=== PATIENT | female | born 1950 | race Caucasian/White ===

== ENCOUNTER → 2018-11-19 | Outpatient (CLI) | payer MEDICARE, OTHER, SELFPAY ==
--- NOTE | 2018-11-19 08:53 | AAVD_ITS ---
Reason For Study: HTN Aorta Measurements Aorta Doppler Measurements Proximal aorta measures1.65 x 1.75cm. in cross- Peak systolic flow velocities within the proximal sectional axis. aorta measure 54.5 cm/sec. Proximal aorta measures1.86cm. in longitudinal Peak systolic flow velocities within the mid aorta axis. measure 55.9 cm/sec. Mid aorta measures1.24 x 1.35cm. in cross- Peak systolic flow velocities within the distal sectional axis. aorta measure 68.6 cm/sec. Mid aorta measures1.32cm. in longitudinal axis. Distal aorta measures1.35 x 1.33cm. in cross- sectional axis. Distal aorta measures1.35cm. in longitudinal axis. Left Iliac Artery Left iliac artery measures 0.76 x 0.76 cm. in the cross-sectional axis. Peak systolic velocity in the left iliac artery measures 69.4 cm/sec. Left iliac artery measures 0.69 cm. in the longitudinal axis. Right Iliac Artery Right iliac artery measures 0.74 x 0.97 cm. in the cross-sectional axis. Right iliac artery measures 0.61 cm. in the longitudinal axis. Peak systolic velocity in the right iliac artery measures 48.5 cm/sec. Procedure Aorta IVC Iliac vasculature or bypass grafts [id number]. Technically difficult due to gas. Exam performed in department. Interpretation Summary 1. no aortoiliac aneurysm or stenosis seen. Ordering Physician: Elia White Referring Physician: Jj Campbell Performed By: Kassie Kumar, DENNIS, RVT
== END | disposition home or self-care (01) ==
LOC: CVS 08:49
PROVIDERS: Family Provider Preventive Medicine Occupational Medicine; PCP Preventive Medicine Occupational Medicine; Referring Provider Surgery Vascular Surgery; Visit Provider Surgery Vascular Surgery
DX: I10 Essential (primary) hypertension (principal); I72.0 Aneurysm of carotid artery; K21.9 Gastro-esophageal reflux disease without esophagitis; M81.0 Age-related osteoporosis without current pathological fracture; M19.90 Unspecified osteoarthritis, unspecified site; Z86.718 Personal history of other venous thrombosis and embolism
CPT/HCPCS: 93978

== ENCOUNTER → 2019-02-11 16:15 | Outpatient (CLI) | payer MEDICARE, OTHER, SELFPAY ==
--- NOTE | 2019-02-11 16:19 | VDLE_ITS ---
Reason For Study: PAIN Procedure LEFT Exam performed in department. GSV is normal. A preliminary report was called and/or CFV is compressible, spontaneous, phasic, faxed to [facility]. competent, and demonstrates normal augmentation. FV is compressible, spontaneous, phasic, competent and demonstrates normal augmentation. PTV is compressible. LT PerV is compressible. Left POPV is PARTIALLY compressible. Left T/P Trunk is DILATED and NONCOMPRESSIBLE . Interpretation Summary Acute deep vein thrombosis is noted in the left popliteal vein. Acute deep vein thrombosis is noted in the left tibio-peroneal trunk. The remainder of the left lower extremity deep venous system is patent and compressible. The left common femoral vein and femoral vein are competent. The left great saphenous vein appears patent and compressible segmentally. Ordering Physician: Marcos Manuel Referring Physician: AMOS LANZA Performed By: Cadence Mckeon RDCS, RVT
== END ==
PROVIDERS: Family Provider Preventive Medicine Occupational Medicine; PCP Preventive Medicine Occupational Medicine; Referring Provider Podiatrist Foot & Ankle Surgery; Visit Provider Podiatrist Foot & Ankle Surgery
DX: M79.662 Pain in left lower leg (principal)
CPT/HCPCS: 93971

== ENCOUNTER → 2019-03-06 12:11 | Outpatient (CLI) | payer MEDICARE, OTHER, SELFPAY ==
[2019-02-25 07:34] VITALS: BMI 27.1
[2019-03-06 12:48] VITALS: PULSE 102; PULSE 105; PULSE 106; PULSE 108; PULSE 109; PULSE 113; PULSE 93; PULSE 95; O2SAT 93; O2SAT 94; O2SAT 95; O2SAT 96; O2SAT 97
--- NOTE | 2019-03-07 10:20 | PCM.PSN.6M ---
PSN 6 Minute Walk Test - 6 Minute Walk Test 6 Minute Walk Test: 6 Minute Walk Test PSN:6-Minute Walk Test Start: 03/06/19 12:48 Freq: Status: Active Protocol: RESP.6MINW Document 03/06/19 12:48 KATHERINE (Rec: 03/06/19 12:50 ARMENON [id number]) 6 Minute Walk Test Date Performed 03/06/19 Time Performed 12:30 Height 5 ft Weight: 130 lb Weight in Pounds 130.[address]: Artis Gonzalez Assistive device used: None Pre-test Oxygen Delivery Method Room Air Pulse Ox (%) 94 Pulse Rate (60-100 beats/min) 95 Dyspnea Faraz Scale (0-10) 0 Exertion Faraz Scale (6-20) 6 1st minute Oxygen Delivery Method Room Air Pulse Ox (%) 95 Pulse Rate (60-100 beats/min) 108 H 2nd minute Oxygen Delivery Method Room Air Pulse Ox (%) 94 Pulse Rate (60-100 beats/min) 102 H 3rd minute Oxygen Delivery Method Room Air Pulse Ox (%) 95 Pulse Rate (60-100 beats/min) 113 H 4th minute Oxygen Delivery Method Room Air Pulse Ox (%) 96 Pulse Rate (60-100 beats/min) 106 H 5th minute Oxygen Delivery Method Room Air Pulse Ox (%) 94 Pulse Rate (60-100 beats/min) 105 H 6th minute Oxygen Delivery Method Room Air Pulse Ox (%) 93 Pulse Rate (60-100 beats/min) 109 H Dyspnea Faraz Scale (0-10) 5 Exertion Faraz Scale (6-20) 14 Post-test Oxygen Delivery Method Room Air Pulse Ox (%) 97 Pulse Rate (60-100 beats/min) 93 Full Laps Walked 12 Partial Lap, Number of Tiles Walked 32 Total Distance Walked (ft) 740 - Interpretation Interpretation: The patient ambulated 740 feet over the course of 6 minutes beginning on room air without assistive devices or breaks. Pretesting oxygen saturation was noted to be 94% on room air. With ambulation, the keyanna oxygen saturation was 93%. Although there was evidence of impaired walk distance, there was no significant exertional oxygen desaturation. - Recommendations Recommendations: There is no indication for the use of supplemental oxygen at this time.
== END ==
PROVIDERS: Family Provider Preventive Medicine Occupational Medicine; PCP Preventive Medicine Occupational Medicine; Referring Provider Internal Medicine Critical Care Medicine; Visit Provider Internal Medicine Critical Care Medicine
DX: R06.09 Other forms of dyspnea (principal)
CPT/HCPCS: 94618

== ENCOUNTER → 2019-03-21 10:41 | Outpatient (CLI) | payer MEDICARE, OTHER, SELFPAY ==
[2019-02-25 07:34] VITALS: BMI 27.1
--- NOTE | 2019-03-22 10:32 | PFT ---
INTRODUCTION: The patient is a 69-year-old female that presents for pulmonary function studies secondary to a diagnosis of dyspnea. Respiratory therapy reports good patient effort. Bronchodilators were used during testing. INTERPRETATION: Forced expiration spirometry demonstrates the presence of a moderately severe large airways obstructive ventilatory defect. There was a significant response to aerosolized bronchodilators, based upon change noted in FVC. Spirograms are of good quality and do not plateau indicating slow emptying of the lungs. Body plethysmography was performed and reveals lung volumes to be within normal limits. Diffusing capacity by single breath CO is reduced at 49% of predicted. IMPRESSION: Partially reversible moderately severe large airways obstructive ventilatory defect with symmetric reduction in diffusing capacity.
== END ==
PROVIDERS: Family Provider Preventive Medicine Occupational Medicine; PCP Preventive Medicine Occupational Medicine; Referring Provider Internal Medicine Critical Care Medicine; Visit Provider Internal Medicine Critical Care Medicine
DX: R06.09 Other forms of dyspnea (principal)
CPT/HCPCS: 94060; 94726; 94729

== ENCOUNTER → 2019-04-08 08:37 | Outpatient (CLI) | payer MEDICARE, OTHER, SELFPAY ==
[2019-02-25 07:34] VITALS: BMI 27.1
--- NOTE | 2019-04-08 08:41 | AAVD_ITS ---
Reason For Study: Hx Blood clots Aorta Measurements Aorta Doppler Measurements Proximal aorta measures1.32 x 1.30cm. in cross- Peak systolic flow velocities within the proximal sectional axis. aorta measure 40.2 cm/sec. Proximal aorta measures1.34cm. in longitudinal Peak systolic flow velocities within the mid aorta axis. measure 45.9 cm/sec. Mid aorta measures1.27 x 1.25cm. in cross- Peak systolic flow velocities within the distal sectional axis. aorta measure 62.9 cm/sec. Mid aorta measures1.27cm. in longitudinal axis. Distal aorta measures1.12 x 1.12cm. in cross- sectional axis. Distal aorta measures1.12cm. in longitudinal axis. IVC prox measures 1.29 x 1.24 cm with normal venous flow. IVC mid measures 0.93 x 1.04 cm with normal venous flow. IVC distal measures 0.84 x 1.11 cm with normal venous flow. Left Iliac Artery Left iliac artery measures 0.68 x 0.66 cm. in the cross-sectional axis. Left iliac artery measures 0.67 cm. in the longitudinal axis. Peak systolic velocity in the left iliac artery measures 0.83 cm/sec. Right Iliac Artery Right iliac artery measures 0.73 x 0.71 cm. in the cross-sectional axis. Right iliac artery measures 0.73 cm. in the longitudinal axis. Peak systolic velocity in the right iliac artery measures 103.9 cm/sec. Procedure Aorta IVC Iliac vasculature or bypass grafts [id number]. Exam performed in department. Interpretation Summary 1. No aortoiliac aneurysm or occlussive disease noted. 2. IVC appears patent with normal flow. Ordering Physician: Elia White Referring Physician: Jj Campbell Performed By: Mandi Reed RVT
== END ==
PROVIDERS: PCP Preventive Medicine Occupational Medicine; Referring Provider Surgery Vascular Surgery; Visit Provider Surgery Vascular Surgery
DX: Z95.828 Presence of other vascular implants and grafts (principal); Z86.718 Personal history of other venous thrombosis and embolism
CPT/HCPCS: 93978

== ENCOUNTER → 2019-12-24 09:54 | Outpatient (CLI) | payer MEDICARE, OTHER, SELFPAY ==
[2019-05-22 10:51] VITALS: BMI 27.1
--- NOTE | 2019-12-25 13:00 | PFT ---
INTRODUCTION: The patient is a 69-year-old female that presents for pulmonary function studies secondary to a diagnosis of COPD. Respiratory therapy reports good patient effort. Bronchodilators were used during testing. INTERPRETATION: Forced expiration spirometry demonstrates the presence of a moderate large airways obstructive ventilatory defect. There was no significant response to aerosolized bronchodilators, based upon strict ATS criteria. Spirograms are of fair quality and do not plateau indicating slow emptying of the lungs. Body plethysmography was performed and revealed an elevated RV to 152% of predicted, indicative of underlying air trapping. Diffusing capacity by single breath CO is severely reduced at 35% of predicted. When compared to previous pulmonary function studies from February 2019 there has been improvement in the patient's FEV 1 by 20% along with a 26% reduction in DLCO. IMPRESSION: Irreversible moderate large airways obstructive ventilatory defect with associated air trapping and disproportionate reduction in diffusing capacity. There have been changes in the patient's pulmonary function studies since February 2019, as noted above.
== END ==
PROVIDERS: PCP Preventive Medicine Occupational Medicine; Referring Provider Nurse Practitioner Acute Care; Visit Provider Nurse Practitioner Acute Care
DX: J44.9 Chronic obstructive pulmonary disease, unspecified (principal)
CPT/HCPCS: 94060; 94726; 94729

== ENCOUNTER → 2019-12-25 09:51 | Outpatient (CLI) | payer MEDICARE, OTHER, SELFPAY ==
[2019-05-22 10:51] VITALS: BMI 27.1
[2019-12-25 10:35] VITALS: PULSE 69; PULSE 73; PULSE 82; PULSE 91; PULSE 92; PULSE 95; PULSE 96; O2SAT 91; O2SAT 93; O2SAT 94; O2SAT 95; O2SAT 96
--- NOTE | 2019-12-27 07:43 | WT_ITS ---
PSN 6 Minute Walk Test - 6 Minute Walk Test 6 Minute Walk Test: 6 Minute Walk Test PSN:6-Minute Walk Test Start: 12/25/19 10:35 Freq: Status: Active Protocol: RESP.6MINW Document 12/25/19 10:35 ARMENROCIO (Rec: 12/25/19 10:37 [email or web address] [id number]) 6 Minute Walk Test Date Performed 12/25/19 Time Performed 10:00 Height 5 ft 0.5 in Weight: 135 lb Weight in Pounds 135.[address]: Roseanne Barrera [employer] Assistive device used: None Pre-test Oxygen Delivery Method Room Air Pulse Ox (%) 95 Pulse Rate (60-100 beats/min) 69 Dyspnea Faraz Scale (0-10) 0 Exertion Faraz Scale (6-20) 6 1st minute Oxygen Delivery Method Room Air Pulse Ox (%) 93 Pulse Rate (60-100 beats/min) 82 2nd minute Oxygen Delivery Method Room Air Pulse Ox (%) 91 Pulse Rate (60-100 beats/min) 91 3rd minute Oxygen Delivery Method Room Air Pulse Ox (%) 93 Pulse Rate (60-100 beats/min) 92 4th minute Oxygen Delivery Method Room Air Pulse Ox (%) 94 Pulse Rate (60-100 beats/min) 92 Number of Rests Taken 1 Reported Symptoms Increased Work of Breathing 5th minute Oxygen Delivery Method Room Air Pulse Ox (%) 93 Pulse Rate (60-100 beats/min) 96 6th minute Oxygen Delivery Method Room Air Pulse Ox (%) 91 Pulse Rate (60-100 beats/min) 95 Dyspnea Faraz Scale (0-10) 4 Exertion Faraz Scale (6-20) 14 Post-test Oxygen Delivery Method Room Air Pulse Ox (%) 96 Pulse Rate (60-100 beats/min) 73 Full Laps Walked 11 Partial Lap, Number of Tiles Walked 48 Total Distance Walked (ft) 697 - Interpretation Interpretation: The patient ambulated 697 feet over the course of 6 minutes beginning on room air without assistive devices. Pretesting oxygen saturation was noted to be 95% on room air. With ambulation, the keyanna oxygen saturation was 91%. Although there was evidence of impaired walk distance, there was no significant exertional oxygen desaturation. - Recommendations Recommendations: There is no indication for the use of supplemental oxygen at this time.
== END ==
PROVIDERS: PCP Preventive Medicine Occupational Medicine; Referring Provider Nurse Practitioner Acute Care; Visit Provider Nurse Practitioner Acute Care
DX: J44.9 Chronic obstructive pulmonary disease, unspecified (principal)
CPT/HCPCS: 94618

== ENCOUNTER → 2020-01-14 12:52 | Outpatient (CLI) | payer MEDICARE, OTHER, SELFPAY ==
[2020-01-03 09:51] VITALS: BMI 28.5
--- NOTE | 2020-01-14 12:53 | ECHOD_ITS ---
Reason For Study: DYSPNEA Procedure This was a 2D Doppler, Color Flow transthoracic echocardiogram. Exam performed in department. Left Ventricle Normal LV size. Left ventricular systolic function is normal. The estimated ejection fraction is 65 %. Stage 2 diastolic dysfunction. No regional wall motion abnormalities noted. Right Ventricle Normal RV size. Normal systolic function. Atria The left atrium is mildly enlarged. Normal right atrium. Mitral Valve Bileaflet diffuse mitral valve thickening. Moderate (2+) eccentric mitral valve insufficiency. Tricuspid Valve Normal tricuspid valve. Mild to moderate (1-2+) tricuspid valve insufficiency. Pulmonary artery systolic pressure is 50 mmHg. Moderate pulmonary hypertension. Aortic Valve Trisinus/trileaflet aortic valve. Mild (1+) aortic valve insufficiency. Pulmonic Valve Normal pulmonic valve. Great Vessels Mild to moderately dilated aortic root. The pulmonary artery is normal size. Normal inferior vena cava. Pericardium/Pleural No pericardial effusion. MMode/2D Measurements & Calculations LVIDd: 4.2 cm IVSd: 1.0 cm Ao root diam: 4.0 cm LVIDs: 2.9 cm LVPWd: 0.97 cm RVDd: 3.2 cm FS: 31.3 % LAV(MOD-bp): 69.6 ml LA A4 area: 23.9 cm2 LA dimension(2D): 3.8 cm LAV(MOD-bp) Indexed: 44.0 ml/m2 LAV(MOD-sp2): 65.2 ml LAV(MOD-sp4): 77.5 ml RA A4 area: 15.8 cm2 Time Measurements MV dec time: 0.17 sec Doppler Measurements & Calculations MV E max hemant: 103.1 cm/sec Lat Peak E' Hemant: 8.5 cm/sec Med Peak E' Hemant: 5.5 cm/sec MV A max hemant: 71.3 cm/sec E/E' lat: 12.1 E/E' med: 18.8 MV E/A: 1.4 MV V2 max: 133.4 cm/sec Ao V2 max: 108.8 cm/sec AI max hemant: 362.4 cm/sec MV max P.1 mmHg Ao max P.7 mmHg AI max P.7 mmHg MV V2 mean: 72.6 cm/sec AI dec slope: 209.2 cm/sec2 MV mean P.4 mmHg AI P1/2t: 507.5 msec MV V2 VTI: 35.0 cm LV V1 max: 95.0 cm/sec PA V2 max: 52.7 cm/sec TR max hemant: 337.7 cm/sec LV V1 max P.6 mmHg TR max P.6 mmHg Interpretation Summary Normal LV size. Left ventricular systolic function is normal. The estimated ejection fraction is 65 %. Pulmonary artery systolic pressure is 50 mmHg. Moderate pulmonary hypertension. Stage 2 diastolic dysfunction. Moderate (2+) eccentric mitral valve insufficiency. Ordering Physician: Artis Gonzalez Referring Physician: AMOS LANZA Performed By: Cadence Mckeon RDCS, RVT
--- NOTE | 2020-01-14 13:44 | CT_ITS ---
HISTORY: LUNG CANCER SCREENING. 1 PPD X 30 YEARS. COPD TECHNIQUE: Helically acquired images of the chest were obtained without IV contrast. Number of images including paperwork: 810. A radiation dose optimization technique was used for this scan. Exam performed with low-dose technique per low-dose CT lung cancer screening protocol. CTDI 2.01 mGy. Total DLP 63.94 mGy*cm. COMPARISON: CTA chest 03/04/2013 FINDINGS: VASCULATURE: Vascular tortuosity. HEART/PERICARDIUM: Normal heart size. Coronary calcification. MEDIASTINUM: Moderate to large hiatal hernia. ADENOPATHY: No pathologic appearing adenopathy. THYROID: Unremarkable visualized portions. LUNG PARENCHYMA: No consolidation or mass. Moderate emphysema. Dependent and linear opacities compatible with subsegmental atelectasis and/or scarring. No suspicious lung nodule detected.. PLEURAL SPACES: Unremarkable. UPPER ABDOMEN: Unremarkable. OSSEOUS AND SOFT TISSUE STRUCTURES: No acute skeletal findings. DEVICES: None. CT/Low Dose CT Lung Screening IMPRESSION: No suspicious lung nodule detected. Lung-RADS 1. Recommend continued annual screening per published guidelines. Individualized dose optimization techniques were used for this CT. at 2352 Reported and signed by: Milagros Menendez MD Electronically Signed: Milagros Menendez MD at 23:51 EST Tel , Service support ,
== END ==
PROVIDERS: PCP Preventive Medicine Occupational Medicine; Referring Provider Internal Medicine Critical Care Medicine; Visit Provider Internal Medicine Critical Care Medicine
DX: R06.02 Shortness of breath (principal); R06.00 Dyspnea, unspecified; F17.211 Nicotine dependence, cigarettes, in remission; R06.09 Other forms of dyspnea
CPT/HCPCS: 93306; G0297

== ENCOUNTER 2020-02-02 18:18 | Inpatient (IN) | payer MEDICARE, OTHER, SELFPAY ==
[2020-01-03 09:51] VITALS: BMI 28.5
[2020-02-02] VITALS (24 sets, daily range): BP systolic 87–113; BP diastolic 13–80; PULSE 72–89; RESP 12–16; TEMP 36.6–36.7; O2SAT 86–100; BMI 27.8
--- NOTE | 2020-02-02 18:15 | RAD_ITS ---
STUDY: X-RAY CHEST REASON FOR EXAM: Female, 69 years old. ETT placement, OG tube placement TECHNIQUE: Single AP portable view of the chest. COMPARISON: 01/25/2013. FINDINGS: Endotracheal tube terminates 4.7 cm above the julia. Nasogastric tube just enters the stomach, with the sidehole at the esophagogastric junction. Consider advancing the tube 10 to 12 cm. Normal lung volumes. Widespread bilateral pulmonary opacities most pronounced throughout the left lung, and in both lung bases, left worse than right. Findings could represent pulmonary edema and/or nonspecific multifocal pneumonia. Possible small left pleural effusion. Mild cardiomegaly. No acute abnormality of the bones or soft tissues. RAD/CXR for Line Placement IMPRESSION: Lines and tubes as described. Consider advancing the nasogastric tube. Bilateral widespread pulmonary opacities most pronounced on the left. Electronically Signed: Jasen Diego MD at 19:14 EST , Service support ,
--- NOTE | 2020-02-02 18:29 | PCM.HP.STD ---
Problem List (1) Respiratory failure Status: Acute Qualifiers: Chronicity: acute Respiratory failure complication: hypoxia and hypercapnia Qualified Code(s): J96.01 - Acute respiratory failure with hypoxia; J96.02 - Acute respiratory failure with hypercapnia (2) Essential hypertension Status: Chronic (3) Pneumonia due to COVID-19 virus Status: Acute (4) COPD (chronic obstructive pulmonary disease) Status: Chronic Qualifiers: COPD type: unspecified COPD Qualified Code(s): J44.9 - Chronic obstructive pulmonary disease, unspecified History of Present Illness Date of Admission: 02/02/20 Chief Complaint: Acute respiratory failure The patient is a 69 year old F with PMHx of COPD, not oxygen, h/o DVT, s/p IVC filter, on coumadin, hypertension who comes in as a transfer from [facility]. She had gone in on 01/30/20 with progressive shortness of breath ongoing for about 2 weeks with fevers and cough. Patient was initially on 1 L of oxygen. The next day, on 01/31/20, she progressed to about 4 L of oxygen. She became progressively short of breath today, was on 5 L of oxygen in the morning and was subsequently intubated around 2pm. Vital signs in [facility] prior to transfer was 84/63, on Levophed 10 mcg, respiratory rate of 14, heart rate 82. Covid-19 test was positive on 01/30/20. Her sodium was 140 on 02/01/20, potassium 5.2, chloride 107, bicarbonate 18, BUN 36, creatinine 1.25 CRP was 6.7; it was more than 12 on admission. EKG showed atrial fibrillation, rate controlled QTC was 380. Chest X-ray showed diffuse bilateral interstitial infiltrates On arrival here in [facility], her admitting systolic blood pressures were less than 90, heart rate was 79. Patient was on Levophed and mechanical ventilator - respiratory rate was 14, PEEP of 5, tidal volume 450, WBC count is 20.1, hemoglobin 10.4, platelet count of 217, sodium is 151, serum was 5.5, chloride 117, bicarbonate 18, BUN 30, creatinine 1.79, lactic acid was 8.0, calcium was 7.7, calcium is 9.46, AST 50149, ALT 463, ALP 88, albumin 1.8. UA showed clear urine, nitrite negative, leukocyte estrase negative. EEG showed pH of 7.19, PO2 of 48, bicarb 16, INR APTT, D-dimer She was unresponsive to calls, not on sedatives. History was obtained from her daughter who works here as a nurse in unit. Past Medical History Past Medical History (Chronic Problems): Chronic Problems (Last Reviewed 01/03/20 @ 09:52 by Mercedes Smart) COPD (chronic obstructive pulmonary disease) (Chronic) Seasonal allergies (Chronic) Asthma-COPD overlap syndrome (Chronic) Essential hypertension (Chronic) COPD without exacerbation (Chronic) COPD with exacerbation (Chronic) Medical History: Medical History (Last Reviewed 01/03/20 @ 09:52 by Mercedes Smart) Pneumonia (Acute) J18.9 Bronchitis (Acute) J40 Tail bone pain (Acute) M53.3 History and physical examination, immigration (Acute) Z02.89 GERD (gastroesophageal reflux disease) (Acute) K21.9 Fatigue (Acute) R53.83 Essential hypertension (Chronic) I10 Dyspnea on minimal exertion (Acute) R06.09 COPD without exacerbation (Chronic) J44.9 COPD with exacerbation (Chronic) J44.1 Ankle fracture, right (Acute) S82.891A Actinic keratitis (Acute) H16.139 Allergies codeine Allergy (Verified 01/03/20 09:51) Unknown Penicillins Allergy (Verified 01/03/20 09:51) Unknown Sulfa (Sulfonamide Antibiotics) Allergy (Verified 01/03/20 09:51) Unknown Home Medications: Ambulatory Orders Medication Instructions Recorded Verapamil [Calan] 240 mg PO DAILY 12/29/12 Aspirin E.C. [Ecotrin] 325 mg PO DAILY 09/30/15 Atenolol [Tenormin] 50 mg PO DAILY 09/30/15 Calcium Carb/Vitamin D [Os-Georgi 1 tab PO DAILY@0800 09/30/15 500MG + D] Dexlansoprazole [Dexilant] 60 mg PO DAILY 09/30/15 Losartan Potassium [Cozaar] 100 mg PO DAILY 09/30/15 azelastine 137 mcg (0.1 %) nasal 2 spray INTRANASAL BID 02/22/19 spray aerosol fluorouracil 5 % topical cream 1 applic TOPICAL BID 02/22/19 cetirizine 10 mg capsule 10 mg PO HS #90 cap 08/15/19 montelukast 10 mg tablet 10 mg PO QPM #30 tab 10/22/19 albuterol sulfate 90 mcg/actuation 2 puff INHALATION Q4H PRN #18 g 01/03/20 aerosol inhaler fluticasone fur. 100 mcg-umeclid 1 inh INHALATION QDAY #3 device 01/03/20 62.5 mcg-vilant 25 mcg inhalat.powder Surgical History: Surgical History (Last Reviewed 01/03/20 @ 09:52 by Mercedes Smart) History of total hip replacement (Resolved) Z96.649 History of total knee replacement (TKR) (Resolved) Z96.659 Hx of bilateral hip replacements (Resolved) Z96.643 Surgical History: total hip arthroplasty, total knee arthroplasty, - - s/p IVC filter, s/p intracranial coiling Psychiatric History: No pertinent psych hx SPEAKER MOUNTER History: No pertinent SPEAKER MOUNTER history Lives: Spouse/ Significant Other Smoking Status: Current every day smoker Tobacco Use: Cigarettes Alcohol: None Drugs: None - *Family History Maternal History Items: Cancer - breast cancer Paternal History Items: Unknown - adopted Review of Systems Unable to obtain accurate/complete ROS d/t: Patient is intubated VTE Information - Inpt Only VTE Present on Admission: No VTE Pharm Prophylaxis ordered?: Yes Patient Problems: Active and Suspected Problems (Last Reviewed 01/03/20 @ 09:52 by Mercedes Smart) Respiratory failure (Acute) Pneumonia due to COVID-19 virus (Acute) - Physical Exam Vitals/I&O's: Body Mass Index (BMI) 28.5 Finger Stick Blood Glucose 88 General: - - Unresponsive, pale, pupils are pinpoint, non-reactive, on mechanical ventilator HEENT: Atraumatic, PERRLA, EOMI, Normocephalic Oral: Dry Mucosa Neck: Supple Lungs: Diminished Cardiovascular: Regular rate, Regular Rhythm, Normal S1, Normal S2, No murmurs Abdomen: Bowel Sounds Present, Soft, Non Tender, Non-Distended, No Hepato-splenomegaly Extremities: No edema Skin: No rashes Musculoskeletal: No Tenderness to Palpation of Joints or Extremities Lymphatic: No Cervical, Supraclavicular, or Inguinal Adenopathy Neurological: Cranial nerves II-XII grossly intact, Neuro grossly intact Psych/Mental Status: Normal Affect, Appropriate Laboratory Results 02/02/20 18:18: WBC Pending, RBC Pending, Hgb Pending, Hct Pending, MCV Pending, MCH Pending, MCHC Pending, RDW Std Deviation Pending, RDW Coeff of Charlie Pending, Plt Count Pending, Neut % (Auto) Pending, Absolute Neuts (auto) Pending 02/02/20 18:18: PT Pending, INR Pending, APTT Pending, D-Dimer Quant (PE/DVT) Pending 02/02/20 18:18: Sodium Pending, Potassium Pending, Chloride Pending, Carbon Dioxide Pending, Anion Gap Pending, BUN Pending, Creatinine Pending, Est GFR (MDRD) Af Amer Pending, Est GFR (MDRD) Non-Af Pending, BUN/Creatinine Ratio Pending, Glucose Pending, Calcium Pending, Total Bilirubin Pending, AST Pending, ALT Pending, Alkaline Phosphatase Pending, Total Protein Pending, Albumin Pending Current Medications Acetaminophen (Acetaminophen 650 Mg Suppository) 650 mg RECTAL Q4H PRN PRN PRN Reason: Pain Score 1-10/Temp > 100.7 F Albuterol Sulfate (Albuterol 2.5 Mg/3 Ml Vial.Neb.) 2.5 mg INHALATION Q2H PRN PRN PRN Reason: SOB/Wheezing Dexamethasone Sodium Phosphate (Dexamethasone 10 Mg/Ml Vial) 6 mg IV DAILY LILA Ondansetron HCl (Ondansetron 4 Mg/2 Ml Vial) 4 mg IV Q8H PRN PRN PRN Reason: NAUSEA/VOMITING Assessment/Plan All Active Problems (Last Reviewed 01/03/20 @ 09:52 by Mercedes Smart) Respiratory failure (Acute) Pneumonia due to COVID-19 virus (Acute) Pneumonia (Acute) Bronchitis (Acute) History of total hip replacement (Resolved) History of total knee replacement (TKR) (Resolved) Tail bone pain (Acute) Hx of bilateral hip replacements (Resolved) History and physical examination, immigration (Acute) GERD (gastroesophageal reflux disease) (Acute) Fatigue (Acute) Dyspnea on minimal exertion (Acute) Ankle fracture, right (Acute) Actinic keratitis (Acute) Weakness (Acute) 1. Acute respiratory failure secondary to COVID-19 pneumonia Patient intubated, on mechanical ventilator ABG showed 7.2, CO2 40.9, PO2 75, bicarb was 16 -were made to patient's PEEP with an increase from 5 to12, FiO2 is 100% Platen Press Feeder consulted 2. Acute encephalopathy, unclear etiology, probably from hypotension and profound hypoxia Patient arrived unresponsive to stimuli, not on sedatives, She had received propofol on intubation in [facility] History of brain bleed with intracranial coiling in [facility] Need to get CT of the brain to rule out intracranial bleed when patient is dynamically stable 3. Hypotension secondary to dehydration, other differentials include septic shock probably from COVID-19 pneumonia Patient was on her blood pressure meds in [facility] -verapamil, atenolol, losartan These medications are on hold Continue on Levophed IV 4. Acute kidney injury, prerenal, from dehydration Creatinine is around 1.1-1.2. Patient's admitting creatinine is 1.75 Continue on IV fluids, repeat blood work in am 5. Possible community-acquired pneumonia/Covid-19 pneumonia Chest X-rays showed bilateral progressive pulmonary opacities, worse on the left Patient was on IV ceftriaxone and is to maintain in [facility] Will start patient on broad spectrum antibiotics?IV vancomycin and Zosyn in light of hypotension Pharmacy to renal dose vancomycin Follow-up on blood cultures 6. Hypernatremia secondary to dehydration, repeat BMP 7. Hyperkalemia continue to #3 and metabolic acidosis Will trend BNP 8. Acute metabolic acidosis secondary to #3 Will start on Bicarbonate drip 9. Elevated lactic acidosis secondary to hypoxia/hypotension 10. Elevated INR, INR 7.7 history of DVT in the left leg, on Coumadin Coumadin on hold, IV vitamin K 5 mg Transfuse FFP 2 units Repeat INR 11. Hematemesis, coffee-ground emesis in OG tube Will continue on IV PPI drip 12. Elevated liver enzymes likely secondary to shock liver AST 1166, ALT is 463 We will trend liver enzymes 13. DVT PPx- on SCDs 14. GI PPx- on PPI drip 15. Code status - Full code I discussed goals of care CODE STATUS with patient's daughter. Daughter wants her mom to be full code. She would switch to DNR if her mom does not get better or she worsens. Time spent discussing CODE STATUS 18 minutes Time spent at the bedside coordinating nursing care, resuscitating, reviewing records from [facility]: 90 mins -[id number]; [id number] Hrs Inpatient E&M: 96071 Init Hosp L3 Procedures: 70279 Critial Care 1st Hr
[2020-02-02 18:30] LABS: Blood Gas Specimen Type VEN; O2 Delivery Device Adult Vent; PEEP 5; SITE L Radial; VBG BASE EXCESS -12 mmol/L (-1.0-3.5); VBG Bicarbonate 16 mmol/L (22-26); VBG PO2 48 mmHg (25-40); VBG SO2 73 % (50-70); VBG TCO2 18 mmol/L (23-33); VBG pCO2 42.6 mmHg (41-51); VBG pH 7.19 (7.32-7.42)
[2020-02-02 18:31] LABS: Hematocrit 35.6 % (37-47); Hemoglobin 10.4 g/dL (12.0-15.0); Mean Corp Hgb Conc 29.2 g/dL (32-36); Mean Corpuscular Hgb 24.5 pg (27.0-32.0); Mean Platelet Vol. 11.9 fl (6.2-12.0); POSITIVE COUNT YES; POSITIVE MORPHOLOGY YES; Platelet Count 217 K/mm3 (150-450); RBC Distribution Width CV 17.8 % (11.6-14.6); RBC Distribution Width SD 54.8 fl (35.1-43.9); Red Blood Count 4.24 M/mm3 (4.2-5.4); White Blood Count 20.1 K/mm3 (4.4-11.0)
[2020-02-02 18:32] LABS: Differential Indicated MANUAL DIFF
--- NOTE | 2020-02-02 18:45 | NURSING ---
Levophed continued from [facility] 10mcg/min.
[2020-02-02 18:55] LABS: Basophil 1 % (0-1); Lymphocyte 6 % (19-41); Monocyte 3 % (0-10); Neutrophil-Band 4 % (0-5); Neutrophil-Segmented 86 % (47-70); Total Cells Counted 100 (MANUAL DIFF)
[2020-02-02 18:56] LABS: ALB/GLOB Ratio 0.5 RATIO (0.9-2.4); AST(SGOT) 1166 U/L (15-37); Alanine Aminotransfer ALT/SGPT 463 U/L (13-56); Albumin, Serum 1.8 g/dL (3.2-5.0); Alkaline Phosphatase 88 U/L (45-117); Anion Gap 16 (5-15); BUN 30 mg/dL (7-18); BUN/Creat Ratio 16.8 RATIO (10-20); Calcium,Total 7.7 mg/dL (8.5-10.1); Chloride 117 mmol/L (98-107); Creatinine, Serum 1.79 mg/dL (0.55-1.02); EST Glomerular Filtration Rate 30 mL/min (>60); Est Glom Filt Rate - Afr Amer 36 mL/min (>60); Globulin 3.6 g/dL (2.2-4.2); Glucose 117 mg/dL (74-106); Potassium 5.5 mmol/L (3.5-5.1); Protein, Total 5.4 g/dL (6.4-8.2); Red Cell Morphology NORM C+C NORMAL (NORM C&C); Sodium Level 151 mmol/L (136-145)
--- NOTE | 2020-02-02 18:56 | CPS ---
CRITICAL ABG VALUES, DR CH AWARE.
[2020-02-02 18:57] LABS: Platelet Estimate ADEQUATE (ADEQ)
[2020-02-02 18:58] LABS: Absolute Lymphocyte Count 1.21 X10^3/uL (0.83-4.51); Absolute Neutrophil Count 18.1 X10^3/uL (2.0-7.7)
[2020-02-02 19:04] LABS: Color, Urine Yellow (Yellow); Glucose, Dipstick Normal (Normal); Ketone-Dipstick 5 mg/dl (Negative); Leukocyte Esterase-Dipstick Negative /ul (Negative); Nitrite-Dipstick Negative (Negative); Occult Blood-Urine Negative /ul (Negative); Protein-Dipstick 30 mg/dl (Negative); Urine Bilirubin Dipstick Negative (Negative); Urine Clarity Clear (Clear); Urine Urobilinogen Normal (Normal)
[2020-02-02 19:07] LABS: Lactic Acid 8.6 mmol/L (0.4-1.9)
[2020-02-02 19:43] LABS: BNP,B-Type NATRIURETIC PEPTIDE 378.5 pg/mL (0-100)
[2020-02-02 19:53] LABS: Prothrombin Time (Protime)PT. 66.1 SECONDS (11.7-14.9)
[2020-02-02 19:54] LABS: Partial Thromboplast Time 40.3 Seconds (24.1-36.2)
[2020-02-02] MEDS: dexAMETHasone 10 MG/ML Vial 6 MG IV (20:05)
[2020-02-02 20:11] LABS: Allen Test Positive; Base Excess -12 mmol/L (-2 to +2); Blood Gas Specimen Type ART; FI02 100; Mode AC; O2 Delivery Device Adult Vent; PEEP 5; PO2 75 mmHG (75-100); RR 14; SITE L Radial; SO2 91 % (95-99); Total Carbon Dioxide 17 mmol/L; Vt 450; pCO2 40.9 mmHg (35-45)
--- NOTE | 2020-02-02 20:15 | RAD_ITS ---
STUDY: X-RAY - ABDOMEN/PELVIS REASON FOR EXAM: Female, 69 years old. OG tube adjustment TECHNIQUE: Single AP view of the abdomen / pelvis. COMPARISON: Same day, 6:06 PM. FINDINGS: Nasogastric tube terminates in the upper stomach, minimally advanced relative to the prior study. The sidehole is just beyond the esophagogastric junction. No other significant changes since 2 hours earlier. Electronically Signed: Jasen Diego MD at 21:19 EST , Service support , RAD/Abdomen Single View (Portable)
[2020-02-02 20:26] LABS: D-Dimer Quantitative (DVT/PE) 5.66 FEU/ug/m (0.27-0.49); International Normalized Ratio 7.7
[2020-02-02] MEDS: Vancomycin IV 1,000 MG/200 ML BAG 200 MG IV (21:19)
--- NOTE | 2020-02-02 21:45 | PCM.RX.CS ---
Consult Pharmacy has been consulted to manage selected antiobiotic: Vancomycin Type of Consult: New start Suspected Infection: Pneumonia Prior Doses of Antibiotics Received/Current Regimen: Medications Vancomycin HCl (Vancomycin) 1,000 mg in 200 mls @ 200 mls/hr IV X1 ONE Stop: 02/02/20 21:59 Last Admin: 02/02/20 21:19 Dose: 200 mls/hr Documented by: Vancomycin HCl (Vancomycin) 1,000 mg in 200 mls @ 200 mls/hr IV Q24H LILA to continue starting 02/03/20 2100 Labs: Sodium 151 mmol/L (136-145) H 02/02/20 18:18 Potassium 5.5 mmol/L (3.5-5.1) H 02/02/20 18:18 Chloride 117 mmol/L (98-107) H 02/02/20 18:18 Carbon Dioxide 18.0 mmol/L (21.0-32.0) L 02/02/20 18:18 Anion Gap 16 (5-15) H 02/02/20 18:18 BUN 30 mg/dL (7-18) H 02/02/20 18:18 Creatinine 1.79 mg/dL (0.55-1.02) H 02/02/20 18:18 Est GFR (MDRD) Af Amer 36 mL/min (>60) L 02/02/20 18:18 Est GFR (MDRD) Non-Af 30 mL/min (>60) L 02/02/20 18:18 BUN/Creatinine Ratio 16.8 RATIO (10-20) 02/02/20 18:18 Glucose 117 mg/dL (74-106) H 02/02/20 18:18 Microbiology: Microbiology 02/02/20 18:45 Urine Catheter - Miles Legionella Antigen - Final 02/02/20 18:45 Urine Catheter - Miles Streptococcus pneumoniae Antigen (M - Final Weight used for dosin.4 kg Estimated Creatinine Clearance: 33.4 Goal Trough: 15-20 mcg/mL Pharmacy Plan for Drug Dosing: Pharmacy Service will continue to monitor and adjust dosing as required. Follow-Up Labs: Trough Vancomycin - draw 30 minutes before 3rd dose due Labs to be done on [date and time ordered]: 02/04/20 6220
--- NOTE | 2020-02-02 21:46 | NURSING ---
Dr. Lacy aware MAPs are not at goal for Levophed, it is currently being ran through a peripheral IV at the MAX rate of 10mcg/min. We are waiting to place central line due to increased INR of 7.7.
--- NOTE | 2020-02-02 21:59 | CPS ---
ABG Critical Value: pH 7.[address] Lacy. PEEP mistakenly entered as 5 cm and is 8 cm
--- NOTE | 2020-02-02 22:05 | RAD_ITS ---
ADVANCED OG ATTEMPT #3 OG tube placement Abdomen one view Comparison February 02, 2020 at 8:11 PM FINDINGS: Frontal view of the chest and abdomen demonstrates a orogastric tube with the tip just in the fundus of the stomach and the side port at the GE junction. This is in similar position to prior study Recommend advancing ET tube is visualized with the tip approximately 5.3 cm proximal to the julia. Inferior vena cava filter similar RAD/Abdomen Single View (Portable) IMPRESSION: OGT in is in similar position to the prior study Recommend advancing at 2304 Reported and signed by: Tracee Clark DO Electronically Signed: Tracee Clark DO at 23:03 EST Tel , Service support ,
[2020-02-02 22:31] LABS: Reflex Lactate? Y
[2020-02-02 23:39] LABS: Lactic Acid 11.9 mmol/L (0.4-1.9)
[2020-02-02] MEDS: Ipratropium/Albuterol Sulfate 3 ML AMPUL.NEB INHALATION (23:40)
[2020-02-03] VITALS (60 sets, daily range): BP systolic 51–154; BP diastolic 22–95; PULSE 61–134; RESP 14–25; TEMP 36.8–38; O2SAT 91–100; BMI 26.8
[2020-02-03 01:41] LABS: Base Excess -8 mmol/L (-2 to +2); Bicarbonate 18.3 mmol/L (22-26); Blood Gas Specimen Type ART; FI02 70; Mode AC; O2 Delivery Device Adult Vent; PEEP 12; PO2 61 mmHG (75-100); RR 14; SITE R Radial; SO2 89 % (95-99); Total Carbon Dioxide 19 mmol/L; Vt 450; pCO2 35.4 mmHg (35-45); pH 7.32 (7.35-7.45)
[2020-02-03 02:23] LABS: Anion Gap 17 (5-15); BUN 37 mg/dL (7-18); BUN/Creat Ratio 16.8 RATIO (10-20); Calcium,Total 7.8 mg/dL (8.5-10.1); Chloride 115 mmol/L (98-107); EST Glomerular Filtration Rate 23 mL/min (>60); Est Glom Filt Rate - Afr Amer 28 mL/min (>60); Estimated Creatinine Clearance 20.25 ml/min; Glucose 177 mg/dL (74-106); Potassium 5.4 mmol/L (3.5-5.1); Sodium Level 150 mmol/L (136-145)
[2020-02-03 02:25] LABS: Hemoglobin 8.9 g/dL (12.0-15.0); POSITIVE COUNT YES; POSITIVE MORPHOLOGY YES
[2020-02-03 03:55] LABS: International Normalized Ratio 2.8; Prothrombin Time (Protime)PT. 29.1 SECONDS (11.7-14.9)
[2020-02-03 04:22] LABS: Lactic Acid 10.3 mmol/L (0.4-1.9)
--- NOTE | 2020-02-03 05:55 | RAD_ITS ---
SOBCOVID + SOBCOVID + EXAMINATION/TECHNIQUE: XR Chest 1 View: COMPARISON: February 02, 2020 FINDINGS: LINES/DEVICES: ET tube with the tip approximately 3.2 cm proximal to the julia NG tube is been advanced with the tip not visualized but at least in the body of the stomach LUNGS: There are bilateral airspace opacities greatest in the left lung. Mild improvement in the left upper lobe when compared to prior study. Interstitial thickening is seen bilaterally. Probable small left pleural effusion. Improving aeration is also noted within the left lung base No pneumothorax. MEDIASTINUM AND CARDIOVASCULAR STRUCTURES: Cardiac silhouette not enlarged. Central airways and mediastinal contour are unremarkable. BONES AND SOFT TISSUES: Unremarkable. RAD/Chest 1 View (Portable) IMPRESSION: ET tube similar Interval advancement of NG tube with the tip at least in the body of the stomach but not visualized on this study There is improving aeration in the left lung apex as well as the left lung base. Interstitial thickening is again noted as well as bibasilar airspace opacities at 0656 Reported and signed by: Tracee Clark DO Electronically Signed: Tracee Clark DO at 6:55 EST Tel , Service support ,
--- NOTE | 2020-02-03 06:34 | PCM.CON.CC ---
Reason for Consult Date of Consultation: 02/03/20 Reason for Consultation: Acute hypoxemic respiratory failure secondary to COVID-19 pneumonia History of Present Illness: The patient is a 69-year-old female, with a history as outlined below, who presented to [facility] as a transfer from [facility] on February 01 with worsening respiratory failure. The patient is currently followed in the pulmonary medicine clinic by myself due to a history of COPD, history of DVT and prior nicotine dependency. She does have a smoking history of approximately 0.75 packs/day x 40 years. She quit smoking completely in 2012. Pulmonary function studies completed in December 2019 revealed evidence of an irreversible moderate large airways obstructive ventilatory defect with associated air trapping and disproportionate reduction in diffusing capacity. The patient's DLCO had decreased by 26% since February 2019. The patient at her baseline is on a triple therapy inhaler regimen with Trelegy Ellipta. On presentation to the intensive care unit, the patient was noted to be afebrile but was hemodynamically unstable, requiring the initiation of vasopressor support. Laboratory evaluation revealed an elevated white blood cell count to 20,000. The patient's INR was supratherapeutic at 7.7 with an elevated D-dimer to 5.6. Lactate was elevated to 8.6. AST and ALT were increased to 1166 and 463, respectively. BNP was elevated at 378. The patient did receive supplemental IV fluid hydration. In addition, she was given a one-time dose of vitamin K and FFP. It does appear that she was placed on a bicarbonate drip by the admitting physician overnight as well. The patient has been maintained on broad-spectrum antimicrobials with Zosyn and vancomycin. Arterial blood gas obtained this morning revealed a pH of 7.32 with a corresponding PCO2 of 35 and PO2 of 61. The patient is currently being maintained on assist control mode of mechanical ventilation with an FiO2 requirement of 70% and PEEP of 12. Past Medical History Past Medical History (Chronic Problems): Chronic Problems (Last Reviewed 01/03/20 @ 09:52 by Mercedes Smart) COPD (chronic obstructive pulmonary disease) (Chronic) Seasonal allergies (Chronic) Asthma-COPD overlap syndrome (Chronic) Essential hypertension (Chronic) COPD without exacerbation (Chronic) COPD with exacerbation (Chronic) Medical History: Medical History (Last Reviewed 01/03/20 @ 09:52 by Mercedes Smart) Pneumonia (Acute) J18.9 Bronchitis (Acute) J40 Tail bone pain (Acute) M53.3 History and physical examination, immigration (Acute) Z02.89 GERD (gastroesophageal reflux disease) (Acute) K21.9 Fatigue (Acute) R53.83 Essential hypertension (Chronic) I10 Dyspnea on minimal exertion (Acute) R06.09 COPD without exacerbation (Chronic) J44.9 COPD with exacerbation (Chronic) J44.1 Ankle fracture, right (Acute) S82.891A Actinic keratitis (Acute) H16.139 Allergies codeine Allergy (Verified 01/03/20 09:51) Unknown Penicillins Allergy (Verified 01/03/20 09:51) Unknown Sulfa (Sulfonamide Antibiotics) Allergy (Verified 01/03/20 09:51) Unknown Home Medications: Ambulatory Orders Medication Instructions Recorded Verapamil [Calan] 240 mg PO DAILY 12/29/12 Aspirin E.C. [Ecotrin] 325 mg PO DAILY 09/30/15 Atenolol [Tenormin] 50 mg PO DAILY 09/30/15 Calcium Carb/Vitamin D [Os-Georgi 2 tab PO DAILY@0800 09/30/15 500MG + D] Dexlansoprazole [Dexilant] 60 mg PO DAILY 09/30/15 Losartan Potassium [Cozaar] 50 mg PO DAILY 09/30/15 azelastine 137 mcg (0.1 %) nasal 1 spray INTRANASAL BID 02/22/19 spray aerosol fluorouracil 5 % topical cream 1 applic TOPICAL BID 02/22/19 Albuterol Sulfate [Albuterol 1 puff INHALATION Q4H PRN 02/02/20 Sulfate HFA] Cetirizine HCl [Wal-Zyr] 10 mg PO HS 02/02/20 Fluticasone/Umeclidin/Vilanter 1 inh INHALATION QDAY 02/02/20 [Trelegy Ellipta] Montelukast Sodium 10 mg PO QPM 02/02/20 Warfarin [Coumadin] 5 mg PO DAILY 02/02/20 Surgical History: Surgical History (Last Reviewed 01/03/20 @ 09:52 by Mercedes Smart) History of total hip replacement (Resolved) Z96.649 History of total knee replacement (TKR) (Resolved) Z96.659 Hx of bilateral hip replacements (Resolved) Z96.643 Surgical History: total hip arthroplasty, total knee arthroplasty, - - s/p IVC filter, s/p intracranial coiling Psychiatric History: No pertinent psych hx INFECTION PREVENTION COORDINATOR History: No pertinent INFECTION PREVENTION COORDINATOR history Lives: Spouse/ Significant Other Smoking Status: Current every day smoker Tobacco Use: Cigarettes Alcohol: None Drugs: None - *Family History Maternal History Items: Cancer - breast cancer Paternal History Items: Unknown - adopted Review of Systems Unable to obtain accurate/complete ROS d/t: Due to current intubation and mechanical ventilation status. Patient Problems: Active and Suspected Problems (Last Reviewed 01/03/20 @ 09:52 by Mercedes Smart) Respiratory failure (Acute) Pneumonia due to COVID-19 virus (Acute) Objective: The patient's most recent lab work, culture data and imaging studies have all been personally reviewed. - Physical Exam Vitals/I&O's: Vital Signs Temp Pulse Resp BP Pulse Ox 99.2 F H 74 21 H 118/60 94 02/03/20 06:00 02/03/20 06:00 02/03/20 06:00 02/03/20 06:00 02/03/20 06:00 Oxygen Delivery Method Mechanical Ventilator Weight: 156 lb 1.396 oz Body Mass Index (BMI) 27.8 Finger Stick Blood Glucose 88 Intake and Output for Last 24 Hours 02/01/20 02/02/20 02/03/20 23:59 23:59 23:59 Intake Total 1067.55 / 1086.35 1638.19 / 1638.19 Output Total 380 / 380 100 / 100 Balance 687.55 / 706.35 1538.19 / 1538.19 General: - - Intubated, sedated and mechanically ventilated. HEENT: Atraumatic, PERRLA, Normocephalic Oral: No Gingival or Mucosal Lesions/ Ulcerations, - - Endotracheal and OG tubes currently in place Neck: Supple, No Nodes, Trachea Midline Lungs: No rhonchi, No wheeze, No rales, Diminished, Tachypneic Cardiovascular: Normal S1, Normal S2, Irregular Rate Abdomen: Bowel Sounds Present, Soft, Non Tender Extremities: No clubbing, No cyanosis, Edema Skin: No breakdown Musculoskeletal: No Tenderness to Palpation of Joints or Extremities Lymphatic: No Cervical, Supraclavicular, or Inguinal Adenopathy Neurological: - - No focal neurological deficits. Currently sedated on the ventilator. Psych/Mental Status: - - Intermittently agitated and restless. Labs (Last 48 Hours) 02/02/20 02/02/20 02/02/20 18:18 18:18 18:18 WBC 20.1 H RBC 4.24 Hgb 10.4 L Hct 35.6 L MCV 84.0 MCH 24.5 L MCHC 29.2 L RDW Std Deviation 54.8 H RDW Coeff of Charlie 17.8 H Plt Count 217 MPV 11.9 Neut % (Auto) Not Reportable Absolute Neuts (auto) 18.1 H Absolute Lymphs (auto) 1.21 Total Counted 100 Neutrophils % (Manual) 86 H Band Neutrophils % 4 Lymphocytes % (Manual) 6 L Monocytes % (Manual) 3 Basophils % (Manual) 1 Diff Path Review May foll Platelet Estimate ADEQUATE RBC Morphology NORM C+C PT Cancelled INR Cancelled APTT Cancelled D-Dimer Quant (PE/DVT) Cancelled Specimen Type Sample Site pH Bicarbonate Actual Total CO2 Base Excess O2 Saturation O2 % ABG pCO2 ABG pO2 Will Test VBG pH VBG pH (Temp Correct) VBG pCO2 (Temp Corrct VBG pO2 VBG HCO3 VBG Total CO2 VBG O2 Sat (Calc) VBG Base Excess POC Mix VBG pCO2 Pt Tmp Respiration Rate O2 Delivery Device Liter Flow Minute Volume Vent Mode Inspiratory Time Expiratory Time Tidal Volume POC PEEP POC Pressure Suppt Pressure Control EPAP IPAP Blood Gas Comments Blood Gas Notified Whom Blood Gas Notified Time Sodium 151 H Potassium 5.5 H Chloride 117 H Carbon Dioxide 18.0 L Anion Gap 16 H BUN 30 H Creatinine 1.79 H Estim Creat Clear Calc Est GFR (MDRD) Af Amer 36 L Est GFR (MDRD) Non-Af 30 L BUN/Creatinine Ratio 16.8 Glucose 117 H Lactic Acid Calcium 7.7 L Total Bilirubin 1.00 AST 1166 H ALT 463 H Alkaline Phosphatase 88 B-Natriuretic Peptide Total Protein 5.4 L Albumin 1.8 L Globulin 3.6 Albumin/Globulin Ratio 0.5 L Urine Color Urine Clarity Urine pH Ur Specific [place] Urine Protein Urine Glucose (UA) Urine Ketones Urine Occult Blood Urine Nitrite Urine Bilirubin Urine Urobilinogen Ur Leukocyte Esterase Blood Type Antibody Screen Crossmatch 02/02/20 02/02/20 02/02/20 18:18 18:22 18:25 WBC RBC Hgb Hct MCV MCH MCHC RDW Std Deviation RDW Coeff of Charlie Plt Count MPV Neut % (Auto) Absolute Neuts (auto) Absolute Lymphs (auto) Total Counted Neutrophils % (Manual) Band Neutrophils % Lymphocytes % (Manual) Monocytes % (Manual) Basophils % (Manual) Diff Path Review Platelet Estimate RBC Morphology PT INR APTT D-Dimer Quant (PE/DVT) Specimen Type DINORAH Sample Site L Radial pH Bicarbonate Actual Total CO2 Base Excess O2 Saturation O2 % ABG pCO2 ABG pO2 Will Test VBG pH 7.19 L* VBG pH (Temp Correct) VBG pCO2 (Temp Corrct VBG pO2 48 H VBG HCO3 16 L VBG Total CO2 18 L VBG O2 Sat (Calc) 73 H VBG Base Excess -12 L POC Mix VBG pCO2 Pt Tmp 42.6 Respiration Rate O2 Delivery Device Adult Vent Liter Flow Minute Volume Vent Mode Inspiratory Time Expiratory Time Tidal Volume POC PEEP 5 POC Pressure Suppt Pressure Control EPAP IPAP Blood Gas Comments Blood Gas Notified Whom Blood Gas Notified Time Sodium Potassium Chloride Carbon Dioxide Anion Gap BUN Creatinine Estim Creat Clear Calc Est GFR (MDRD) Af Amer Est GFR (MDRD) Non-Af BUN/Creatinine Ratio Glucose Lactic Acid 8.6 H* Calcium Total Bilirubin AST ALT Alkaline Phosphatase B-Natriuretic Peptide 378.5 H Total Protein Albumin Globulin Albumin/Globulin Ratio Urine Color Urine Clarity Urine pH Ur Specific [place] Urine Protein Urine Glucose (UA) Urine Ketones Urine Occult Blood Urine Nitrite Urine Bilirubin Urine Urobilinogen Ur Leukocyte Esterase Blood Type Antibody Screen Crossmatch 02/02/20 02/02/20 02/02/20 18:37 18:45 18:55 WBC RBC Hgb Hct MCV MCH MCHC RDW Std Deviation RDW Coeff of Charlie Plt Count MPV Neut % (Auto) Absolute Neuts (auto) Absolute Lymphs (auto) Total Counted Neutrophils % (Manual) Band Neutrophils % Lymphocytes % (Manual) Monocytes % (Manual) Basophils % (Manual) Diff Path Review Platelet Estimate RBC Morphology PT 66.1 H INR 7.7 H* APTT 40.3 H D-Dimer Quant (PE/DVT) 5.66 H* Specimen Type Cancelled Sample Site Cancelled pH Bicarbonate Actual Total CO2 Base Excess O2 Saturation O2 % Cancelled ABG pCO2 ABG pO2 Will Test VBG pH Cancelled VBG pH (Temp Correct) Cancelled VBG pCO2 (Temp Corrct Cancelled VBG pO2 Cancelled VBG HCO3 Cancelled VBG Total CO2 Cancelled VBG O2 Sat (Calc) Cancelled VBG Base Excess Cancelled POC Mix VBG pCO2 Pt Tmp Cancelled Respiration Rate Cancelled O2 Delivery Device Cancelled Liter Flow Cancelled Minute Volume Cancelled Vent Mode Inspiratory Time Cancelled Expiratory Time Cancelled Tidal Volume Cancelled POC PEEP Cancelled POC Pressure Suppt Cancelled Pressure Control Cancelled EPAP Cancelled IPAP Cancelled Blood Gas Comments Cancelled Blood Gas Notified Whom Cancelled Blood Gas Notified Time Cancelled Sodium Potassium Chloride Carbon Dioxide Anion Gap BUN Creatinine Estim Creat Clear Calc Est GFR (MDRD) Af Amer Est GFR (MDRD) Non-Af BUN/Creatinine Ratio Glucose Lactic Acid Calcium Total Bilirubin AST ALT Alkaline Phosphatase B-Natriuretic Peptide Total Protein Albumin Globulin Albumin/Globulin Ratio Urine Color Yellow Urine Clarity Clear Urine pH 5.0 Ur Specific [place] 1.020 Urine Protein 30 H Urine Glucose (UA) Normal Urine Ketones 5 H Urine Occult Blood Negative Urine Nitrite Negative Urine Bilirubin Negative Urine Urobilinogen Normal Ur Leukocyte Esterase Negative Blood Type Antibody Screen Crossmatch 02/02/20 02/02/20 02/02/20 20:04 20:50 22:55 WBC RBC Hgb Hct MCV MCH MCHC RDW Std Deviation RDW Coeff of Charlie Plt Count MPV Neut % (Auto) Absolute Neuts (auto) Absolute Lymphs (auto) Total Counted Neutrophils % (Manual) Band Neutrophils % Lymphocytes % (Manual) Monocytes % (Manual) Basophils % (Manual) Diff Path Review Platelet Estimate RBC Morphology PT INR APTT D-Dimer Quant (PE/DVT) Specimen Type ART Sample Site L Radial pH 7.20 L Bicarbonate Actual 16.0 L Total CO2 17 Base Excess -12 L O2 Saturation 91 L O2 % 100 ABG pCO2 40.9 ABG pO2 75 Will Test Positive VBG pH VBG pH (Temp Correct) VBG pCO2 (Temp Corrct VBG pO2 VBG HCO3 VBG Total CO2 VBG O2 Sat (Calc) VBG Base Excess POC Mix VBG pCO2 Pt Tmp Respiration Rate 14 O2 Delivery Device Adult Vent Liter Flow Minute Volume Vent Mode AC Inspiratory Time Expiratory Time Tidal Volume 450 POC PEEP 5 POC Pressure Suppt Pressure Control EPAP IPAP Blood Gas Comments Blood Gas Notified Whom Blood Gas Notified Time Sodium Potassium Chloride Carbon Dioxide Anion Gap BUN Creatinine Estim Creat Clear Calc Est GFR (MDRD) Af Amer Est GFR (MDRD) Non-Af BUN/Creatinine Ratio Glucose Lactic Acid 11.9 H* Calcium Total Bilirubin AST ALT Alkaline Phosphatase B-Natriuretic Peptide Total Protein Albumin Globulin Albumin/Globulin Ratio Urine Color Urine Clarity Urine pH Ur Specific [place] Urine Protein Urine Glucose (UA) Urine Ketones Urine Occult Blood Urine Nitrite Urine Bilirubin Urine Urobilinogen Ur Leukocyte Esterase Blood Type O POSITIVE Antibody Screen NEGATIVE Crossmatch See Detail 02/03/20 02/03/20 02/03/20 01:03 01:36 01:45 WBC RBC Hgb Cancelled Hct Cancelled MCV MCH MCHC RDW Std Deviation RDW Coeff of Charlie Plt Count MPV Neut % (Auto) Absolute Neuts (auto) Absolute Lymphs (auto) Total Counted Neutrophils % (Manual) Band Neutrophils % Lymphocytes % (Manual) Monocytes % (Manual) Basophils % (Manual) Diff Path Review Platelet Estimate RBC Morphology PT INR APTT D-Dimer Quant (PE/DVT) Specimen Type ART Sample Site R Radial pH 7.32 L Bicarbonate Actual 18.3 L Total CO2 19 Base Excess -8 L O2 Saturation 89 L O2 % 70 ABG pCO2 35.4 ABG pO2 61 L Will Test VBG pH VBG pH (Temp Correct) VBG pCO2 (Temp Corrct VBG pO2 VBG HCO3 VBG Total CO2 VBG O2 Sat (Calc) VBG Base Excess POC Mix VBG pCO2 Pt Tmp Respiration Rate 14 O2 Delivery Device Adult Vent Liter Flow Minute Volume Vent Mode AC Inspiratory Time Expiratory Time Tidal Volume 450 POC PEEP 12 POC Pressure Suppt Pressure Control EPAP IPAP Blood Gas Comments Blood Gas Notified Whom Blood Gas Notified Time Sodium 150 H Potassium 5.4 H Chloride 115 H Carbon Dioxide 18.0 L Anion Gap 17 H BUN 37 H Creatinine 2.20 H Estim Creat Clear Calc 20.25 Est GFR (MDRD) Af Amer 28 L Est GFR (MDRD) Non-Af 23 L BUN/Creatinine Ratio 16.8 Glucose 177 H Lactic Acid Calcium 7.8 L Total Bilirubin AST ALT Alkaline Phosphatase B-Natriuretic Peptide Total Protein Albumin Globulin Albumin/Globulin Ratio Urine Color Urine Clarity Urine pH Ur Specific [place] Urine Protein Urine Glucose (UA) Urine Ketones Urine Occult Blood Urine Nitrite Urine Bilirubin Urine Urobilinogen Ur Leukocyte Esterase Blood Type Antibody Screen Crossmatch 02/03/20 02/03/20 02/03/20 01:45 03:35 03:35 WBC RBC Hgb 8.9 L Hct 30.0 L MCV MCH MCHC RDW Std Deviation RDW Coeff of Charlie Plt Count MPV Neut % (Auto) Absolute Neuts (auto) Absolute Lymphs (auto) Total Counted Neutrophils % (Manual) Band Neutrophils % Lymphocytes % (Manual) Monocytes % (Manual) Basophils % (Manual) Diff Path Review Platelet Estimate RBC Morphology PT 29.1 H INR 2.8 APTT D-Dimer Quant (PE/DVT) Specimen Type Sample Site pH Bicarbonate Actual Total CO2 Base Excess O2 Saturation O2 % ABG pCO2 ABG pO2 Will Test VBG pH VBG pH (Temp Correct) VBG pCO2 (Temp Corrct VBG pO2 VBG HCO3 VBG Total CO2 VBG O2 Sat (Calc) VBG Base Excess POC Mix VBG pCO2 Pt Tmp Respiration Rate O2 Delivery Device Liter Flow Minute Volume Vent Mode Inspiratory Time Expiratory Time Tidal Volume POC PEEP POC Pressure Suppt Pressure Control EPAP IPAP Blood Gas Comments Blood Gas Notified Whom Blood Gas Notified Time Sodium Potassium Chloride Carbon Dioxide Anion Gap BUN Creatinine Estim Creat Clear Calc Est GFR (MDRD) Af Amer Est GFR (MDRD) Non-Af BUN/Creatinine Ratio Glucose Lactic Acid 10.3 H* Calcium Total Bilirubin AST ALT Alkaline Phosphatase B-Natriuretic Peptide Total Protein Albumin Globulin Albumin/Globulin Ratio Urine Color Urine Clarity Urine pH Ur Specific [place] Urine Protein Urine Glucose (UA) Urine Ketones Urine Occult Blood Urine Nitrite Urine Bilirubin Urine Urobilinogen Ur Leukocyte Esterase Blood Type Antibody Screen Crossmatch Microbiology 02/03/20 00:55 Mucosa - Nasopharyngeal Respiratory Panel (PCR) - Final 02/02/20 18:45 Urine Catheter - Miles Legionella Antigen - Final 02/02/20 18:45 Urine Catheter - Miles Streptococcus pneumoniae Antigen (M - Final Clinical Impression(s) from Imaging Studies Chest X-Ray 02/02/20 18:15 IMPRESSION: Lines and tubes as described. Consider advancing the nasogastric tube. Bilateral widespread pulmonary opacities most pronounced on the left. Electronically Signed: Jasen Diego MD at 19:14 EST , Service support , KUB X-Ray 02/02/20 20:15 KUB X-Ray 02/02/20 22:05 IMPRESSION: OGT in is in similar position to the prior study Recommend advancing at 2304 Reported and signed by: Tracee Clark DO Electronically Signed: Tracee Clark DO at 23:03 EST Tel , Service support , ADDENDUM: 02/02/20 2317 IMPRESSION: OGT in is in similar position to the prior study Recommend advancing at 2304 Reported and signed by: Tracee Clark DO N.B. : Nancy Dodge RN, confirmed on 02/02/2020 23:10:30 (ET) that the healthcare facility has received the radiology report. Electronically Signed: Tracee Clark DO at 23:03 EST Tel , Service support , Current Medications Acetaminophen (Acetaminophen 650 Mg Suppository) 650 mg RECTAL Q4H PRN PRN PRN Reason: Pain Score 1-10/Temp > 100.7 F Albuterol Sulfate (Albuterol 2.5 Mg/3 Ml Vial.Neb.) 2.5 mg INHALATION Q2H PRN PRN PRN Reason: SOB/Wheezing Albuterol/Ipratropium (Ipratropium/Albuterol Sulfate 3 Ml Ampul.Neb) 3 ml INHALATION Q4HWA.RT LILA Last Admin: 02/02/20 23:40 Dose: 3 ml Documented by: Dexamethasone Sodium Phosphate (Dexamethasone 10 Mg/Ml Vial) 6 mg IV DAILY LILA Last Admin: 02/02/20 20:05 Dose: 6 mg Documented by: Pantoprazole Sodium 80 mg/ (Sodium Chloride) 100 mls @ 10 mls/hr CONT INF Q10H LILA Last Admin: 02/03/20 05:47 Dose: 10 mls/hr Documented by: Norepinephrine Bitartrate 8 mg (/ Sodium Chloride) 250 mls @ 9.375 mls/hr CONT INF .[id number] LILA; Protocol Last Titration: 02/03/20 06:00 Dose: 10 mcg/min, 18.8 mls/hr Documented by: Sodium Chloride () 250 mls @ 15 mls/hr IV .[id number] PRN PRN Reason: Saline Flush Last Infusion: 02/03/20 05:05 Dose: 0 mls/hr Documented by: Sodium Chloride () 250 mls @ 15 mls/hr IV .[id number] PRN PRN Reason: Additional IVPB Infusion Vancomycin IV Pharmacy to Dose (1 ea/ Sodium Chloride) 500 mls @ 250 mls/hr IV X1 PRN; Protocol PRN Reason: Rx to Dose Piperacillin Sod/Tazobactam (Sod 3.375 gm/ Sodium Chloride) 50 mls @ 12.5 mls/hr IV Q8 LILA Last Admin: 02/03/20 05:05 Dose: 12.5 mls/hr Documented by: Vancomycin HCl (Vancomycin) 1,000 mg in 200 mls @ 200 mls/hr IV Q24H LILA Fentanyl Citrate 1,000 mcg/ (Sodium Chloride) 100 mls @ 5 mls/hr CONT INF .Q20H LILA; Protocol Last Admin: 02/03/20 06:13 Dose: 50 mcg/hr, 5 mls/hr Documented by: Ondansetron HCl (Ondansetron 4 Mg/2 Ml Vial) 4 mg IV Q8H PRN PRN PRN Reason: NAUSEA/VOMITING Sodium Chloride (0.9% Saline Lock 10 Ml Syringe) 10 - 40 ml IV UD PRN PRN Reason: SALINE FLUSH Assessment/Plan Active and Suspected Problems (Last Reviewed 01/03/20 @ 09:52 by Mercedes Smart) Respiratory failure (Acute) Pneumonia due to COVID-19 virus (Acute) RECOMMENDATIONS: 1. Continue current supportive measures and wean FiO2 and PEEP to maintain oxygen saturations at or above 90%. 2. Continue scheduled bronchodilator therapy. 3. Continue empiric antimicrobials. 4. Continue Decadron. 5. Avoid remdesivir, given liver and renal insufficiency. 6. Continue Levophed and wean to maintain a mean arterial pressure at or above [address] PICC line. 8. Okay to start tube feeds today. 9. Check INR daily and start heparin drip once INR is no longer therapeutic. 10. Continue appropriate GI prophylaxis. IMPRESSIONS: 1. Acute hypoxemic respiratory failure secondary to COVID-19 pneumonia Plan to continue current supportive measures including invasive mechanical ventilatory support, with a goal to wean FiO2 and PEEP to maintain oxygen saturations at or above 90%. The patient will be continued on Decadron. I would avoid remdesivir, given underlying renal and liver dysfunction. Empiric antimicrobials can be continued for 24 hours, pending further infectious work-up. Sputum culture will be collected. Continue scheduled bronchodilator therapy. 2. Septic shock Concern for Covid as precipitating etiology versus possible community-acquired pneumonia as well. No need to continue to trend lactate levels, given underlying liver dysfunction. Continue supplemental IV fluid hydration along with vasopressor support to maintain a mean arterial pressure at or above 65 mmHg. Continue empiric antimicrobials, pending further infectious work-up. 3. Acute liver injury Suspect related to hemodynamic instability with subsequent shock liver. Continue supportive measures as noted above with vasopressor support to maintain hemodynamic stability. Continue to trend troponins daily. 4. Acute kidney injury Likely prerenal in etiology with a component of ischemic ATN in the setting of septic shock. The patient did receive supplemental IV fluid hydration. Plan to continue vasopressors to maintain hemodynamic stability. Continue to monitor urine output. Nephrology consultation is pending. 5. History of DVT/chronic anticoagulation status with presenting coagulopathy The patient presented with a supratherapeutic INR. She did receive vitamin K and FFP. INR is now therapeutic this morning. Recommend checking INR daily, with plans to place the patient on a heparin infusion once INR is below 2.0. TIME: 40 minutes of critical care time, independent of procedures, was spent addressing the patient's acute hypoxemic respiratory failure secondary to Covid pneumonia, septic shock, acute kidney injury, acute liver injury, history of DVT, review of all data and collaboration with the care team. ([id number]) [id number] Critical care first hour
--- NOTE | 2020-02-03 07:21 | PCM.PN.HOSP ---
Patient Problems: Active and Suspected Problems (Last Reviewed 01/03/20 @ 09:52 by Mercedes Smart) Respiratory failure (Acute) Pneumonia due to COVID-19 virus (Acute) Reason for Visit: Acute hypoxic respiratory failure COVID-19 pneumonia Subjective: Patient is a 69-year-old lady transferred from [facility] with progressive shortness of breath. An assessment of acute hypoxic respiratory failure secondary to acute COVID-19 was made. Patient had to be intubated as a result of deteriorating respiratory status Objective: GENERAL: sedated on the vent HEENT: Atraumatic; ET tube in place EYES; Anicteric, Normal Conjunctiva NECK; supple, normal thyroid, RESPIRATORY: Diminished to auscultation CARDIOVASCULAR: Regular S1 S2, GI: soft, normoactive bowel sounds, : No Renal angle tenderness; EXTREMITIES: No edema, no clubbing, MUSCULOSKELETAL: no muscle waisting NEURO: sedated on the vent SKIN: No Rash Vitals/I&O's: Vital Signs Temp Pulse Resp BP Pulse Ox 99.2 F H 74 21 H 118/60 94 02/03/20 06:00 02/03/20 06:00 02/03/20 06:00 02/03/20 06:00 02/03/20 06:00 Oxygen Delivery Method Mechanical Ventilator Weight: 70.8 kg Body Mass Index (BMI) 27.8 Finger Stick Blood Glucose 88 Intake and Output for Last 24 Hours 02/01/20 02/02/20 02/03/20 23:59 23:59 23:59 Intake Total 1067.55 / 1086.35 1651.69 / 1651.69 Output Total 380 / 380 100 / 100 Balance 687.55 / 706.35 1551.69 / 1551.69 Microbiology Past 72 Hours 02/03/20 00:55 Mucosa - Nasopharyngeal Respiratory Panel (PCR) - Final 02/02/20 18:45 Urine Catheter - Miles Legionella Antigen - Final 02/02/20 18:45 Urine Catheter - Miles Streptococcus pneumoniae Antigen (M - Final Laboratory Results 02/02/20 18:18: WBC 20.1 H, RBC 4.24, Hgb 10.4 L, Hct 35.6 L, MCV 84.0, MCH 24.5 L, MCHC 29.2 L, RDW Std Deviation 54.8 H, RDW Coeff of Charlie 17.8 H, Plt Count 217, MPV 11.9, Neut % (Auto) Not Reportable, Absolute Neuts (auto) 18.1 H, Absolute Lymphs (auto) 1.21, Total Counted 100, Neutrophils % (Manual) 86 H, Band Neutrophils % 4, Lymphocytes % (Manual) 6 L, Monocytes % (Manual) 3, Basophils % (Manual) 1, Diff Path Review June, Platelet Estimate ADEQUATE, RBC Morphology NORM C+C 02/02/20 18:18: PT Cancelled, INR Cancelled, APTT Cancelled, D-Dimer Quant (PE/DVT) Cancelled 02/02/20 18:18: Sodium 151 H, Potassium 5.5 H, Chloride 117 H, Carbon Dioxide 18.0 L, Anion Gap 16 H, BUN 30 H, Creatinine 1.79 H, Est GFR (MDRD) Af Amer 36 L, Est GFR (MDRD) Non-Af 30 L, BUN/Creatinine Ratio 16.8, Glucose 117 H, Calcium 7.7 L, Total Bilirubin 1.00, AST 1166 H, ALT 463 H, Alkaline Phosphatase 88, Total Protein 5.4 L, Albumin 1.8 L, Globulin 3.6, Albumin/Globulin Ratio 0.5 L 02/02/20 18:18: B-Natriuretic Peptide 378.5 H 02/02/20 18:22: Specimen Type DINORAH, Sample Site L Radial, VBG pH 7.19 L*, VBG pO2 48 H, VBG HCO3 16 L, VBG Total CO2 18 L, VBG O2 Sat (Calc) 73 H, VBG Base Excess -12 L, POC Mix VBG pCO2 Pt Tmp 42.6, O2 Delivery Device Adult Vent, POC PEEP 5 02/02/20 18:25: Lactic Acid 8.6 H* 02/02/20 18:37: Specimen Type Cancelled, Sample Site Cancelled, O2 % Cancelled, VBG pH Cancelled, VBG pH (Temp Correct) Cancelled, VBG pCO2 (Temp Corrct Cancelled, VBG pO2 Cancelled, VBG HCO3 Cancelled, VBG Total CO2 Cancelled, VBG O2 Sat (Calc) Cancelled, VBG Base Excess Cancelled, POC Mix VBG pCO2 Pt Tmp Cancelled, Respiration Rate Cancelled, O2 Delivery Device Cancelled, Liter Flow Cancelled, Minute Volume Cancelled, Inspiratory Time Cancelled, Expiratory Time Cancelled, Tidal Volume Cancelled, POC PEEP Cancelled, POC Pressure Suppt Cancelled, Pressure Control Cancelled, EPAP Cancelled, IPAP Cancelled, Blood Gas Comments Cancelled, Blood Gas Notified Whom Cancelled, Blood Gas Notified Time Cancelled 02/02/20 18:45: Urine Color Yellow, Urine Clarity Clear, Urine pH 5.0, Ur Specific [place] 1.020, Urine Protein 30 H, Urine Glucose (UA) Normal, Urine Ketones 5 H, Urine Occult Blood Negative, Urine Nitrite Negative, Urine Bilirubin Negative, Urine Urobilinogen Normal, Ur Leukocyte Esterase Negative 02/02/20 18:55: PT 66.1 H, INR 7.7 H*, APTT 40.3 H, D-Dimer Quant (PE/DVT) 5.66 H* 02/02/20 20:04: Specimen Type ART, Sample Site L Radial, pH 7.20 L, Bicarbonate Actual 16.0 L, Total CO2 17, Base Excess -12 L, O2 Saturation 91 L, O2 % 100, ABG pCO2 40.9, ABG pO2 75, Will Test Positive, Respiration Rate 14, O2 Delivery Device Adult Vent, Vent Mode AC, Tidal Volume 450, POC PEEP 5 02/02/20 20:50: Blood Type O POSITIVE, Antibody Screen NEGATIVE, Crossmatch See Detail 02/02/20 22:55: Lactic Acid 11.9 H* 02/03/20 01:03: Hgb Cancelled, Hct Cancelled 02/03/20 01:36: Specimen Type ART, Sample Site R Radial, pH 7.32 L, Bicarbonate Actual 18.3 L, Total CO2 19, Base Excess -8 L, O2 Saturation 89 L, O2 % 70, ABG pCO2 35.4, ABG pO2 61 L, Respiration Rate 14, O2 Delivery Device Adult Vent, Vent Mode AC, Tidal Volume 450, POC PEEP 12 02/03/20 01:45: Sodium 150 H, Potassium 5.4 H, Chloride 115 H, Carbon Dioxide 18.0 L, Anion Gap 17 H, BUN 37 H, Creatinine 2.20 H, Estim Creat Clear Calc 20.25, Est GFR (MDRD) Af Amer 28 L, Est GFR (MDRD) Non-Af 23 L, BUN/Creatinine Ratio 16.8, Glucose 177 H, Calcium 7.8 L 02/03/20 01:45: Hgb 8.9 L, Hct 30.0 L 02/03/20 03:35: PT 29.1 H, INR 2.8 02/03/20 03:35: Lactic Acid 10.3 H* Current Medications Acetaminophen (Acetaminophen 650 Mg Suppository) 650 mg RECTAL Q4H PRN PRN PRN Reason: Pain Score 1-10/Temp > 100.7 F Albuterol Sulfate (Albuterol 2.5 Mg/3 Ml Vial.Neb.) 2.5 mg INHALATION Q2H PRN PRN PRN Reason: SOB/Wheezing Albuterol/Ipratropium (Ipratropium/Albuterol Sulfate 3 Ml Ampul.Neb) 3 ml INHALATION Q4HWA.RT LILA Last Admin: 02/02/20 23:40 Dose: 3 ml Documented by: Dexamethasone Sodium Phosphate (Dexamethasone 10 Mg/Ml Vial) 6 mg IV DAILY LILA Last Admin: 02/02/20 20:05 Dose: 6 mg Documented by: Norepinephrine Bitartrate 8 mg (/ Sodium Chloride) 250 mls @ 9.375 mls/hr CONT INF .[id number] LILA; Protocol Last Titration: 02/03/20 06:00 Dose: 10 mcg/min, 18.8 mls/hr Documented by: Sodium Chloride () 250 mls @ 15 mls/hr IV .[id number] PRN PRN Reason: Saline Flush Last Infusion: 02/03/20 05:05 Dose: 0 mls/hr Documented by: Sodium Chloride () 250 mls @ 15 mls/hr IV .[id number] PRN PRN Reason: Additional IVPB Infusion Vancomycin IV Pharmacy to Dose (1 ea/ Sodium Chloride) 500 mls @ 250 mls/hr IV X1 PRN; Protocol PRN Reason: Rx to Dose Piperacillin Sod/Tazobactam (Sod 3.375 gm/ Sodium Chloride) 50 mls @ 12.5 mls/hr IV Q8 [facility] Last Admin: 02/03/20 05:05 Dose: 12.5 mls/hr Documented by: Vancomycin HCl (Vancomycin) 1,000 mg in 200 mls @ 200 mls/hr IV Q24H LILA Fentanyl Citrate 1,000 mcg/ (Sodium Chloride) 100 mls @ 5 mls/hr CONT INF .Q20H LILA; Protocol Last Titration: 02/03/20 06:55 Dose: 150 mcg/hr, 15 mls/hr Documented by: Pantoprazole Sodium 40 mg/ (Sodium Chloride) 110 mls @ 330 mls/hr IV Q12 LILA Ondansetron HCl (Ondansetron 4 Mg/2 Ml Vial) 4 mg IV Q8H PRN PRN PRN Reason: NAUSEA/VOMITING Sodium Chloride (0.9% Saline Lock 10 Ml Syringe) 10 - 40 ml IV UD PRN PRN Reason: SALINE FLUSH STROKE Vital Signs/Narrative: Vital Signs Temp Pulse Resp BP BP Pulse Ox 02/03/20 06:00 99.2 F H 74 21 H 118/60 94 02/03/20 05:00 98.9 F 72 19 H 107/54 L 96 02/03/20 04:45 66 22 H 95/41 L 92 02/03/20 04:40 71 18 95 02/03/20 04:00 98.6 F 72 22 H 100/48 L 96 02/03/20 03:40 73 Medical Necessity - Tobacco Use Smoking Status: Current every day smoker Tobacco Use: Cigarettes Assessment/Plan All Active Problems (Last Reviewed 01/03/20 @ 09:52 by Mercedes Smart) Respiratory failure (Acute) Pneumonia due to COVID-19 virus (Acute) Pneumonia (Acute) Bronchitis (Acute) History of total hip replacement (Resolved) History of total knee replacement (TKR) (Resolved) Tail bone pain (Acute) Hx of bilateral hip replacements (Resolved) History and physical examination, immigration (Acute) GERD (gastroesophageal reflux disease) (Acute) Fatigue (Acute) Dyspnea on minimal exertion (Acute) Ankle fracture, right (Acute) Actinic keratitis (Acute) Weakness (Acute) Patient is a 69-year-old lady transferred from [facility] with progressive shortness of breath. An assessment of acute hypoxic respiratory failure secondary to acute COVID-19 was made. Patient had to be intubated as a result of deteriorating respiratory status 1. Acute hypoxic respiratory failure secondary to COVID-19 pneumonia Admitted to the intensive care unit intubated with consultation placed to pulmonary medicine for vent management 2. Acute COVID-19 pneumonia -Presented with respiratory failure resulting in patient being intubated. Was started on Decadron not a candidate for remdesivir in view of acute kidney injury 3. Septic shock -Secondary to acute COVID-19 pneumonia with suspected superimposed bacterial pneumonia. Patient is on norepinephrine drip as well as Zosyn 4. Acute kidney injury ?suspected to be secondary to acute tubular necrosis from patient underlying infection. Admitted to the intensive care unit started on IV fluid. Patient kidney function continues to worsen. Consult subsequently placed to nephrology 6. Hypernatremia -Due to fluid depletion patient is on IV fluid with subsequent monitoring of electrolyte 7. Hyperkalemia -due to combination of metabolic acidosis as well as impaired kidney function. Consult placed to nephrology 8. Coagulopathy ?patient is on Coumadin for previous DVT involving the left lower extremity. Coumadin on admission was 7.7. Patient was transfused with 2 unit FFP as well as did receive vitamin K INR as of 02/03/2020 is 2.8 9. Acute transaminitis ?Secondary to shock liver monitoring LFTs 10. History of DVT involving the left lower extremity ?on Coumadin held in view of above reasons 11. Essential hypertension ?Patient antihypertensives held in view of patient presenting with low blood pressure 12. DVT prophylaxis -patient was on Coumadin prior to admission no additional measures warranted at this point Inpatient E&M: [id number] [facility] Hosp L3
[2020-02-03] MEDS: Ipratropium/Albuterol Sulfate 3 ML AMPUL.NEB INHALATION ×3 (07:29→19:20)
[2020-02-03 07:41] LABS: Reflex Lactate? Y
[2020-02-03 09:05] LABS: Absolute Lymphocyte Count 0.66 X10^3/uL (0.83-4.51); Absolute Neutrophil Count 14.4 X10^3/uL (2.0-7.7); Basophil# 0.04 X10^3/uL; Basophil% 0.2 % (0-1); Hematocrit 27.8 % (37-47); Hemoglobin 8.6 g/dL (12.0-15.0); Lymphocyte # 0.66 X10^3/ul (4.0); Lymphocyte % 4.1 % (19-41); Mean Corp Hgb Conc 30.9 g/dL (32-36); Mean Corpuscular Hgb 24.2 pg (27.0-32.0); Mean Corpuscular Volume 78.3 fL (81-99); Mean Platelet Vol. 11.4 fl (6.2-12.0); Monocyte# 0.41 X10^3/uL; Monocyte% 2.5 % (0-10); NRBC Flagged by Analyzer 0.6 % (0-5); Neutrophil # 14.36 X10^3/uL (2.7-7.7); Neutrophil % 88.5 % (47-70); Platelet Count 247 K/mm3 (150-450); RBC Distribution Width CV 17.6 % (11.6-14.6); RBC Distribution Width SD 50.5 fl (35.1-43.9); Red Blood Count 3.55 M/mm3 (4.2-5.4); White Blood Count 16.2 K/mm3 (4.4-11.0)
[2020-02-03] MEDS: 0.9% Saline Lock 10 ML Syringe IV ×5 (09:10→19:55)
--- NOTE | 2020-02-03 10:09 | EKG12_ITS ---
Test Reason : RHYTHM CHANGE Blood Pressure : / mmHG Vent. Rate : 078 BPM Atrial Rate : 352 BPM P-R Int : 000 ms QRS Dur : 084 ms QT Int : 404 ms P-R-T Axes : 000 034 027 degrees QTc Int : 460 ms Atrial flutter with variable A-V block Prolonged QT Abnormal ECG Confirmed by FRANCESCA MCCARTY, YAMILEX ([id number]), publishing editor RAMON GOODWIN ([id number]) on 02/13/2020 12:01:26 PM Referred By: SCHNEIDER Confirmed By:YAMILEX MA MD
--- NOTE | 2020-02-03 10:40 | RAD_ITS ---
STUDY: X-RAY - ABDOMEN/PELVIS REASON FOR EXAM: Female, 69 years old. NG PLACEMENT TECHNIQUE: Single AP view of the abdomen / pelvis. COMPARISON: Comparison is made with prior study dated 02/02/2020. FINDINGS: Persistent bibasilar infiltrates worse on the left side. The tip of the orogastric tube is in the distal portion of the stomach. A filter is seen within the inferior vena cava. RAD/Abdomen Single View (Portable) IMPRESSION: The tip of the orogastric tube is in the distal portion of the stomach. Electronically Signed: Clifford Edwards, at 12:00 EST , Service support ,
[2020-02-03 10:42] LABS: ALB/GLOB Ratio 0.6 RATIO (0.9-2.4); AST(SGOT) 16418 U/L (15-37); Alanine Aminotransfer ALT/SGPT 5272 U/L (13-56); Albumin, Serum 2.2 g/dL (3.2-5.0); Alkaline Phosphatase 104 U/L (45-117); Anion Gap 13 (5-15); BUN 46 mg/dL (7-18); BUN/Creat Ratio 17.8 RATIO (10-20); Calcium,Total 7.7 mg/dL (8.5-10.1); Chloride 113 mmol/L (98-107); Creatinine, Serum 2.58 mg/dL (0.55-1.02); EST Glomerular Filtration Rate 19 mL/min (>60); Est Glom Filt Rate - Afr Amer 24 mL/min (>60); Estimated Creatinine Clearance 17.27 ml/min; Globulin 3.4 g/dL (2.2-4.2); Glucose 162 mg/dL (74-106); Phosphorus 3.5 mg/dL (2.5-4.9); Potassium 4.3 mmol/L (3.5-5.1); Protein, Total 5.6 g/dL (6.4-8.2); Sodium Level 149 mmol/L (136-145)
--- NOTE | 2020-02-03 10:49 | PCM.NTREPORT ---
Nutrition Therapy Report - History Nutrition Services has been consulted to:: Manage enteral nutrition Current diet / nutrition support order:: NPO - Anthropometric Measurements Height:: 5 ft 4 in Weight:: 70.8 kg Body Mass Index (BMI):: 26.8 - Relevant Labs Relevant Labs:: WBC 16.2 K/mm3 (4.4-11.0) H 02/03/20 08:50 RBC 3.55 M/mm3 (4.2-5.4) L 02/03/20 08:50 Hgb 8.6 g/dL (12.0-15.0) L 02/03/20 08:50 Hct 27.8 % (37-47) L 02/03/20 08:50 MCV 78.3 fL (81-99) L D 02/03/20 08:50 MCH 24.2 pg (27.0-32.0) L 02/03/20 08:50 MCHC 30.9 g/dL (32-36) L D 02/03/20 08:50 RDW Std Deviation 50.5 fl (35.1-43.9) H 02/03/20 08:50 RDW Coeff of Charlie 17.6 % (11.6-14.6) H 02/03/20 08:50 Immature Gran % (Auto) 4.700 % (0.0-0.9) H 02/03/20 08:50 Neut % (Auto) 88.5 % (47-70) H 02/03/20 08:50 Lymph % (Auto) 4.1 % (19-41) L 02/03/20 08:50 Absolute Neuts (auto) 14.4 X10^3/uL (2.0-7.7) H 02/03/20 08:50 Absolute Lymphs (auto) 0.66 X10^3/uL (0.83-4.51) L 02/03/20 08:50 Neutrophils % (Manual) 86 % (47-70) H 02/02/20 18:18 Lymphocytes % (Manual) 6 % (19-41) L 02/02/20 18:18 PT 29.1 SECONDS (11.7-14.9) H 02/03/20 03:35 INR 7.7 H* 02/02/20 18:55 APTT 40.3 Seconds (24.1-36.2) H 02/02/20 18:55 D-Dimer Quant (PE/DVT) 5.66 FEU/ug/m (0.27-0.49) H* 02/02/20 18:55 Sodium 149 mmol/L (136-145) H 02/03/20 08:50 Potassium 5.4 mmol/L (3.5-5.1) H 02/03/20 01:45 Chloride 113 mmol/L (98-107) H 02/03/20 08:50 Carbon Dioxide 18.0 mmol/L (21.0-32.0) L 02/03/20 01:45 Anion Gap 17 (5-15) H 02/03/20 01:45 BUN 46 mg/dL (7-18) H 02/03/20 08:50 Creatinine 2.58 mg/dL (0.55-1.02) H 02/03/20 08:50 Est GFR (MDRD) Af Amer 24 mL/min (>60) L 02/03/20 08:50 Est GFR (MDRD) Non-Af 19 mL/min (>60) L 02/03/20 08:50 Glucose 162 mg/dL (74-106) H 02/03/20 08:50 Lactic Acid 10.3 mmol/L (0.4-1.9) H* 02/03/20 03:35 Calcium 7.7 mg/dL (8.5-10.1) L 02/03/20 08:50 Total Bilirubin 1.20 mg/dL (0.20-1.00) H 02/03/20 08:50 AST 52224 U/L (15-37) H 02/03/20 08:50 ALT 5272 U/L (13-56) H 02/03/20 08:50 B-Natriuretic Peptide 378.5 pg/mL (0-100) H 02/02/20 18:18 Total Protein 5.6 g/dL (6.4-8.2) L 02/03/20 08:50 Albumin 2.2 g/dL (3.2-5.0) L 02/03/20 08:50 Albumin/Globulin Ratio 0.6 RATIO (0.9-2.4) L 02/03/20 08:50 - Assessment Food / Nutrition-Related History:: Discussed in ICU rounds. Pt is currently intubated and unable to provide information at this time. Per sanjana Vela to start tube feeds today. No wt hx available in EMR. - Nutrition Diagnosis Problem / Etiology / Signs & Symptoms (PES):: Pt w/ inadequate oral intake r/t resp. failure as evidenced by NPO status. Evidence of Malnutrition Exists:: No - Nutrition Intervention Nutrition Prescription:: [id number] calories, 80-110 g protein/day - Food / Nutrient Delivery Interventions Summary of nutrition intervention:: Will order enteral nutrition support, see below. Nutrition support ordered as / adjusted to:: via OGT- Vital AF 1.2 at goal rate of 60mL/hour w/ 100mL H2O flush every 4 hours to provide 1728 calories, 108 g protein, and 1767mL total fluid per day. Would start at 20mL/hour and increase by 10mL every 8 hours until goal rate is achieved. - MNT Monitoring Further MNT monitoring and evaluation required?: Yes MNT Follow-up in:: 1-2 days
--- NOTE | 2020-02-03 11:13 | US_ITS ---
ACUTE LIVER INJURY ACUTE LIVER INJURY EXAMINATION: US Abdomen RUQ (limited) TECHNIQUE: Guerrero scale and color doppler imaging was performed of the right upper quadrant. COMPARISON: None FINDINGS: LIVER: There is mild increased echogenicity. No focal hepatic lesion. No intrahepatic biliary ductal dilatation. There is no free fluid. GALLBLADDER AND BILIARY TREE: No shadowing gallstone. The wall measures 3 mm which is at the upper limits of normal. The gallbladder appears mildly contracted. Question minimal pericholecystic fluid/edema The proximal common bile duct measures 6 mm, which is within normal limits for the patient's age. Songraphic Vilchis's sign: Negative PANCREAS: No focal abnormality is demonstrated in the visualized portion of the pancreas. The tail is not visualized The right kidney measures 10.5 x 4.2 x 4.2 cm. Thinning of the cortex which measures 8 mm. There is a cyst that is noted at the superior pole of the right kidney measuring 1 x 1.2 x 0.9 cm Mild ascites Small right pleural effusion US/Abdomen Limited IMPRESSION: The gallbladder gómez of the upper limits of normal. The gallbladder appears mildly contracted. No stones. Negative sonographic Vilchis sign Question minimal pericholecystic edema/fluid If patient's symptoms persist then consider a nuclear medicine hepatobiliary scan for further evaluation Negative sonographic Vilchis sign Right renal cyst Mild ascites Small right pleural effusion Hepatic steatosis at 2205 Reported and signed by: Tracee Clark DO Electronically Signed: Tracee Clark DO at 22:04 EST Tel , Service support ,
[2020-02-03] MEDS: Chlorhexidine 15 ML PO ×2 (11:44→22:51)
[2020-02-03] MEDS: dexAMETHasone 10 MG/ML Vial 6 MG IV (11:54)
--- NOTE | 2020-02-03 12:27 | RAD_ITS ---
STUDY: X-RAY CHEST REASON FOR EXAM: Female, 69 years old. CENTRAL LINE PLACEMENT TECHNIQUE: Single AP portable view of the chest. COMPARISON: Comparison is made with prior study dated 02/03/2020 at 5:54 AM. FINDINGS: A right-sided internal jugular venous catheter has been placed with the tip at the junction of the superior vena cava and right atrium. An endotracheal tube is in situ with the tip at 4.2 cm proximal to the julia. An oral gastric tube is seen with the tip below the left hemidiaphragm. EKG electrodes are seen. Since prior study, there has been improvement of the CHF. Persistent atelectasis and/or infiltrate is seen at the left lung base. Normal size heart. Normal mediastinum and holly. Normal visualized pulmonary arteries. There is atherosclerotic calcification of the aortic arch with tortuosity. Normal visualized thoracic spine. Normal visualized ribs, clavicles, and shoulders. There is no demonstrated abnormality of the visualized soft tissue structures of the upper abdomen. RAD/CXR for Line Placement IMPRESSION: A right-sided central venous catheter has been placed with the tip at the junction of the superior vena cava and right atrium. Since prior study, there has been improved aeration of both lungs although residual CHF persists as well as left lower lobe infiltrate. Electronically Signed: Clifford Edwards, at 13:07 EST , Service support ,
--- NOTE | 2020-02-03 12:38 | CASEMGMT ---
SW participated in ICU rounds this morning, called pt's daughter after rounds to check in as far as prior level of function, and to let her know SW/CM here for discharge planning. PCP: Dr. Gonzalez Specialists: Daughter is not certain Insurance: Medicare/[employer] Pharmacy: [facility] LNOK: Two daughters and significant other LW/POA: Not on file. Daughter La states that she has a copy of the durable power of state attorney that names her as POA, from her description it seems it included medical power of state attorney as well. Daughter states she is a nurse so she talks to the rest of the family and they make decisions together. Living arrangements/Prior level of care: Pt lives with significant other Jeremy in a two story home. Prior to being ill, pt was able to get up and down the steps. She has been staying on the first floor since feeling ill. Pt is normally independent with ADL's, cooks, cleans, drives. Pt completes all of her own personal ADLs. DME/HHC/SNF: Pt has DME at home from a prior fall and hip surgery, daughter thinks she has a walker and cane, possibly other DME as well. Daughter is not certain. Pt was not using any DME prior to this, no home O2. Pt has been to [facility] in the past for rehab. COVID testing: Completed at [facility] on 01/30/20 showing pt positive. Copy of the test is in the pt's paper chart with her records from [facility]. SW spoke w/daughter at length, support given. Pt's significant other Jeremy also has COVID, she states she checked on him yesterday. She states he looks frail but he always looks frail. We talked about pt and her wishes in regard to end of life care. SW explained that SW and CM will be here following along for any discharge needs, and are here for support as well. SW number given to daughter. The plan is to be determined, daughter states pt is stubborn and she doesn't know what pt will want to do. SW explained that when she is able, pt will be part of the planning. Daughter thanked SW for calling and for all the communication from the hospital. Plan: TBD. SW/CM will continue to follow and remains available for support to family. CONCEPCION Shepard
--- NOTE | 2020-02-03 13:00 | PCM.OPRPT ---
Report of Operation Date of Procedure: 02/03/20 Surgery/Procedure Performed:: Triple-lumen catheter insertion Description of Surgical Findings:: Central line placement procedure note Indication: IV access/hemodynamic instability/vasoactive medications Procedure: A time-out was completed to verify correct patient, indication, medication allergies, procedure, coagulation studies, informed consent signed, and equipment needed. The patient was placed in the supine position for a central line placement to the rt IJ vein. The patients rt neck was prepped using chlorhexidine and a full body sterile drape was applied. 1% lidocaine was used to anesthetize the surrounding skin. A 7fr 16 cm blue guard triple lumen catheter introduced into the internal jugular vein using the modified Seldinger technique with the assistance of ultrasound. The catheter was threaded smoothly over the guidewire, the guidewire was removed easily, nonpulsatile blood returned. All ports were aspirated of air and flushed with sterile saline. The catheter was sutured in place and covered with an occlusive dressing impregnated with chlorhexidine. Post-procedure: The patient tolerated the procedure well. Vital signs remained stable. EBL 3cc. No complications. Chest X Ray ordered to confirm tip placement and the absence of pneumothorax. Procedures: [id number] Insert Non-tunnel CV Cath
[2020-02-03 13:29] LABS: Pathologist Review Reviewed
[2020-02-03 13:34] LABS: Procalcitonin 2.65 ng/mL (0.00-0.09)
[2020-02-03] MEDS: Vital AF 1.2 Cal Liquid 1,000 ML 20 ML GT (16:08)
--- NOTE | 2020-02-03 16:08 | CT_ITS ---
SEPTIC SHOCK, ACUTE RESPIRATOR FAILURE, +COVID, DOROTHY, COPD, DIAB, HTN, ON VENT TECHNIQUE: Helically acquired images were obtained of the chest. A radiation dose optimization technique was used for this scan. IV Contrast dosage and agent: None COMPARISON: January 14, 2020. Prior images were not provided FINDINGS: # of images incl. paperwork: 755 Study is limited without IV contrast HEART AND PERICARDIUM: Borderline cardiomegaly. No pericardial effusion. Coronary artery calcifications. VESSELS: Thoracic aorta is not dilated. Scattered calcified plaque Right sided central venous catheter with the tip at the cavoatrial junction MEDIASTINUM AND PER: Mediastinal adenopathy. There is a precarinal lymph node measuring 1.4 cm in diameter. Without contrast it is difficult to assess for hilar adenopathy. SOFT TISSUES: Included thyroid gland is unremarkable. There is no axillary, supraclavicular or lower cervical adenopathy. LUNGS AND LARGE AIRWAYS: There are emphysematous changes noted. Fibrotic changes are seen bilaterally greatest in the left upper lobe with interstitial thickening There is also interstitial thickening seen within the right middle lobe and the bilateral lower lobes. There are consolidative infiltrate seen within the lower lobes bilaterally but greater on the left. Endotracheal tube is visualized with the tip approximately 3.6 cm proximal to the julia PLEURA: Small bilateral pleural effusions right greater than left. UPPER ABDOMEN: Nasogastric tube is seen with the tip in the stomach. There is high density fluid surrounding the NG tube within the esophagus extending from a level just proximal to the julia to the stomach Please refer to CT abdomen pelvis obtained on this date for additional information BONES: No acute osseous abnormality CT/Chest without Contrast IMPRESSION: Small bilateral pleural effusions Emphysema Fibrotic changes as discussed There are consolidative infiltrate seen with the lung bases left greater than right NG tube is seen with the tip in the stomach with hyperdense fluid surrounding the tube in the esophagus most likely contrast. This may be secondary to reflux. Correlate clinically ET tube with the tip approximately 3.6 cm proximal to the julia Right central venous catheter with the tip the cavoatrial junction Borderline cardiomegaly with coronary artery calcifications There is mediastinal adenopathy. Individualized dose optimization techniques were used for this CT. at 2245 Reported and signed by: Tracee Clark DO Electronically Signed: Tracee Clark DO at 22:44 EST Tel , Service support ,
--- NOTE | 2020-02-03 16:08 | CT_ITS ---
STUDY: CT BRAIN WITHOUT CONTRAST REASON FOR EXAM: Female, 69 years old. AMS, + COVID, SEPTIC SHOCK, previous aneurysm coils. RADIATION DOSAGE (If Supplied By Facility): CTDIvol = ( 44.99 ) mGy, DLP = ( 829.85 ) mGycm TECHNIQUE: Transaxial CT imaging of the brain was performed without administration of intravenous contrast material. Individualized dose optimization techniques were used for this CT. COMPARISON: 12/28/2012 FINDINGS: Normal soft tissue structures. Normal calvarium. Stable embolization coils in the area of the intrapeduncular cistern, causing significant metal artifact. There is mild cerebral atrophy with widening of the extra-axial spaces and ventricular dilatation. Normal white matter tracts of the cerebral hemispheres. Normal basal ganglia and thalami. Normal brainstem. There is mild cerebellar atrophy. There is no intracranial hemorrhage. There are no findings of an acute ischemic infarction. Normal visualized paranasal sinuses. CT/Brain/Head without Contrast IMPRESSION: Chronic involutional changes of the brain. No change and no acute abnormality. Electronically Signed: Jasen Diego MD at 22:35 EST , Service support ,
--- NOTE | 2020-02-03 16:09 | CT_ITS ---
SEPTIC SHOCK, ACUTE RESPIRATOR FAILURE, +COVID, DOROTHY, DIAB, HTN SEPTIC SHOCK, ACUTE RESPIRATOR FAILURE, +COVID, DOROTHY, DIAB, HTN EXAMINATION: CT Abdomen And Pelvis W/O Contrast Injection TECHNIQUE: Helically acquired images were obtained of the abdomen and pelvis without oral or IV contrast as per renal stone protocol. A radiation dose optimization technique was used for this scan. IV Contrast dosage and agent: 400 ML ORAL CONTRAST Oral contrast: Yes COMPARISON: None FINDINGS: LOWER CHEST: Please refer to CT of the chest obtained on this date for the report LIVER: Homogeneous. No focal mass. GALLBLADDER AND BILIARY TREE: There is gallbladder wall thickening and edema. This was seen on ultrasound obtained today. Correlate clinically for cholecystitis. No intra- or extrahepatic biliary ductal dilation. PANCREAS: The pancreas is grossly unremarkable for an unenhanced study. There is minimal fat stranding near the tail of the pancreas however I suspect that this is secondary to perirenal fat stranding. I would correlate clinically for pancreatitis SPLEEN: Normal size without focal cystic or solid mass. ADRENAL GLANDS: The right adrenal gland is enlarged with a low-density mass measuring approximately 4.2 cm. There is also enlargement of the left adrenal gland with a low-density mass involving the right measuring approximately 2.4 cm. The left limb in an area measuring approximately 1.2 cm. I would recommend MRI follow-up with adrenal protocol for further evaluation to assess for adenoma. Correlate with laboratory findings also KIDNEYS AND URETERS: There is no hydronephrosis or hydroureter. No stones are seen within the ureters. Mild fat stranding surrounding the kidneys greater on the left. Without contrast is difficult to assess for pyelonephritis. Low-density lesion is seen within the mid right kidney measuring approximately 1 cm most compatible with a cyst PERITONEUM: There is a small amount of ascites seen within the left upper quadrant adjacent to the spleen. Also within the right paracolic gutter as well as within the pelvis. Minimal perihepatic fluid is also noted no free air BOWEL: The appendix is not clearly visualized on this study. There is an NG tube with the tip in the stomach Suspect reflux of contrast into the esophagus Stomach is incompletely distended The small bowel is unremarkable No diverticulitis. Incomplete distention of the colon. I cannot exclude wall thickening. Correlate clinically for colitis LYMPH NODES: No enlarged mesenteric or retroperitoneal lymph nodes. VESSELS: Aorta is non-dilated. There is an inferior vena cava filter with the tip at the level of the renal veins. URINARY BLADDER: Poorly distended and poorly visualized due to metallic artifact from orthopedic hardware at the hips REPRODUCTIVE ORGANS: No pelvic masses. ABDOMINAL WALL: No discrete abdominal or pelvic wall hernia. BONES: Bilateral total hip arthroplasties. Levoscoliosis of the lumbar spine. No acute osseous abnormality CT/Abdomen/Pel W ORAL Cont Only IMPRESSION: Gallbladder wall thickening and edema. Correlate clinically for cystitis Pancreas is grossly unremarkable. Minimal fat stranding seen near the tail the pancreas I suspect is secondary to perirenal fat stranding however I would correlate clinically for pancreatitis Enlarged bilateral adrenal glands as discussed. Recommend MRI follow-up with a adrenal protocol for further evaluation Small amount of ascites as discussed. NG tube with the tip in the stomach. Suspect reflux of contrast into the esophagus Poor distention of the colon. I cannot exclude wall thickening. Correlate clinically for colitis Individualized dose optimization techniques were used for this CT. at 2256 Reported and signed by: Tracee Clark DO Electronically Signed: Tracee Clark DO at 22:55 EST Tel , Service support ,
--- NOTE | 2020-02-03 16:11 | CON.PCM_ITS ---
Problem List (1) Pneumonia due to COVID-19 virus Status: Acute Reason for Consult: covid Consulted by: Dr. Gonzalez History of Present Illness: The patient is a 69 year old F with copd, on coumadin, presented 01/29 to [facility] with approx 2 weeks cough, dyspnea, not feeling well. Covid (+), admitted on dex and azithro. Was on 1L, feeling ok, but over next 2 days progressive dyspnea, hypotension, requiring intubation and pressors. Tr ansferred here with septic shock, shock liver, hypoxia, on vent, unresponsiveness/agitation. Lactate up to 11.9. On dex, vanc/zosyn. ROS unobtainable due to mental status. - Medical History Past Medical History (Chronic Problems): Chronic Problems (Last Reviewed 01/03/20 @ 09:52 by Mercedes Smart) COPD (chronic obstructive pulmonary disease) (Chronic) Seasonal allergies (Chronic) Asthma-COPD overlap syndrome (Chronic) Essential hypertension (Chronic) COPD without exacerbation (Chronic) COPD with exacerbation (Chronic) Allergies/Adverse Reactions: Allergies codeine Allergy (Verified 01/03/20 09:51) Unknown Penicillins Allergy (Verified 01/03/20 09:51) Unknown Sulfa (Sulfonamide Antibiotics) Allergy (Verified 01/03/20 09:51) Unknown Home Medications: Ambulatory Orders Medication Instructions Recorded Verapamil [Calan] 240 mg PO DAILY 12/29/12 Aspirin E.C. [Ecotrin] 325 mg PO DAILY 09/30/15 Atenolol [Tenormin] 50 mg PO DAILY 09/30/15 Calcium Carb/Vitamin D [Os-Georgi 2 tab PO DAILY@0800 09/30/15 500MG + D] Dexlansoprazole [Dexilant] 60 mg PO DAILY 09/30/15 Losartan Potassium [Cozaar] 50 mg PO DAILY 09/30/15 azelastine 137 mcg (0.1 %) nasal 1 spray INTRANASAL BID 02/22/19 spray aerosol fluorouracil 5 % topical cream 1 applic TOPICAL BID 02/22/19 Albuterol Sulfate [Albuterol 1 puff INHALATION Q4H PRN 02/02/20 Sulfate HFA] Cetirizine HCl [Wal-Zyr] 10 mg PO HS 02/02/20 Fluticasone/Umeclidin/Vilanter 1 inh INHALATION QDAY 02/02/20 [Trelegy Ellipta] Montelukast Sodium 10 mg PO QPM 02/02/20 Warfarin [Coumadin] 5 mg PO DAILY 02/02/20 - Social History SMOKING STATUS:: Current every day smoker Vital Signs Temp Pulse Resp BP Pulse Ox 100.3 F H 72 14 133/65 H 99 02/03/20 14:00 02/03/20 15:42 02/03/20 15:42 02/03/20 14:30 02/03/20 15:42 Oxygen Delivery Method Mechanical Ventilator Weight: 70.8 kg Body Mass Index (BMI) 26.8 Finger Stick Blood Glucose 88 Microbiology Past 72 Hours 02/02/20 18:45 Urine Culture - Preliminary Urine Catheter - Miles Culture exhibits no growth. 02/03/20 07:40 Gram Stain - Final Sputum, Induced/Lukens 02/03/20 00:55 Respiratory Panel (PCR) - Final Mucosa - Nasopharyngeal 02/02/20 18:45 Legionella Antigen - Final Urine Catheter - Miles Streptococcus pneumoniae Antigen (M - Final Laboratory Tests Past 24 Hrs 02/02/20 02/02/20 02/02/20 18:18 18:18 18:18 WBC 20.1 H RBC 4.24 Hgb 10.4 L Hct 35.6 L MCV 84.0 MCH 24.5 L MCHC 29.2 L RDW Std Deviation 54.8 H RDW Coeff of Charlie 17.8 H Plt Count 217 MPV 11.9 Immature Gran % (Auto) Neut % (Auto) Not Reportable Lymph % (Auto) [place] % (Auto) Eos % (Auto) Baso % (Auto) Absolute Neuts (auto) 18.1 H Absolute Lymphs (auto) 1.21 Total Counted 100 Neutrophils % (Manual) 86 H Band Neutrophils % 4 Lymphocytes % (Manual) 6 L Monocytes % (Manual) 3 Basophils % (Manual) 1 Nucleated RBC % Diff Path Review Reviewed Platelet Estimate ADEQUATE RBC Morphology NORM C+C PT Cancelled INR Cancelled APTT Cancelled D-Dimer Quant (PE/DVT) Cancelled Specimen Type Sample Site pH Bicarbonate Actual Total CO2 Base Excess O2 Saturation O2 % ABG pCO2 ABG pO2 Will Test VBG pH VBG pH (Temp Correct) VBG pCO2 (Temp Corrct VBG pO2 VBG HCO3 VBG Total CO2 VBG O2 Sat (Calc) VBG Base Excess POC Mix VBG pCO2 Pt Tmp Respiration Rate O2 Delivery Device Liter Flow Minute Volume Vent Mode Inspiratory Time Expiratory Time Tidal Volume POC PEEP POC Pressure Suppt Pressure Control EPAP IPAP Blood Gas Comments Blood Gas Notified Whom Blood Gas Notified Time Sodium 151 H Potassium 5.5 H Chloride 117 H Carbon Dioxide 18.0 L Anion Gap 16 H BUN 30 H Creatinine 1.79 H Estim Creat Clear Calc Est GFR (MDRD) Af Amer 36 L Est GFR (MDRD) Non-Af 30 L BUN/Creatinine Ratio 16.8 Glucose 117 H Lactic Acid Calcium 7.7 L Phosphorus Magnesium Total Bilirubin 1.00 AST 1166 H ALT 463 H Alkaline Phosphatase 88 B-Natriuretic Peptide Total Protein 5.4 L Albumin 1.8 L Globulin 3.6 Albumin/Globulin Ratio 0.5 L Procalcitonin Urine Color Urine Clarity Urine pH Ur Specific [place] Urine Protein Urine Glucose (UA) Urine Ketones Urine Occult Blood Urine Nitrite Urine Bilirubin Urine Urobilinogen Ur Leukocyte Esterase Blood Type Antibody Screen Crossmatch 02/02/20 02/02/20 02/02/20 18:18 18:22 18:25 WBC RBC Hgb Hct MCV MCH MCHC RDW Std Deviation RDW Coeff of Charlie Plt Count MPV Immature Gran % (Auto) Neut % (Auto) Lymph % (Auto) [place] % (Auto) Eos % (Auto) Baso % (Auto) Absolute Neuts (auto) Absolute Lymphs (auto) Total Counted Neutrophils % (Manual) Band Neutrophils % Lymphocytes % (Manual) Monocytes % (Manual) Basophils % (Manual) Nucleated RBC % Diff Path Review Platelet Estimate RBC Morphology PT INR APTT D-Dimer Quant (PE/DVT) Specimen Type DINORAH Sample Site L Radial pH Bicarbonate Actual Total CO2 Base Excess O2 Saturation O2 % ABG pCO2 ABG pO2 Will Test VBG pH 7.19 L* VBG pH (Temp Correct) VBG pCO2 (Temp Corrct VBG pO2 48 H VBG HCO3 16 L VBG Total CO2 18 L VBG O2 Sat (Calc) 73 H VBG Base Excess -12 L POC Mix VBG pCO2 Pt Tmp 42.6 Respiration Rate O2 Delivery Device Adult Vent Liter Flow Minute Volume Vent Mode Inspiratory Time Expiratory Time Tidal Volume POC PEEP 5 POC Pressure Suppt Pressure Control EPAP IPAP Blood Gas Comments Blood Gas Notified Whom Blood Gas Notified Time Sodium Potassium Chloride Carbon Dioxide Anion Gap BUN Creatinine Estim Creat Clear Calc Est GFR (MDRD) Af Amer Est GFR (MDRD) Non-Af BUN/Creatinine Ratio Glucose Lactic Acid 8.6 H* Calcium Phosphorus Magnesium Total Bilirubin AST ALT Alkaline Phosphatase B-Natriuretic Peptide 378.5 H Total Protein Albumin Globulin Albumin/Globulin Ratio Procalcitonin Urine Color Urine Clarity Urine pH Ur Specific [place] Urine Protein Urine Glucose (UA) Urine Ketones Urine Occult Blood Urine Nitrite Urine Bilirubin Urine Urobilinogen Ur Leukocyte Esterase Blood Type Antibody Screen Crossmatch 02/02/20 02/02/20 02/02/20 18:37 18:45 18:55 WBC RBC Hgb Hct MCV MCH MCHC RDW Std Deviation RDW Coeff of Charlie Plt Count MPV Immature Gran % (Auto) Neut % (Auto) Lymph % (Auto) [place] % (Auto) Eos % (Auto) Baso % (Auto) Absolute Neuts (auto) Absolute Lymphs (auto) Total Counted Neutrophils % (Manual) Band Neutrophils % Lymphocytes % (Manual) Monocytes % (Manual) Basophils % (Manual) Nucleated RBC % Diff Path Review Platelet Estimate RBC Morphology PT 66.1 H INR 7.7 H* APTT 40.3 H D-Dimer Quant (PE/DVT) 5.66 H* Specimen Type Cancelled Sample Site Cancelled pH Bicarbonate Actual Total CO2 Base Excess O2 Saturation O2 % Cancelled ABG pCO2 ABG pO2 Will Test VBG pH Cancelled VBG pH (Temp Correct) Cancelled VBG pCO2 (Temp Corrct Cancelled VBG pO2 Cancelled VBG HCO3 Cancelled VBG Total CO2 Cancelled VBG O2 Sat (Calc) Cancelled VBG Base Excess Cancelled POC Mix VBG pCO2 Pt Tmp Cancelled Respiration Rate Cancelled O2 Delivery Device Cancelled Liter Flow Cancelled Minute Volume Cancelled Vent Mode Inspiratory Time Cancelled Expiratory Time Cancelled Tidal Volume Cancelled POC PEEP Cancelled POC Pressure Suppt Cancelled Pressure Control Cancelled EPAP Cancelled IPAP Cancelled Blood Gas Comments Cancelled Blood Gas Notified Whom Cancelled Blood Gas Notified Time Cancelled Sodium Potassium Chloride Carbon Dioxide Anion Gap BUN Creatinine Estim Creat Clear Calc Est GFR (MDRD) Af Amer Est GFR (MDRD) Non-Af BUN/Creatinine Ratio Glucose Lactic Acid Calcium Phosphorus Magnesium Total Bilirubin AST ALT Alkaline Phosphatase B-Natriuretic Peptide Total Protein Albumin Globulin Albumin/Globulin Ratio Procalcitonin Urine Color Yellow Urine Clarity Clear Urine pH 5.0 Ur Specific [place] 1.020 Urine Protein 30 H Urine Glucose (UA) Normal Urine Ketones 5 H Urine Occult Blood Negative Urine Nitrite Negative Urine Bilirubin Negative Urine Urobilinogen Normal Ur Leukocyte Esterase Negative Blood Type Antibody Screen Crossmatch 02/02/20 02/02/20 02/02/20 20:04 20:50 22:55 WBC RBC Hgb Hct MCV MCH MCHC RDW Std Deviation RDW Coeff of Charlie Plt Count MPV Immature Gran % (Auto) Neut % (Auto) Lymph % (Auto) [place] % (Auto) Eos % (Auto) Baso % (Auto) Absolute Neuts (auto) Absolute Lymphs (auto) Total Counted Neutrophils % (Manual) Band Neutrophils % Lymphocytes % (Manual) Monocytes % (Manual) Basophils % (Manual) Nucleated RBC % Diff Path Review Platelet Estimate RBC Morphology PT INR APTT D-Dimer Quant (PE/DVT) Specimen Type ART Sample Site L Radial pH 7.20 L Bicarbonate Actual 16.0 L Total CO2 17 Base Excess -12 L O2 Saturation 91 L O2 % 100 ABG pCO2 40.9 ABG pO2 75 Will Test Positive VBG pH VBG pH (Temp Correct) VBG pCO2 (Temp Corrct VBG pO2 VBG HCO3 VBG Total CO2 VBG O2 Sat (Calc) VBG Base Excess POC Mix VBG pCO2 Pt Tmp Respiration Rate 14 O2 Delivery Device Adult Vent Liter Flow Minute Volume Vent Mode AC Inspiratory Time Expiratory Time Tidal Volume 450 POC PEEP 5 POC Pressure Suppt Pressure Control EPAP IPAP Blood Gas Comments Blood Gas Notified Whom Blood Gas Notified Time Sodium Potassium Chloride Carbon Dioxide Anion Gap BUN Creatinine Estim Creat Clear Calc Est GFR (MDRD) Af Amer Est GFR (MDRD) Non-Af BUN/Creatinine Ratio Glucose Lactic Acid 11.9 H* Calcium Phosphorus Magnesium Total Bilirubin AST ALT Alkaline Phosphatase B-Natriuretic Peptide Total Protein Albumin Globulin Albumin/Globulin Ratio Procalcitonin Urine Color Urine Clarity Urine pH Ur Specific [place] Urine Protein Urine Glucose (UA) Urine Ketones Urine Occult Blood Urine Nitrite Urine Bilirubin Urine Urobilinogen Ur Leukocyte Esterase Blood Type O POSITIVE Antibody Screen NEGATIVE Crossmatch See Detail 02/03/20 02/03/20 02/03/20 01:03 01:36 01:45 WBC RBC Hgb Cancelled Hct Cancelled MCV MCH MCHC RDW Std Deviation RDW Coeff of Charlie Plt Count MPV Immature Gran % (Auto) Neut % (Auto) Lymph % (Auto) [place] % (Auto) Eos % (Auto) Baso % (Auto) Absolute Neuts (auto) Absolute Lymphs (auto) Total Counted Neutrophils % (Manual) Band Neutrophils % Lymphocytes % (Manual) Monocytes % (Manual) Basophils % (Manual) Nucleated RBC % Diff Path Review Platelet Estimate RBC Morphology PT INR APTT D-Dimer Quant (PE/DVT) Specimen Type ART Sample Site R Radial pH 7.32 L Bicarbonate Actual 18.3 L Total CO2 19 Base Excess -8 L O2 Saturation 89 L O2 % 70 ABG pCO2 35.4 ABG pO2 61 L Will Test VBG pH VBG pH (Temp Correct) VBG pCO2 (Temp Corrct VBG pO2 VBG HCO3 VBG Total CO2 VBG O2 Sat (Calc) VBG Base Excess POC Mix VBG pCO2 Pt Tmp Respiration Rate 14 O2 Delivery Device Adult Vent Liter Flow Minute Volume Vent Mode AC Inspiratory Time Expiratory Time Tidal Volume 450 POC PEEP 12 POC Pressure Suppt Pressure Control EPAP IPAP Blood Gas Comments Blood Gas Notified Whom Blood Gas Notified Time Sodium 150 H Potassium 5.4 H Chloride 115 H Carbon Dioxide 18.0 L Anion Gap 17 H BUN 37 H Creatinine 2.20 H Estim Creat Clear Calc 20.25 Est GFR (MDRD) Af Amer 28 L Est GFR (MDRD) Non-Af 23 L BUN/Creatinine Ratio 16.8 Glucose 177 H Lactic Acid Calcium 7.8 L Phosphorus Magnesium Total Bilirubin AST ALT Alkaline Phosphatase B-Natriuretic Peptide Total Protein Albumin Globulin Albumin/Globulin Ratio Procalcitonin Urine Color Urine Clarity Urine pH Ur Specific [place] Urine Protein Urine Glucose (UA) Urine Ketones Urine Occult Blood Urine Nitrite Urine Bilirubin Urine Urobilinogen Ur Leukocyte Esterase Blood Type Antibody Screen Crossmatch 02/03/20 02/03/20 02/03/20 01:45 03:35 03:35 WBC RBC Hgb 8.9 L Hct 30.0 L MCV MCH MCHC RDW Std Deviation RDW Coeff of Charlie Plt Count MPV Immature Gran % (Auto) Neut % (Auto) Lymph % (Auto) [place] % (Auto) Eos % (Auto) Baso % (Auto) Absolute Neuts (auto) Absolute Lymphs (auto) Total Counted Neutrophils % (Manual) Band Neutrophils % Lymphocytes % (Manual) Monocytes % (Manual) Basophils % (Manual) Nucleated RBC % Diff Path Review Platelet Estimate RBC Morphology PT 29.1 H INR 2.8 APTT D-Dimer Quant (PE/DVT) Specimen Type Sample Site pH Bicarbonate Actual Total CO2 Base Excess O2 Saturation O2 % ABG pCO2 ABG pO2 Will Test VBG pH VBG pH (Temp Correct) VBG pCO2 (Temp Corrct VBG pO2 VBG HCO3 VBG Total CO2 VBG O2 Sat (Calc) VBG Base Excess POC Mix VBG pCO2 Pt Tmp Respiration Rate O2 Delivery Device Liter Flow Minute Volume Vent Mode Inspiratory Time Expiratory Time Tidal Volume POC PEEP POC Pressure Suppt Pressure Control EPAP IPAP Blood Gas Comments Blood Gas Notified Whom Blood Gas Notified Time Sodium Potassium Chloride Carbon Dioxide Anion Gap BUN Creatinine Estim Creat Clear Calc Est GFR (MDRD) Af Amer Est GFR (MDRD) Non-Af BUN/Creatinine Ratio Glucose Lactic Acid 10.3 H* Calcium Phosphorus Magnesium Total Bilirubin AST ALT Alkaline Phosphatase B-Natriuretic Peptide Total Protein Albumin Globulin Albumin/Globulin Ratio Procalcitonin Urine Color Urine Clarity Urine pH Ur Specific [place] Urine Protein Urine Glucose (UA) Urine Ketones Urine Occult Blood Urine Nitrite Urine Bilirubin Urine Urobilinogen Ur Leukocyte Esterase Blood Type Antibody Screen Crossmatch 02/03/20 02/03/20 02/03/20 08:50 08:50 12:30 WBC 16.2 H RBC 3.55 L Hgb 8.6 L Hct 27.8 L MCV 78.3 L D MCH 24.2 L MCHC 30.9 L D RDW Std Deviation 50.5 H RDW Coeff of Charlie 17.6 H Plt Count 247 MPV 11.4 Immature Gran % (Auto) 4.700 H Neut % (Auto) 88.5 H Lymph % (Auto) 4.1 L [place] % (Auto) 2.5 Eos % (Auto) 0.0 Baso % (Auto) 0.2 Absolute Neuts (auto) 14.4 H Absolute Lymphs (auto) 0.66 L Total Counted Neutrophils % (Manual) Band Neutrophils % Lymphocytes % (Manual) Monocytes % (Manual) Basophils % (Manual) Nucleated RBC % 0.6 Diff Path Review Platelet Estimate RBC Morphology PT INR APTT D-Dimer Quant (PE/DVT) Specimen Type Sample Site pH Bicarbonate Actual Total CO2 Base Excess O2 Saturation O2 % ABG pCO2 ABG pO2 Will Test VBG pH VBG pH (Temp Correct) VBG pCO2 (Temp Corrct VBG pO2 VBG HCO3 VBG Total CO2 VBG O2 Sat (Calc) VBG Base Excess POC Mix VBG pCO2 Pt Tmp Respiration Rate O2 Delivery Device Liter Flow Minute Volume Vent Mode Inspiratory Time Expiratory Time Tidal Volume POC PEEP POC Pressure Suppt Pressure Control EPAP IPAP Blood Gas Comments Blood Gas Notified Whom Blood Gas Notified Time Sodium 149 H Potassium 4.3 Chloride 113 H Carbon Dioxide 23.0 Anion Gap 13 BUN 46 H Creatinine 2.58 H Estim Creat Clear Calc 17.27 Est GFR (MDRD) Af Amer 24 L Est GFR (MDRD) Non-Af 19 L BUN/Creatinine Ratio 17.8 Glucose 162 H Lactic Acid Calcium 7.7 L Phosphorus 3.5 Magnesium 2.0 Total Bilirubin 1.20 H AST 74911 H ALT 5272 H Alkaline Phosphatase 104 B-Natriuretic Peptide Total Protein 5.6 L Albumin 2.2 L Globulin 3.4 Albumin/Globulin Ratio 0.6 L Procalcitonin 2.65 H Urine Color Urine Clarity Urine pH Ur Specific [place] Urine Protein Urine Glucose (UA) Urine Ketones Urine Occult Blood Urine Nitrite Urine Bilirubin Urine Urobilinogen Ur Leukocyte Esterase Blood Type Antibody Screen Crossmatch - Other Studies Radiology: [] reviewed Other Studies: [] Route of nutrition/ use of supplements: [] Nutritional Intake: [] IV Site: [] Miles Catheter: [] - Physical Exam General: Non-Cooperative, - - unresponsive HEENT: Atraumatic, PERRLA Neck: Supple, No Nodes Lungs: Diminished Cardiovascular: Tachycardic Abdomen: Soft, Non Tender, Non-Distended Extremities: No edema Skin: No rashes IV Site: Peripheral, without redness Musculoskeletal: No Tenderness to Palpation of Joints or Extremities Neurological: Cranial nerves II-XII grossly intact - Assessment/Plan Antibiotics: [] Assessment/Plan: [] Active and Suspected Problems (Last Reviewed 01/03/20 @ 09:52 by Mercedes Smart) Respiratory failure (Acute) Pneumonia due to COVID-19 virus (Acute) septic shock with DOROTHY, resp failure, massive transaminitis, and covid - dx 01/30/20 at [place]. Reviewed records there. D-dimer was just above normal limit there. Lactate 11.9 here, ALT 16k, ddimer 5.6 here, INR 7.7. On dex IV, vanc/zosyn. INR improving. With high INR, abnormal LFTs, altered mental status, and rapid decompensation, will check CT head/chest/abd/pelvis without iv contrast. Will follow, thank you, d/w nursing
[2020-02-03] MEDS: Propofol 10MG/Ml 1,000 MG/100 ML Bottle 2.1 MG CONT INF (16:20)
--- NOTE | 2020-02-03 19:30 | NURSING ---
When this RN came on shift gtts running were Propofol@10mcg, Fentanyl@25mcg, and Levophed@10mcg.
[2020-02-03] MEDS: Insulin Lispro 100 UNIT/ML INSULN.PEN SC (19:54)
--- NOTE | 2020-02-03 21:40 | NURSING ---
Pt. transported to CT scan with 2 RN and resp therapist.
--- NOTE | 2020-02-03 22:20 | NURSING ---
Pt. back from CT scan.
--- NOTE | 2020-02-03 22:50 | NURSING ---
Tube feed started at 20ml/hr.
[2020-02-03 23:30] LABS: Bedside Glucose 150 mg/dL (70-110)
[2020-02-03 23:44] LABS: Triglycerides 161 mg/dL
[2020-02-03 23:54] LABS: CPK Total, Creatine Kinase 264 U/L (26-192)
[2020-02-04] VITALS (46 sets, daily range): BP systolic 56–157; BP diastolic 36–103; PULSE 90–134; RESP 14–27; TEMP 36.6–37.5; O2SAT 88–98
[2020-02-04] MEDS: Insulin Lispro 100 UNIT/ML INSULN.PEN SC ×3 (00:04→13:24)
[2020-02-04 01:26] LABS: Bedside Glucose 150 mg/dL (70-110)
--- NOTE | 2020-02-04 02:05 | NURSING ---
Pt's BP continues to be low despite increasing Levophed. Followed the Levophed tubing back to the pump and found a hole in the tubing, and the med was dripping on the ground. New tubing spiked and replaced. BP now stable.
[2020-02-04 04:37] LABS: Hematocrit 28.5 % (37-47); Mean Corp Hgb Conc 31.6 g/dL (32-36); Mean Corpuscular Volume 79.2 fL (81-99); Mean Platelet Vol. 11.3 fl (6.2-12.0); Platelet Count 266 K/mm3 (150-450); RBC Distribution Width CV 17.2 % (11.6-14.6); RBC Distribution Width SD 49.2 fl (35.1-43.9); White Blood Count 17.1 K/mm3 (4.4-11.0)
[2020-02-04 04:44] LABS: International Normalized Ratio 1.8
[2020-02-04] MEDS: TITRATION PARAMETER CHANGE 1 EACH IV (04:58)
[2020-02-04 05:06] LABS: Vancomycin, Random Level 13.9 ug/mL (0.0-15.0)
[2020-02-04 05:13] LABS: AST(SGOT) 8202 U/L (15-37); Alanine Aminotransfer ALT/SGPT 4123 U/L (13-56); Albumin, Serum 2.1 g/dL (3.2-5.0); Alkaline Phosphatase 109 U/L (45-117); Anion Gap 10 (5-15); BUN 56 mg/dL (7-18); Bilirubin, Direct 0.77 mg/dL (0.00-0.30); Calcium,Total 7.4 mg/dL (8.5-10.1); Chloride 108 mmol/L (98-107); Creatinine, Serum 3.49 mg/dL (0.55-1.02); EST Glomerular Filtration Rate 14 mL/min (>60); Est Glom Filt Rate - Afr Amer 17 mL/min (>60); Estimated Creatinine Clearance 12.77 ml/min; Globulin 3.3 g/dL (2.2-4.2); Glucose 152 mg/dL (74-106); Potassium 3.7 mmol/L (3.5-5.1); Protein, Total 5.4 g/dL (6.4-8.2); Sodium Level 145 mmol/L (136-145)
[2020-02-04] MEDS: 0.9% Saline Lock 10 ML Syringe IV ×2 (05:45→12:12)
--- NOTE | 2020-02-04 05:47 | PN_ITS ---
Subjective: The patient was seen and examined at the bedside this morning. Events from the last 24 hours have been reviewed. The patient is currently afebrile, hemodynamically stable and maintaining appropriate oxygen saturations on assist control mode of mechanical ventilation with an FiO2 requirement of 50% and PEEP of 10. INR was noted this morning to be 1.8. Creatinine has increased to 3.49 overnight. Liver function is improving. The patient remains on Levophed at 5mcg/min to maintain hemodynamic stability. The patient has been in atrial fibrillation since yesterday. Objective: The patient's most recent lab work, culture data and imaging studies have all been personally reviewed. Respiratory viral panel was negative. Strep and urine Legionella antigens were negative. Blood, urine and sputum cultures are pending. General: - - Intubated, sedated and mechanically ventilated. No ventilator to synchrony noted. HEENT: Atraumatic, Normocephalic Oral: No Gingival or Mucosal Lesions/ Ulcerations, - - Stable endotracheal and OG tubes. Neck: Supple, No Nodes, Trachea Midline, - - Stable triple-lumen central venous catheter. Lungs: No rhonchi, No wheeze, No rales, Diminished Cardiovascular: Normal S1, Normal S2, Irregular Rate Abdomen: Bowel Sounds Present, Soft, Non Tender Extremities: No clubbing, No cyanosis, Edema Skin: - - No significant change from previous. Musculoskeletal: No Tenderness to Palpation of Joints or Extremities Lymphatic: No Cervical, Supraclavicular, or Inguinal Adenopathy Neurological: - - No focal neurological deficits. Currently sedated with a RASS of -1. Vital Signs Temp Pulse Resp BP Pulse Ox 98.8 F 112 H 15 124/80 H 96 02/04/20 05:00 02/04/20 05:15 02/04/20 05:15 02/04/20 05:00 02/04/20 05:15 Oxygen Delivery Method Mechanical Ventilator Weight: 156 lb 11.979 oz Body Mass Index (BMI) 26.8 Finger Stick Blood Glucose 88 Intake and Output for Last 24 Hours 02/02/20 02/03/20 02/04/20 23:59 23:59 23:59 Intake Total 1067.55 / 1086.35 2903.97 / 2913.55 245.42 / 245.42 Output Total 380 / 380 234 / 234 Balance 687.55 / 706.35 2669.97 / 2679.55 230.42 / 230.42 Labs (Last 48 Hours) 02/02/20 02/02/20 02/02/20 18:18 18:18 18:18 WBC 20.1 H RBC 4.24 Hgb 10.4 L Hct 35.6 L MCV 84.0 MCH 24.5 L MCHC 29.2 L RDW Std Deviation 54.8 H RDW Coeff of Charlie 17.8 H Plt Count 217 MPV 11.9 Immature Gran % (Auto) Neut % (Auto) Not Reportable Lymph % (Auto) [place] % (Auto) Eos % (Auto) Baso % (Auto) Absolute Neuts (auto) 18.1 H Absolute Lymphs (auto) 1.21 Total Counted 100 Neutrophils % (Manual) 86 H Band Neutrophils % 4 Lymphocytes % (Manual) 6 L Monocytes % (Manual) 3 Basophils % (Manual) 1 Nucleated RBC % Diff Path Review Reviewed Platelet Estimate ADEQUATE RBC Morphology NORM C+C PT Cancelled INR Cancelled APTT Cancelled D-Dimer Quant (PE/DVT) Cancelled Specimen Type Sample Site pH Bicarbonate Actual Total CO2 Base Excess O2 Saturation O2 % ABG pCO2 ABG pO2 Will Test VBG pH VBG pH (Temp Correct) VBG pCO2 (Temp Corrct VBG pO2 VBG HCO3 VBG Total CO2 VBG O2 Sat (Calc) VBG Base Excess POC Mix VBG pCO2 Pt Tmp Respiration Rate O2 Delivery Device Liter Flow Minute Volume Vent Mode Inspiratory Time Expiratory Time Tidal Volume POC PEEP POC Pressure Suppt Pressure Control EPAP IPAP Blood Gas Comments Blood Gas Notified Whom Blood Gas Notified Time Sodium 151 H Potassium 5.5 H Chloride 117 H Carbon Dioxide 18.0 L Anion Gap 16 H BUN 30 H Creatinine 1.79 H Estim Creat Clear Calc Est GFR (MDRD) Af Amer 36 L Est GFR (MDRD) Non-Af 30 L BUN/Creatinine Ratio 16.8 Glucose 117 H Lactic Acid Calcium 7.7 L Phosphorus Magnesium Total Bilirubin 1.00 Direct Bilirubin AST 1166 H ALT 463 H Alkaline Phosphatase 88 Total Creatine Kinase B-Natriuretic Peptide Total Protein 5.4 L Albumin 1.8 L Globulin 3.6 Albumin/Globulin Ratio 0.5 L Triglycerides Procalcitonin Urine Color Urine Clarity Urine pH Ur Specific [place] Urine Protein Urine Glucose (UA) Urine Ketones Urine Occult Blood Urine Nitrite Urine Bilirubin Urine Urobilinogen Ur Leukocyte Esterase Random Vancomycin POC Glucose Blood Type Antibody Screen Crossmatch 02/02/20 02/02/20 02/02/20 18:18 18:22 18:25 WBC RBC Hgb Hct MCV MCH MCHC RDW Std Deviation RDW Coeff of Charlie Plt Count MPV Immature Gran % (Auto) Neut % (Auto) Lymph % (Auto) [place] % (Auto) Eos % (Auto) Baso % (Auto) Absolute Neuts (auto) Absolute Lymphs (auto) Total Counted Neutrophils % (Manual) Band Neutrophils % Lymphocytes % (Manual) Monocytes % (Manual) Basophils % (Manual) Nucleated RBC % Diff Path Review Platelet Estimate RBC Morphology PT INR APTT D-Dimer Quant (PE/DVT) Specimen Type DINORAH Sample Site L Radial pH Bicarbonate Actual Total CO2 Base Excess O2 Saturation O2 % ABG pCO2 ABG pO2 Will Test VBG pH 7.19 L* VBG pH (Temp Correct) VBG pCO2 (Temp Corrct VBG pO2 48 H VBG HCO3 16 L VBG Total CO2 18 L VBG O2 Sat (Calc) 73 H VBG Base Excess -12 L POC Mix VBG pCO2 Pt Tmp 42.6 Respiration Rate O2 Delivery Device Adult Vent Liter Flow Minute Volume Vent Mode Inspiratory Time Expiratory Time Tidal Volume POC PEEP 5 POC Pressure Suppt Pressure Control EPAP IPAP Blood Gas Comments Blood Gas Notified Whom Blood Gas Notified Time Sodium Potassium Chloride Carbon Dioxide Anion Gap BUN Creatinine Estim Creat Clear Calc Est GFR (MDRD) Af Amer Est GFR (MDRD) Non-Af BUN/Creatinine Ratio Glucose Lactic Acid 8.6 H* Calcium Phosphorus Magnesium Total Bilirubin Direct Bilirubin AST ALT Alkaline Phosphatase Total Creatine Kinase B-Natriuretic Peptide 378.5 H Total Protein Albumin Globulin Albumin/Globulin Ratio Triglycerides Procalcitonin Urine Color Urine Clarity Urine pH Ur Specific [place] Urine Protein Urine Glucose (UA) Urine Ketones Urine Occult Blood Urine Nitrite Urine Bilirubin Urine Urobilinogen Ur Leukocyte Esterase Random Vancomycin POC Glucose Blood Type Antibody Screen Crossmatch 02/02/20 02/02/20 02/02/20 18:37 18:45 18:55 WBC RBC Hgb Hct MCV MCH MCHC RDW Std Deviation RDW Coeff of Charlie Plt Count MPV Immature Gran % (Auto) Neut % (Auto) Lymph % (Auto) [place] % (Auto) Eos % (Auto) Baso % (Auto) Absolute Neuts (auto) Absolute Lymphs (auto) Total Counted Neutrophils % (Manual) Band Neutrophils % Lymphocytes % (Manual) Monocytes % (Manual) Basophils % (Manual) Nucleated RBC % Diff Path Review Platelet Estimate RBC Morphology PT 66.1 H INR 7.7 H* APTT 40.3 H D-Dimer Quant (PE/DVT) 5.66 H* Specimen Type Cancelled Sample Site Cancelled pH Bicarbonate Actual Total CO2 Base Excess O2 Saturation O2 % Cancelled ABG pCO2 ABG pO2 Will Test VBG pH Cancelled VBG pH (Temp Correct) Cancelled VBG pCO2 (Temp Corrct Cancelled VBG pO2 Cancelled VBG HCO3 Cancelled VBG Total CO2 Cancelled VBG O2 Sat (Calc) Cancelled VBG Base Excess Cancelled POC Mix VBG pCO2 Pt Tmp Cancelled Respiration Rate Cancelled O2 Delivery Device Cancelled Liter Flow Cancelled Minute Volume Cancelled Vent Mode Inspiratory Time Cancelled Expiratory Time Cancelled Tidal Volume Cancelled POC PEEP Cancelled POC Pressure Suppt Cancelled Pressure Control Cancelled EPAP Cancelled IPAP Cancelled Blood Gas Comments Cancelled Blood Gas Notified Whom Cancelled Blood Gas Notified Time Cancelled Sodium Potassium Chloride Carbon Dioxide Anion Gap BUN Creatinine Estim Creat Clear Calc Est GFR (MDRD) Af Amer Est GFR (MDRD) Non-Af BUN/Creatinine Ratio Glucose Lactic Acid Calcium Phosphorus Magnesium Total Bilirubin Direct Bilirubin AST ALT Alkaline Phosphatase Total Creatine Kinase B-Natriuretic Peptide Total Protein Albumin Globulin Albumin/Globulin Ratio Triglycerides Procalcitonin Urine Color Yellow Urine Clarity Clear Urine pH 5.0 Ur Specific [place] 1.020 Urine Protein 30 H Urine Glucose (UA) Normal Urine Ketones 5 H Urine Occult Blood Negative Urine Nitrite Negative Urine Bilirubin Negative Urine Urobilinogen Normal Ur Leukocyte Esterase Negative Random Vancomycin POC Glucose Blood Type Antibody Screen Crossmatch 02/02/20 02/02/20 02/02/20 20:04 20:50 22:55 WBC RBC Hgb Hct MCV MCH MCHC RDW Std Deviation RDW Coeff of Charlie Plt Count MPV Immature Gran % (Auto) Neut % (Auto) Lymph % (Auto) [place] % (Auto) Eos % (Auto) Baso % (Auto) Absolute Neuts (auto) Absolute Lymphs (auto) Total Counted Neutrophils % (Manual) Band Neutrophils % Lymphocytes % (Manual) Monocytes % (Manual) Basophils % (Manual) Nucleated RBC % Diff Path Review Platelet Estimate RBC Morphology PT INR APTT D-Dimer Quant (PE/DVT) Specimen Type ART Sample Site L Radial pH 7.20 L Bicarbonate Actual 16.0 L Total CO2 17 Base Excess -12 L O2 Saturation 91 L O2 % 100 ABG pCO2 40.9 ABG pO2 75 Will Test Positive VBG pH VBG pH (Temp Correct) VBG pCO2 (Temp Corrct VBG pO2 VBG HCO3 VBG Total CO2 VBG O2 Sat (Calc) VBG Base Excess POC Mix VBG pCO2 Pt Tmp Respiration Rate 14 O2 Delivery Device Adult Vent Liter Flow Minute Volume Vent Mode AC Inspiratory Time Expiratory Time Tidal Volume 450 POC PEEP 5 POC Pressure Suppt Pressure Control EPAP IPAP Blood Gas Comments Blood Gas Notified Whom Blood Gas Notified Time Sodium Potassium Chloride Carbon Dioxide Anion Gap BUN Creatinine Estim Creat Clear Calc Est GFR (MDRD) Af Amer Est GFR (MDRD) Non-Af BUN/Creatinine Ratio Glucose Lactic Acid 11.9 H* Calcium Phosphorus Magnesium Total Bilirubin Direct Bilirubin AST ALT Alkaline Phosphatase Total Creatine Kinase B-Natriuretic Peptide Total Protein Albumin Globulin Albumin/Globulin Ratio Triglycerides Procalcitonin Urine Color Urine Clarity Urine pH Ur Specific [place] Urine Protein Urine Glucose (UA) Urine Ketones Urine Occult Blood Urine Nitrite Urine Bilirubin Urine Urobilinogen Ur Leukocyte Esterase Random Vancomycin POC Glucose Blood Type O POSITIVE Antibody Screen NEGATIVE Crossmatch See Detail 02/03/20 02/03/20 02/03/20 01:03 01:36 01:45 WBC RBC Hgb Cancelled Hct Cancelled MCV MCH MCHC RDW Std Deviation RDW Coeff of Charlie Plt Count MPV Immature Gran % (Auto) Neut % (Auto) Lymph % (Auto) [place] % (Auto) Eos % (Auto) Baso % (Auto) Absolute Neuts (auto) Absolute Lymphs (auto) Total Counted Neutrophils % (Manual) Band Neutrophils % Lymphocytes % (Manual) Monocytes % (Manual) Basophils % (Manual) Nucleated RBC % Diff Path Review Platelet Estimate RBC Morphology PT INR APTT D-Dimer Quant (PE/DVT) Specimen Type ART Sample Site R Radial pH 7.32 L Bicarbonate Actual 18.3 L Total CO2 19 Base Excess -8 L O2 Saturation 89 L O2 % 70 ABG pCO2 35.4 ABG pO2 61 L Will Test VBG pH VBG pH (Temp Correct) VBG pCO2 (Temp Corrct VBG pO2 VBG HCO3 VBG Total CO2 VBG O2 Sat (Calc) VBG Base Excess POC Mix VBG pCO2 Pt Tmp Respiration Rate 14 O2 Delivery Device Adult Vent Liter Flow Minute Volume Vent Mode AC Inspiratory Time Expiratory Time Tidal Volume 450 POC PEEP 12 POC Pressure Suppt Pressure Control EPAP IPAP Blood Gas Comments Blood Gas Notified Whom Blood Gas Notified Time Sodium 150 H Potassium 5.4 H Chloride 115 H Carbon Dioxide 18.0 L Anion Gap 17 H BUN 37 H Creatinine 2.20 H Estim Creat Clear Calc 20.25 Est GFR (MDRD) Af Amer 28 L Est GFR (MDRD) Non-Af 23 L BUN/Creatinine Ratio 16.8 Glucose 177 H Lactic Acid Calcium 7.8 L Phosphorus Magnesium Total Bilirubin Direct Bilirubin AST ALT Alkaline Phosphatase Total Creatine Kinase B-Natriuretic Peptide Total Protein Albumin Globulin Albumin/Globulin Ratio Triglycerides Procalcitonin Urine Color Urine Clarity Urine pH Ur Specific [place] Urine Protein Urine Glucose (UA) Urine Ketones Urine Occult Blood Urine Nitrite Urine Bilirubin Urine Urobilinogen Ur Leukocyte Esterase Random Vancomycin POC Glucose Blood Type Antibody Screen Crossmatch 02/03/20 02/03/20 02/03/20 01:45 03:35 03:35 WBC RBC Hgb 8.9 L Hct 30.0 L MCV MCH MCHC RDW Std Deviation RDW Coeff of Charlie Plt Count MPV Immature Gran % (Auto) Neut % (Auto) Lymph % (Auto) [place] % (Auto) Eos % (Auto) Baso % (Auto) Absolute Neuts (auto) Absolute Lymphs (auto) Total Counted Neutrophils % (Manual) Band Neutrophils % Lymphocytes % (Manual) Monocytes % (Manual) Basophils % (Manual) Nucleated RBC % Diff Path Review Platelet Estimate RBC Morphology PT 29.1 H INR 2.8 APTT D-Dimer Quant (PE/DVT) Specimen Type Sample Site pH Bicarbonate Actual Total CO2 Base Excess O2 Saturation O2 % ABG pCO2 ABG pO2 Will Test VBG pH VBG pH (Temp Correct) VBG pCO2 (Temp Corrct VBG pO2 VBG HCO3 VBG Total CO2 VBG O2 Sat (Calc) VBG Base Excess POC Mix VBG pCO2 Pt Tmp Respiration Rate O2 Delivery Device Liter Flow Minute Volume Vent Mode Inspiratory Time Expiratory Time Tidal Volume POC PEEP POC Pressure Suppt Pressure Control EPAP IPAP Blood Gas Comments Blood Gas Notified Whom Blood Gas Notified Time Sodium Potassium Chloride Carbon Dioxide Anion Gap BUN Creatinine Estim Creat Clear Calc Est GFR (MDRD) Af Amer Est GFR (MDRD) Non-Af BUN/Creatinine Ratio Glucose Lactic Acid 10.3 H* Calcium Phosphorus Magnesium Total Bilirubin Direct Bilirubin AST ALT Alkaline Phosphatase Total Creatine Kinase B-Natriuretic Peptide Total Protein Albumin Globulin Albumin/Globulin Ratio Triglycerides Procalcitonin Urine Color Urine Clarity Urine pH Ur Specific [place] Urine Protein Urine Glucose (UA) Urine Ketones Urine Occult Blood Urine Nitrite Urine Bilirubin Urine Urobilinogen Ur Leukocyte Esterase Random Vancomycin POC Glucose Blood Type Antibody Screen Crossmatch 02/03/20 02/03/20 02/03/20 08:50 08:50 08:50 WBC 16.2 H RBC 3.55 L Hgb 8.6 L Hct 27.8 L MCV 78.3 L D MCH 24.2 L MCHC 30.9 L D RDW Std Deviation 50.5 H RDW Coeff of Charlie 17.6 H Plt Count 247 MPV 11.4 Immature Gran % (Auto) 4.700 H Neut % (Auto) 88.5 H Lymph % (Auto) 4.1 L [place] % (Auto) 2.5 Eos % (Auto) 0.0 Baso % (Auto) 0.2 Absolute Neuts (auto) 14.4 H Absolute Lymphs (auto) 0.66 L Total Counted Neutrophils % (Manual) Band Neutrophils % Lymphocytes % (Manual) Monocytes % (Manual) Basophils % (Manual) Nucleated RBC % 0.6 Diff Path Review Platelet Estimate RBC Morphology PT INR APTT D-Dimer Quant (PE/DVT) Specimen Type Sample Site pH Bicarbonate Actual Total CO2 Base Excess O2 Saturation O2 % ABG pCO2 ABG pO2 Will Test VBG pH VBG pH (Temp Correct) VBG pCO2 (Temp Corrct VBG pO2 VBG HCO3 VBG Total CO2 VBG O2 Sat (Calc) VBG Base Excess POC Mix VBG pCO2 Pt Tmp Respiration Rate O2 Delivery Device Liter Flow Minute Volume Vent Mode Inspiratory Time Expiratory Time Tidal Volume POC PEEP POC Pressure Suppt Pressure Control EPAP IPAP Blood Gas Comments Blood Gas Notified Whom Blood Gas Notified Time Sodium 149 H Potassium 4.3 Chloride 113 H Carbon Dioxide 23.0 Anion Gap 13 BUN 46 H Creatinine 2.58 H Estim Creat Clear Calc 17.27 Est GFR (MDRD) Af Amer 24 L Est GFR (MDRD) Non-Af 19 L BUN/Creatinine Ratio 17.8 Glucose 162 H Lactic Acid Calcium 7.7 L Phosphorus 3.5 Magnesium 2.0 Total Bilirubin 1.20 H Direct [place]irubin AST 18224 H ALT 5272 H Alkaline Phosphatase 104 Total Creatine Kinase B-Natriuretic Peptide Total Protein 5.6 L Albumin 2.2 L Globulin 3.4 Albumin/Globulin Ratio 0.6 L Triglycerides 161 Procalcitonin Urine Color Urine Clarity Urine pH Ur Specific [place] Urine Protein Urine Glucose (UA) Urine Ketones Urine Occult Blood Urine Nitrite Urine Bilirubin Urine Urobilinogen Ur Leukocyte Esterase Random Vancomycin POC Glucose Blood Type Antibody Screen Crossmatch 02/03/20 02/03/20 02/03/20 08:50 12:30 19:47 WBC RBC Hgb Hct MCV MCH MCHC RDW Std Deviation RDW Coeff of Charlie Plt Count MPV Immature Gran % (Auto) Neut % (Auto) Lymph % (Auto) [place] % (Auto) Eos % (Auto) Baso % (Auto) Absolute Neuts (auto) Absolute Lymphs (auto) Total Counted Neutrophils % (Manual) Band Neutrophils % Lymphocytes % (Manual) Monocytes % (Manual) Basophils % (Manual) Nucleated RBC % Diff Path Review Platelet Estimate RBC Morphology PT INR APTT D-Dimer Quant (PE/DVT) Specimen Type Sample Site pH Bicarbonate Actual Total CO2 Base Excess O2 Saturation O2 % ABG pCO2 ABG pO2 Will Test VBG pH VBG pH (Temp Correct) VBG pCO2 (Temp Corrct VBG pO2 VBG HCO3 VBG Total CO2 VBG O2 Sat (Calc) VBG Base Excess POC Mix VBG pCO2 Pt Tmp Respiration Rate O2 Delivery Device Liter Flow Minute Volume Vent Mode Inspiratory Time Expiratory Time Tidal Volume POC PEEP POC Pressure Suppt Pressure Control EPAP IPAP Blood Gas Comments Blood Gas Notified Whom Blood Gas Notified Time Sodium Potassium Chloride Carbon Dioxide Anion Gap BUN Creatinine Estim Creat Clear Calc Est GFR (MDRD) Af Amer Est GFR (MDRD) Non-Af BUN/Creatinine Ratio Glucose Lactic Acid Calcium Phosphorus Magnesium Total Bilirubin Direct Bilirubin AST ALT Alkaline Phosphatase Total Creatine Kinase 264 H B-Natriuretic Peptide Total Protein Albumin Globulin Albumin/Globulin Ratio Triglycerides Procalcitonin 2.65 H Urine Color Urine Clarity Urine pH Ur Specific [place] Urine Protein Urine Glucose (UA) Urine Ketones Urine Occult Blood Urine Nitrite Urine Bilirubin Urine Urobilinogen Ur Leukocyte Esterase Random Vancomycin POC Glucose 150 H Blood Type Antibody Screen Crossmatch 02/04/20 02/04/20 02/04/20 00:03 04:25 04:25 WBC 17.1 H RBC 3.60 L Hgb 9.0 L Hct 28.5 L MCV 79.2 L MCH 25.0 L MCHC 31.6 L RDW Std Deviation 49.2 H RDW Coeff of Charlie 17.2 H Plt Count 266 MPV 11.3 Immature Gran % (Auto) Neut % (Auto) Lymph % (Auto) [place] % (Auto) Eos % (Auto) Baso % (Auto) Absolute Neuts (auto) Absolute Lymphs (auto) Total Counted Neutrophils % (Manual) Band Neutrophils % Lymphocytes % (Manual) Monocytes % (Manual) Basophils % (Manual) Nucleated RBC % Diff Path Review Platelet Estimate RBC Morphology PT INR APTT D-Dimer Quant (PE/DVT) Specimen Type Sample Site pH Bicarbonate Actual Total CO2 Base Excess O2 Saturation O2 % ABG pCO2 ABG pO2 Will Test VBG pH VBG pH (Temp Correct) VBG pCO2 (Temp Corrct VBG pO2 VBG HCO3 VBG Total CO2 VBG O2 Sat (Calc) VBG Base Excess POC Mix VBG pCO2 Pt Tmp Respiration Rate O2 Delivery Device Liter Flow Minute Volume Vent Mode Inspiratory Time Expiratory Time Tidal Volume POC PEEP POC Pressure Suppt Pressure Control EPAP IPAP Blood Gas Comments Blood Gas Notified Whom Blood Gas Notified Time Sodium 145 Potassium 3.7 Chloride 108 H Carbon Dioxide 27.0 Anion Gap 10 BUN 56 H Creatinine 3.49 H Estim Creat Clear Calc 12.77 Est GFR (MDRD) Af Amer 17 L Est GFR (MDRD) Non-Af 14 L BUN/Creatinine Ratio 16.0 Glucose 152 H Lactic Acid Calcium 7.4 L Phosphorus Magnesium 2.0 Total Bilirubin 1.20 H Direct Bilirubin 0.77 H AST 8202 H ALT 4123 H Alkaline Phosphatase 109 Total Creatine Kinase B-Natriuretic Peptide Total Protein 5.4 L Albumin 2.1 L Globulin 3.3 Albumin/Globulin Ratio Triglycerides Procalcitonin Urine Color Urine Clarity Urine pH Ur Specific [place] Urine Protein Urine Glucose (UA) Urine Ketones Urine Occult Blood Urine Nitrite Urine Bilirubin Urine Urobilinogen Ur Leukocyte Esterase Random Vancomycin POC Glucose 150 H Blood Type Antibody Screen Crossmatch 02/04/20 02/04/20 04:25 04:25 WBC RBC Hgb Hct MCV MCH MCHC RDW Std Deviation RDW Coeff of Charlie Plt Count MPV Immature Gran % (Auto) Neut % (Auto) Lymph % (Auto) [place] % (Auto) Eos % (Auto) Baso % (Auto) Absolute Neuts (auto) Absolute Lymphs (auto) Total Counted Neutrophils % (Manual) Band Neutrophils % Lymphocytes % (Manual) Monocytes % (Manual) Basophils % (Manual) Nucleated RBC % Diff Path Review Platelet Estimate RBC Morphology PT 20.0 H INR 1.8 APTT D-Dimer Quant (PE/DVT) Specimen Type Sample Site pH Bicarbonate Actual Total CO2 Base Excess O2 Saturation O2 % ABG pCO2 ABG pO2 Will Test VBG pH VBG pH (Temp Correct) VBG pCO2 (Temp Corrct VBG pO2 VBG HCO3 VBG Total CO2 VBG O2 Sat (Calc) VBG Base Excess POC Mix VBG pCO2 Pt Tmp Respiration Rate O2 Delivery Device Liter Flow Minute Volume Vent Mode Inspiratory Time Expiratory Time Tidal Volume POC PEEP POC Pressure Suppt Pressure Control EPAP IPAP Blood Gas Comments Blood Gas Notified Whom Blood Gas Notified Time Sodium Potassium Chloride Carbon Dioxide Anion Gap BUN Creatinine Estim Creat Clear Calc Est GFR (MDRD) Af Amer Est GFR (MDRD) Non-Af BUN/Creatinine Ratio Glucose Lactic Acid Calcium Phosphorus Magnesium Total Bilirubin Direct Bilirubin AST ALT Alkaline Phosphatase Total Creatine Kinase B-Natriuretic Peptide Total Protein Albumin Globulin Albumin/Globulin Ratio Triglycerides Procalcitonin Urine Color Urine Clarity Urine pH Ur Specific [place] Urine Protein Urine Glucose (UA) Urine Ketones Urine Occult Blood Urine Nitrite Urine Bilirubin Urine Urobilinogen Ur Leukocyte Esterase Random Vancomycin 13.9 POC Glucose Blood Type Antibody Screen Crossmatch Microbiology 02/02/20 18:45 Urine Catheter - Miles Urine Culture - Preliminary Culture exhibits no growth. 02/03/20 07:40 Sputum, Induced/Lukens Gram Stain - Final 02/03/20 00:55 Mucosa - Nasopharyngeal Respiratory Panel (PCR) - Final 02/02/20 18:45 Urine Catheter - Miles Legionella Antigen - Final 02/02/20 18:45 Urine Catheter - Miles Streptococcus pneumoniae Antigen (M - Final Clinical Impression(s) from Imaging Studies Chest X-Ray 02/02/20 18:15 IMPRESSION: Lines and tubes as described. Consider advancing the nasogastric tube. Bilateral widespread pulmonary opacities most pronounced on the left. Electronically Signed: Jasen Diego MD at 19:14 EST , Service support , KUB X-Ray 02/02/20 20:15 KUB X-Ray 02/02/20 22:05 IMPRESSION: OGT in is in similar position to the prior study Recommend advancing at 2304 Reported and signed by: Tracee Clark DO Electronically Signed: Tracee Clark DO at 23:03 EST Tel , Service support , ADDENDUM: 02/02/20 2317 IMPRESSION: OGT in is in similar position to the prior study Recommend advancing at 2304 Reported and signed by: Tracee Clark DO N.B. : Nancy Dodge RN, confirmed on 02/02/2020 23:10:30 (ET) that the healthcare facility has received the radiology report. Electronically Signed: Tracee Clark DO at 23:03 EST Tel , Service support , Chest X-Ray 02/03/20 05:55 IMPRESSION: ET tube similar Interval advancement of NG tube with the tip at least in the body of the stomach but not visualized on this study There is improving aeration in the left lung apex as well as the left lung base. Interstitial thickening is again noted as well as bibasilar airspace opacities at 0656 Reported and signed by: Tracee Clark DO Electronically Signed: Tracee Clark DO at 6:55 EST Tel , Service support , KUB X-Ray 02/03/20 10:40 IMPRESSION: The tip of the orogastric tube is in the distal portion of the stomach. Electronically Signed: Clifford Edwards, at 12:00 EST , Service support , Abdomen Ultrasound 02/03/20 11:13 IMPRESSION: The gallbladder gómez of the upper limits of normal. The gallbladder appears mildly contracted. No stones. Negative sonographic Vilchis sign Question minimal pericholecystic edema/fluid If patient's symptoms persist then consider a nuclear medicine hepatobiliary scan for further evaluation Negative sonographic Vilchis sign Right renal cyst Mild ascites Small right pleural effusion Hepatic steatosis at 2205 Reported and signed by: Tracee Clark DO Electronically Signed: Tracee Clark DO at 22:04 EST Tel , Service support , Chest X-Ray 02/03/20 12:27 IMPRESSION: A right-sided central venous catheter has been placed with the tip at the junction of the superior vena cava and right atrium. Since prior study, there has been improved aeration of both lungs although residual CHF persists as well as left lower lobe infiltrate. Electronically Signed: Clifford Edwards, at 13:07 EST , Service support , Brain CT 02/03/20 16:08 IMPRESSION: Chronic involutional changes of the brain. No change and no acute abnormality. Electronically Signed: Jasen Diego MD at 22:35 EST , Service support , Chest CT 02/03/20 16:08 IMPRESSION: Small bilateral pleural effusions Emphysema Fibrotic changes as discussed There are consolidative infiltrate seen with the lung bases left greater than right NG tube is seen with the tip in the stomach with hyperdense fluid surrounding the tube in the esophagus most likely contrast. This may be secondary to reflux. Correlate clinically ET tube with the tip approximately 3.6 cm proximal to the julia Right central venous catheter with the tip the cavoatrial junction Borderline cardiomegaly with coronary artery calcifications There is mediastinal adenopathy. Individualized dose optimization techniques were used for this CT. at 2245 Reported and signed by: Tracee Clark DO Electronically Signed: Tracee Clark DO at 22:44 EST Tel , Service support , Abdomen CT 02/03/20 16:09 IMPRESSION: Gallbladder wall thickening and edema. Correlate clinically for cystitis Pancreas is grossly unremarkable. Minimal fat stranding seen near the tail the pancreas I suspect is secondary to perirenal fat stranding however I would correlate clinically for pancreatitis Enlarged bilateral adrenal glands as discussed. Recommend MRI follow-up with a adrenal protocol for further evaluation Small amount of ascites as discussed. NG tube with the tip in the stomach. Suspect reflux of contrast into the esophagus Poor distention of the colon. I cannot exclude wall thickening. Correlate clinically for colitis Individualized dose optimization techniques were used for this CT. at 2256 Reported and signed by: Tracee Clark DO Electronically Signed: Tracee Clark DO at 22:55 EST Tel , Service support , Medical Necessity - Tobacco Use Smoking Status: Current every day smoker Tobacco Use: Cigarettes Assessment/Plan All Active Problems (Last Reviewed 01/03/20 @ 09:52 by Mercedes Smart) Respiratory failure (Acute) Pneumonia due to COVID-19 virus (Acute) Pneumonia (Acute) Bronchitis (Acute) History of total hip replacement (Resolved) History of total knee replacement (TKR) (Resolved) Tail bone pain (Acute) Hx of bilateral hip replacements (Resolved) History and physical examination, immigration (Acute) GERD (gastroesophageal reflux disease) (Acute) Fatigue (Acute) Dyspnea on minimal exertion (Acute) Ankle fracture, right (Acute) Actinic keratitis (Acute) Weakness (Acute) RECOMMENDATIONS: 1. Continue current supportive measures and wean FiO2 and PEEP to maintain oxygen saturations at or above 90%. 2. Continue scheduled bronchodilator therapy. 3. Continue empiric antimicrobials. 4. Continue Decadron. 5. Continue Levophed and wean to maintain a mean arterial pressure at or above 65 mmHg. 6. Continue tube feeds as tolerated. 7. Start continuous heparin infusion today. 8. Possible need for dialysis in the next 24 hours. Nephrology is following. 9. Continue appropriate GI prophylaxis. IMPRESSIONS: 1. Acute hypoxemic respiratory failure secondary to COVID-19 pneumonia Plan to continue current supportive measures including invasive mechanical ventilatory support, with a goal to wean FiO2 and PEEP to maintain oxygen saturations at or above 90%. The patient will be continued on Decadron. Continue scheduled bronchodilator therapy. Empiric antimicrobials will be continued under the discretion of infectious diseases. 2. Septic shock Concern for Covid as precipitating etiology versus possible community-acquired pneumonia as well. Continue empiric antimicrobials as noted above along with vasopressor support to maintain a mean arterial pressure at or above 65 mmHg. 3. Acute liver injury Improving. Suspect related to hemodynamic instability with subsequent shock liver. Continue supportive measures as noted above with vasopressor support to maintain hemodynamic stability. 4. Acute kidney injury Likely prerenal in etiology with a component of ischemic ATN in the setting of septic shock. The patient did receive supplemental IV fluid hydration. Plan to continue vasopressors to maintain hemodynamic stability. Continue to monitor urine output. Nephrology is currently following. There is a possibility that the patient will require dialysis support in the next 24 hours. 5. History of DVT/chronic anticoagulation status with presenting coagulopathy The patient presented with a supratherapeutic INR. She did receive vitamin K and FFP. Given that the patient's INR is no longer therapeutic, recommend starting a continuous heparin infusion. TIME: 38 minutes of critical care time, independent of procedures, was spent addressing the patient's acute hypoxemic respiratory failure secondary to Covid pneumonia, septic shock, acute kidney injury, acute liver injury, history of DVT, review of all data and collaboration with the care team. [id number]) [phone] [id number] Critical care first hour
[2020-02-04 06:15] LABS: Bedside Glucose 163 mg/dL (70-110)
--- NOTE | 2020-02-04 07:04 | PCM.RX.CS ---
Consult Pharmacy has been consulted to manage selected antiobiotic: Vancomycin Type of Consult: Follow-up Labs: Sodium 145 mmol/L (136-145) 02/04/20 04:25 Potassium 3.7 mmol/L (3.5-5.1) 02/04/20 04:25 Chloride 108 mmol/L (98-107) H 02/04/20 04:25 Carbon Dioxide 27.0 mmol/L (21.0-32.0) 02/04/20 04:25 Anion Gap 10 (5-15) 02/04/20 04:25 BUN 56 mg/dL (7-18) H 02/04/20 04:25 Creatinine 3.49 mg/dL (0.55-1.02) H 02/04/20 04:25 Est GFR (MDRD) Af Amer 17 mL/min (>60) L 02/04/20 04:25 Est GFR (MDRD) Non-Af 14 mL/min (>60) L 02/04/20 04:25 BUN/Creatinine Ratio 16.0 RATIO (10-20) 02/04/20 04:25 Glucose 152 mg/dL (74-106) H 02/04/20 04:25 Random Vancomycin 13.9 ug/mL (0.0-15.0) 02/04/20 04:25 Microbiology: Microbiology 02/02/20 18:45 Urine Catheter - Miles Urine Culture - Preliminary Culture exhibits no growth. 02/03/20 07:40 Sputum, Induced/Lukens Gram Stain - Final 02/03/20 00:55 Mucosa - Nasopharyngeal Respiratory Panel (PCR) - Final 02/02/20 18:45 Urine Catheter - Miles Legionella Antigen - Final 02/02/20 18:45 Urine Catheter - Miles Streptococcus pneumoniae Antigen (M - Final Goal Trough: 15-20 mcg/mL Pharmacy Plan for Drug Dosing: VANCOMYCIN LEVEL RECEIVED Current Vancomycin Dose: 1000mg IV x1 administered @9900 Number of Doses Received: 1 (scheduled doses dc'd d/t worsening renal fxn Vancomycin Level: 13.9 Hours Since Last Dose: ~31hr Renal Function: 3.49 / 13 mL/min Renal Function Trend: worsening Lab/Micro: pending Vancomycin Plan/Comments: Will give 1000mg IV x1 this morning, will obtain another random level with AM labs on 12/17 and dose based on that level at that time. Pending Level: 02/06/20 with AM labs Pharmacy Service will continue to monitor and adjust dosing as required.
--- NOTE | 2020-02-04 07:13 | PN_ITS ---
Patient Problems: Active and Suspected Problems (Last Reviewed 01/03/20 @ 09:52 by Mercedes Smart) Respiratory failure (Acute) Pneumonia due to COVID-19 virus (Acute) Reason for Visit: Acute hypoxic respiratory failure COVID-19 pneumonia Subjective: Patient remains on the vent with worsening kidney function. Creatinine up to 3.49, slight improvement in liver function tests Objective: GENERAL: sedated on the vent HEENT: Atraumatic; ET tube in place EYES; Anicteric, Normal Conjunctiva NECK; supple, normal thyroid, RESPIRATORY: Diminished to auscultation CARDIOVASCULAR: Regular S1 S2, GI: soft, normoactive bowel sounds, : No Renal angle tenderness; EXTREMITIES: No edema, no clubbing, MUSCULOSKELETAL: no muscle waisting NEURO: sedated on the vent SKIN: No Rash Vitals/I&O's: Vital Signs Temp Pulse Resp BP Pulse Ox 98.9 F 100 14 94/67 96 02/04/20 06:00 02/04/20 06:00 02/04/20 06:00 02/04/20 06:00 02/04/20 06:00 Oxygen Delivery Method Mechanical Ventilator Weight: 71.1 kg Body Mass Index (BMI) 26.8 Finger Stick Blood Glucose 88 Intake and Output for Last 24 Hours 02/02/20 02/03/20 02/04/20 23:59 23:59 23:59 Intake Total 1067.55 / 1086.35 2903.97 / 2913.55 614.42 / 614.42 Output Total 380 / 380 234 / 234 40 / 40 Balance 687.55 / 706.35 2669.97 / 2679.55 574.42 / 574.42 Microbiology Past 72 Hours 02/02/20 18:45 Urine Catheter - Miles Urine Culture - Preliminary Culture exhibits no growth. 02/03/20 07:40 Sputum, Induced/Lukens Gram Stain - Final 02/03/20 00:55 Mucosa - Nasopharyngeal Respiratory Panel (PCR) - Final 02/02/20 18:45 Urine Catheter - Miles Legionella Antigen - Final 02/02/20 18:45 Urine Catheter - Miles Streptococcus pneumoniae Antigen (M - Final Laboratory Results 02/02/20 18:18: Diff Path Review Reviewed 02/03/20 08:50: WBC 16.2 H, RBC 3.55 L, Hgb 8.6 L, Hct 27.8 L, MCV 78.3 L D, MCH 24.2 L, MCHC 30.9 L D, RDW Std Deviation 50.5 H, RDW Coeff of Charlie 17.6 H, Plt Count 247, MPV 11.4, Immature Gran % (Auto) 4.700 H, Neut % (Auto) 88.5 H, Lymph % (Auto) 4.1 L, [place] % (Auto) 2.5, Eos % (Auto) 0.0, Baso % (Auto) 0.2, Absolute Neuts (auto) 14.4 H, Absolute Lymphs (auto) 0.66 L, Nucleated RBC % 0.6 02/03/20 08:50: Sodium 149 H, Potassium 4.3, Chloride 113 H, Carbon Dioxide 23.0, Anion Gap 13, BUN 46 H, Creatinine 2.58 H, Estim Creat Clear Calc 17.27, Est GFR (MDRD) Af Amer 24 L, Est GFR (MDRD) Non-Af 19 L, BUN/Creatinine Ratio 17.8, Glucose 162 H, Calcium 7.7 L, Phosphorus 3.5, Magnesium 2.0, Total Bilirubin 1.20 H, AST 61780 H, ALT 5272 H, Alkaline Phosphatase 104, Total Protein 5.6 L, Albumin 2.2 L, Globulin 3.4, Albumin/Globulin Ratio 0.6 L 02/03/20 08:50: Triglycerides 161 02/03/20 08:50: Total Creatine Kinase 264 H 02/03/20 12:30: Procalcitonin 2.65 H 02/03/20 19:47: POC Glucose 150 H 02/04/20 00:03: POC Glucose 150 H 02/04/20 04:25: WBC 17.1 H, RBC 3.60 L, Hgb 9.0 L, Hct 28.5 L, MCV 79.2 L, MCH 25.0 L, MCHC 31.6 L, RDW Std Deviation 49.2 H, RDW Coeff of Charlie 17.2 H, Plt Count 266, MPV 11.3 02/04/20 04:25: Sodium 145, Potassium 3.7, Chloride 108 H, Carbon Dioxide 27.0, Anion Gap 10, BUN 56 H, Creatinine 3.49 H, Estim Creat Clear Calc 12.77, Est GFR (MDRD) Af Amer 17 L, Est GFR (MDRD) Non-Af 14 L, BUN/Creatinine Ratio 16.0, Glucose 152 H, Calcium 7.4 L, Magnesium 2.0, Total Bilirubin 1.20 H, Direct Bilirubin 0.77 H, AST 8202 H, ALT 4123 H, Alkaline Phosphatase 109, Total Protein 5.4 L, Albumin 2.1 L, Globulin 3.3 02/04/20 04:25: PT 20.0 H, INR 1.8 02/04/20 04:25: Random Vancomycin 13.9 02/04/20 05:44: POC Glucose 163 H Current Medications Albuterol Sulfate (Albuterol 2.5 Mg/3 Ml Vial.Neb.) 2.5 mg INHALATION Q2H PRN PRN PRN Reason: SOB/Wheezing Albuterol/Ipratropium (Ipratropium/Albuterol Sulfate 3 Ml Ampul.Neb) 3 ml INHALATION Q4HWA.RT [facility] Last Admin: 02/03/20 19:20 Dose: 3 ml Documented by: Chlorhexidine Gluconate (Chlorhexidine 15 Ml) 15 ml PO BID [facility] Last Admin: 02/03/20 22:51 Dose: 15 ml Documented by: Dexamethasone Sodium Phosphate (Dexamethasone 10 Mg/Ml Vial) 6 mg IV DAILY [facility] Last Admin: 02/03/20 11:54 Dose: 6 mg Documented by: Dextrose (Dextrose 50%-Water 25 Gm/50 Ml Disp.Syrin) 0 gm IV X1 PRN; Protocol PRN Reason: Hypoglycemia Glucagon (Glucagon 1 Mg/Ml Syringe) 1 mg IM .X1 PRN PRN Reason: Hypoglycemia Norepinephrine Bitartrate 8 mg (/ Sodium Chloride) 250 mls @ 9.375 mls/hr CONT INF .[id number] [facility]; Protocol Last Titration: 02/04/20 06:00 Dose: 5 mcg/min, 9.4 mls/hr Documented by: Sodium Chloride () 250 mls @ 15 mls/hr IV .[id number] PRN PRN Reason: Saline Flush Last Infusion: 02/03/20 05:05 Dose: 0 mls/hr Documented by: Sodium Chloride () 250 mls @ 15 mls/hr IV .[id number] PRN PRN Reason: Additional IVPB Infusion Vancomycin IV Pharmacy to Dose (1 ea/ Sodium Chloride) 500 mls @ 250 mls/hr IV X1 PRN; Protocol PRN Reason: Rx to Dose Piperacillin Sod/Tazobactam (Sod 3.375 gm/ Sodium Chloride) 50 mls @ 12.5 mls/hr IV Q8 [facility] Last Admin: 02/04/20 05:55 Dose: 12.5 mls/hr Documented by: Fentanyl Citrate 1,000 mcg/ (Sodium Chloride) 100 mls @ 5 mls/hr CONT INF .Q20H [facility]; Protocol Last Titration: 02/04/20 06:00 Dose: 75 mcg/hr, 7.5 mls/hr Documented by: Pantoprazole Sodium 40 mg/ (Sodium Chloride) 110 mls @ 330 mls/hr IV Q12 [facility] Last Infusion: 02/03/20 23:20 Dose: Infused Documented by: Enteral Nutritional Formula (Vital Af 1.2 Georgi Liquid) 1,000 mls @ 60 mls/hr GT .[id number] [facility] Last Admin: 02/04/20 03:42 Dose: Not Given Documented by: Propofol (Diprivan) 1,000 mg in 100 mls @ 4.266 mls/hr CONT INF .Q12H [facility]; Protocol Last Titration: 02/04/20 06:00 Dose: 5 mcg/kg/min, 2.1 mls/hr Documented by: Vancomycin HCl (Vancomycin) 1,000 mg in 200 mls @ 200 mls/hr IV X1 ONE Stop: 02/04/20 08:59 Insulin Human Lispro (Insulin Lispro 100 Unit/Ml Insuln.Pen) 0 unit SC Q6 [facility]; Protocol Last Admin: 02/04/20 05:45 Dose: 1 unit Documented by: Ondansetron HCl (Ondansetron 4 Mg/2 Ml Vial) 4 mg IV Q8H PRN PRN PRN Reason: NAUSEA/VOMITING Sodium Chloride (0.9% Saline Lock 10 Ml Syringe) 10 - 40 ml IV UD PRN PRN Reason: SALINE FLUSH Last Admin: 02/04/20 05:45 Dose: 20 ml Documented by: STROKE Vital Signs/Narrative: Vital Signs Temp Pulse Resp BP Pulse Ox 02/04/20 06:00 98.9 F 100 14 94/67 96 02/04/20 05:15 112 H 15 96 02/04/20 05:00 98.8 F 90 15 124/80 H 96 02/04/20 04:00 98.7 F 99 15 127/89 H 97 02/04/20 03:45 122/84 H 02/04/20 03:30 113/79 02/04/20 03:15 102/70 Medical Necessity - Tobacco Use Smoking Status: Current every day smoker Tobacco Use: Cigarettes Assessment/Plan All Active Problems (Last Reviewed 01/03/20 @ 09:52 by Mercedes Smart) Respiratory failure (Acute) Pneumonia due to COVID-19 virus (Acute) Pneumonia (Acute) Bronchitis (Acute) History of total hip replacement (Resolved) History of total knee replacement (TKR) (Resolved) Tail bone pain (Acute) Hx of bilateral hip replacements (Resolved) History and physical examination, immigration (Acute) GERD (gastroesophageal reflux disease) (Acute) Fatigue (Acute) Dyspnea on minimal exertion (Acute) Ankle fracture, right (Acute) Actinic keratitis (Acute) Weakness (Acute) Patient is a 69-year-old lady transferred from [facility] with progressive shortness of breath. An assessment of acute hypoxic respiratory failure secondary to acute COVID-19 was made. Patient had to be intubated as a result of deteriorating respiratory status 1. Acute hypoxic respiratory failure secondary to COVID-19 pneumonia Admitted to the intensive care unit intubated with consultation placed to pulmonary medicine for vent management -02/04/2020. Vent. Current vent settings reviewed. Case discussed with Dr. Gonzalez with pulmonary 2. Acute COVID-19 pneumonia -Presented with respiratory failure resulting in patient being intubated. Was started on Decadron not a candidate for remdesivir in view of acute kidney injury and impaired liver function 3. Septic shock -Secondary to acute COVID-19 pneumonia with suspected superimposed bacterial pneumonia. Patient is on norepinephrine drip as well as Zosyn. 02/04/2020; she was seen in consultation by Dr. [place] with infectious disease. His notes and recommendations reviewed. CT of the abdomen obtained demonstrated gallbladder thickening 4. Acute kidney injury ?suspected to be secondary to acute tubular necrosis from patient underlying infection. Admitted to the intensive care unit started on IV fluid. Patient kidney function continues to worsen. Consult subsequently placed to nephrology -02/04/2020. Kidney function continues to worsen 6. Hypernatremia -Due to fluid depletion patient is on IV fluid with subsequent monitoring of electrolyte 7. Hyperkalemia -due to combination of metabolic acidosis as well as impaired kidney function. Consult placed to nephrology 8. Coagulopathy ?patient is on Coumadin for previous DVT involving the left lower extremity. Coumadin on admission was 7.7. Patient was transfused with 2 unit FFP as well as did receive vitamin K INR as of 02/03/2020 is 2.8 02/04/2020; creatinine up to 3.49 consult was placed to nephrology today prior 9. Acute transaminitis ?Secondary to shock liver monitoring LFTs 10. Anemia - Secondary to chronic disorder monitoring H&H and transfuse if patient becomes symptomatic or hemoglobin falls below 7 11. History of DVT involving the left lower extremity ?on Coumadin held in view of above reasons 12. Essential hypertension ?Patient antihypertensives held in view of patient presenting with low blood pressure 13. DVT prophylaxis -patient was on Coumadin prior to admission no additional measures warranted at this point -02/04/2020; INR 1.8 started on prophylactic heparin Clinical Impression(s) from Imaging Studies KUB X-Ray 02/03/20 10:40 IMPRESSION: The tip of the orogastric tube is in the distal portion of the stomach. Electronically Signed: Clifford Edwards, at 12:00 EST , Service support , Abdomen Ultrasound 02/03/20 11:13 IMPRESSION: The gallbladder gómez of the upper limits of normal. The gallbladder appears mildly contracted. No stones. Negative sonographic Vilchis sign Question minimal pericholecystic edema/fluid If patient's symptoms persist then consider a nuclear medicine hepatobiliary scan for further evaluation Negative sonographic Vilchis sign Right renal cyst Mild ascites Small right pleural effusion Hepatic steatosis at 2205 Reported and signed by: Tracee Clark DO Electronically Signed: Tracee Clark DO at 22:04 EST Tel , Service support , Chest X-Ray 02/03/20 12:27 IMPRESSION: A right-sided central venous catheter has been placed with the tip at the junction of the superior vena cava and right atrium. Since prior study, there has been improved aeration of both lungs although residual CHF persists as well as left lower lobe infiltrate. Electronically Signed: Clifford Jerry, at 13:07 EST , Service support , Brain CT 02/03/20 16:08 IMPRESSION: Chronic involutional changes of the brain. No change and no acute abnormality. Electronically Signed: Jasen Diego MD at 22:35 EST , Service support , Chest CT 02/03/20 16:08 IMPRESSION: Small bilateral pleural effusions Emphysema Fibrotic changes as discussed There are consolidative infiltrate seen with the lung bases left greater than right NG tube is seen with the tip in the stomach with hyperdense fluid surrounding the tube in the esophagus most likely contrast. This may be secondary to reflux. Correlate clinically ET tube with the tip approximately 3.6 cm proximal to the julia Right central venous catheter with the tip the cavoatrial junction Borderline cardiomegaly with coronary artery calcifications There is mediastinal adenopathy. Individualized dose optimization techniques were used for this CT. at 2245 Reported and signed by: Tracee Clark DO Electronically Signed: Tracee Clark DO at 22:44 EST Tel , Service support , Abdomen CT 02/03/20 16:09 IMPRESSION: Gallbladder wall thickening and edema. Correlate clinically for cystitis Pancreas is grossly unremarkable. Minimal fat stranding seen near the tail the pancreas I suspect is secondary to perirenal fat stranding however I would correlate clinically for pancreatitis Enlarged bilateral adrenal glands as discussed. Recommend MRI follow-up with a adrenal protocol for further evaluation Small amount of ascites as discussed. NG tube with the tip in the stomach. Suspect reflux of contrast into the esophagus Poor distention of the colon. I cannot exclude wall thickening. Correlate clinically for colitis Individualized dose optimization techniques were used for this CT. at 2256 Reported and signed by: Tracee Clark DO Electronically Signed: Tracee Clark DO at 22:55 EST Tel , Service support , Inpatient E&M: [id number] Subs Hosp L3
[2020-02-04] MEDS: Ipratropium/Albuterol Sulfate 3 ML AMPUL.NEB INHALATION ×3 (07:46→20:24)
[2020-02-04] MEDS: Vancomycin IV 1,000 MG/200 ML BAG 200 MG IV (08:42)
[2020-02-04] MEDS: dexAMETHasone 10 MG/ML Vial 6 MG IV (08:43)
[2020-02-04] MEDS: Chlorhexidine 15 ML PO ×2 (08:44→21:54)
--- NOTE | 2020-02-04 08:54 | PCM.CONS.R ---
Consultation - Renal 02/04/20 PCP/ Referring MD: Requesting physician: [] Primary care physician: Dr. Julio Gonzalez DO Reason for Consultation:: dorothy - History of Present Illness History of Present Illness: The patient is a 69 year old F with a past medical history as below who presented as a transfer from outside hospital on February 01 with worsening respiratory failure. She has a history of COPD DVT and she was in shock when she presented requiring Levophed. She also had leukocytosis. Her serum creatinine was elevated which prompted renal consult. She had minimal urine output since admission. The patient is intubated so review of systems cannot be obtained. She was also found to be COVID-19 positive. She has less pressor requirements today but still minimal urine output. She still on Levophed. Her serum creatinine was 1.14 in 2016 no other previous values available. Her serum creatinine on admission was 1.79 and today is 3.49. - Allergies Allergies: Allergies codeine Allergy (Verified 01/03/20 09:51) Unknown Penicillins Allergy (Verified 01/03/20 09:51) Unknown Sulfa (Sulfonamide Antibiotics) Allergy (Verified 01/03/20 09:51) Unknown - Current Medications Current Medications: Current Medications Albuterol Sulfate (Albuterol 2.5 Mg/3 Ml Vial.Neb.) 2.5 mg INHALATION Q2H PRN PRN PRN Reason: SOB/Wheezing Albuterol/Ipratropium (Ipratropium/Albuterol Sulfate 3 Ml Ampul.Neb) 3 ml INHALATION Q4HWA.RT [facility] Last Admin: 02/04/20 07:46 Dose: 3 ml Documented by: Chlorhexidine Gluconate (Chlorhexidine 15 Ml) 15 ml PO BID [facility] Last Admin: 02/04/20 08:44 Dose: 15 ml Documented by: Dexamethasone Sodium Phosphate (Dexamethasone 10 Mg/Ml Vial) 6 mg IV DAILY [facility] Last Admin: 02/04/20 08:43 Dose: 6 mg Documented by: Dextrose (Dextrose 50%-Water 25 Gm/50 Ml Disp.Syrin) 0 gm IV X1 PRN; Protocol PRN Reason: Hypoglycemia Glucagon (Glucagon 1 Mg/Ml Syringe) 1 mg IM .X1 PRN PRN Reason: Hypoglycemia Norepinephrine Bitartrate 8 mg (/ Sodium Chloride) 250 mls @ 9.375 mls/hr CONT INF .[id number] [facility]; Protocol Last Titration: 02/04/20 06:00 Dose: 5 mcg/min, 9.4 mls/hr Documented by: Sodium Chloride () 250 mls @ 15 mls/hr IV .[id number] PRN PRN Reason: Saline Flush Last Infusion: 02/03/20 05:05 Dose: 0 mls/hr Documented by: Sodium Chloride () 250 mls @ 15 mls/hr IV .[id number] PRN PRN Reason: Additional IVPB Infusion Vancomycin IV Pharmacy to Dose (1 ea/ Sodium Chloride) 500 mls @ 250 mls/hr IV X1 PRN; Protocol PRN Reason: Rx to Dose Piperacillin Sod/Tazobactam (Sod 3.375 gm/ Sodium Chloride) 50 mls @ 12.5 mls/hr IV Q8 [facility] Last Admin: 02/04/20 05:55 Dose: 12.5 mls/hr Documented by: Fentanyl Citrate 1,000 mcg/ (Sodium Chloride) 100 mls @ 5 mls/hr CONT INF .Q20H [facility]; Protocol Last Titration: 02/04/20 06:00 Dose: 75 mcg/hr, 7.5 mls/hr Documented by: Pantoprazole Sodium 40 mg/ (Sodium Chloride) 110 mls @ 330 mls/hr IV Q12 [facility] Last Infusion: 02/03/20 23:20 Dose: Infused Documented by: Enteral Nutritional Formula (Vital Af 1.2 Georgi Liquid) 1,000 mls @ 60 mls/hr GT .[id number] [facility] Last Admin: 02/04/20 03:42 Dose: Not Given Documented by: Propofol (Diprivan) 1,000 mg in 100 mls @ 4.266 mls/hr CONT INF .Q12H [facility]; Protocol Last Titration: 02/04/20 06:00 Dose: 5 mcg/kg/min, 2.1 mls/hr Documented by: Vancomycin HCl (Vancomycin) 1,000 mg in 200 mls @ 200 mls/hr IV X1 ONE Stop: 02/04/20 08:59 Last Admin: 02/04/20 08:42 Dose: 200 mls/hr Documented by: Insulin Human Lispro (Insulin Lispro 100 Unit/Ml Insuln.Pen) 0 unit SC Q6 [facility]; Protocol Last Admin: 02/04/20 05:45 Dose: 1 unit Documented by: Ondansetron HCl (Ondansetron 4 Mg/2 Ml Vial) 4 mg IV Q8H PRN PRN PRN Reason: NAUSEA/VOMITING Sodium Chloride (0.9% Saline Lock 10 Ml Syringe) 10 - 40 ml IV UD PRN PRN Reason: SALINE FLUSH Last Admin: 02/04/20 05:45 Dose: 20 ml Documented by: - Past Medical History Past Medical History (Chronic Problems): Chronic Problems (Last Reviewed 01/03/20 @ 09:52 by Mercedes Smart) COPD (chronic obstructive pulmonary disease) (Chronic) Seasonal allergies (Chronic) Asthma-COPD overlap syndrome (Chronic) Essential hypertension (Chronic) COPD without exacerbation (Chronic) COPD with exacerbation (Chronic) - Past Surgical History Surgical History: total hip arthroplasty, total knee arthroplasty, - - s/p IVC filter, s/p intracranial coiling - Social History Smoking Status: Current every day smoker Alcohol: None Drugs: None - Family History Maternal History Items: Cancer - breast cancer Paternal History Items: Unknown - adopted Patient Problems: Active and Suspected Problems (Last Reviewed 01/03/20 @ 09:52 by Mercedes Smart) Respiratory failure (Acute) Pneumonia due to COVID-19 virus (Acute) Objective: PE deferred to preserrve PPE and prevent further transmission of covid-19 - Physical Exam Vitals/I&O's: Vital Signs Temp Pulse Resp BP Pulse Ox 98.9 F 100 14 94/67 96 02/04/20 06:00 02/04/20 06:00 02/04/20 06:00 02/04/20 06:00 02/04/20 06:00 Oxygen Delivery Method Mechanical Ventilator Weight: 71.1 kg Body Mass Index (BMI) 26.8 Finger Stick Blood Glucose 88 Intake and Output for Last 24 Hours 02/02/20 02/03/20 02/04/20 23:59 23:59 23:59 Intake Total 1067.55 / 1086.35 2903.97 / 2913.55 614.42 / 614.42 Output Total 380 / 380 234 / 234 40 / 40 Balance 687.55 / 706.35 2669.97 / 2679.55 574.42 / 574.42 Microbiology Past 72 Hours 02/02/20 18:45 Urine Catheter - Miles Urine Culture - Preliminary Culture exhibits no growth. 12/14/20 07:40 Sputum, Induced/Lukens Gram Stain - Final 02/03/20 00:55 Mucosa - Nasopharyngeal Respiratory Panel (PCR) - Final 02/02/20 18:45 Urine Catheter - Miles Legionella Antigen - Final 02/02/20 18:45 Urine Catheter - Miles Streptococcus pneumoniae Antigen (M - Final Laboratory Results 02/02/20 18:18: Diff Path Review Reviewed 02/03/20 08:50: WBC 16.2 H, RBC 3.55 L, Hgb 8.6 L, Hct 27.8 L, MCV 78.3 L D, MCH 24.2 L, MCHC 30.9 L D, RDW Std Deviation 50.5 H, RDW Coeff of Charlie 17.6 H, Plt Count 247, MPV 11.4, Immature Gran % (Auto) 4.700 H, Neut % (Auto) 88.5 H, Lymph % (Auto) 4.1 L, Archer % (Auto) 2.5, Eos % (Auto) 0.0, Baso % (Auto) 0.2, Absolute Neuts (auto) 14.4 H, Absolute Lymphs (auto) 0.66 L, Nucleated RBC % 0.6 02/03/20 08:50: Sodium 149 H, Potassium 4.3, Chloride 113 H, Carbon Dioxide 23.0, Anion Gap 13, BUN 46 H, Creatinine 2.58 H, Estim Creat Clear Calc 17.27, Est GFR (MDRD) Af Amer 24 L, Est GFR (MDRD) Non-Af 19 L, BUN/Creatinine Ratio 17.8, Glucose 162 H, Calcium 7.7 L, Phosphorus 3.5, Magnesium 2.0, Total Bilirubin 1.20 H, AST 04468 H, ALT 5272 H, Alkaline Phosphatase 104, Total Protein 5.6 L, Albumin 2.2 L, Globulin 3.4, Albumin/Globulin Ratio 0.6 L 02/03/20 08:50: Triglycerides 161 02/03/20 08:50: Total Creatine Kinase 264 H 02/03/20 12:30: Procalcitonin 2.65 H 02/03/20 19:47: POC Glucose 150 H 02/04/20 00:03: POC Glucose 150 H 02/04/20 04:25: WBC 17.1 H, RBC 3.60 L, Hgb 9.0 L, Hct 28.5 L, MCV 79.2 L, MCH 25.0 L, MCHC 31.6 L, RDW Std Deviation 49.2 H, RDW Coeff of Charlie 17.2 H, Plt Count 266, MPV 11.3 02/04/20 04:25: Sodium 145, Potassium 3.7, Chloride 108 H, Carbon Dioxide 27.0, Anion Gap 10, BUN 56 H, Creatinine 3.49 H, Estim Creat Clear Calc 12.77, Est GFR (MDRD) Af Amer 17 L, Est GFR (MDRD) Non-Af 14 L, BUN/Creatinine Ratio 16.0, Glucose 152 H, Calcium 7.4 L, Magnesium 2.0, Total Bilirubin 1.20 H, Direct Bilirubin 0.77 H, AST 8202 H, ALT 4123 H, Alkaline Phosphatase 109, Total Protein 5.4 L, Albumin 2.1 L, Globulin 3.3 02/04/20 04:25: PT 20.0 H, INR 1.8 02/04/20 04:25: Random Vancomycin 13.9 02/04/20 05:44: POC Glucose 163 H Current Medications Albuterol Sulfate (Albuterol 2.5 Mg/3 Ml Vial.Neb.) 2.5 mg INHALATION Q2H PRN PRN PRN Reason: SOB/Wheezing Albuterol/Ipratropium (Ipratropium/Albuterol Sulfate 3 Ml Ampul.Neb) 3 ml INHALATION Q4HWA.RT [facility] Last Admin: 02/04/20 07:46 Dose: 3 ml Documented by: Chlorhexidine Gluconate (Chlorhexidine 15 Ml) 15 ml PO BID [facility] Last Admin: 02/04/20 08:44 Dose: 15 ml Documented by: Dexamethasone Sodium Phosphate (Dexamethasone 10 Mg/Ml Vial) 6 mg IV DAILY [facility] Last Admin: 02/04/20 08:43 Dose: 6 mg Documented by: Dextrose (Dextrose 50%-Water 25 Gm/50 Ml Disp.Syrin) 0 gm IV X1 PRN; Protocol PRN Reason: Hypoglycemia Glucagon (Glucagon 1 Mg/Ml Syringe) 1 mg IM .X1 PRN PRN Reason: Hypoglycemia Norepinephrine Bitartrate 8 mg (/ Sodium Chloride) 250 mls @ 9.375 mls/hr CONT INF .[id number] [facility]; Protocol Last Titration: 12/15/20 06:00 Dose: 5 mcg/min, 9.4 mls/hr Documented by: Sodium Chloride () 250 mls @ 15 mls/hr IV .[id number] PRN PRN Reason: Saline Flush Last Infusion: 02/03/20 05:05 Dose: 0 mls/hr Documented by: Sodium Chloride () 250 mls @ 15 mls/hr IV .[id number] PRN PRN Reason: Additional IVPB Infusion Vancomycin IV Pharmacy to Dose (1 ea/ Sodium Chloride) 500 mls @ 250 mls/hr IV X1 PRN; Protocol PRN Reason: Rx to Dose Piperacillin Sod/Tazobactam (Sod 3.375 gm/ Sodium Chloride) 50 mls @ 12.5 mls/hr IV Q8 [facility] Last Admin: 02/04/20 05:55 Dose: 12.5 mls/hr Documented by: Fentanyl Citrate 1,000 mcg/ (Sodium Chloride) 100 mls @ 5 mls/hr CONT INF .Q20H [facility]; Protocol Last Titration: 02/04/20 06:00 Dose: 75 mcg/hr, 7.5 mls/hr Documented by: Pantoprazole Sodium 40 mg/ (Sodium Chloride) 110 mls @ 330 mls/hr IV Q12 [facility] Last Infusion: 02/03/20 23:20 Dose: Infused Documented by: Enteral Nutritional Formula (Vital Af 1.2 Georgi Liquid) 1,000 mls @ 60 mls/hr GT .[id number] [facility] Last Admin: 02/04/20 03:42 Dose: Not Given Documented by: Propofol (Diprivan) 1,000 mg in 100 mls @ 4.266 mls/hr CONT INF .Q12H [facility]; Protocol Last Titration: 02/04/20 06:00 Dose: 5 mcg/kg/min, 2.1 mls/hr Documented by: Vancomycin HCl (Vancomycin) 1,000 mg in 200 mls @ 200 mls/hr IV X1 ONE Stop: 02/04/20 08:59 Last Admin: 02/04/20 08:42 Dose: 200 mls/hr Documented by: Insulin Human Lispro (Insulin Lispro 100 Unit/Ml Insuln.Pen) 0 unit SC Q6 [facility]; Protocol Last Admin: 02/04/20 05:45 Dose: 1 unit Documented by: Ondansetron HCl (Ondansetron 4 Mg/2 Ml Vial) 4 mg IV Q8H PRN PRN PRN Reason: NAUSEA/VOMITING Sodium Chloride (0.9% Saline Lock 10 Ml Syringe) 10 - 40 ml IV UD PRN PRN Reason: SALINE FLUSH Last Admin: 02/04/20 05:45 Dose: 20 ml Documented by: Assessment/Plan All Active Problems (Last Reviewed 01/03/20 @ 09:52 by Mercedes Smart) Respiratory failure (Acute) Pneumonia due to COVID-19 virus (Acute) Pneumonia (Acute) Bronchitis (Acute) History of total hip replacement (Resolved) History of total knee replacement (TKR) (Resolved) Tail bone pain (Acute) Hx of bilateral hip replacements (Resolved) History and physical examination, immigration (Acute) GERD (gastroesophageal reflux disease) (Acute) Fatigue (Acute) Dyspnea on minimal exertion (Acute) Ankle fracture, right (Acute) Actinic keratitis (Acute) Weakness (Acute) DOROTHY ATN with COVID-19 and shock Respiratory failure multifactorial s/p intubation COVID-19 pneumonia COPD Shock Shock liver no emergent 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 Patient'daughter voiced understanding and agrees to proceed with dialysis tomorrow if there is no improvement in renal function. keep MAP>65 on Levophed Check renal ultrasound UA reviewed. Also Dwayneo per pharmacy d/w dr. Gonzalez thanks for consult Will f/u.
--- NOTE | 2020-02-04 11:21 | PN.ID_ITS ---
Patient Problems: Active and Suspected Problems (Last Reviewed 01/03/20 @ 09:52 by Mercedes Smart) Respiratory failure (Acute) Pneumonia due to COVID-19 virus (Acute) Subjective: Remains on vent, no fever - Physical Exam Vitals/I&O's: Vital Signs Temp Pulse Resp BP Pulse Ox 98.9 F 92 14 104/66 94 02/04/20 10:00 02/04/20 10:00 02/04/20 10:00 02/04/20 10:00 02/04/20 10:00 Oxygen Delivery Method Mechanical Ventilator Weight: 71.1 kg Body Mass Index (BMI) 26.8 Finger Stick Blood Glucose 88 Intake and Output for Last 24 Hours 02/02/20 02/03/20 02/04/20 23:59 23:59 23:59 Intake Total 1067.55 / 1086.35 2903.97 / 2913.55 690.42 / 690.42 Output Total 380 / 380 234 / 234 60 / 60 Balance 687.55 / 706.35 2669.97 / 2679.55 630.42 / 630.42 General: Non-Cooperative Lungs: Diminished Cardiovascular: Tachycardic Abdomen: Soft, Non Tender, Non-Distended Skin: No rashes Microbiology Past 72 Hours 02/03/20 07:40 Sputum, Induced/Lukens Gram Stain - Final 02/03/20 07:40 Sputum, Induced/Lukens Respiratory Culture - Preliminary Possible Fungus 02/02/20 18:45 Urine Catheter - Miles Urine Culture - Preliminary Culture exhibits no growth. 02/03/20 00:55 Mucosa - Nasopharyngeal Respiratory Panel (PCR) - Final 02/02/20 18:45 Urine Catheter - Miles Legionella Antigen - Final 02/02/20 18:45 Urine Catheter - Miles Streptococcus pneumoniae Antigen (M - Final Laboratory Results 02/02/20 18:18: Diff Path Review Reviewed 02/03/20 08:50: Triglycerides 161 02/03/20 08:50: Total Creatine Kinase 264 H 02/03/20 12:30: Procalcitonin 2.65 H 02/03/20 19:47: POC Glucose 150 H 02/04/20 00:03: POC Glucose 150 H 02/04/20 04:25: WBC 17.1 H, RBC 3.60 L, Hgb 9.0 L, Hct 28.5 L, MCV 79.2 L, MCH 25.0 L, MCHC 31.6 L, RDW Std Deviation 49.2 H, RDW Coeff of Charlie 17.2 H, Plt Count 266, MPV 11.3 02/04/20 04:25: Sodium 145, Potassium 3.7, Chloride 108 H, Carbon Dioxide 27.0, Anion Gap 10, BUN 56 H, Creatinine 3.49 H, Estim Creat Clear Calc 12.77, Est GFR (MDRD) Af Amer 17 L, Est GFR (MDRD) Non-Af 14 L, BUN/Creatinine Ratio 16.0, Glucose 152 H, Calcium 7.4 L, Magnesium 2.0, Total Bilirubin 1.20 H, Direct Bilirubin 0.77 H, AST 8202 H, ALT 4123 H, Alkaline Phosphatase 109, Total Protein 5.4 L, Albumin 2.1 L, Globulin 3.3 02/04/20 04:25: PT 20.0 H, INR 1.8 02/04/20 04:25: Random Vancomycin 13.9 02/04/20 05:44: POC Glucose 163 H Current Medications Albuterol Sulfate (Albuterol 2.5 Mg/3 Ml Vial.Neb.) 2.5 mg INHALATION Q2H PRN PRN PRN Reason: SOB/Wheezing Albuterol/Ipratropium (Ipratropium/Albuterol Sulfate 3 Ml Ampul.Neb) 3 ml INHALATION Q4HWA.RT [facility] Last Admin: 02/04/20 07:46 Dose: 3 ml Documented by: Chlorhexidine Gluconate (Chlorhexidine 15 Ml) 15 ml PO BID [facility] Last Admin: 02/04/20 08:44 Dose: 15 ml Documented by: Dexamethasone Sodium Phosphate (Dexamethasone 10 Mg/Ml Vial) 6 mg IV DAILY [facility] Stop: 02/09/20 10:01 Last Admin: 02/04/20 08:43 Dose: 6 mg Documented by: Dextrose (Dextrose 50%-Water 25 Gm/50 Ml Disp.Syrin) 0 gm IV X1 PRN; Protocol PRN Reason: Hypoglycemia Glucagon (Glucagon 1 Mg/Ml Syringe) 1 mg IM .X1 PRN PRN Reason: Hypoglycemia Heparin Sodium (Porcine) (Heparin Injection (Vial) 5,000 Unit/Ml Vial) 0 unit IV UD PRN; Protocol PRN Reason: dose adjustment Norepinephrine Bitartrate 8 mg (/ Sodium Chloride) 250 mls @ 9.375 mls/hr CONT INF .[id number] [facility]; Protocol Last Titration: 02/04/20 10:00 Dose: 5 mcg/min, 9.4 mls/hr Documented by: Sodium Chloride () 250 mls @ 15 mls/hr IV .[id number] PRN PRN Reason: Saline Flush Last Infusion: 02/03/20 05:05 Dose: 0 mls/hr Documented by: Sodium Chloride () 250 mls @ 15 mls/hr IV .[id number] PRN PRN Reason: Additional IVPB Infusion Fentanyl Citrate 1,000 mcg/ (Sodium Chloride) 100 mls @ 5 mls/hr CONT INF .Q20H [facility]; Protocol Last Titration: 02/04/20 10:00 Dose: 75 mcg/hr, 7.5 mls/hr Documented by: Pantoprazole Sodium 40 mg/ (Sodium Chloride) 110 mls @ 330 mls/hr IV Q12 [facility] Last Infusion: 02/03/20 23:20 Dose: Infused Documented by: Enteral Nutritional Formula (Vital Af 1.2 Georgi Liquid) 1,000 mls @ 60 mls/hr GT .[id number] [facility] Last Admin: 02/04/20 03:42 Dose: Not Given Documented by: Propofol (Diprivan) 1,000 mg in 100 mls @ 4.266 mls/hr CONT INF .Q12H [facility]; Protocol Last Titration: 02/04/20 10:00 Dose: 5 mcg/kg/min, 2.1 mls/hr Documented by: Heparin Sodium/Dextrose () 25,000 units in 250 mls @ 11 mls/hr IV .[id number] [facility]; Protocol Piperacillin Sod/Tazobactam (Sod 3.375 gm/ Sodium Chloride) 50 mls @ 12.5 mls/hr IV Q12 [facility] Insulin Human Lispro (Insulin Lispro 100 Unit/Ml Insuln.Pen) 0 unit SC Q6 [facility]; Protocol Last Admin: 02/04/20 05:45 Dose: 1 unit Documented by: Ondansetron HCl (Ondansetron 4 Mg/2 Ml Vial) 4 mg IV Q8H PRN PRN PRN Reason: NAUSEA/VOMITING Sodium Chloride (0.9% Saline Lock 10 Ml Syringe) 10 - 40 ml IV UD PRN PRN Reason: SALINE FLUSH Last Admin: 02/04/20 05:45 Dose: 20 ml Documented by: Medical Necessity - Tobacco Use Smoking Status: Current every day smoker Tobacco Use: Cigarettes Route of nutrition/ use of supplements: [] Nutritional Intake: [] IV Site: [] Miles Catheter: [] - Assessment/Plan Antibiotics: [] Assessment/Plan: [] Active and Suspected Problems (Last Reviewed 01/03/20 @ 09:52 by Mercedes Smart) Respiratory failure (Acute) Pneumonia due to COVID-19 virus (Acute) septic shock with DOROTHY, resp failure, massive transaminitis, and covid - dx [place]/[address] [facility] D-dimer was just above normal limit there. Lactate 11.9 here, ALT 16k, ddimer 5.6 here, INR 7.7. On dex IV, vanc/zosyn. INR improving, now on hep gtt. Reviewed CT results, ? gallbladder inflammation. Will stop vanc today. Worsening DOROTHY, neph consulted. Will decrease zosyn to q12h. LFT better. Will follow
[2020-02-04] MEDS: Heparin Injection (Vial) 5,000 UNIT/ML VIAL 5000 UNIT IV (12:14)
[2020-02-04] MEDS: HEPARIN/D5w 25,000 UNITS 25,000 UNITS/250 ML IV.SOLN. 11 UNITS IV (12:14)
[2020-02-04 12:45] LABS: Partial Thromboplast Time 30.3 Seconds (24.1-36.2)
[2020-02-04 13:26] LABS: Bedside Glucose 184 mg/dL (70-110)
[2020-02-04 20:25] LABS: Bedside Glucose 142 mg/dL (70-110)
[2020-02-05] VITALS (56 sets, daily range): BP systolic 89–141; BP diastolic 49–99; PULSE 104–130; RESP 14–25; TEMP 37.3–37.6; O2SAT 90–98
[2020-02-05] MEDS: Propofol 10MG/Ml 1,000 MG/100 ML Bottle 4.3 MG CONT INF (00:18)
[2020-02-05] MEDS: 0.9% Saline Lock 10 ML Syringe IV ×4 (00:19→15:59)
[2020-02-05 00:24] LABS: Partial Thromboplast Time 98.4 Seconds (24.1-36.2)
[2020-02-05 02:16] LABS: Bedside Glucose 147 mg/dL (70-110)
[2020-02-05 04:37] LABS: Hematocrit 28.4 % (37-47); Hemoglobin 8.7 g/dL (12.0-15.0); Mean Corp Hgb Conc 30.6 g/dL (32-36); Mean Corpuscular Hgb 24.6 pg (27.0-32.0); Mean Corpuscular Volume 80.2 fL (81-99); Mean Platelet Vol. 11.3 fl (6.2-12.0); Platelet Count 309 K/mm3 (150-450); RBC Distribution Width CV 16.9 % (11.6-14.6); RBC Distribution Width SD 50.1 fl (35.1-43.9); Red Blood Count 3.54 M/mm3 (4.2-5.4); White Blood Count 17.7 K/mm3 (4.4-11.0)
[2020-02-05 04:50] LABS: International Normalized Ratio 2.2; Prothrombin Time (Protime)PT. 23.6 SECONDS (11.7-14.9)
[2020-02-05 05:24] LABS: AST(SGOT) 2074 U/L (15-37); Alanine Aminotransfer ALT/SGPT 2773 U/L (13-56); Albumin, Serum 1.9 g/dL (3.2-5.0); Alkaline Phosphatase 243 U/L (45-117); Anion Gap 12 (5-15); BUN 66 mg/dL (7-18); BUN/Creat Ratio 14.5 RATIO (10-20); Calcium,Total 7.3 mg/dL (8.5-10.1); Chloride 109 mmol/L (98-107); Creatinine, Serum 4.55 mg/dL (0.55-1.02); EST Glomerular Filtration Rate 10 mL/min (>60); Est Glom Filt Rate - Afr Amer 12 mL/min (>60); Estimated Creatinine Clearance 9.79 ml/min; Globulin 3.6 g/dL (2.2-4.2); Glucose 152 mg/dL (74-106); Potassium 3.9 mmol/L (3.5-5.1); Protein, Total 5.5 g/dL (6.4-8.2); Sodium Level 145 mmol/L (136-145)
[2020-02-05] MEDS: TITRATION PARAMETER CHANGE 1 EACH IV ×2 (05:36)
[2020-02-05] MEDS: Insulin Lispro 100 UNIT/ML INSULN.PEN SC ×2 (05:36→12:30)
--- NOTE | 2020-02-05 07:01 | PN_ITS ---
Subjective: The patient was seen and examined at the bedside this morning. Events from the last 24 hours have been reviewed. The patient is currently afebrile, hemodynamically stable and maintaining appropriate oxygen saturations on assist control mode of mechanical ventilation with an FiO2 requirement of 45% and PEEP of 5. The patient failed her spontaneous awakening trial this morning due to tachycardia and agitation. She remains sedated on both fentanyl and propofol. Patient is still requiring Levophed at 3 mcg/min to maintain hemodynamic stability. She remains in atrial fibrillation and is currently tolerating her tube feeds. She is currently documented to be overall net +5.3 L for the hospital admission. She remains on a continuous heparin infusion with an INR this morning noted to be 2.2. Creatinine has increased to 4.5 this morning and urine output remains minimal. Liver function continues to improve. Objective: The patient's most recent lab work, culture data and imaging studies have all been personally reviewed. Respiratory viral panel was negative. Strep and urine Legionella antigens were negative. Sputum culture dated February 02 revealed possible fungus. General: - - Intubated, sedated and mechanically ventilated. HEENT: Atraumatic, PERRLA, Normocephalic Oral: No Gingival or Mucosal Lesions/ Ulcerations Neck: Supple, No Nodes, Trachea Midline, - - Stable triple-lumen central venous catheter Lungs: No rhonchi, No wheeze, No rales, Diminished Cardiovascular: Normal S1, Normal S2, Irregular Rate, Tachycardic Abdomen: Bowel Sounds Present, Soft, Non Tender Extremities: No clubbing, No cyanosis, Edema Skin: - - No significant change from previous Musculoskeletal: No Tenderness to Palpation of Joints or Extremities Lymphatic: No Cervical, Supraclavicular, or Inguinal Adenopathy Neurological: - - No focal neurological deficits. Currently sedated on the ventilator. Vital Signs Temp Pulse Resp BP Pulse Ox 99.4 F H 113 H 15 119/66 95 02/05/20 06:00 02/05/20 06:00 02/05/20 06:00 02/05/20 06:00 02/05/20 06:00 Oxygen Delivery Method Mechanical Ventilator Weight: 160 lb 7.944 oz Body Mass Index (BMI) 26.8 Finger Stick Blood Glucose 88 Intake and Output for Last 24 Hours 02/03/20 02/04/20 02/05/20 23:59 23:59 23:59 Intake Total 2903.97 / 2913.55 1818.49 / 1828.34 679.80 / 679.80 Output Total 234 / 234 416 / 416 100 / 100 Balance 2669.97 / 2679.55 1402.49 / 1412.34 579.80 / 579.80 Labs (Last 48 Hours) 02/02/20 02/03/20 02/03/20 18:18 08:50 08:50 WBC 16.2 H RBC 3.55 L Hgb 8.6 L Hct 27.8 L MCV 78.3 L D MCH 24.2 L MCHC 30.9 L D RDW Std Deviation 50.5 H RDW Coeff of Charlie 17.6 H Plt Count 247 MPV 11.4 Immature Gran % (Auto) 4.700 H Neut % (Auto) 88.5 H Lymph % (Auto) 4.1 L [place] % (Auto) 2.5 Eos % (Auto) 0.0 Baso % (Auto) 0.2 Absolute Neuts (auto) 14.4 H Absolute Lymphs (auto) 0.66 L Nucleated RBC % 0.6 Diff Path Review Reviewed PT INR APTT Sodium 149 H Potassium 4.3 Chloride 113 H Carbon Dioxide 23.0 Anion Gap 13 BUN 46 H Creatinine 2.58 H Estim Creat Clear Calc 17.27 Est GFR (MDRD) Af Amer 24 L Est GFR (MDRD) Non-Af 19 L BUN/Creatinine Ratio 17.8 Glucose 162 H Calcium 7.7 L Phosphorus 3.5 Magnesium 2.0 Total Bilirubin 1.20 [place] 44825 H ALT 5272 H Alkaline Phosphatase 104 Total Creatine Kinase Total Protein 5.6 L Albumin 2.2 L Globulin 3.4 Albumin/Globulin Ratio 0.6 L Triglycerides Procalcitonin Random Vancomycin POC Glucose 02/03/20 02/03/20 02/03/20 08:50 08:50 12:30 WBC RBC Hgb Hct MCV MCH MCHC RDW Std Deviation RDW Coeff of Charlie Plt Count MPV Immature Gran % (Auto) Neut % (Auto) Lymph % (Auto) [place] % (Auto) Eos % (Auto) Baso % (Auto) Absolute Neuts (auto) Absolute Lymphs (auto) Nucleated RBC % Diff Path Review PT INR APTT Sodium Potassium Chloride Carbon Dioxide Anion Gap BUN Creatinine Estim Creat Clear Calc Est GFR (MDRD) Af Amer Est GFR (MDRD) Non-Af BUN/Creatinine Ratio Glucose Calcium Phosphorus Magnesium Total Bilirubin Direct Bilirubin AST ALT Alkaline Phosphatase Total Creatine Kinase 264 H Total Protein Albumin Globulin Albumin/Globulin Ratio Triglycerides 161 Procalcitonin 2.65 H Random Vancomycin POC Glucose 02/03/20 02/04/20 02/04/20 19:47 00:03 04:25 WBC 17.1 H RBC 3.60 L Hgb 9.0 L Hct 28.5 L MCV 79.2 L MCH 25.0 L MCHC 31.6 L RDW Std Deviation 49.2 H RDW Coeff of Charlie 17.2 H Plt Count 266 MPV 11.3 Immature Gran % (Auto) Neut % (Auto) Lymph % (Auto) [place] % (Auto) Eos % (Auto) Baso % (Auto) Absolute Neuts (auto) Absolute Lymphs (auto) Nucleated RBC % Diff Path Review PT INR APTT Sodium Potassium Chloride Carbon Dioxide Anion Gap BUN Creatinine Estim Creat Clear Calc Est GFR (MDRD) Af Amer Est GFR (MDRD) Non-Af BUN/Creatinine Ratio Glucose Calcium Phosphorus Magnesium Total Bilirubin Direct Bilirubin AST ALT Alkaline Phosphatase Total Creatine Kinase Total Protein Albumin Globulin Albumin/Globulin Ratio Triglycerides Procalcitonin Random Vancomycin POC Glucose 150 H 150 H 02/04/20 02/04/20 02/04/20 04:25 04:25 04:25 WBC RBC Hgb Hct MCV MCH MCHC RDW Std Deviation RDW Coeff of Charlie Plt Count MPV Immature Gran % (Auto) Neut % (Auto) Lymph % (Auto) [place] % (Auto) Eos % (Auto) Baso % (Auto) Absolute Neuts (auto) Absolute Lymphs (auto) Nucleated RBC % Diff Path Review PT 20.0 H INR 1.8 APTT Sodium 145 Potassium 3.7 Chloride 108 H Carbon Dioxide 27.0 Anion Gap 10 BUN 56 H Creatinine 3.49 H Estim Creat Clear Calc 12.77 Est GFR (MDRD) Af Amer 17 L Est GFR (MDRD) Non-Af 14 L BUN/Creatinine Ratio 16.0 Glucose 152 H Calcium 7.4 L Phosphorus Magnesium 2.0 Total Bilirubin 1.20 H Direct Bilirubin 0.77 H AST 8202 H ALT 4123 H Alkaline Phosphatase 109 Total Creatine Kinase Total Protein 5.4 L Albumin 2.1 L Globulin 3.3 Albumin/Globulin Ratio Triglycerides Procalcitonin Random Vancomycin 13.9 POC Glucose 02/04/20 02/04/20 02/04/20 05:44 12:10 13:21 WBC RBC Hgb Hct MCV MCH MCHC RDW Std Deviation RDW Coeff of Charlie Plt Count MPV Immature Gran % (Auto) Neut % (Auto) Lymph % (Auto) [place] % (Auto) Eos % (Auto) Baso % (Auto) Absolute Neuts (auto) Absolute Lymphs (auto) Nucleated RBC % Diff Path Review PT INR APTT 30.3 Sodium Potassium Chloride Carbon Dioxide Anion Gap BUN Creatinine Estim Creat Clear Calc Est GFR (MDRD) Af Amer Est GFR (MDRD) Non-Af BUN/Creatinine Ratio Glucose Calcium Phosphorus Magnesium Total Bilirubin Direct Bilirubin AST ALT Alkaline Phosphatase Total Creatine Kinase Total Protein Albumin Globulin Albumin/Globulin Ratio Triglycerides Procalcitonin Random Vancomycin POC Glucose 163 H 184 H 02/04/20 02/04/20 02/05/20 18:35 18:38 00:02 WBC RBC Hgb Hct MCV MCH MCHC RDW Std Deviation RDW Coeff of Charlie Plt Count MPV Immature Gran % (Auto) Neut % (Auto) Lymph % (Auto) [place] % (Auto) Eos % (Auto) Baso % (Auto) Absolute Neuts (auto) Absolute Lymphs (auto) Nucleated RBC % Diff Path Review PT INR APTT 68.0 H Sodium Potassium Chloride Carbon Dioxide Anion Gap BUN Creatinine Estim Creat Clear Calc Est GFR (MDRD) Af Amer Est GFR (MDRD) Non-Af BUN/Creatinine Ratio Glucose Calcium Phosphorus Magnesium Total Bilirubin Direct Bilirubin AST ALT Alkaline Phosphatase Total Creatine Kinase Total Protein Albumin Globulin Albumin/Globulin Ratio Triglycerides Procalcitonin Random Vancomycin POC Glucose 142 H 147 H 02/05/20 02/05/20 02/05/20 00:05 04:30 04:30 WBC 17.7 H RBC 3.54 L Hgb 8.7 L Hct 28.4 L MCV 80.2 L MCH 24.6 L MCHC 30.6 L RDW Std Deviation 50.1 H RDW Coeff of Charlie 16.9 H Plt Count 309 MPV 11.3 Immature Gran % (Auto) Neut % (Auto) Lymph % (Auto) [place] % (Auto) Eos % (Auto) Baso % (Auto) Absolute Neuts (auto) Absolute Lymphs (auto) Nucleated RBC % Diff Path Review PT INR APTT 98.4 H* Sodium 145 Potassium 3.9 Chloride 109 H Carbon Dioxide 24.0 Anion Gap 12 BUN 66 H Creatinine 4.55 H Estim Creat Clear Calc 9.79 Est GFR (MDRD) Af Amer 12 L Est GFR (MDRD) Non-Af 10 L BUN/Creatinine Ratio 14.5 Glucose 152 H Calcium 7.3 L Phosphorus Magnesium Total Bilirubin 0.90 Direct Bilirubin 0.60 H AST 2074 H ALT 2773 H Alkaline Phosphatase 243 H Total Creatine Kinase Total Protein 5.5 L Albumin 1.9 L Globulin 3.6 Albumin/Globulin Ratio Triglycerides Procalcitonin Random Vancomycin POC Glucose 02/05/20 04:30 WBC RBC Hgb Hct MCV MCH MCHC RDW Std Deviation RDW Coeff of Charlie Plt Count MPV Immature Gran % (Auto) Neut % (Auto) Lymph % (Auto) [place] % (Auto) Eos % (Auto) Baso % (Auto) Absolute Neuts (auto) Absolute Lymphs (auto) Nucleated RBC % Diff Path Review PT 23.6 H INR 2.2 APTT Sodium Potassium Chloride Carbon Dioxide Anion Gap BUN Creatinine Estim Creat Clear Calc Est GFR (MDRD) Af Amer Est GFR (MDRD) Non-Af BUN/Creatinine Ratio Glucose Calcium Phosphorus Magnesium Total Bilirubin Direct Bilirubin AST ALT Alkaline Phosphatase Total Creatine Kinase Total Protein Albumin Globulin Albumin/Globulin Ratio Triglycerides Procalcitonin Random Vancomycin POC Glucose Microbiology 02/03/20 07:40 Sputum, Induced/Lukens Gram Stain - Final 02/03/20 07:40 Sputum, Induced/Lukens Respiratory Culture - Preliminary Possible Fungus 02/02/20 18:45 Urine Catheter - Miles Urine Culture - Preliminary Culture exhibits no growth. 02/03/20 00:55 Mucosa - Nasopharyngeal Respiratory Panel (PCR) - Final Clinical Impression(s) from Imaging Studies Chest X-Ray 02/02/20 18:15 IMPRESSION: Lines and tubes as described. Consider advancing the nasogastric tube. Bilateral widespread pulmonary opacities most pronounced on the left. Electronically Signed: Jasen Diego MD at 19:14 EST , Service support , KUB X-Ray 02/02/20 20:15 KUB X-Ray 02/02/20 22:05 IMPRESSION: OGT in is in similar position to the prior study Recommend advancing at 2304 Reported and signed by: Tracee Clark DO Electronically Signed: Tracee Clark DO at 23:03 EST Tel , Service support , ADDENDUM: 02/02/20 2317 IMPRESSION: OGT in is in similar position to the prior study Recommend advancing at 2304 Reported and signed by: Tracee Clark DO N.B. : Nancy Dodge RN, confirmed on 02/02/2020 23:10:30 (ET) that the healthcare facility has received the radiology report. Electronically Signed: Tracee Clark DO at 23:03 EST Tel , Service support , Chest X-Ray 02/03/20 05:55 IMPRESSION: ET tube similar Interval advancement of NG tube with the tip at least in the body of the stomach but not visualized on this study There is improving aeration in the left lung apex as well as the left lung base. Interstitial thickening is again noted as well as bibasilar airspace opacities at 0656 Reported and signed by: Tracee Clark DO Electronically Signed: Tracee Clark DO at 6:55 EST Tel , Service support , KUB X-Ray 02/03/20 10:40 IMPRESSION: The tip of the orogastric tube is in the distal portion of the stomach. Electronically Signed: Clifford Edwards, at 12:00 EST , Service support , Abdomen Ultrasound 02/03/20 11:13 IMPRESSION: The gallbladder gómez of the upper limits of normal. The gallbladder appears mildly contracted. No stones. Negative sonographic Vilchis sign Question minimal pericholecystic edema/fluid If patient's symptoms persist then consider a nuclear medicine hepatobiliary scan for further evaluation Negative sonographic Vilchis sign Right renal cyst Mild ascites Small right pleural effusion Hepatic steatosis at 2205 Reported and signed by: Tracee Clark DO Electronically Signed: Tracee Clark DO at 22:04 EST Tel , Service support , Chest X-Ray 02/03/20 12:27 IMPRESSION: A right-sided central venous catheter has been placed with the tip at the junction of the superior vena cava and right atrium. Since prior study, there has been improved aeration of both lungs although residual CHF persists as well as left lower lobe infiltrate. Electronically Signed: Clifford Edwards at 13:07 EST , Service support , Brain CT 02/03/20 16:08 IMPRESSION: Chronic involutional changes of the brain. No change and no acute abnormality. Electronically Signed: Jasen Diego MD at 22:35 EST , Service support , Chest CT 02/03/20 16:08 IMPRESSION: Small bilateral pleural effusions Emphysema Fibrotic changes as discussed There are consolidative infiltrate seen with the lung bases left greater than right NG tube is seen with the tip in the stomach with hyperdense fluid surrounding the tube in the esophagus most likely contrast. This may be secondary to reflux. Correlate clinically ET tube with the tip approximately 3.6 cm proximal to the julia Right central venous catheter with the tip the cavoatrial junction Borderline cardiomegaly with coronary artery calcifications There is mediastinal adenopathy. Individualized dose optimization techniques were used for this CT. at 2245 Reported and signed by: Tracee Clark DO Electronically Signed: Tracee Clark DO at 22:44 EST Tel , Service support , Abdomen CT 02/03/20 16:09 IMPRESSION: Gallbladder wall thickening and edema. Correlate clinically for cystitis Pancreas is grossly unremarkable. Minimal fat stranding seen near the tail the pancreas I suspect is secondary to perirenal fat stranding however I would correlate clinically for pancreatitis Enlarged bilateral adrenal glands as discussed. Recommend MRI follow-up with a adrenal protocol for further evaluation Small amount of ascites as discussed. NG tube with the tip in the stomach. Suspect reflux of contrast into the esophagus Poor distention of the colon. I cannot exclude wall thickening. Correlate clinically for colitis Individualized dose optimization techniques were used for this CT. at 2256 Reported and signed by: Tracee Clark DO Electronically Signed: Tracee Clark DO at 22:55 EST Tel , Service support , Medical Necessity - Tobacco Use Smoking Status: Current every day smoker Tobacco Use: Cigarettes Assessment/Plan All Active Problems (Last Reviewed 01/03/20 @ 09:52 by Mercedes Smart) Respiratory failure (Acute) Pneumonia due to COVID-19 virus (Acute) Pneumonia (Acute) Bronchitis (Acute) History of total hip replacement (Resolved) History of total knee replacement (TKR) (Resolved) Tail bone pain (Acute) Hx of bilateral hip replacements (Resolved) History and physical examination, immigration (Acute) GERD (gastroesophageal reflux disease) (Acute) Fatigue (Acute) Dyspnea on minimal exertion (Acute) Ankle fracture, right (Acute) Actinic keratitis (Acute) Weakness (Acute) RECOMMENDATIONS: 1. Continue current supportive measures and wean FiO2 and PEEP to maintain oxygen saturations at or above 90%. 2. Continue scheduled bronchodilator therapy. 3. Continue empiric antimicrobials. 4. Continue Decadron. 5. Continue Levophed and wean to maintain a mean arterial pressure at or above 65 mmHg. 6. Continue tube feeds as tolerated. 7. Continue heparin infusion. 8. Give amiodarone bolus and start continuous infusion. 9. Continue appropriate GI prophylaxis. IMPRESSIONS: 1. Acute hypoxemic respiratory failure secondary to COVID-19 pneumonia Plan to continue current supportive measures including invasive mechanical ventilatory support, with a goal to wean FiO2 and PEEP to maintain oxygen saturations at or above 90%. The patient will be continued on Decadron. Continue scheduled bronchodilator therapy. Empiric antimicrobials will be continued under the discretion of infectious diseases. 2. Septic shock Concern for Covid as precipitating etiology versus possible community-acquired pneumonia as well. Continue empiric antimicrobials as noted above along with vasopressor support to maintain a mean arterial pressure at or above 65 mmHg. 3. Atrial fibrillation with RVR The patient's heart rate has increased this morning. Accordingly, we will start her on amiodarone and monitor her clinically. Beta-maeve can be considered later today or tomorrow if heart rate improves. 4. Acute liver injury Improving. Suspect related to hemodynamic instability with subsequent shock liver. Continue supportive measures as noted above with vasopressor support to maintain hemodynamic stability. 5. Acute kidney injury Likely prerenal in etiology with a component of ischemic ATN in the setting of septic shock. The patient did receive supplemental IV fluid hydration. Plan to continue vasopressors to maintain hemodynamic stability. Continue to monitor urine output. Nephrology is currently following. Plan to place temporary hemodialysis catheter and initiate dialysis. 6. History of DVT/chronic anticoagulation status with presenting coagulopathy The patient presented with a supratherapeutic INR. She did receive vitamin K and FFP. Given that the patient's INR is no longer therapeutic, recommend continuing heparin infusion. TIME: 34 minutes of critical care time, independent of procedures, was spent addressing the patient's acute hypoxemic respiratory failure secondary to Covid pneumonia, septic shock, atrial fibrillation with RVR, acute kidney injury, acute liver injury, history of DVT, review of all data and collaboration with the care team. ([id number]) [id number] Critical care first hour
[2020-02-05 07:15] LABS: Bedside Glucose 164 mg/dL (70-110)
--- NOTE | 2020-02-05 07:32 | PN_ITS ---
Patient Problems: Active and Suspected Problems (Last Reviewed 01/03/20 @ 09:52 by Mercedes Smart) Respiratory failure (Acute) Pneumonia due to COVID-19 virus (Acute) Reason for Visit: Acute hypoxic respiratory failure COVID-19 pneumonia Subjective: Patient remains on the vent. Kidney function continues to worsen. With creatinine up to 0.55. Hemoglobin down to 8.7. Her liver function test however continues to improve. Objective: GENERAL: sedated on the vent HEENT: Atraumatic; ET tube in place EYES; Anicteric, Normal Conjunctiva NECK; supple, normal thyroid, RESPIRATORY: Diminished to auscultation CARDIOVASCULAR: Regular S1 S2, GI: soft, normoactive bowel sounds, : No Renal angle tenderness; EXTREMITIES: No edema, no clubbing, MUSCULOSKELETAL: no muscle waisting NEURO: sedated on the vent SKIN: No Rash Vitals/I&O's: Vital Signs Temp Pulse Resp BP Pulse Ox 99.4 F H 116 H 17 119/66 93 02/05/20 06:00 02/05/20 07:13 02/05/20 07:13 02/05/20 06:00 02/05/20 07:11 Oxygen Delivery Method Mechanical Ventilator Weight: 72.8 kg Body Mass Index (BMI) 26.8 Finger Stick Blood Glucose 88 Intake and Output for Last 24 Hours 02/03/20 02/04/20 02/05/20 23:59 23:59 23:59 Intake Total 2903.97 / 2913.55 1818.49 / 1828.34 679.80 / 679.80 Output Total 234 / 234 416 / 416 100 / 100 Balance 2669.97 / 2679.55 1402.49 / 1412.34 579.80 / 579.80 Microbiology Past 72 Hours 02/03/20 07:40 Sputum, Induced/Lukens Gram Stain - Final 02/03/20 07:40 Sputum, Induced/Lukens Respiratory Culture - Preliminary Possible Fungus 02/02/20 18:45 Urine Catheter - Miles Urine Culture - Preliminary Culture exhibits no growth. 02/03/20 00:55 Mucosa - Nasopharyngeal Respiratory Panel (PCR) - Final 02/02/20 18:45 Urine Catheter - Miles Legionella Antigen - Final 02/02/20 18:45 Urine Catheter - Miles Streptococcus pneumoniae Antigen (M - Final Laboratory Results 02/04/20 12:10: APTT 30.3 02/04/20 13:21: POC Glucose 184 H 02/04/20 18:35: APTT 68.0 H 02/04/20 18:38: POC Glucose 142 H 02/05/20 00:02: POC Glucose 147 H 02/05/20 00:05: APTT 98.4 H* 02/05/20 04:30: WBC 17.7 H, RBC 3.54 L, Hgb 8.7 L, Hct 28.4 L, MCV 80.2 L, MCH 24.6 L, MCHC 30.6 L, RDW Std Deviation 50.1 H, RDW Coeff of Charlie 16.9 H, Plt Count 309, MPV 11.3 02/05/20 04:30: Sodium 145, Potassium 3.9, Chloride 109 H, Carbon Dioxide 24.0, Anion Gap 12, BUN 66 H, Creatinine 4.55 H, Estim Creat Clear Calc 9.79, Est GFR (MDRD) Af Amer 12 L, Est GFR (MDRD) Non-Af 10 L, BUN/Creatinine Ratio 14.5, Glucose 152 H, Calcium 7.3 L, Total Bilirubin 0.90, Direct Bilirubin 0.60 H, AST 2074 H, ALT 2773 H, Alkaline Phosphatase 243 H, Total Protein 5.5 L, Albumin 1.9 L, Globulin 3.6 02/05/20 04:30: PT 23.6 H, INR 2.2 02/05/20 05:30: POC Glucose 164 H Current Medications Albuterol Sulfate (Albuterol 2.5 Mg/3 Ml Vial.Neb.) 2.5 mg INHALATION Q2H PRN PRN PRN Reason: SOB/Wheezing Albuterol/Ipratropium (Ipratropium/Albuterol Sulfate 3 Ml Ampul.Neb) 3 ml INHALATION Q4HWA.RT LILA Last Admin: 02/04/20 20:24 Dose: 3 ml Documented by: Chlorhexidine Gluconate (Chlorhexidine 15 Ml) 15 ml PO BID LILA Last Admin: 02/04/20 21:54 Dose: 15 ml Documented by: Dexamethasone Sodium Phosphate (Dexamethasone 10 Mg/Ml Vial) 6 mg IV DAILY LIL[facility] Stop: 02/09/20 10:01 Last Admin: 02/04/20 08:43 Dose: 6 mg Documented by: Dextrose (Dextrose 50%-Water 25 Gm/50 Ml Disp.Syrin) 0 gm IV X1 PRN; Protocol PRN Reason: Hypoglycemia Glucagon (Glucagon 1 Mg/Ml Syringe) 1 mg IM .X1 PRN PRN Reason: Hypoglycemia Heparin Sodium (Porcine) (Heparin Injection (Vial) 5,000 Unit/Ml Vial) 0 unit IV UD PRN; Protocol PRN Reason: dose adjustment Norepinephrine Bitartrate 8 mg (/ Sodium Chloride) 250 mls @ 9.375 mls/hr CONT INF .[id number] LILA; Protocol Last Titration: 02/05/20 06:00 Dose: 3 mcg/min, 5.6 mls/hr Documented by: Sodium Chloride () 250 mls @ 15 mls/hr IV .[id number] PRN PRN Reason: Saline Flush Last Infusion: 02/03/20 05:05 Dose: 0 mls/hr Documented by: Sodium Chloride () 250 mls @ 15 mls/hr IV .[id number] PRN PRN Reason: Additional IVPB Infusion Fentanyl Citrate 1,000 mcg/ (Sodium Chloride) 100 mls @ 5 mls/hr CONT INF .Q20H LILA; Protocol Last Titration: 02/05/20 06:00 Dose: 75 mcg/hr, 7.5 mls/hr Documented by: Pantoprazole Sodium 40 mg/ (Sodium Chloride) 110 mls @ 330 mls/hr IV Q12 LILA Last Infusion: 02/04/20 22:14 Dose: Infused Documented by: Enteral Nutritional Formula (Vital Af 1.2 Georgi Liquid) 1,000 mls @ 60 mls/hr GT .[id number] [facility] Last Admin: 02/05/20 00:00 Dose: 60 mls/hr Documented by: Propofol (Diprivan) 1,000 mg in 100 mls @ 4.368 mls/hr CONT INF .Q12H LILA; Protocol Last Titration: 02/05/20 06:00 Dose: 10 mcg/kg/min, 4.4 mls/hr Documented by: Heparin Sodium/Dextrose () 25,000 units in 250 mls @ 11 mls/hr IV .[id number] LILA; Protocol Last Titration: 02/05/20 02:00 Dose: 900 units/hr, 9 mls/hr Documented by: Piperacillin Sod/Tazobactam (Sod 3.375 gm/ Sodium Chloride) 50 mls @ 12.5 mls/hr IV Q12 [facility] Last Infusion: 02/05/20 02:31 Dose: Infused Documented by: Insulin Human Lispro (Insulin Lispro 100 Unit/Ml Insuln.Pen) 0 unit SC Q6 LIL[facility]; Protocol Last Admin: 02/05/20 05:36 Dose: 1 unit Documented by: Ondansetron HCl (Ondansetron 4 Mg/2 Ml Vial) 4 mg IV Q8H PRN PRN PRN Reason: NAUSEA/VOMITING Sodium Chloride (0.9% Saline Lock 10 Ml Syringe) 10 - 40 ml IV UD PRN PRN Reason: SALINE FLUSH Last Admin: 02/05/20 05:38 Dose: 20 ml Documented by: STROKE Vital Signs/Narrative: Vital Signs Temp Pulse Resp BP Pulse Ox 02/05/20 07:13 116 H 17 02/05/20 07:11 119 H 22 H 93 02/05/20 06:00 99.4 F H 113 H 15 119/66 95 02/05/20 05:45 107/79 02/05/20 05:30 109/73 02/05/20 05:15 118/78 02/05/20 05:00 104 H 15 126/73 H 92 02/05/20 04:45 122/86 H 02/05/20 04:44 123 H 15 90 02/05/20 04:30 119/69 02/05/20 04:15 130/99 H 02/05/20 04:00 99.6 F H 109 H 15 128/82 H 91 Medical Necessity - Tobacco Use Smoking Status: Current every day smoker Tobacco Use: Cigarettes Assessment/Plan All Active Problems (Last Reviewed 01/03/20 @ 09:52 by Mercedes Smart) Respiratory failure (Acute) Pneumonia due to COVID-19 virus (Acute) Pneumonia (Acute) Bronchitis (Acute) History of total hip replacement (Resolved) History of total knee replacement (TKR) (Resolved) Tail bone pain (Acute) Hx of bilateral hip replacements (Resolved) History and physical examination, immigration (Acute) GERD (gastroesophageal reflux disease) (Acute) Fatigue (Acute) Dyspnea on minimal exertion (Acute) Ankle fracture, right (Acute) Actinic keratitis (Acute) Weakness (Acute) Patient is a 69-year-old lady transferred from [facility] with progressive shortness of breath. An assessment of acute hypoxic respiratory failure secondary to acute COVID-19 was made. Patient had to be intubated as a result of deteriorating respiratory status 1. Acute hypoxic respiratory failure secondary to COVID-19 pneumonia Admitted to the intensive care unit intubated with consultation placed to pulmonary medicine for vent management -02/04/2020. Vent. Current vent settings reviewed. Case discussed with Dr. Gonzalez with pulmonary -02/05/2020. Patient remains on the vent with no significant improvement 2. Acute COVID-19 pneumonia -Presented with respiratory failure resulting in patient being intubated. Was started on Decadron not a candidate for remdesivir in view of acute kidney injury and impaired liver function -02/05/2020; no significant improvement in patient's condition. Remains on Decadron 3. Septic shock -Secondary to acute COVID-19 pneumonia with suspected superimposed bacterial pneumonia. Patient is on norepinephrine drip as well as Zosyn. 02/04/2020; she was seen in consultation by Dr. Anderson with infectious disease. His notes and recommendations reviewed. CT of the abdomen obtained demonstrated gallbladder thickening 4. Acute kidney injury ?suspected to be secondary to acute tubular necrosis from patient underlying infection. Admitted to the intensive care unit started on IV fluid. Patient kidney function continues to worsen. Consult subsequently placed to nephrology -02/04/2020. Kidney function continues to worsen -02/05/2020. Kidney function continues to worsen plan is for patient to have dialysis catheter placement with initiation of dialysis 6. Hypernatremia -Due to fluid depletion patient is on IV fluid with subsequent monitoring of electrolyte -02/05/2020; sodium levels down to 145 7. Hyperkalemia -due to combination of metabolic acidosis as well as impaired kidney function. Consult placed to nephrology -02/05/2020 resolved 8. Coagulopathy ?patient is on Coumadin for previous DVT involving the left lower extremity. Coumadin on admission was 7.7. Patient was transfused with 2 unit FFP as well as did receive vitamin K INR as of 02/03/2020 is 2.8 -02/05/2020 patient started on heparin drip the day prior. 9. Acute transaminitis ?Secondary to shock liver monitoring LFTs -02/05/2020 patient liver function test continues to improve 10. Anemia - Secondary to chronic disorder monitoring H&H and transfuse if patient becomes symptomatic or hemoglobin falls below 7 11. History of DVT involving the left lower extremity ?on Coumadin held in view of above reasons -02/05/2020; started on heparin drip 12. Essential hypertension ?Patient antihypertensives held in view of patient presenting with low blood pressure 13. DVT prophylaxis -patient was on Coumadin prior to admission no additional measures warranted at this point 02/05/2020 patient on heparin Inpatient E&M: [id number] [facility] [[email or web address]] Hosp L3
[2020-02-05] MEDS: Chlorhexidine 15 ML PO (08:25)
[2020-02-05] MEDS: dexAMETHasone 10 MG/ML Vial 6 MG IV (08:25)
[2020-02-05 09:45] LABS: Partial Thromboplast Time 90.2 Seconds (24.1-36.2)
[2020-02-05] MEDS: Amiodarone 360 MG in Dextrose 5% Viaflo Bag 192.8 ML 33.3 MG CONT INF (09:53)
--- NOTE | 2020-02-05 10:37 | RAD_ITS ---
STUDY: X-RAY CHEST REASON FOR EXAM: Female, 69 years old. DIALYSIS LINE PLACEMENT TECHNIQUE: Single AP portable view of the chest. COMPARISON: Comparison is made with prior study dated 02/03/2020. FINDINGS: An endotracheal tube is seen with the tip at 2.8 cm proximal to the julia. An orogastric tube is seen within the stomach. A right-sided central venous catheter is in situ with the tip at the junction of the superior vena cava and right atrium. A left-sided temporary dialysis catheter has been placed with the tip at the junction of superior vena cava and right atrium. Small left pleural effusion with left basilar atelectasis and/or infiltrate. Mild increased markings at the right lung base. This is superimposed on a mild degree of CHF. . RAD/CXR for Line Placement IMPRESSION: A left-sided dialysis catheter has been placed with the tip at the junction of the superior vena cava and right atrium. The remainder of the examination is unchanged. Electronically Signed: Clifford Edwards, at 11:29 EST , Service support ,
--- NOTE | 2020-02-05 10:45 | PN.RENAL_ITS ---
Patient Problems: Active and Suspected Problems (Last Reviewed 01/03/20 @ 09:52 by Mercedes Smart) Respiratory failure (Acute) Pneumonia due to COVID-19 virus (Acute) Subjective: cannot do ros as the patient is intubated Objective: PE deferred to prevent transmission of COVID-19 and preserve PPE - Physical Exam Vitals/I&O's: Vital Signs Temp Pulse Resp BP Pulse Ox 99.5 F H 127 H 19 H 104/66 92 02/05/20 08:00 02/05/20 09:53 02/05/20 09:00 02/05/20 09:00 02/05/20 09:00 Oxygen Delivery Method Mechanical Ventilator Weight: 72.8 kg Body Mass Index (BMI) 26.8 Finger Stick Blood Glucose 88 Intake and Output for Last 24 Hours 02/03/20 02/04/20 02/05/20 23:59 23:59 23:59 Intake Total 2903.97 / 2913.55 1818.49 / 1828.34 972.20 / 972.20 Output Total 234 / 234 416 / 416 160 / 160 Balance 2669.97 / 2679.55 1402.49 / 1412.34 812.20 / 812.20 Microbiology Past 72 Hours 02/02/20 18:45 Urine Catheter - Miles Urine Culture - Final Culture exhibits no growth. 02/03/20 07:40 Sputum, Induced/Lukens Gram Stain - Final 02/03/20 07:40 Sputum, Induced/Lukens Respiratory Culture - Preliminary Possible Fungus 02/03/20 00:55 Mucosa - Nasopharyngeal Respiratory Panel (PCR) - Final 02/02/20 18:45 Urine Catheter - Miles Legionella Antigen - Final 02/02/20 18:45 Urine Catheter - Miles Streptococcus pneumoniae Antigen (M - Final Laboratory Results 02/04/20 12:10: APTT 30.3 02/04/20 13:21: POC Glucose 184 H 02/04/20 18:35: APTT 68.0 H 02/04/20 18:38: POC Glucose 142 H 02/05/20 00:02: POC Glucose 147 H 02/05/20 00:05: APTT 98.4 H* 02/05/20 04:30: WBC 17.7 H, RBC 3.54 L, Hgb 8.7 L, Hct 28.4 L, MCV 80.2 L, MCH 24.6 L, MCHC 30.6 L, RDW Std Deviation 50.1 H, RDW Coeff of Charlie 16.9 H, Plt Count 309, MPV 11.3 02/05/20 04:30: Sodium 145, Potassium 3.9, Chloride 109 H, Carbon Dioxide 24.0, Anion Gap 12, BUN 66 H, Creatinine 4.55 H, Estim Creat Clear Calc 9.79, Est GFR (MDRD) Af Amer 12 L, Est GFR (MDRD) Non-Af 10 L, BUN/Creatinine Ratio 14.5, Glucose 152 H, Calcium 7.3 L, Total Bilirubin 0.90, Direct Bilirubin 0.60 H, AST 2074 H, ALT 2773 H, Alkaline Phosphatase 243 H, Total Protein 5.5 L, Albumin 1.9 L, Globulin 3.6 02/05/20 04:30: PT 23.6 H, INR 2.2 02/05/20 05:30: POC Glucose 164 H 02/05/20 08:10: APTT 90.2 H* Current Medications Albuterol Sulfate (Albuterol 2.5 Mg/3 Ml Vial.Neb.) 2.5 mg INHALATION Q2H PRN PRN PRN Reason: SOB/Wheezing Albuterol/Ipratropium (Ipratropium/Albuterol Sulfate 3 Ml Ampul.Neb) 3 ml INHALATION Q4HWA.RT [facility] Last Admin: 02/04/20 20:24 Dose: 3 ml Documented by: Chlorhexidine Gluconate (Chlorhexidine 15 Ml) 15 ml PO BID [facility] Last Admin: 02/05/20 08:25 Dose: 15 ml Documented by: Dexamethasone Sodium Phosphate (Dexamethasone 10 Mg/Ml Vial) 6 mg IV DAILY [facility] Stop: 02/09/20 10:01 Last Admin: 02/05/20 08:25 Dose: 6 mg Documented by: Dextrose (Dextrose 50%-Water 25 Gm/50 Ml Disp.Syrin) 0 gm IV X1 PRN; Protocol PRN Reason: Hypoglycemia Glucagon (Glucagon 1 Mg/Ml Syringe) 1 mg IM .X1 PRN PRN Reason: Hypoglycemia Heparin Sodium (Porcine) (Heparin Injection (Vial) 5,000 Unit/Ml Vial) 0 unit IV UD PRN; Protocol PRN Reason: dose adjustment Norepinephrine Bitartrate 8 mg (/ Sodium Chloride) 250 mls @ 9.375 mls/hr CONT INF .[id number] LILA; Protocol Last Titration: 02/05/20 09:00 Dose: 3 mcg/min, 5.6 mls/hr Documented by: Sodium Chloride () 250 mls @ 15 mls/hr IV .[id number] PRN PRN Reason: Saline Flush Last Infusion: 02/03/20 05:05 Dose: 0 mls/hr Documented by: Sodium Chloride () 250 mls @ 15 mls/hr IV .[id number] PRN PRN Reason: Additional IVPB Infusion Fentanyl Citrate 1,000 mcg/ (Sodium Chloride) 100 mls @ 5 mls/hr CONT INF .Q20H LILA; Protocol Last Titration: 02/05/20 09:00 Dose: 75 mcg/hr, 7.5 mls/hr Documented by: Pantoprazole Sodium 40 mg/ (Sodium Chloride) 110 mls @ 330 mls/hr IV Q12 [facility] Last Infusion: 02/05/20 09:41 Dose: Infused Documented by: Enteral Nutritional Formula (Vital Af 1.2 Georgi Liquid) 1,000 mls @ 60 mls/hr GT .[id number] LILA Last Admin: 02/05/20 00:00 Dose: 60 mls/hr Documented by: Propofol (Diprivan) 1,000 mg in 100 mls @ 4.368 mls/hr CONT INF .Q12H LILA; Protocol Last Titration: 02/05/20 09:00 Dose: 10 mcg/kg/min, 4.4 mls/hr Documented by: Heparin Sodium/Dextrose () 25,000 units in 250 mls @ 11 mls/hr IV .[id number] LILA; Protocol Last Titration: 02/05/20 09:46 Dose: 800 units/hr, 8 mls/hr Documented by: Piperacillin Sod/Tazobactam (Sod 3.375 gm/ Sodium Chloride) 50 mls @ 12.5 mls/hr IV Q12 LILA Last Infusion: 02/05/20 02:31 Dose: Infused Documented by: Amiodarone HCl 360 mg/ (Dextrose) 200 mls @ 33.333 mls/hr CONT INF .Q6H LILA Stop: 02/05/20 15:39 Last Admin: 02/05/20 09:53 Dose: 1 mg/min, 33.3 mls/hr Documented by: Amiodarone HCl 360 mg/ (Dextrose) 200 mls @ 16.667 mls/hr CONT INF .Q12H [facility] Stop: 02/06/20 09:39 Insulin Human Lispro (Insulin Lispro 100 Unit/Ml Insuln.Pen) 0 unit SC Q6 LILA; Protocol Last Admin: 02/05/20 05:36 Dose: 1 unit Documented by: Ondansetron HCl (Ondansetron 4 Mg/2 Ml Vial) 4 mg IV Q8H PRN PRN PRN Reason: NAUSEA/VOMITING Senna/Docusate Sodium (Senna/Docusate Sodium 1 Tablet) 2 tablet GT BID PRN PRN PRN Reason: Constipation Sodium Chloride (0.9% Saline Lock 10 Ml Syringe) 10 - 40 ml IV UD PRN PRN Reason: SALINE FLUSH Last Admin: 02/05/20 08:26 Dose: 40 ml Documented by: Medical Necessity - Tobacco Use Smoking Status: Current every day smoker Tobacco Use: Cigarettes Assessment/Plan All Active Problems (Last Reviewed 01/03/20 @ 09:52 by Mercedes Smart) Respiratory failure (Acute) Pneumonia due to COVID-19 virus (Acute) Pneumonia (Acute) Bronchitis (Acute) History of total hip replacement (Resolved) History of total knee replacement (TKR) (Resolved) Tail bone pain (Acute) Hx of bilateral hip replacements (Resolved) History and physical examination, immigration (Acute) GERD (gastroesophageal reflux disease) (Acute) Fatigue (Acute) Dyspnea on minimal exertion (Acute) Ankle fracture, right (Acute) Actinic keratitis (Acute) Weakness (Acute) DOROTHY ATN with COVID-19 and shock Respiratory failure multifactorial s/p intubation COVID-19 pneumonia COPD Shock Shock liver Dialysis catheter just placed well initiate dialysis today for worsening kidney function with persistent oliguria. No need for Miles removal today. Discussed with ICU attending Dr. Gonzalez. Scr 4.5 keep MAP>65 on Levophed dose Vanco per pharmacy Will f/u.
[2020-02-05] MEDS: Heparin 10,000 UNITS/10 ML Vial 1000 UNITS IV (10:56)
--- NOTE | 2020-02-05 10:56 | OP.PCM_ITS ---
Report of Operation Date of Procedure: 02/05/20 Surgery/Procedure Performed:: Dialysis catheter placement Description of Surgical Findings:: Temporary hemodialysis catheter line placement procedure note Indication: Hemodialysis Procedure: A time-out was completed to verify correct patient, indication, medication allergies, procedure, coagulation studies, informed consent signed, and equipment needed. The patient was placed in the supine position for a central line placement to the left vein. The patients left neck was prepped using chlorhexidine and a full body sterile drape was applied. 1% lidocaine was used to anesthetize the surrounding skin. A 12fr 20 cm Temporary hemodialysis catheter introduced into the internal jugular vein using the modified Seldinger technique with the assistance of ultrasound. The catheter was threaded smoothly over the guidewire, The site was dilated up twice in a stepwise fashion. The guidewire was removed easily, nonpulsatile blood returned. All ports were aspirated of air and flushed with sterile saline, Then locked with you 1000 heparin 1.4 cc to each port. The catheter was sutured in place and covered with an occlusive dressing impregnated with chlorhexidine. Post-procedure: The patient tolerated the procedure well. Vital signs remained s table. EBL 5cc. No complications. Chest X Ray ordered to confirm tip placement and the absence of pneumothorax. Procedures: [id number] Insert Non-tunnel CV Cath
[2020-02-05] MEDS: HEPARIN/D5w 25,000 UNITS 25,000 UNITS/250 ML IV.SOLN. 8 UNITS IV (11:20)
[2020-02-05] MEDS: Ipratropium/Albuterol Sulfate 3 ML AMPUL.NEB INHALATION ×3 (11:28→23:17)
[2020-02-05] MEDS: Propofol 10MG/Ml 1,000 MG/100 ML Bottle 4.4 MG CONT INF ×2 (12:20→22:54)
[2020-02-05 12:40] LABS: Bedside Glucose 195 mg/dL (70-110)
[2020-02-05] MEDS: Metoprolol Tartrate 25 MG Tablet PO ×2 (14:07→21:07)
--- NOTE | 2020-02-05 15:32 | PCM.PN.ID ---
Patient Problems: Active and Suspected Problems (Last Reviewed 01/03/20 @ 09:52 by Mercedes Smart) Respiratory failure (Acute) Pneumonia due to COVID-19 virus (Acute) Subjective: On vent, no fever - Physical Exam Vitals/I&O's: Vital Signs Temp Pulse Resp BP Pulse Ox 99.2 F H 104 H 14 118/74 95 02/05/20 14:00 02/05/20 15:15 02/05/20 15:00 02/05/20 15:00 02/05/20 15:00 Oxygen Delivery Method Mechanical Ventilator Weight: 72.8 kg Body Mass Index (BMI) 26.8 Finger Stick Blood Glucose 88 Intake and Output for Last 24 Hours 02/03/20 02/04/20 02/05/20 23:59 23:59 23:59 Intake Total 2903.97 / 2913.55 1818.49 / 1828.34 1581.61 / 1581.61 Output Total 234 / 234 416 / 416 180 / 180 Balance 2669.97 / 2679.55 1402.49 / 1412.34 1401.61 / 1401.61 General: No apparent distress Lungs: Diminished Cardiovascular: Regular rate, Regular Rhythm Abdomen: Soft, Non Tender, Non-Distended Skin: No rashes Microbiology Past 72 Hours 02/03/20 07:40 Sputum, Induced/Lukens Gram Stain - Final 02/03/20 07:40 Sputum, Induced/Lukens Respiratory Culture - Preliminary Possible Fungus 02/02/20 18:45 Urine Catheter - Miles Urine Culture - Final Culture exhibits no growth. 02/03/20 00:55 Mucosa - Nasopharyngeal Respiratory Panel (PCR) - Final 02/02/20 18:45 Urine Catheter - Miles Legionella Antigen - Final 02/02/20 18:45 Urine Catheter - Miles Streptococcus pneumoniae Antigen (M - Final Laboratory Results 02/04/20 18:35: APTT 68.0 H 02/04/20 18:38: POC Glucose 142 H 02/05/20 00:02: POC Glucose 147 H 02/05/20 00:05: APTT 98.4 H* 02/05/20 04:30: WBC 17.7 H, RBC 3.54 L, Hgb 8.7 L, Hct 28.4 L, MCV 80.2 L, MCH 24.6 L, MCHC 30.6 L, RDW Std Deviation 50.1 H, RDW Coeff of Charlie 16.9 H, Plt Count 309, MPV 11.3 02/05/20 04:30: Sodium 145, Potassium 3.9, Chloride 109 H, Carbon Dioxide 24.0, Anion Gap 12, BUN 66 H, Creatinine 4.55 H, Estim Creat Clear Calc 9.79, Est GFR (MDRD) Af Amer 12 L, Est GFR (MDRD) Non-Af 10 L, BUN/Creatinine Ratio 14.5, Glucose 152 H, Calcium 7.3 L, Total Bilirubin 0.90, Direct Bilirubin 0.60 H, AST 2074 H, ALT 2773 H, Alkaline Phosphatase 243 H, Total Protein 5.5 L, Albumin 1.9 L, Globulin 3.6 02/05/20 04:30: PT 23.6 H, INR 2.2 02/05/20 05:30: POC Glucose 164 H 02/05/20 08:10: APTT 90.2 H* 02/05/20 12:14: POC Glucose 195 H Current Medications Albuterol Sulfate (Albuterol 2.5 Mg/3 Ml Vial.Neb.) 2.5 mg INHALATION Q2H PRN PRN PRN Reason: SOB/Wheezing Albuterol/Ipratropium (Ipratropium/Albuterol Sulfate 3 Ml Ampul.Neb) 3 ml INHALATION Q4HWA.RT [facility] Last Admin: 02/05/20 14:43 Dose: 3 ml Documented by: Chlorhexidine Gluconate (Chlorhexidine 15 Ml) 15 ml PO BID [facility] Last Admin: 02/05/20 08:25 Dose: 15 ml Documented by: Dexamethasone Sodium Phosphate (Dexamethasone 10 Mg/Ml Vial) 6 mg IV DAILY [facility] Stop: 02/09/20 10:01 Last Admin: 02/05/20 08:25 Dose: 6 mg Documented by: Dextrose (Dextrose 50%-Water 25 Gm/50 Ml Disp.Syrin) 0 gm IV X1 PRN; Protocol PRN Reason: Hypoglycemia Glucagon (Glucagon 1 Mg/Ml Syringe) 1 mg IM .X1 PRN PRN Reason: Hypoglycemia Heparin Sodium (Porcine) (Heparin Injection (Vial) 5,000 Unit/Ml Vial) 0 unit IV UD PRN; Protocol PRN Reason: dose adjustment Norepinephrine Bitartrate 8 mg (/ Sodium Chloride) 250 mls @ 9.375 mls/hr CONT INF .[id number] [facility]; Protocol Last Titration: 02/05/20 15:00 Dose: 2 mcg/min, 3.8 mls/hr Documented by: Sodium Chloride () 250 mls @ 15 mls/hr IV .[id number] PRN PRN Reason: Saline Flush Last Infusion: 02/03/20 05:05 Dose: 0 mls/hr Documented by: Sodium Chloride () 250 mls @ 15 mls/hr IV .[id number] PRN PRN Reason: Additional IVPB Infusion Fentanyl Citrate 1,000 mcg/ (Sodium Chloride) 100 mls @ 5 mls/hr CONT INF .Q20H [facility]; Protocol Last Titration: 02/05/20 15:07 Dose: 75 mcg/hr, 7.5 mls/hr Documented by: Pantoprazole Sodium 40 mg/ (Sodium Chloride) 110 mls @ 330 mls/hr IV Q12 [facility] Last Infusion: 02/05/20 09:41 Dose: Infused Documented by: Enteral Nutritional Formula (Vital Af 1.2 Georgi Liquid) 1,000 mls @ 60 mls/hr GT .[id number] [facility] Last Admin: 02/05/20 00:00 Dose: 60 mls/hr Documented by: Propofol (Diprivan) 1,000 mg in 100 mls @ 4.368 mls/hr CONT INF .Q12H [facility]; Protocol Last Titration: 02/05/20 15:00 Dose: 10 mcg/kg/min, 4.4 mls/hr Documented by: Heparin Sodium/Dextrose () 25,000 units in 250 mls @ 11 mls/hr IV .[id number] [facility]; Protocol Last Admin: 02/05/20 11:20 Dose: 800 units/hr, 8 mls/hr Documented by: Piperacillin Sod/Tazobactam (Sod 3.375 gm/ Sodium Chloride) 50 mls @ 12.5 mls/hr IV Q12 [facility] Last Admin: 02/05/20 11:20 Dose: 12.5 mls/hr Documented by: Amiodarone HCl 360 mg/ (Dextrose) 200 mls @ 33.333 mls/hr CONT INF .Q6H [facility] Stop: 02/05/20 15:39 Last Admin: 02/05/20 09:53 Dose: 1 mg/min, 33.3 mls/hr Documented by: Amiodarone HCl 360 mg/ (Dextrose) 200 mls @ 16.667 mls/hr CONT INF .Q12H [facility] Stop: 02/06/20 09:39 Insulin Human Lispro (Insulin Lispro 100 Unit/Ml Insuln.Pen) 0 unit SC Q6 [facility]; Protocol Last Admin: 02/05/20 12:30 Dose: 1 unit Documented by: Metoprolol Tartrate (Metoprolol Tartrate 25 Mg Tablet) 25 mg PO BID [facility] Last Admin: 02/05/20 14:07 Dose: 25 mg Documented by: Ondansetron HCl (Ondansetron 4 Mg/2 Ml Vial) 4 mg IV Q8H PRN PRN PRN Reason: NAUSEA/VOMITING Senna/Docusate Sodium (Senna/Docusate Sodium 1 Tablet) 2 tablet GT BID PRN PRN PRN Reason: Constipation Sodium Chloride (0.9% Saline Lock 10 Ml Syringe) 10 - 40 ml IV UD PRN PRN Reason: SALINE FLUSH Last Admin: 02/05/20 08:26 Dose: 40 ml Documented by: Medical Necessity - Tobacco Use Smoking Status: Current every day smoker Tobacco Use: Cigarettes Route of nutrition/ use of supplements: [] Nutritional Intake: [] IV Site: [] Miles Catheter: [] - Assessment/Plan Antibiotics: [] Assessment/Plan: [] Active and Suspected Problems (Last Reviewed 01/03/20 @ 09:52 by Mercedes Smart) Respiratory failure (Acute) Pneumonia due to COVID-19 virus (Acute) septic shock with DOROTHY, resp failure, massive transaminitis, and covid - dx 01/30/20 at [facility]. D-dimer was just above normal limit there. Lactate 11.9 here, ALT 16k, d-dimer 5.6 here, INR 7.7. On dex IV. INR improving, now on hep gtt. CT with ? gallbladder inflammation. Cont zosyn. LFT better. O2 improved. Sputum with some fungus seen. Will follow
[2020-02-05] MEDS: Amiodarone 360 MG in Dextrose 5% Viaflo Bag 192.8 ML 16.7 MG CONT INF (16:13)
--- NOTE | 2020-02-05 17:50 | DIALYSIS ---
Report from primary RN, Yareli Kasper. Access: Left IJ catheter. Site benign, biofilm dressing dry and intact.
[2020-02-05 19:21] LABS: Bedside Glucose 139 mg/dL (70-110)
--- NOTE | 2020-02-05 20:24 | DIALYSIS ---
Addendum entered by Tapan Cintron 02/05/20 20:51: Primary RN, Alycia Menendez. Original Note: Hemodialysis complete. 2 hour run, 4k bath, net fluid balance = 0. Patient tolerated HD tx fairly well. Left IJ CVC: Site benign, biofilm dressing intact. Lumen flushed with NS, filled to volume with Heparin (1.4 ml arterial, 1.4 ml venous), clamped and capped. Report given to primary RN.
[2020-02-05] MEDS: Vital AF 1.2 Cal Liquid 1,000 ML 60 ML GT ×2 (21:06)
[2020-02-05] MEDS: Heparin 10,000 UNITS/10 ML Vial 2800 UNITS IV (22:49)
[2020-02-06] VITALS (46 sets, daily range): BP systolic 96–137; BP diastolic 43–94; PULSE 101–143; RESP 14–124; TEMP 36.4–37.6; O2SAT 90–97
[2020-02-06] MEDS: Chlorhexidine 15 ML PO ×3 (00:30→22:02)
[2020-02-06] MEDS: Insulin Lispro 100 UNIT/ML INSULN.PEN SC ×2 (01:16→16:53)
[2020-02-06] MEDS: 0.9% Saline Lock 10 ML Syringe IV ×6 (01:24→16:54)
[2020-02-06 01:27] LABS: Partial Thromboplast Time 77.5 Seconds (24.1-36.2)
[2020-02-06 01:35] LABS: Bedside Glucose 157 mg/dL (70-110)
[2020-02-06] MEDS: Amiodarone 360 MG in Dextrose 5% Viaflo Bag 192.8 ML 16.7 MG CONT INF (04:15)
[2020-02-06 04:54] LABS: Hematocrit 26.7 % (37-47); Hemoglobin 8.5 g/dL (12.0-15.0); Mean Corp Hgb Conc 31.8 g/dL (32-36); Mean Corpuscular Hgb 25.3 pg (27.0-32.0); Mean Corpuscular Volume 79.5 fL (81-99); Mean Platelet Vol. 11.4 fl (6.2-12.0); Platelet Count 316 K/mm3 (150-450); RBC Distribution Width CV 16.9 % (11.6-14.6); Red Blood Count 3.36 M/mm3 (4.2-5.4); White Blood Count 19.5 K/mm3 (4.4-11.0)
[2020-02-06 05:28] LABS: AST(SGOT) 744 U/L (15-37); Alanine Aminotransfer ALT/SGPT 1847 U/L (13-56); Albumin, Serum 1.8 g/dL (3.2-5.0); Alkaline Phosphatase 136 U/L (45-117); Anion Gap 10 (5-15); BUN 48 mg/dL (7-18); BUN/Creat Ratio 13.8 RATIO (10-20); Calcium,Total 7.2 mg/dL (8.5-10.1); Chloride 106 mmol/L (98-107); Creatinine, Serum 3.47 mg/dL (0.55-1.02); EST Glomerular Filtration Rate 14 mL/min (>60); Est Glom Filt Rate - Afr Amer 17 mL/min (>60); Estimated Creatinine Clearance 12.84 ml/min; Globulin 3.6 g/dL (2.2-4.2); Glucose 146 mg/dL (74-106); Potassium 3.9 mmol/L (3.5-5.1); Protein, Total 5.4 g/dL (6.4-8.2); Sodium Level 141 mmol/L (136-145)
[2020-02-06] MEDS: Furosemide 40 MG/4 ML Vial IV ×2 (06:39→16:49)
--- NOTE | 2020-02-06 06:46 | PN_ITS ---
Subjective: The patient was seen and examined at the bedside this morning. Events from the last 24 hours have been reviewed. The patient is currently afebrile, hemodynamically stable and maintaining appropriate oxygen saturations on assist control mode of mechanical ventilation with an FiO2 requirement of 35%. The patient failed her spontaneous awakening trial this morning. She remains in atrial fibrillation. Levophed was able to be discontinued completely yesterday. The patient tolerated dialysis for the first time yesterday. She is currently documented to be overall net +7.2 L for the hospital admission. Objective: The patient's most recent lab work, culture data and imaging studies have all been personally reviewed. Respiratory viral panel was negative. Strep and urine Legionella antigens were negative. Sputum culture dated February 02 revealed possible fungus. General: - - Remains intubated, sedated and mechanically ventilated. No ventilator dyssynchrony noted. HEENT: Atraumatic, PERRLA, Normocephalic Oral: No Gingival or Mucosal Lesions/ Ulcerations, - - Stable endotracheal and OG tubes. Neck: Supple, No Nodes, Trachea Midline, - - Stable temporary hemodialysis catheter and triple-lumen catheter Lungs: Diminished Cardiovascular: Normal S1, Normal S2, Irregular Rate, Tachycardic Abdomen: Bowel Sounds Present, Soft, Non Tender Extremities: No clubbing, No cyanosis, Edema Skin: - - No significant change from previous. Musculoskeletal: No Muscle Wasting Lymphatic: No Cervical, Supraclavicular, or Inguinal Adenopathy Neurological: - - No focal neurological deficits. Remains sedated on the venti lator. Vital Signs Temp Pulse Resp BP Pulse Ox 99.5 F H 105 H 16 106/63 97 02/06/20 02:00 02/06/20 02:30 02/06/20 02:30 02/06/20 02:00 02/06/20 03:10 Oxygen Delivery Method Mechanical Ventilator Weight: 160 lb 7.944 oz Body Mass Index (BMI) 26.8 Finger Stick Blood Glucose 88 Intake and Output for Last 24 Hours 02/04/20 02/05/20 02/06/20 23:59 23:59 23:59 Intake Total 1818.49 / 1828.34 2276.04 / 2819.24 659.92 / 659.92 Output Total 416 / 416 365 / 465 100 / 100 Balance 1402.49 / 1412.34 1911.04 / 2354.24 559.92 / 559.92 Labs (Last 48 Hours) 02/04/20 02/04/20 02/04/20 12:10 13:21 18:35 WBC RBC Hgb Hct MCV MCH MCHC RDW Std Deviation RDW Coeff of Charlie Plt Count MPV PT INR APTT 30.3 68.0 H Sodium Potassium Chloride Carbon Dioxide Anion Gap BUN Creatinine Estim Creat Clear Calc Est GFR (MDRD) Af Amer Est GFR (MDRD) Non-Af BUN/Creatinine Ratio Glucose Calcium Total Bilirubin Direct Bilirubin AST ALT Alkaline Phosphatase Total Protein Albumin Globulin POC Glucose 184 H 02/04/20 02/05/20 02/05/20 18:38 00:02 00:05 WBC RBC Hgb Hct MCV MCH MCHC RDW Std Deviation RDW Coeff of Charlie Plt Count MPV PT INR APTT 98.4 H* Sodium Potassium Chloride Carbon Dioxide Anion Gap BUN Creatinine Estim Creat Clear Calc Est GFR (MDRD) Af Amer Est GFR (MDRD) Non-Af BUN/Creatinine Ratio Glucose Calcium Total Bilirubin Direct Bilirubin AST ALT Alkaline Phosphatase Total Protein Albumin Globulin POC Glucose 142 H 147 H 02/05/20 02/05/20 02/05/20 04:30 04:30 04:30 WBC 17.7 H RBC 3.54 L Hgb 8.7 L Hct 28.4 L MCV 80.2 L MCH 24.6 L MCHC 30.6 L RDW Std Deviation 50.1 H RDW Coeff of Charlie 16.9 H Plt Count 309 MPV 11.3 PT 23.6 H INR 2.2 APTT Sodium 145 Potassium 3.9 Chloride 109 H Carbon Dioxide 24.0 Anion Gap 12 BUN 66 H Creatinine 4.55 H Estim Creat Clear Calc 9.79 Est GFR (MDRD) Af Amer 12 L Est GFR (MDRD) Non-Af 10 L BUN/Creatinine Ratio 14.5 Glucose 152 H Calcium 7.3 L Total Bilirubin 0.90 Direct Bilirubin 0.60 H AST 2074 H ALT 2773 H Alkaline Phosphatase 243 H Total Protein 5.5 L Albumin 1.9 L Globulin 3.6 POC Glucose 02/05/20 02/05/20 02/05/20 05:30 08:10 12:14 WBC RBC Hgb Hct MCV MCH MCHC RDW Std Deviation RDW Coeff of Charlie Plt Count MPV PT INR APTT 90.2 H* Sodium Potassium Chloride Carbon Dioxide Anion Gap BUN Creatinine Estim Creat Clear Calc Est GFR (MDRD) Af Amer Est GFR (MDRD) Non-Af BUN/Creatinine Ratio Glucose Calcium Total Bilirubin Direct Bilirubin AST ALT Alkaline Phosphatase Total Protein Albumin Globulin POC Glucose 164 H 195 H 02/05/20 02/05/20 02/06/20 15:50 18:40 00:45 WBC RBC Hgb Hct MCV MCH MCHC RDW Std Deviation RDW Coeff of Charlie Plt Count MPV PT INR APTT 124.0 H* Sodium Potassium Chloride Carbon Dioxide Anion Gap BUN Creatinine Estim Creat Clear Calc Est GFR (MDRD) Af Amer Est GFR (MDRD) Non-Af BUN/Creatinine Ratio Glucose Calcium Total Bilirubin Direct Bilirubin AST ALT Alkaline Phosphatase Total Protein Albumin Globulin POC Glucose 139 H 157 H 02/06/20 02/06/20 02/06/20 01:10 04:45 04:45 WBC 19.5 H RBC 3.36 L Hgb 8.5 L Hct 26.7 L MCV 79.5 L MCH 25.3 L MCHC 31.8 L RDW Std Deviation 49.0 H RDW Coeff of Charlie 16.9 H Plt Count 316 MPV 11.4 PT INR APTT 77.5 H Sodium 141 Potassium 3.9 Chloride 106 Carbon Dioxide 25.0 Anion Gap 10 BUN 48 H Creatinine 3.47 H Estim Creat Clear Calc 12.84 Est GFR (MDRD) Af Amer 17 L Est GFR (MDRD) Non-Af 14 L BUN/Creatinine Ratio 13.8 Glucose 146 H Calcium 7.2 L Total Bilirubin 1.10 H Direct Bilirubin 0.60 H AST 744 H ALT 1847 H Alkaline Phosphatase 136 H Total Protein 5.4 L Albumin 1.8 L Globulin 3.6 POC Glucose Microbiology 02/02/20 01:03 Blood Culture (Wb) #2 - Left Hand Blood Culture - Preliminary No growth in 48 hours. 02/02/20 18:18 Blood Culture (Wb) #2 - No Site/Description Given Blood Culture - Preliminary No growth in 48 hours. 02/03/20 07:40 Sputum, Induced/Lukens Gram Stain - Final 02/03/20 07:40 Sputum, Induced/Lukens Respiratory Culture - Preliminary Possible Fungus 02/02/20 18:45 Urine Catheter - Miles Urine Culture - Final Culture exhibits no growth. Clinical Impression(s) from Imaging Studies Chest X-Ray 02/02/20 18:15 IMPRESSION: Lines and tubes as described. Consider advancing the nasogastric tube. Bilateral widespread pulmonary opacities most pronounced on the left. Electronically Signed: Jasen Diego MD at 19:14 EST , Service support , KUB X-Ray 02/02/20 20:15 KUB X-Ray 02/02/20 22:05 IMPRESSION: OGT in is in similar position to the prior study Recommend advancing at 2304 Reported and signed by: Tracee Clark DO Electronically Signed: Tracee Clark DO at 23:03 EST Tel , Service support , ADDENDUM: 02/02/20 2317 IMPRESSION: OGT in is in similar position to the prior study Recommend advancing at 2304 Reported and signed by: Tracee Clark DO N.B. : Nancy Dodge RN, confirmed on 02/02/2020 23:10:30 (ET) that the healthcare facility has received the radiology report. Electronically Signed: Tracee Clark DO at 23:03 EST Tel , Service support , Chest X-Ray 02/03/20 05:55 IMPRESSION: ET tube similar Interval advancement of NG tube with the tip at least in the body of the stomach but not visualized on this study There is improving aeration in the left lung apex as well as the left lung base. Interstitial thickening is again noted as well as bibasilar airspace opacities at 0656 Reported and signed by: Tracee Clark DO Electronically Signed: Tracee Clark DO at 6:55 EST Tel , Service support , KUB X-Ray 02/03/20 10:40 IMPRESSION: The tip of the orogastric tube is in the distal portion of the stomach. Electronically Signed: Clifford Edwards, at 12:00 EST , Service support , Abdomen Ultrasound 02/03/20 11:13 IMPRESSION: The gallbladder gómez of the upper limits of normal. The gallbladder appears mildly contracted. No stones. Negative sonographic Vilchis sign Question minimal pericholecystic edema/fluid If patient's symptoms persist then consider a nuclear medicine hepatobiliary scan for further evaluation Negative sonographic Vilchis sign Right renal cyst Mild ascites Small right pleural effusion Hepatic steatosis at 2205 Reported and signed by: Tracee Clark DO Electronically Signed: Tracee Clark DO at 22:04 EST Tel , Service support , Chest X-Ray 02/03/20 12:27 IMPRESSION: A right-sided central venous catheter has been placed with the tip at the junction of the superior vena cava and right atrium. Since prior study, there has been improved aeration of both lungs although residual CHF persists as well as left lower lobe infiltrate. Electronically Signed: Clifford Edwards, at 13:07 EST , Service support , Brain CT 02/03/20 16:08 IMPRESSION: Chronic involutional changes of the brain. No change and no acute abnormality. Electronically Signed: Jasen Diego MD at 22:35 EST , Service support , Chest CT 02/03/20 16:08 IMPRESSION: Small bilateral pleural effusions Emphysema Fibrotic changes as discussed There are consolidative infiltrate seen with the lung bases left greater than right NG tube is seen with the tip in the stomach with hyperdense fluid surrounding the tube in the esophagus most likely contrast. This may be secondary to reflux. Correlate clinically ET tube with the tip approximately 3.6 cm proximal to the julia Right central venous catheter with the tip the cavoatrial junction Borderline cardiomegaly with coronary artery calcifications There is mediastinal adenopathy. Individualized dose optimization techniques were used for this CT. at 2245 Reported and signed by: Tracee Clark DO Electronically Signed: Tracee Clark DO at 22:44 EST Tel , Service support , Abdomen CT 02/03/20 16:09 IMPRESSION: Gallbladder wall thickening and edema. Correlate clinically for cystitis Pancreas is grossly unremarkable. Minimal fat stranding seen near the tail the pancreas I suspect is secondary to perirenal fat stranding however I would correlate clinically for pancreatitis Enlarged bilateral adrenal glands as discussed. Recommend MRI follow-up with a adrenal protocol for further evaluation Small amount of ascites as discussed. NG tube with the tip in the stomach. Suspect reflux of contrast into the esophagus Poor distention of the colon. I cannot exclude wall thickening. Correlate clinically for colitis Individualized dose optimization techniques were used for this CT. at 2256 Reported and signed by: Tracee Clark DO Electronically Signed: Tracee Clark DO at 22:55 EST Tel , Service support , Chest X-Ray 02/05/20 10:37 IMPRESSION: A left-sided dialysis catheter has been placed with the tip at the junction of the superior vena cava and right atrium. The remainder of the examination is unchanged. Electronically Signed: Clifford Edwards, at 11:29 EST , Service support , Medical Necessity - Tobacco Use Smoking Status: Current every day smoker Tobacco Use: Cigarettes Assessment/Plan All Active Problems (Last Reviewed 01/03/20 @ 09:52 by Mercedes Smart) Respiratory failure (Acute) Pneumonia due to COVID-19 virus (Acute) Pneumonia (Acute) Bronchitis (Acute) History of total hip replacement (Resolved) History of total knee replacement (TKR) (Resolved) Tail bone pain (Acute) Hx of bilateral hip replacements (Resolved) History and physical examination, immigration (Acute) GERD (gastroesophageal reflux disease) (Acute) Fatigue (Acute) Dyspnea on minimal exertion (Acute) Ankle fracture, right (Acute) Actinic keratitis (Acute) Weakness (Acute) RECOMMENDATIONS: 1. Continue current supportive measures and wean FiO2 and PEEP to maintain oxygen saturations at or above 90%. 2. Continue scheduled bronchodilator therapy. 3. Continue empiric antimicrobials. 4. Continue Decadron. 5. Continue tube feeds as tolerated. 6. Continue heparin infusion. 7. Continue beta-maeve regimen. 8. Continue appropriate GI prophylaxis. 9. Attempt fluid removal with either ultrafiltration or Lasix. IMPRESSIONS: 1. Acute hypoxemic respiratory failure secondary to COVID-19 pneumonia Plan to continue current supportive measures including invasive mechanical ventilatory support, with a goal to wean FiO2 and PEEP to maintain oxygen saturations at or above 90%. The patient will be continued on Decadron. Continue scheduled bronchodilator therapy. Empiric antimicrobials will be c ontinued under the discretion of infectious diseases. We will attempt gentle diuresis today as tolerated by hemodynamics and renal function. 2. Septic shock Concern for Covid as precipitating etiology versus possible community-acquired pneumonia as well. Continue empiric antimicrobials as noted above. 3. Atrial fibrillation with RVR The patient's heart rate has increased this morning. Continue beta-maeve regimen. 4. Acute liver injury Improving. Suspect related to hemodynamic instability with subsequent shock liver. Continue supportive measures as noted above. 5. Acute kidney injury Likely prerenal in etiology with a component of ischemic ATN in the setting of septic shock. The patient did tolerate dialysis with some improvement in urine output. We will attempt to diurese the patient today as well. Nephrology is following. 6. History of DVT/chronic anticoagulation status with presenting coagulopathy The patient presented with a supratherapeutic INR. She did receive vitamin K and FFP. Given that the patient's INR is no longer therapeutic, recommend continuing heparin infusion. TIME: 37 minutes of critical care time, independent of procedures, was spent addressing the patient's acute hypoxemic respiratory failure secondary to Covid pneumonia, septic shock, atrial fibrillation with RVR, acute kidney injury, acute liver injury, history of DVT, review of all data and collaboration with the care team. [id number]) [id number] Critical care first hour
[2020-02-06] MEDS: Glycerin/Hypromellose/PEG400 15 ml Bottle 1 DRP EACH EYE (07:00)
[2020-02-06 07:06] LABS: Bedside Glucose 136 mg/dL (70-110)
[2020-02-06] MEDS: Ipratropium/Albuterol Sulfate 3 ML AMPUL.NEB INHALATION ×4 (07:09→19:30)
--- NOTE | 2020-02-06 07:25 | PCM.PN.HOSP ---
Patient Problems: Active and Suspected Problems (Last Reviewed 01/03/20 @ 09:52 by Mercedes Smart) Respiratory failure (Acute) Pneumonia due to COVID-19 virus (Acute) Reason for Visit: COVID-19 pneumonia Acute kidney injury Subjective: Underwent dialysis catheter placement on 02/05/2020 initiation of dialysis the day prior. Objective: GENERAL: sedated on the vent HEENT: Atraumatic; ET tube in place EYES; Anicteric, Normal Conjunctiva NECK; supple, normal thyroid, RESPIRATORY: Diminished to auscultation CARDIOVASCULAR: Regular S1 S2, GI: soft, normoactive bowel sounds, : No Renal angle tenderness; EXTREMITIES: No edema, no clubbing, MUSCULOSKELETAL: no muscle waisting NEURO: sedated on the vent SKIN: No Rash Vitals/I&O's: Vital Signs Temp Pulse Resp BP Pulse Ox 99.5 F H 120 H 25 H 106/63 92 02/06/20 02:00 02/06/20 05:20 02/06/20 05:20 02/06/20 02:00 02/06/20 05:20 Oxygen Delivery Method Mechanical Ventilator Weight: 73.7 kg Body Mass Index (BMI) 26.8 Finger Stick Blood Glucose 88 Intake and Output for Last 24 Hours 02/04/20 02/05/20 02/06/20 23:59 23:59 23:59 Intake Total 1818.49 / 1828.34 2276.04 / 2819.24 876.99 / 876.99 Output Total 416 / 416 365 / 465 100 / 100 Balance 1402.49 / 1412.34 1911.04 / 2354.24 776.99 / 776.99 Microbiology Past 72 Hours 02/02/20 01:03 Blood Culture (Wb) #2 - Left Hand Blood Culture - Preliminary No growth in 48 hours. 02/02/20 18:18 Blood Culture (Wb) #2 - No Site/Description Given Blood Culture - Preliminary No growth in 48 hours. 02/03/20 07:40 Sputum, Induced/Lukens Gram Stain - Final 02/03/20 07:40 Sputum, Induced/Lukens Respiratory Culture - Preliminary Possible Fungus 02/02/20 18:45 Urine Catheter - Miles Urine Culture - Final Culture exhibits no growth. 02/03/20 00:55 Mucosa - Nasopharyngeal Respiratory Panel (PCR) - Final Laboratory Results 02/05/20 08:10: APTT 90.2 H* 02/05/20 12:14: POC Glucose 195 H 02/05/20 15:50: APTT 124.0 H* 02/05/20 18:40: POC Glucose 139 H 02/06/20 00:45: POC Glucose 157 H 02/06/20 01:10: APTT 77.5 H 02/06/20 04:45: WBC 19.5 H, RBC 3.36 L, Hgb 8.5 L, Hct 26.7 L, MCV 79.5 L, MCH 25.3 L, MCHC 31.8 L, RDW Std Deviation 49.0 H, RDW Coeff of Charlie 16.9 H, Plt Count 316, MPV 11.4 02/06/20 04:45: Sodium 141, Potassium 3.9, Chloride 106, Carbon Dioxide 25.0, Anion Gap 10, BUN 48 H, Creatinine 3.47 H, Estim Creat Clear Calc 12.84, Est GFR (MDRD) Af Amer 17 L, Est GFR (MDRD) Non-Af 14 L, BUN/Creatinine Ratio 13.8, Glucose 146 H, Calcium 7.2 L, Total Bilirubin 1.10 H, Direct Bilirubin 0.60 H, AST 744 H, ALT 1847 H, Alkaline Phosphatase 136 H, Total Protein 5.4 L, Albumin 1.8 L, Globulin 3.6 02/06/20 06:35: POC Glucose 136 H Current Medications Albuterol Sulfate (Albuterol 2.5 Mg/3 Ml Vial.Neb.) 2.5 mg INHALATION Q2H PRN PRN PRN Reason: SOB/Wheezing Albuterol/Ipratropium (Ipratropium/Albuterol Sulfate 3 Ml Ampul.Neb) 3 ml INHALATION Q4HWA.RT [facility] Last Admin: 02/06/20 07:09 Dose: 3 ml Documented by: Chlorhexidine Gluconate (Chlorhexidine 15 Ml) 15 ml PO BID [facility] Last Admin: 02/06/20 00:30 Dose: 15 ml Documented by: Dexamethasone Sodium Phosphate (Dexamethasone 10 Mg/Ml Vial) 6 mg IV DAILY [facility] Stop: 02/09/20 10:01 Last Admin: 02/05/20 08:25 Dose: 6 mg Documented by: Dextrose (Dextrose 50%-Water 25 Gm/50 Ml Disp.Syrin) 0 gm IV X1 PRN; Protocol PRN Reason: Hypoglycemia Glucagon (Glucagon 1 Mg/Ml Syringe) 1 mg IM .X1 PRN PRN Reason: Hypoglycemia Heparin Sodium (Porcine) (Heparin Injection (Vial) 5,000 Unit/Ml Vial) 0 unit IV UD PRN; Protocol PRN Reason: dose adjustment Norepinephrine Bitartrate 8 mg (/ Sodium Chloride) 250 mls @ 9.375 mls/hr CONT INF .[id number] [facility]; Protocol Last Admin: 02/06/20 06:51 Dose: Not Given Documented by: Sodium Chloride () 250 mls @ 15 mls/hr IV .[id number] PRN PRN Reason: Saline Flush Last Infusion: 02/03/20 05:05 Dose: 0 mls/hr Documented by: Sodium Chloride () 250 mls @ 15 mls/hr IV .[id number] PRN PRN Reason: Additional IVPB Infusion Fentanyl Citrate 1,000 mcg/ (Sodium Chloride) 100 mls @ 5 mls/hr CONT INF .Q20H [facility]; Protocol Last Titration: 02/06/20 07:00 Dose: 75 mcg/hr, 7.5 mls/hr Documented by: Pantoprazole Sodium 40 mg/ (Sodium Chloride) 110 mls @ 330 mls/hr IV Q12 [facility] Last Infusion: 02/06/20 06:58 Dose: Infused Documented by: Enteral Nutritional Formula (Vital Af 1.2 Georgi Liquid) 1,000 mls @ 60 mls/hr GT .[id number] [facility] Last Admin: 02/06/20 06:51 Dose: Not Given Documented by: Heparin Sodium/Dextrose () 25,000 units in 250 mls @ 11 mls/hr IV .[id number] [facility]; Protocol Last Admin: 02/06/20 06:52 Dose: Not Given Documented by: Piperacillin Sod/Tazobactam (Sod 3.375 gm/ Sodium Chloride) 50 mls @ 12.5 mls/hr IV Q12 [facility] Last Infusion: 02/06/20 06:59 Dose: Infused Documented by: Amiodarone HCl 360 mg/ (Dextrose) 200 mls @ 16.667 mls/hr CONT INF .Q12H [facility] Stop: 02/06/20 09:39 Last Admin: 02/06/20 04:15 Dose: 0.5 mg/min, 16.7 mls/hr Documented by: Dexmedetomidine HCl 400 mcg/ (Sodium Chloride) 100 mls @ 9.1 mls/hr CONT INF .Q11H [facility]; Protocol Last Titration: 02/06/20 07:00 Dose: 0.5 mcg/kg/hr, 9.1 mls/hr Documented by: Insulin Human Lispro (Insulin Lispro 100 Unit/Ml Insuln.Pen) 0 unit SC Q6 [facility]; Protocol Last Admin: 02/06/20 06:39 Dose: Not Given Documented by: Metoprolol Tartrate (Metoprolol Tartrate 25 Mg Tablet) 25 mg PO BID [facility] Last Admin: 02/05/20 21:07 Dose: 25 mg Documented by: Ondansetron HCl (Ondansetron 4 Mg/2 Ml Vial) 4 mg IV Q8H PRN PRN PRN Reason: NAUSEA/VOMITING Senna/Docusate Sodium (Senna/Docusate Sodium 1 Tablet) 2 tablet GT BID PRN PRN PRN Reason: Constipation Sodium Chloride (0.9% Saline Lock 10 Ml Syringe) 10 - 40 ml IV UD PRN PRN Reason: SALINE FLUSH Last Admin: 02/06/20 06:44 Dose: 20 ml Documented by: STROKE Vital Signs/Narrative: Vital Signs Pulse Resp Pulse Ox 02/06/20 05:20 120 H 25 H 92 Medical Necessity - Tobacco Use Smoking Status: Current every day smoker Tobacco Use: Cigarettes Assessment/Plan All Active Problems (Last Reviewed 01/03/20 @ 09:52 by Mercedes Smart) Respiratory failure (Acute) Pneumonia due to COVID-19 virus (Acute) Pneumonia (Acute) Bronchitis (Acute) History of total hip replacement (Resolved) History of total knee replacement (TKR) (Resolved) Tail bone pain (Acute) Hx of bilateral hip replacements (Resolved) History and physical examination, immigration (Acute) GERD (gastroesophageal reflux disease) (Acute) Fatigue (Acute) Dyspnea on minimal exertion (Acute) Ankle fracture, right (Acute) Actinic keratitis (Acute) Weakness (Acute) Patient is a 69-year-old lady transferred from [facility] with progressive shortness of breath. An assessment of acute hypoxic respiratory failure secondary to acute COVID-19 was made. Patient had to be intubated as a result of deteriorating respiratory status 1. Acute hypoxic respiratory failure secondary to COVID-19 pneumonia Admitted to the intensive care unit intubated with consultation placed to pulmonary medicine for vent management -02/04/2020. Vent. Current vent settings reviewed. Case discussed with Dr. Gonzalez with pulmonary -02/05/2020. Patient remains on the vent with no significant improvement -02/06/2020 Underwent dialysis catheter placement on 02/05/2020 initiation of dialysis the day prior. 2. Acute COVID-19 pneumonia -Presented with respiratory failure resulting in patient being intubated. Was started on Decadron not a candidate for remdesivir in view of acute kidney injury and impaired liver function -02/05/2020; no significant improvement in patient's condition. Remains on Decadron 3. Septic shock -Secondary to acute COVID-19 pneumonia with suspected superimposed bacterial pneumonia. Patient is on norepinephrine drip as well as Zosyn. 02/04/2020; she was seen in consultation by Dr. Anderson with infectious disease. His notes and recommendations reviewed. CT of the abdomen obtained demonstrated gallbladder thickening 4. Acute kidney injury ?suspected to be secondary to acute tubular necrosis from patient underlying infection. Admitted to the intensive care unit started on IV fluid. Patient kidney function continues to worsen. Consult subsequently placed to nephrology -02/04/2020. Kidney function continues to worsen -02/05/2020. Kidney function continues to worsen plan is for patient to have dialysis catheter placement with initiation of dialysis -02/06/2020 Underwent dialysis catheter placement on 02/05/2020 initiation of dialysis the day prior. 6. Hypernatremia -Due to fluid depletion patient is on IV fluid with subsequent monitoring of electrolyte -02/05/2020; sodium levels down to 145 7. Hyperkalemia -due to combination of metabolic acidosis as well as impaired kidney function. Consult placed to nephrology -02/05/2020 resolved 8. Coagulopathy ?patient is on Coumadin for previous DVT involving the left lower extremity. Coumadin on admission was 7.7. Patient was transfused with 2 unit FFP as well as did receive vitamin K INR as of 02/03/2020 is 2.8 -02/05/2020 patient started on heparin drip the day prior. 9. Acute transaminitis ?Secondary to shock liver monitoring LFTs -02/05/2020 patient liver function test continues to improve 10. Anemia - Secondary to chronic disorder monitoring H&H and transfuse if patient becomes symptomatic or hemoglobin falls below 7 11. History of DVT involving the left lower extremity ?on Coumadin held in view of above reasons -02/05/2020; started on heparin drip 12. Essential hypertension ?Patient antihypertensives held in view of patient presenting with low blood pressure 13. DVT prophylaxis -patient was on Coumadin prior to admission no additional measures warranted at this point 02/05/2020 patient on heparin Inpatient E&M: [id number] [facility] L3
--- NOTE | 2020-02-06 10:41 | PCM.PN.ID ---
Patient Problems: Active and Suspected Problems (Last Reviewed 01/03/20 @ 09:52 by Mercedes Smart) Respiratory failure (Acute) Pneumonia due to COVID-19 virus (Acute) Subjective: On vent, off pressors, no fever - Physical Exam Vitals/I&O's: Vital Signs Temp Pulse Resp BP Pulse Ox 98.2 F 117 H 20 H 115/74 94 02/06/20 10:00 02/06/20 10:15 02/06/20 10:15 02/06/20 10:00 02/06/20 10:15 Oxygen Delivery Method Mechanical Ventilator Weight: 73.7 kg Body Mass Index (BMI) 26.8 Finger Stick Blood Glucose 88 Intake and Output for Last 24 Hours 02/04/20 02/05/20 02/06/20 23:59 23:59 23:59 Intake Total 1818.49 / 1828.34 2276.04 / 2819.24 876.99 / 876.99 Output Total 416 / 416 365 / 465 310 / 310 Balance 1402.49 / 1412.34 1911.04 / 2354.24 566.99 / 566.99 General: No apparent distress Lungs: Diminished Cardiovascular: Regular rate, Regular Rhythm Abdomen: Soft, Non Tender, Non-Distended Skin: No rashes Microbiology Past 72 Hours 02/02/20 01:03 Blood Culture (Wb) #2 - Left Hand Blood Culture - Preliminary No growth in 48 hours. 02/02/20 18:18 Blood Culture (Wb) #2 - No Site/Description Given Blood Culture - Preliminary No growth in 48 hours. 02/03/20 07:40 Sputum, Induced/Lukens Gram Stain - Final 02/03/20 07:40 Sputum, Induced/Lukens Respiratory Culture - Preliminary Possible Fungus 02/02/20 18:45 Urine Catheter - Miles Urine Culture - Final Culture exhibits no growth. Laboratory Results 02/05/20 12:14: POC Glucose 195 H 02/05/20 15:50: APTT 124.0 H* 02/05/20 18:40: POC Glucose 139 H 02/06/20 00:45: POC Glucose 157 H 02/06/20 01:10: APTT 77.5 H 02/06/20 04:45: WBC 19.5 H, RBC 3.36 L, Hgb 8.5 L, Hct 26.7 L, MCV 79.5 L, MCH 25.3 L, MCHC 31.8 L, RDW Std Deviation 49.0 H, RDW Coeff of Charlie 16.9 H, Plt Count 316, MPV 11.4 02/06/20 04:45: Sodium 141, Potassium 3.9, Chloride 106, Carbon Dioxide 25.0, Anion Gap 10, BUN 48 H, Creatinine 3.47 H, Estim Creat Clear Calc 12.84, Est GFR (MDRD) Af Amer 17 L, Est GFR (MDRD) Non-Af 14 L, BUN/Creatinine Ratio 13.8, Glucose 146 H, Calcium 7.2 L, Total Bilirubin 1.10 H, Direct Bilirubin 0.60 H, AST 744 H, ALT 1847 H, Alkaline Phosphatase 136 H, Total Protein 5.4 L, Albumin 1.8 L, Globulin 3.6 02/06/20 06:35: POC Glucose 136 H Current Medications Albuterol Sulfate (Albuterol 2.5 Mg/3 Ml Vial.Neb.) 2.5 mg INHALATION Q2H PRN PRN PRN Reason: SOB/Wheezing Albuterol/Ipratropium (Ipratropium/Albuterol Sulfate 3 Ml Ampul.Neb) 3 ml INHALATION Q4HWA.RT [facility] Last Admin: 02/06/20 10:15 Dose: 3 ml Documented by: Chlorhexidine Gluconate (Chlorhexidine 15 Ml) 15 ml PO BID [facility] Last Admin: 02/06/20 00:30 Dose: 15 ml Documented by: Dexamethasone Sodium Phosphate (Dexamethasone 10 Mg/Ml Vial) 6 mg IV DAILY [facility] Stop: 02/09/20 10:01 Last Admin: 02/05/20 08:25 Dose: 6 mg Documented by: Dextrose (Dextrose 50%-Water 25 Gm/50 Ml Disp.Syrin) 0 gm IV X1 PRN; Protocol PRN Reason: Hypoglycemia Glucagon (Glucagon 1 Mg/Ml Syringe) 1 mg IM .X1 PRN PRN Reason: Hypoglycemia Heparin Sodium (Porcine) (Heparin Injection (Vial) 5,000 Unit/Ml Vial) 0 unit IV UD PRN; Protocol PRN Reason: dose adjustment Norepinephrine Bitartrate 8 mg (/ Sodium Chloride) 250 mls @ 9.375 mls/hr CONT INF .[id number] [facility]; Protocol Last Admin: 02/06/20 06:51 Dose: Not Given Documented by: Sodium Chloride () 250 mls @ 15 mls/hr IV .[id number] PRN PRN Reason: Saline Flush Last Infusion: 02/03/20 05:05 Dose: 0 mls/hr Documented by: Sodium Chloride () 250 mls @ 15 mls/hr IV .[id number] PRN PRN Reason: Additional IVPB Infusion Fentanyl Citrate 1,000 mcg/ (Sodium Chloride) 100 mls @ 5 mls/hr CONT INF .Q20H [facility]; Protocol Last Titration: 02/06/20 07:00 Dose: 75 mcg/hr, 7.5 mls/hr Documented by: Pantoprazole Sodium 40 mg/ (Sodium Chloride) 110 mls @ 330 mls/hr IV Q12 [facility] Last Infusion: 02/06/20 06:58 Dose: Infused Documented by: Enteral Nutritional Formula (Vital Af 1.2 Georgi Liquid) 1,000 mls @ 60 mls/hr GT .[id number] [facility] Last Admin: 02/06/20 06:51 Dose: Not Given Documented by: Heparin Sodium/Dextrose () 25,000 units in 250 mls @ 11 mls/hr IV .[id number] [facility]; Protocol Last Admin: 02/06/20 06:52 Dose: Not Given Documented by: Piperacillin Sod/Tazobactam (Sod 3.375 gm/ Sodium Chloride) 50 mls @ 12.5 mls/hr IV Q12 [facility] Last Infusion: 02/06/20 06:59 Dose: Infused Documented by: Dexmedetomidine HCl 400 mcg/ (Sodium Chloride) 100 mls @ 9.1 mls/hr CONT INF .Q11H [facility]; Protocol Last Titration: 02/06/20 07:00 Dose: 0.5 mcg/kg/hr, 9.1 mls/hr Documented by: Insulin Human Lispro (Insulin Lispro 100 Unit/Ml Insuln.Pen) 0 unit SC Q6 [facility]; Protocol Last Admin: 02/06/20 06:39 Dose: Not Given Documented by: Metoprolol Tartrate (Metoprolol Tartrate 25 Mg Tablet) 25 mg PO BID [facility] Last Admin: 02/05/20 21:07 Dose: 25 mg Documented by: Ondansetron HCl (Ondansetron 4 Mg/2 Ml Vial) 4 mg IV Q8H PRN PRN PRN Reason: NAUSEA/VOMITING Senna/Docusate Sodium (Senna/Docusate Sodium 1 Tablet) 2 tablet GT BID PRN PRN PRN Reason: Constipation Sodium Chloride (0.9% Saline Lock 10 Ml Syringe) 10 - 40 ml IV UD PRN PRN Reason: SALINE FLUSH Last Admin: 02/06/20 06:44 Dose: 20 ml Documented by: Medical Necessity - Tobacco Use Smoking Status: Current every day smoker Tobacco Use: Cigarettes Route of nutrition/ use of supplements: [] Nutritional Intake: [] IV Site: [] Miles Catheter: [] - Assessment/Plan Antibiotics: [] Assessment/Plan: [] Active and Suspected Problems (Last Reviewed 01/03/20 @ 09:52 by Mercedes Smart) Respiratory failure (Acute) Pneumonia due to COVID-19 virus (Acute) septic shock with DOROTHY, resp failure, massive transaminitis, and covid - dx 01/30/20 at [place]. D-dimer was just above normal limit there. Lactate 11.9 here, ALT 16k, d-dimer 5.6 here, INR 7.7. On dex IV. CT with ? gallbladder inflammation. Cont zosyn. LFT better. O2 improved. Sputum with some fungus seen. Off pressors. Unable to do remdesivir due to high ALT. Will follow
[2020-02-06 11:09] LABS: Partial Thromboplast Time 63.2 Seconds (24.1-36.2); Prothrombin Time (Protime)PT. 21.7 SECONDS (11.7-14.9)
--- NOTE | 2020-02-06 11:25 | PN.RENAL_ITS ---
Patient Problems: Active and Suspected Problems (Last Reviewed 01/03/20 @ 09:52 by Mercedes Smart) Respiratory failure (Acute) Pneumonia due to COVID-19 virus (Acute) Subjective: Intubated cannot do ROS Objective: Physical examination was deferred to preserve PPE and prevent further transmission of COVID-19. - Physical Exam Vitals/I&O's: Vital Signs Temp Pulse Resp BP Pulse Ox 98.2 F 117 H 20 H 115/74 94 02/06/20 10:00 02/06/20 10:15 02/06/20 10:15 02/06/20 10:00 02/06/20 10:15 Oxygen Delivery Method Mechanical Ventilator Weight: 73.7 kg Body Mass Index (BMI) 26.8 Finger Stick Blood Glucose 88 Intake and Output for Last 24 Hours 02/04/20 02/05/20 02/06/20 23:59 23:59 23:59 Intake Total 1818.49 / 1828.34 2276.04 / 2819.24 876.99 / 876.99 Output Total 416 / 416 365 / 465 310 / 310 Balance 1402.49 / 1412.34 1911.04 / 2354.24 566.99 / 566.99 Microbiology Past 72 Hours 02/02/20 01:03 Blood Culture (Wb) #2 - Left Hand Blood Culture - Preliminary No growth in 48 hours. 02/02/20 18:18 Blood Culture (Wb) #2 - No Site/Description Given Blood Culture - Preliminary No growth in 48 hours. 02/03/20 07:40 Sputum, Induced/Lukens Gram Stain - Final 02/03/20 07:40 Sputum, Induced/Lukens Respiratory Culture - Preliminary Possible Fungus 02/02/20 18:45 Urine Catheter - Miles Urine Culture - Final Culture exhibits no growth. Laboratory Results 02/05/20 12:14: POC Glucose 195 H 02/05/20 15:50: APTT 124.0 H* 02/05/20 18:40: POC Glucose 139 H 02/06/20 00:45: POC Glucose 157 H 02/06/20 01:10: APTT 77.5 H 02/06/20 04:45: WBC 19.5 H, RBC 3.36 L, Hgb 8.5 L, Hct 26.7 L, MCV 79.5 L, MCH 25.3 L, MCHC 31.8 L, RDW Std Deviation 49.0 H, RDW Coeff of Charlie 16.9 H, Plt Count 316, MPV 11.4 02/06/20 04:45: Sodium 141, Potassium 3.9, Chloride 106, Carbon Dioxide 25.0, Anion Gap 10, BUN 48 H, Creatinine 3.47 H, Estim Creat Clear Calc 12.84, Est GFR (MDRD) Af Amer 17 L, Est GFR (MDRD) Non-Af 14 L, BUN/Creatinine Ratio 13.8, Glucose 146 H, Calcium 7.2 L, Total Bilirubin 1.10 H, Direct Bilirubin 0.60 H, AST 744 H, ALT 1847 H, Alkaline Phosphatase 136 H, Total Protein 5.4 L, Albumin 1.8 L, Globulin 3.6 02/06/20 06:35: POC Glucose 136 H 02/06/20 08:45: APTT Cancelled 02/06/20 08:45: PT 21.7 H, INR 2.0, APTT 63.2 H Current Medications Albuterol Sulfate (Albuterol 2.5 Mg/3 Ml Vial.Neb.) 2.5 mg INHALATION Q2H PRN PRN PRN Reason: SOB/Wheezing Albuterol/Ipratropium (Ipratropium/Albuterol Sulfate 3 Ml Ampul.Neb) 3 ml INHALATION Q4HWA.RT [facility] Last Admin: 02/06/20 10:15 Dose: 3 ml Documented by: Chlorhexidine Gluconate (Chlorhexidine 15 Ml) 15 ml PO BID [facility] Last Admin: 02/06/20 00:30 Dose: 15 ml Documented by: Dexamethasone Sodium Phosphate (Dexamethasone 10 Mg/Ml Vial) 6 mg IV DAILY [facility] Stop: 02/09/20 10:01 Last Admin: 02/05/20 08:25 Dose: 6 mg Documented by: Dextrose (Dextrose 50%-Water 25 Gm/50 Ml Disp.Syrin) 0 gm IV X1 PRN; Protocol PRN Reason: Hypoglycemia Glucagon (Glucagon 1 Mg/Ml Syringe) 1 mg IM .X1 PRN PRN Reason: Hypoglycemia Heparin Sodium (Porcine) (Heparin Injection (Vial) 5,000 Unit/Ml Vial) 0 unit IV UD PRN; Protocol PRN Reason: dose adjustment Norepinephrine Bitartrate 8 mg (/ Sodium Chloride) 250 mls @ 9.375 mls/hr CONT INF .[id number] [facility]; Protocol Last Admin: 02/06/20 06:51 Dose: Not Given Documented by: Sodium Chloride () 250 mls @ 15 mls/hr IV .[id number] PRN PRN Reason: Saline Flush Last Infusion: 02/03/20 05:05 Dose: 0 mls/hr Documented by: Sodium Chloride () 250 mls @ 15 mls/hr IV .[id number] PRN PRN Reason: Additional IVPB Infusion Fentanyl Citrate 1,000 mcg/ (Sodium Chloride) 100 mls @ 5 mls/hr CONT INF .Q20H [facility]; Protocol Last Titration: 02/06/20 07:00 Dose: 75 mcg/hr, 7.5 mls/hr Documented by: Pantoprazole Sodium 40 mg/ (Sodium Chloride) 110 mls @ 330 mls/hr IV Q12 [facility] Last Infusion: 02/06/20 06:58 Dose: Infused Documented by: Enteral Nutritional Formula (Vital Af 1.2 Georgi Liquid) 1,000 mls @ 60 mls/hr GT .[id number] [facility] Last Admin: 02/06/20 06:51 Dose: Not Given Documented by: Heparin Sodium/Dextrose () 25,000 units in 250 mls @ 11 mls/hr IV .[id number] [facility]; Protocol Last Admin: 02/06/20 06:52 Dose: Not Given Documented by: Piperacillin Sod/Tazobactam (Sod 3.375 gm/ Sodium Chloride) 50 mls @ 12.5 mls/hr IV Q12 [facility] Last Infusion: 02/06/20 06:59 Dose: Infused Documented by: Dexmedetomidine HCl 400 mcg/ (Sodium Chloride) 100 mls @ 9.1 mls/hr CONT INF .Q11H [facility]; Protocol Last Titration: 02/06/20 07:00 Dose: 0.5 mcg/kg/hr, 9.1 mls/hr Documented by: Insulin Human Lispro (Insulin Lispro 100 Unit/Ml Insuln.Pen) 0 unit SC Q6 [facility]; Protocol Last Admin: 02/06/20 06:39 Dose: Not Given Documented by: Metoprolol Tartrate (Metoprolol Tartrate 25 Mg Tablet) 25 mg PO BID [facility] Last Admin: 02/05/20 21:07 Dose: 25 mg Documented by: Ondansetron HCl (Ondansetron 4 Mg/2 Ml Vial) 4 mg IV Q8H PRN PRN PRN Reason: NAUSEA/VOMITING Senna/Docusate Sodium (Senna/Docusate Sodium 1 Tablet) 2 tablet GT BID PRN PRN PRN Reason: Constipation Sodium Chloride (0.9% Saline Lock 10 Ml Syringe) 10 - 40 ml IV UD PRN PRN Reason: SALINE FLUSH Last Admin: 02/06/20 06:44 Dose: 20 ml Documented by: Medical Necessity - Tobacco Use Smoking Status: Current every day smoker Tobacco Use: Cigarettes Assessment/Plan All Active Problems (Last Reviewed 01/03/20 @ 09:52 by Mercedes Smart) Respiratory failure (Acute) Pneumonia due to COVID-19 virus (Acute) Pneumonia (Acute) Bronchitis (Acute) History of total hip replacement (Resolved) History of total knee replacement (TKR) (Resolved) Tail bone pain (Acute) Hx of bilateral hip replacements (Resolved) History and physical examination, immigration (Acute) GERD (gastroesophageal reflux disease) (Acute) Fatigue (Acute) Dyspnea on minimal exertion (Acute) Ankle fracture, right (Acute) Actinic keratitis (Acute) Weakness (Acute) DOROTHY ATN with COVID-19 and shock Respiratory failure multifactorial s/p intubation COVID-19 pneumonia COPD Shock Shock liver Scr 3.47 after HD yesterday Urine output is improving. Will hold dialysis for today and reevaluate dialysis needs tomorrow. keep MAP>65 off Levophed dose Vanco per pharmacy Will f/u.
[2020-02-06] MEDS: dexAMETHasone 10 MG/ML Vial 6 MG IV (12:34)
[2020-02-06] MEDS: Metoprolol Tartrate 25 MG Tablet PO (12:34)
--- NOTE | 2020-02-06 15:00 | CASEMGMT ---
Social Work Phone call to pt daughter La to offer support. La is very appreciative that she is able to attend rounds via phone and feels this have been very helpful in keeping her involved in care. La will be out of town over the weekend but will leave contact numbers with the nurses. SW will remain available should needs arise. ROCIO Winkler
[2020-02-06 17:01] LABS: Bedside Glucose 144 mg/dL (70-110)
[2020-02-06 17:06] LABS: Partial Thromboplast Time 42.7 Seconds (24.1-36.2)
[2020-02-06 17:10] LABS: Bedside Glucose 181 mg/dL (70-110)
[2020-02-06] MEDS: Heparin Injection (Vial) 5,000 UNIT/ML VIAL IV (17:12)
[2020-02-06] MEDS: Vital AF 1.2 Cal Liquid 1,000 ML 60 ML GT (22:10)
[2020-02-06 23:40] LABS: Bedside Glucose 165 mg/dL (70-110)
[2020-02-07] VITALS (40 sets, daily range): BP systolic 89–168; BP diastolic 49–137; PULSE 86–140; RESP 12–40; TEMP 36.6–37.6; O2SAT 91–97
[2020-02-07 00:36] LABS: Partial Thromboplast Time 63.4 Seconds (24.1-36.2)
--- NOTE | 2020-02-07 00:56 | RAD_ITS ---
STUDY: X-RAY - ABDOMEN/PELVIS REASON FOR EXAM: Female, 69 years old. OG PLACEMENT TECHNIQUE: Single AP view of the abdomen / pelvis. COMPARISON: None. FINDINGS: The endotracheal tube is seen with the tip approximately 2.7 cm above julia. The nasogastric tube has the tip near the EG junction. There is an IVC filter in place. There is a right IJ central line with the tip in the distal SVC/right atrial junction. The lungs are underexpanded with coarse markings bilaterally concerning for underlying bronchitis with superimposed interstitial pneumonitis excluded. Along the upper abdomen is included in the [id number]. The lung apices are not included in the [id number]. The visualized liver, spleen and kidneys are grossly normal in size and morphology. Normal soft tissue structures. Normal visualized osseous structures. RAD/Abdomen Single View (Portable) IMPRESSION: Lines and tubes as described. Recommend advancing the nasogastric tube approximately 10 cm. Chronic interstitial lung disease/bronchitis versus diffuse interstitial pneumonia not excluded. Electronically Signed: Zayda Santos MD at 1:30 EST , Service support ,
[2020-02-07] MEDS: Insulin Lispro 100 UNIT/ML INSULN.PEN SC (01:10)
[2020-02-07] MEDS: HEPARIN/D5w 25,000 UNITS 25,000 UNITS/250 ML IV.SOLN. 6 UNITS IV (04:56)
[2020-02-07 05:17] LABS: Hematocrit 28.6 % (37-47); Mean Corp Hgb Conc 31.5 g/dL (32-36); Mean Corpuscular Hgb 24.9 pg (27.0-32.0); Mean Platelet Vol. 11.7 fl (6.2-12.0); Platelet Count 329 K/mm3 (150-450); RBC Distribution Width CV 17.1 % (11.6-14.6); RBC Distribution Width SD 48.9 fl (35.1-43.9); Red Blood Count 3.62 M/mm3 (4.2-5.4); White Blood Count 25.7 K/mm3 (4.4-11.0)
[2020-02-07 05:30] LABS: International Normalized Ratio 1.7; Prothrombin Time (Protime)PT. 19.7 SECONDS (11.7-14.9)
[2020-02-07 05:34] LABS: Anion Gap 12 (5-15); BUN 66 mg/dL (7-18); Calcium,Total 7.9 mg/dL (8.5-10.1); Chloride 104 mmol/L (98-107); EST Glomerular Filtration Rate 11 mL/min (>60); Est Glom Filt Rate - Afr Amer 13 mL/min (>60); Estimated Creatinine Clearance 10.13 ml/min; Glucose 116 mg/dL (74-106); Potassium 4.3 mmol/L (3.5-5.1); Sodium Level 140 mmol/L (136-145)
[2020-02-07 05:42] LABS: Partial Thromboplast Time 47.3 Seconds (24.1-36.2)
--- NOTE | 2020-02-07 05:57 | PCM.PN.INT ---
Subjective: The patient was seen and examined at the bedside this morning. Events from the last 24 hours have been reviewed. The patient is currently afebrile, hemodynamically stable and maintaining appropriate oxygen saturations on assist control mode of mechanical ventilation with an FiO2 requirement of 35%. The patient passed her spontaneous breathing trial this morning. Although she appears anxious, she is alert and following simple commands. INR this morning was noted to be 1.7. The patient remains on a continuous heparin infusion. She was started on Cardizem last night as well due to persistent atrial fibrillation with rapid ventricular rate. The patient is currently documented to be overall net +8.4 L for the hospital admission. Following my initial evaluation the patient early this morning, and following successful completion of her spontaneous breathing trial, the patient was extubated to nasal cannula supplemental O2. Although initially stable, the patient later decompensated from a respiratory perspective with increasing tachypnea and agitation. Attempts to utilize BiPAP was unsuccessful. I did call and speak with her daughter who indicated that she would in fact want her to be reintubated. Therefore, the decision was made to reintubate the patient. Intubation Indication: Respiratory failure Consent was obtained from: Patient's daughter The patient was placed in the appropriate sniffing position. Preoxygenated sedation via BiPAP was provided for a minimum of 3 minutes. The patient had continuous cardiac as well as pulse oximetry monitoring during the procedure. Procedure sedation was provided by the administration of 4 mg of Versed and 20 mg of etomidate. Direct laryngoscopy was then performed using a number 4 MAC blade, which revealed a grade 1 view. A 7.5 mm endotracheal tube was visualized advancing between the cords to the level of 22 cm at the lip. The stylette was then removed and discarded. Tube placement was confirmed by fogging in the tube along with equal and bilateral breath sounds. Colorimetric change was visualized on the CO2 meter. The cuff was then inflated and the tube secured using a commercially available device. A good pulse oximetry waveform was seen on the monitor throughout the procedure. A portable chest x-ray has been ordered to confirm appropriate placement. The patient tolerated the procedure well. Objective: The patient's most recent lab work, culture data and imaging studies have all been personally reviewed. Respiratory viral panel was negative. Strep and urine Legionella antigens were negative. Sputum culture dated February 02 revealed possible fungus. General: Alert, - - Currently tolerating spontaneous mode of mechanical ventilation. HEENT: Atraumatic, PERRLA, Normocephalic Oral: Dry Mucosa, - - Endotracheal and OG tubes remain in place. Neck: Supple, No Nodes, Trachea Midline, - - Temporary HD line and triple-lumen catheter remain in place. Lungs: Diminished, Tachypneic Cardiovascular: Normal S1, Normal S2, Irregular Rate, Tachycardic Abdomen: Bowel Sounds Present, Soft, Non Tender Extremities: No clubbing, No cyanosis, Edema Skin: - - No significant change from previous Musculoskeletal: No Tenderness to Palpation of Joints or Extremities Lymphatic: No Cervical, Supraclavicular, or Inguinal Adenopathy Neurological: - - No focal neurological deficits. Alert and able to follow simple commands. Psych/Mental Status: Anxious Vital Signs Temp Pulse Resp BP Pulse Ox 99.5 F H 90 29 H 119/66 94 02/07/20 05:00 02/07/20 05:15 02/07/20 05:15 02/07/20 05:00 02/07/20 05:15 Oxygen Flow Rate (L/min) 35 Oxygen Delivery Method Mechanical Ventilator Weight: 162 lb 7.691 oz Body Mass Index (BMI) 26.8 Finger Stick Blood Glucose 88 Intake and Output for Last 24 Hours 02/05/20 02/06/20 02/07/20 23:59 23:59 23:59 Intake Total 2276.04 / 2819.24 2342.61 / 2442.21 510.55 / 510.55 Output Total 365 / 465 950 / 950 110 / 110 Balance 1911.04 / 2354.24 1392.61 / 1492.21 400.55 / 400.55 Labs (Last 48 Hours) 02/02/20 02/05/20 02/05/20 20:50 05:30 08:10 WBC RBC Hgb Hct MCV MCH MCHC RDW Std Deviation RDW Coeff of Charlie Plt Count MPV PT INR APTT 90.2 H* Sodium Potassium Chloride Carbon Dioxide Anion Gap BUN Creatinine Estim Creat Clear Calc Est GFR (MDRD) Af Amer Est GFR (MDRD) Non-Af BUN/Creatinine Ratio Glucose Calcium Total Bilirubin Direct Bilirubin AST ALT Alkaline Phosphatase Total Protein Albumin Globulin POC Glucose 164 H Crossmatch See Detail 02/05/20 02/05/20 02/05/20 12:14 15:50 18:40 WBC RBC Hgb Hct MCV MCH MCHC RDW Std Deviation RDW Coeff of Charlie Plt Count MPV PT INR APTT 124.0 H* Sodium Potassium Chloride Carbon Dioxide Anion Gap BUN Creatinine Estim Creat Clear Calc Est GFR (MDRD) Af Amer Est GFR (MDRD) Non-Af BUN/Creatinine Ratio Glucose Calcium Total Bilirubin Direct Bilirubin AST ALT Alkaline Phosphatase Total Protein Albumin Globulin POC Glucose 195 H 139 H Crossmatch 02/06/20 02/06/20 02/06/20 00:45 01:10 04:45 WBC 19.5 H RBC 3.36 L Hgb 8.5 L Hct 26.7 L MCV 79.5 L MCH 25.3 L MCHC 31.8 L RDW Std Deviation 49.0 H RDW Coeff of Charlie 16.9 H Plt Count 316 MPV 11.4 PT INR APTT 77.5 H Sodium Potassium Chloride Carbon Dioxide Anion Gap BUN Creatinine Estim Creat Clear Calc Est GFR (MDRD) Af Amer Est GFR (MDRD) Non-Af BUN/Creatinine Ratio Glucose Calcium Total Bilirubin Direct Bilirubin AST ALT Alkaline Phosphatase Total Protein Albumin Globulin POC Glucose 157 H Crossmatch 02/06/20 02/06/20 02/06/20 04:45 06:35 08:45 WBC RBC Hgb Hct MCV MCH MCHC RDW Std Deviation RDW Coeff of Charlie Plt Count MPV PT INR APTT Cancelled Sodium 141 Potassium 3.9 Chloride 106 Carbon Dioxide 25.0 Anion Gap 10 BUN 48 H Creatinine 3.47 H Estim Creat Clear Calc 12.84 Est GFR (MDRD) Af Amer 17 L Est GFR (MDRD) Non-Af 14 L BUN/Creatinine Ratio 13.8 Glucose 146 H Calcium 7.2 L Total Bilirubin 1.10 H Direct Bilirubin 0.60 H AST 744 H ALT 1847 H Alkaline Phosphatase 136 H Total Protein 5.4 L Albumin 1.8 L Globulin 3.6 POC Glucose 136 H Crossmatch 02/06/20 02/06/20 02/06/20 08:45 12:31 16:21 WBC RBC Hgb Hct MCV MCH MCHC RDW Std Deviation RDW Coeff of Charlie Plt Count MPV PT 21.7 H INR 2.0 APTT 63.2 H Sodium Potassium Chloride Carbon Dioxide Anion Gap BUN Creatinine Estim Creat Clear Calc Est GFR (MDRD) Af Amer Est GFR (MDRD) Non-Af BUN/Creatinine Ratio Glucose Calcium Total Bilirubin Direct Bilirubin AST ALT Alkaline Phosphatase Total Protein Albumin Globulin POC Glucose 144 H 181 H Crossmatch 02/06/20 02/06/20 02/06/20 16:45 23:30 23:37 WBC RBC Hgb Hct MCV MCH MCHC RDW Std Deviation RDW Coeff of Charlie Plt Count MPV PT INR APTT 42.7 H 63.4 H Sodium Potassium Chloride Carbon Dioxide Anion Gap BUN Creatinine Estim Creat Clear Calc Est GFR (MDRD) Af Amer Est GFR (MDRD) Non-Af BUN/Creatinine Ratio Glucose Calcium Total Bilirubin Direct Bilirubin AST ALT Alkaline Phosphatase Total Protein Albumin Globulin POC Glucose 165 H Crossmatch 02/07/20 02/07/20 02/07/20 05:10 05:10 05:10 WBC 25.7 H RBC 3.62 L Hgb 9.0 L Hct 28.6 L MCV 79.0 L MCH 24.9 L MCHC 31.5 L RDW Std Deviation 48.9 H RDW Coeff of Charlie 17.1 H Plt Count 329 MPV 11.7 PT 19.7 H INR 1.7 APTT Sodium 140 Potassium 4.3 Chloride 104 Carbon Dioxide 24.0 Anion Gap 12 BUN 66 H Creatinine 4.40 H Estim Creat Clear Calc 10.13 Est GFR (MDRD) Af Amer 13 L Est GFR (MDRD) Non-Af 11 L BUN/Creatinine Ratio 15.0 Glucose 116 H Calcium 7.9 L Total Bilirubin Direct Bilirubin AST ALT Alkaline Phosphatase Total Protein Albumin Globulin POC Glucose Crossmatch 02/07/20 05:10 WBC RBC Hgb Hct MCV MCH MCHC RDW Std Deviation RDW Coeff of Charlie Plt Count MPV PT INR APTT 47.3 H Sodium Potassium Chloride Carbon Dioxide Anion Gap BUN Creatinine Estim Creat Clear Calc Est GFR (MDRD) Af Amer Est GFR (MDRD) Non-Af BUN/Creatinine Ratio Glucose Calcium Total Bilirubin Direct Bilirubin AST ALT Alkaline Phosphatase Total Protein Albumin Globulin POC Glucose Crossmatch Microbiology 02/02/20 01:03 Blood Culture (Wb) #2 - Left Hand Blood Culture - Preliminary No growth in 48 hours. 02/02/20 18:18 Blood Culture (Wb) #2 - No Site/Description Given Blood Culture - Preliminary No growth in 48 hours. 02/03/20 07:40 Sputum, Induced/Lukens Gram Stain - Final 12/14/20 07:40 Sputum, Induced/Lukens Respiratory Culture - Preliminary Possible Fungus 02/02/20 18:45 Urine Catheter - Miles Urine Culture - Final Culture exhibits no growth. Clinical Impression(s) from Imaging Studies Chest X-Ray 02/02/20 18:15 IMPRESSION: Lines and tubes as described. Consider advancing the nasogastric tube. Bilateral widespread pulmonary opacities most pronounced on the left. Electronically Signed: Jasen Diego MD at 19:14 EST , Service support , KUB X-Ray 02/02/20 20:15 KUB X-Ray 02/02/20 22:05 IMPRESSION: OGT in is in similar position to the prior study Recommend advancing at 2304 Reported and signed by: Tracee Clark DO Electronically Signed: Tracee Clark DO at 23:03 EST Tel , Service support , ADDENDUM: 02/02/20 2317 IMPRESSION: OGT in is in similar position to the prior study Recommend advancing at 2304 Reported and signed by: Tracee Clark DO N.B. : Nancy Dodge RN, confirmed on 02/02/2020 23:10:30 (ET) that the healthcare facility has received the radiology report. Electronically Signed: Tracee Clark DO at 23:03 EST Tel , Service support , Chest X-Ray 02/03/20 05:55 IMPRESSION: ET tube similar Interval advancement of NG tube with the tip at least in the body of the stomach but not visualized on this study There is improving aeration in the left lung apex as well as the left lung base. Interstitial thickening is again noted as well as bibasilar airspace opacities at 0656 Reported and signed by: Tracee Clark DO Electronically Signed: Tracee Clark DO at 6:55 EST Tel , Service support , KUB X-Ray 02/03/20 10:40 IMPRESSION: The tip of the orogastric tube is in the distal portion of the stomach. Electronically Signed: Clifford Edwards, at 12:00 EST , Service support , Abdomen Ultrasound 02/03/20 11:13 IMPRESSION: The gallbladder gómez of the upper limits of normal. The gallbladder appears mildly contracted. No stones. Negative sonographic Vilchis sign Question minimal pericholecystic edema/fluid If patient's symptoms persist then consider a nuclear medicine hepatobiliary scan for further evaluation Negative sonographic Vilchis sign Right renal cyst Mild ascites Small right pleural effusion Hepatic steatosis at 2205 Reported and signed by: Tracee Clark DO Electronically Signed: Tracee Clark DO at 22:04 EST Tel , Service support , Chest X-Ray 02/03/20 12:27 IMPRESSION: A right-sided central venous catheter has been placed with the tip at the junction of the superior vena cava and right atrium. Since prior study, there has been improved aeration of both lungs although residual CHF persists as well as left lower lobe infiltrate. Electronically Signed: Clifford Edwards, at 13:07 EST , Service support , Brain CT 02/03/20 16:08 IMPRESSION: Chronic involutional changes of the brain. No change and no acute abnormality. Electronically Signed: Jasen Diego MD at 22:35 EST , Service support , Chest CT 02/03/20 16:08 IMPRESSION: Small bilateral pleural effusions Emphysema Fibrotic changes as discussed There are consolidative infiltrate seen with the lung bases left greater than right NG tube is seen with the tip in the stomach with hyperdense fluid surrounding the tube in the esophagus most likely contrast. This may be secondary to reflux. Correlate clinically ET tube with the tip approximately 3.6 cm proximal to the julia Right central venous catheter with the tip the cavoatrial junction Borderline cardiomegaly with coronary artery calcifications There is mediastinal adenopathy. Individualized dose optimization techniques were used for this CT. at 2245 Reported and signed by: Tracee Clark DO Electronically Signed: Tracee Clark DO at 22:44 EST Tel , Service support , Abdomen CT 02/03/20 16:09 IMPRESSION: Gallbladder wall thickening and edema. Correlate clinically for cystitis Pancreas is grossly unremarkable. Minimal fat stranding seen near the tail the pancreas I suspect is secondary to perirenal fat stranding however I would correlate clinically for pancreatitis Enlarged bilateral adrenal glands as discussed. Recommend MRI follow-up with a adrenal protocol for further evaluation Small amount of ascites as discussed. NG tube with the tip in the stomach. Suspect reflux of contrast into the esophagus Poor distention of the colon. I cannot exclude wall thickening. Correlate clinically for colitis Individualized dose optimization techniques were used for this CT. at 2256 Reported and signed by: Tracee Clark DO Electronically Signed: Tracee Clark DO at 22:55 EST Tel , Service support , Chest X-Ray 02/05/20 10:37 IMPRESSION: A left-sided dialysis catheter has been placed with the tip at the junction of the superior vena cava and right atrium. The remainder of the examination is unchanged. Electronically Signed: Clifford Edwards, at 11:29 EST , Service support , KUB X-Ray 02/07/20 00:56 IMPRESSION: Lines and tubes as described. Recommend advancing the nasogastric tube approximately 10 cm. Chronic interstitial lung disease/bronchitis versus diffuse interstitial pneumonia not excluded. Electronically Signed: Zayda Santos MD at 1:30 EST , Service support , Medical Necessity - Tobacco Use Smoking Status: Current every day smoker Tobacco Use: Cigarettes Assessment/Plan All Active Problems (Last Reviewed 01/03/20 @ 09:52 by Mercedes Smart) Respiratory failure (Acute) Pneumonia due to COVID-19 virus (Acute) Pneumonia (Acute) Bronchitis (Acute) History of total hip replacement (Resolved) History of total knee replacement (TKR) (Resolved) Tail bone pain (Acute) Hx of bilateral hip replacements (Resolved) History and physical examination, immigration (Acute) GERD (gastroesophageal reflux disease) (Acute) Fatigue (Acute) Dyspnea on minimal exertion (Acute) Ankle fracture, right (Acute) Actinic keratitis (Acute) Weakness (Acute) RECOMMENDATIONS: 1. Continue current supportive measures with invasive mechanical ventilatory support. Wean FiO2 to maintain oxygen saturations at or above 90%. 2. Continue fentanyl and Precedex for sedation. 3. Start twice daily scheduled Seroquel. 4. Restart tube feeds today. 5. Continue scheduled bronchodilators. 6. Continue antimicrobials per ID recommendations. 7. Continue Decadron to complete treatment course. 8. Continue heparin infusion. 9. Continue Cardizem and beta-maeve regimen. 10. Additional volume optimization either by ultrafiltration or IV diuretic therapy. Will await nephrology recommendations. IMPRESSIONS: 1. Acute hypoxemic respiratory failure secondary to COVID-19 pneumonia Plan to continue current supportive measures including invasive mechanical ventilatory support, with a goal to wean FiO2 and PEEP to maintain oxygen saturations at or above 90%. Although the patient was initially extubated on the morning of February 06, she subsequently declined from a respiratory perspective and required reintubation. Therefore, we will plan to continue current supportive measures including antimicrobials, bronchodilators and Decadron. Recommend volume optimization either by ultrafiltration or IV diuretics per nephrology recommendations. Tube feeds can be resumed from my perspective. 2. Septic shock Concern for Covid as precipitating etiology versus possible community-acquired pneumonia as well. Continue empiric antimicrobials as noted above. 3. Atrial fibrillation with RVR Continue current medical management including systemic anticoagulation, Cardizem and beta-maeve. 4. Acute liver injury Improving. Suspect related to hemodynamic instability with subsequent shock liver. Continue supportive measures as noted above. 5. Acute kidney injury Likely prerenal in etiology with a component of ischemic ATN in the setting of septic shock. The patient did tolerate dialysis with some improvement in urine output. Nephrology is currently following. 6. History of DVT/chronic anticoagulation status with presenting coagulopathy The patient presented with a supratherapeutic INR. She did receive vitamin K and FFP. Given that the patient's INR is no longer therapeutic, recommend continuing heparin infusion. TIME: 47 minutes of critical care time, independent of procedures, was spent addressing the patient's acute hypoxemic respiratory failure secondary to Covid pneumonia, septic shock, atrial fibrillation with RVR, acute kidney injury, acute liver injury, history of DVT, review of all data and collaboration with the care team. ([id number], [id number]) [id number] Critical care first hour
[2020-02-07] MEDS: Ipratropium/Albuterol Sulfate 3 ML AMPUL.NEB INHALATION ×3 (07:02→19:52)
--- NOTE | 2020-02-07 07:59 | PN_ITS ---
Patient Problems: Active and Suspected Problems (Last Reviewed 01/03/20 @ 09:52 by Mercedes Smart) Respiratory failure (Acute) Pneumonia due to COVID-19 virus (Acute) Reason for Visit: COVID-19 pneumonia Acute kidney injury Subjective: Patient was extubated this morning however her respiratory status deteriorated resulting in patient being reintubated -No significant improvement in patient kidney function WBC count trending up Objective: GENERAL: sedated on the vent HEENT: Atraumatic; ET tube in place EYES; Anicteric, Normal Conjunctiva NECK; supple, normal thyroid, RESPIRATORY: Diminished to auscultation CARDIOVASCULAR: Regular S1 S2, GI: soft, normoactive bowel sounds, : No Renal angle tenderness; EXTREMITIES: No edema, no clubbing, MUSCULOSKELETAL: no muscle waisting NEURO: sedated on the vent SKIN: No Rash Vitals/I&O's: Vital Signs Temp Pulse Resp BP Pulse Ox 99.5 F H 110 H 30 H 164/98 H 92 02/07/20 07:00 02/07/20 07:00 02/07/20 07:00 02/07/20 07:00 02/07/20 07:00 Oxygen Flow Rate (L/min) 35 Oxygen Delivery Method Mechanical Ventilator Weight: 74.9 kg Body Mass Index (BMI) 26.8 Finger Stick Blood Glucose 88 Intake and Output for Last 24 Hours 02/05/20 02/06/20 02/07/20 23:59 23:59 23:59 Intake Total 2276.04 / 2819.24 2342.61 / 2442.21 535.78 / 535.78 Output Total 365 / 465 950 / 950 160 / 160 Balance 1911.04 / 2354.24 1392.61 / 1492.21 375.78 / 375.78 Microbiology Past 72 Hours 02/02/20 01:03 Blood Culture (Wb) #2 - Left Hand Blood Culture - Preliminary No growth in 48 hours. 02/02/20 18:18 Blood Culture (Wb) #2 - No Site/Description Given Blood Culture - Preliminary No growth in 48 hours. 02/03/20 07:40 Sputum, Induced/Lukens Gram Stain - Final 02/03/20 07:40 Sputum, Induced/Lukens Respiratory Culture - Preliminary Possible Fungus 02/02/20 18:45 Urine Catheter - Miles Urine Culture - Final Culture exhibits no growth. Laboratory Results 02/02/20 20:50: Crossmatch See Detail 02/06/20 08:45: APTT Cancelled 02/06/20 08:45: PT 21.7 H, INR 2.0, APTT 63.2 H 02/06/20 12:31: POC Glucose 144 H 02/06/20 16:21: POC Glucose 181 H 02/06/20 16:45: APTT 42.7 H 02/06/20 23:30: APTT 63.4 H 02/06/20 23:37: POC Glucose 165 H 02/07/20 05:10: WBC 25.7 H, RBC 3.62 L, Hgb 9.0 L, Hct 28.6 L, MCV 79.0 L, MCH 24.9 L, MCHC 31.5 L, RDW Std Deviation 48.9 H, RDW Coeff of Charlie 17.1 H, Plt Count 329, MPV 11.7 02/07/20 05:10: Sodium 140, Potassium 4.3, Chloride 104, Carbon Dioxide 24.0, Anion Gap 12, BUN 66 H, Creatinine 4.40 H, Estim Creat Clear Calc 10.13, Est GFR (MDRD) Af Amer 13 L, Est GFR (MDRD) Non-Af 11 L, BUN/Creatinine Ratio 15.0, Glucose 116 H, Calcium 7.9 L 02/07/20 05:10: PT 19.7 H, INR 1.7 02/07/20 05:10: APTT 47.3 H Current Medications Albuterol Sulfate (Albuterol 2.5 Mg/3 Ml Vial.Neb.) 2.5 mg INHALATION Q2H PRN PRN PRN Reason: SOB/Wheezing Albuterol/Ipratropium (Ipratropium/Albuterol Sulfate 3 Ml Ampul.Neb) 3 ml INHAL ATION Q4HWA.RT [facility] Last Admin: 02/07/20 07:02 Dose: 3 ml Documented by: Chlorhexidine Gluconate (Chlorhexidine 15 Ml) 15 ml PO BID [facility] Last Admin: 02/06/20 22:02 Dose: 15 ml Documented by: Dexamethasone Sodium Phosphate (Dexamethasone 10 Mg/Ml Vial) 6 mg IV DAILY [facility] Stop: 02/09/20 10:01 Last Admin: 02/06/20 12:34 Dose: 6 mg Documented by: Dextrose (Dextrose 50%-Water 25 Gm/50 Ml Disp.Syrin) 0 gm IV X1 PRN; Protocol PRN Reason: Hypoglycemia Glucagon (Glucagon 1 Mg/Ml Syringe) 1 mg IM .X1 PRN PRN Reason: Hypoglycemia Heparin Sodium (Porcine) (Heparin Injection (Vial) 5,000 Unit/Ml Vial) 0 unit IV UD PRN; Protocol PRN Reason: dose adjustment Last Admin: 02/06/20 17:12 Dose: 1,000 unit Documented by: Norepinephrine Bitartrate 8 mg (/ Sodium Chloride) 250 mls @ 9.375 mls/hr CONT INF .[id number] [facility]; Protocol Last Admin: 02/07/20 01:11 Dose: Not Given Documented by: Sodium Chloride () 250 mls @ 15 mls/hr IV .[id number] PRN PRN Reason: Saline Flush Last Infusion: 02/03/20 05:05 Dose: 0 mls/hr Documented by: Sodium Chloride () 250 mls @ 15 mls/hr IV .[id number] PRN PRN Reason: Additional IVPB Infusion Pantoprazole Sodium 40 mg/ (Sodium Chloride) 110 mls @ 330 mls/hr IV Q12 [facility] Last Infusion: 02/07/20 01:11 Dose: Infused Documented by: Heparin Sodium/Dextrose () 25,000 units in 250 mls @ 11 mls/hr IV .[id number] [facility]; Protocol Last Admin: 02/07/20 04:56 Dose: 600 units/hr, 6 mls/hr Documented by: Piperacillin Sod/Tazobactam (Sod 3.375 gm/ Sodium Chloride) 50 mls @ 12.5 mls/hr IV Q12 [facility] Last Infusion: 02/07/20 02:37 Dose: Infused Documented by: Diltiazem HCl 125 mg/ Dextrose 125 mls @ 5 mls/hr IV .Q25H [facility]; Protocol Last Admin: 02/07/20 04:57 Dose: 10 mg/hr, 10 mls/hr Documented by: Insulin Human Lispro (Insulin Lispro 100 Unit/Ml Insuln.Pen) 0 unit SC Q6 [facility]; Protocol Last Admin: 02/07/20 06:13 Dose: Not Given Documented by: Metoprolol Tartrate (Metoprolol Tartrate 25 Mg Tablet) 25 mg PO BID [facility] Last Admin: 02/06/20 22:02 Dose: Not Given Documented by: Ondansetron HCl (Ondansetron 4 Mg/2 Ml Vial) 4 mg IV Q8H PRN PRN PRN Reason: NAUSEA/VOMITING Senna/Docusate Sodium (Senna/Docusate Sodium 1 Tablet) 2 tablet GT BID PRN PRN PRN Reason: Constipation Sodium Chloride (0.9% Saline Lock 10 Ml Syringe) 10 - 40 ml IV UD PRN PRN Reason: SALINE FLUSH Last Admin: 02/06/20 16:54 Dose: 20 ml Documented by: STROKE Vital Signs/Narrative: Vital Signs Temp Pulse Resp BP Pulse Ox 02/07/20 07:00 99.5 F H 110 H 30 H 164/98 H 92 02/07/20 06:00 99.4 F H 103 H 26 H 112/51 L 93 02/07/20 05:15 90 29 H 94 02/07/20 05:00 99.5 F H 92 23 H 119/66 93 02/07/20 04:57 89 02/07/20 04:00 99.3 F H 94 22 H 116/57 L 92 Medical Necessity - Tobacco Use Smoking Status: Current every day smoker Tobacco Use: Cigarettes Assessment/Plan All Active Problems (Last Reviewed 01/03/20 @ 09:52 by Mercedes Smart) Respiratory failure (Acute) Pneumonia due to COVID-19 virus (Acute) Pneumonia (Acute) Bronchitis (Acute) History of total hip replacement (Resolved) History of total knee replacement (TKR) (Resolved) Tail bone pain (Acute) Hx of bilateral hip replacements (Resolved) History and physical examination, immigration (Acute) GERD (gastroesophageal reflux disease) (Acute) Fatigue (Acute) Dyspnea on minimal exertion (Acute) Ankle fracture, right (Acute) Actinic keratitis (Acute) Weakness (Acute) Patient is a 69-year-old lady transferred from [facility] with progressive shortness of breath. An assessment of acute hypoxic respiratory failure secondary to acute COVID-19 was made. Patient had to be intubated as a result of deteriorating respiratory status 1. Acute hypoxic respiratory failure secondary to COVID-19 pneumonia Admitted to the intensive care unit intubated with consultation placed to pulmonary medicine for vent management -02/04/2020. Vent. Current vent settings reviewed. Case discussed with Dr. Gonzalez with pulmonary -02/05/2020. Patient remains on the vent with no significant improvement -02/06/2020 Underwent dialysis catheter placement on 02/05/2020 initiation of dialysis the day prior. -02/07/2020; Patient was extubated this morning however her respiratory status deteriorated resulting in patient being reintubated 2. Acute COVID-19 pneumonia -Presented with respiratory failure resulting in patient being intubated. Was started on Decadron not a candidate for remdesivir in view of acute kidney injury and impaired liver function -02/05/2020; no significant improvement in patient's condition. Remains on Decadron 3. Septic shock -Secondary to acute COVID-19 pneumonia with suspected superimposed bacterial pneumonia. Patient is on norepinephrine drip as well as Zosyn. 02/04/2020; she was seen in consultation by Dr. Anderson with infectious disease. His notes and recommendations reviewed. CT of the abdomen obtained demonstrated gallbladder thickening 4. Acute kidney injury ?suspected to be secondary to acute tubular necrosis from patient underlying infection. Admitted to the intensive care unit started on IV fluid. Patient kidney function continues to worsen. Consult subsequently placed to nephrology -02/04/2020. Kidney function continues to worsen -02/05/2020. Kidney function continues to worsen plan is for patient to have dialysis catheter placement with initiation of dialysis -02/06/2020 Underwent dialysis catheter placement on 02/05/2020 initiation of dialysis the day prior. 6. Hypernatremia -Due to fluid depletion patient is on IV fluid with subsequent monitoring of electrolyte -02/05/2020; sodium levels down to 145 7. Hyperkalemia -due to combination of metabolic acidosis as well as impaired kidney function. Consult placed to nephrology -02/05/2020 resolved 8. Coagulopathy ?patient is on Coumadin for previous DVT involving the left lower extremity. Coumadin on admission was 7.7. Patient was transfused with 2 unit FFP as well as did receive vitamin K INR as of 02/03/2020 is 2.8 -02/05/2020 patient started on heparin drip the day prior. 9. Acute transaminitis ?Secondary to shock liver monitoring LFTs -02/05/2020 patient liver function test continues to improve 10. Anemia - Secondary to chronic disorder monitoring H&H and transfuse if patient becomes symptomatic or hemoglobin falls below 7 11. History of DVT involving the left lower extremity ?on Coumadin held in view of above reasons -02/05/2020; started on heparin drip 12. Essential hypertension ?Patient antihypertensives held in view of patient presenting with low blood pressure 13. DVT prophylaxis -patient was on Coumadin prior to admission no additional measures warranted at this point 02/05/2020 patient on heparin Inpatient E&M: 12725 [facility] Hosp L3
--- NOTE | 2020-02-07 08:56 | NURSING ---
Preparing for intubation, Dr. Gonzalez at bedside Versed 4mg given at 0900 Etomidate 20mg given at 0901 Attempt to intubate at 901: b/l lung sounds, positive color change, vitals stable HR 108, 132/89, 02 saturation 100%
[2020-02-07] MEDS: Midazolam 2 MG/2 ML Syringe 4 MG IV (09:00)
[2020-02-07] MEDS: Etomidate 20 MG/10 ML Vial IV (09:01)
--- NOTE | 2020-02-07 09:40 | RAD_ITS ---
STUDY: X-RAY CHEST REASON FOR EXAM: Female, 69 years old. ETT PLACEMENT, NG/OG TUBE PLACEMENT TECHNIQUE: Single AP portable view of the chest. COMPARISON: Comparison is made with prior examination dated 02/05/2020 at 10:56 AM. FINDINGS: An endotracheal tube is in situ. The tip is at 2.4 cm proximal to the julia. An orogastric tube is seen with the tip just distal to the gastroesophageal junction. A right-sided internal jugular venous catheter is seen with the tip in the midportion of superior vena cava. A left-sided intravenous catheter is seen with the tip in the midportion of the superior vena cava. EKG electrodes are seen. Since prior study, there has been improved aeration of both lungs. Residual changes persist at both lung bases more prominent on the left side. Blunting of both cost phrenic angles. Normal size heart. Normal mediastinum and holly. Normal visualized pulmonary arteries. There is atherosclerotic calcification of the aortic arch with tortuosity. Normal visualized thoracic spine. Normal visualized ribs, clavicles, and shoulders. There is no demonstrated abnormality of the visualized soft tissue structures of the upper abdomen. RAD/Chest 1 View (Portable) IMPRESSION: All the support tubes are in good position. Since prior study, there has been improved aeration with residual changes persisting at both lung bases more prominent on the left side. Electronically Signed: Clifford Edwards, at 9:57 EST , Service support ,
--- NOTE | 2020-02-07 11:03 | CPS ---
Verbal order to start BiPAP on pt. given by Dr. Gonzalez in ICU
[2020-02-07] MEDS: Chlorhexidine 15 ML PO ×2 (12:08→20:22)
[2020-02-07] MEDS: dexAMETHasone 10 MG/ML Vial 6 MG IV (12:08)
[2020-02-07 12:26] LABS: Partial Thromboplast Time 68.3 Seconds (24.1-36.2)
--- NOTE | 2020-02-07 12:36 | PCM.PN.REN ---
Patient Problems: Active and Suspected Problems (Last Reviewed 01/03/20 @ 09:52 by Mercedes Smart) Respiratory failure (Acute) Pneumonia due to COVID-19 virus (Acute) Subjective: Still cannot do review of systems. The patient was extubated and then reintubated Objective: Physical examination deferred to preserve PPE and prevent further transmission of COVID-19. - Physical Exam Vitals/I&O's: Vital Signs Temp Pulse Resp BP Pulse Ox 99.5 F H 100 32 H 94/49 L 94 02/07/20 07:00 02/07/20 09:01 02/07/20 09:01 02/07/20 11:20 02/07/20 09:01 Oxygen Flow Rate (L/min) 6 Oxygen Delivery Method Room Air Weight: 74.9 kg Body Mass Index (BMI) 26.8 Finger Stick Blood Glucose 88 Intake and Output for Last 24 Hours 02/05/20 02/06/20 02/07/20 23:59 23:59 23:59 Intake Total 2276.04 / 2819.24 2342.61 / 2442.21 665.85 / 665.85 Output Total 365 / 465 950 / 950 160 / 160 Balance 1911.04 / 2354.24 1392.61 / 1492.21 505.85 / 505.85 Microbiology Past 72 Hours 02/03/20 07:40 Sputum, Induced/Lukens Gram Stain - Final 02/03/20 07:40 Sputum, Induced/Lukens Respiratory Culture - Preliminary Possible Fungus 02/02/20 01:03 Blood Culture (Wb) #2 - Left Hand Blood Culture - Preliminary No growth in 48 hours. 02/02/20 18:18 Blood Culture (Wb) #2 - No Site/Description Given Blood Culture - Preliminary No growth in 48 hours. 02/02/20 18:45 Urine Catheter - Miles Urine Culture - Final Culture exhibits no growth. Laboratory Results 02/02/20 20:50: Crossmatch See Detail 02/06/20 12:31: POC Glucose 144 H 02/06/20 16:21: POC Glucose 181 H 02/06/20 16:45: APTT 42.7 H 02/06/20 23:30: APTT 63.4 H 02/06/20 23:37: POC Glucose 165 H 02/07/20 05:10: WBC 25.7 H, RBC 3.62 L, Hgb 9.0 L, Hct 28.6 L, MCV 79.0 L, MCH 24.9 L, MCHC 31.5 L, RDW Std Deviation 48.9 H, RDW Coeff of Charlie 17.1 H, Plt Count 329, MPV 11.7 02/07/20 05:10: Sodium 140, Potassium 4.3, Chloride 104, Carbon Dioxide 24.0, Anion Gap 12, BUN 66 H, Creatinine 4.40 H, Estim Creat Clear Calc 10.13, Est GFR (MDRD) Af Amer 13 L, Est GFR (MDRD) Non-Af 11 L, BUN/Creatinine Ratio 15.0, Glucose 116 H, Calcium 7.9 L 02/07/20 05:10: PT 19.7 H, INR 1.7 02/07/20 05:10: APTT 47.3 H 02/07/20 12:05: APTT 68.3 H Current Medications Albuterol Sulfate (Albuterol 2.5 Mg/3 Ml Vial.Neb.) 2.5 mg INHALATION Q2H PRN PRN PRN Reason: SOB/Wheezing Albuterol/Ipratropium (Ipratropium/Albuterol Sulfate 3 Ml Ampul.Neb) 3 ml INHALATION Q4HWA.RT [facility] Last Admin: 02/07/20 07:02 Dose: 3 ml Documented by: Chlorhexidine Gluconate (Chlorhexidine 15 Ml) 15 ml PO BID [facility] Last Admin: 02/07/20 12:08 Dose: 15 ml Documented by: Dexamethasone Sodium Phosphate (Dexamethasone 10 Mg/Ml Vial) 6 mg IV DAILY [facility] Stop: 02/09/20 10:01 Last Admin: 02/07/20 12:08 Dose: 6 mg Documented by: Dextrose (Dextrose 50%-Water 25 Gm/50 Ml Disp.Syrin) 0 gm IV X1 PRN; Protocol PRN Reason: Hypoglycemia Glucagon (Glucagon 1 Mg/Ml Syringe) 1 mg IM .X1 PRN PRN Reason: Hypoglycemia Heparin Sodium (Porcine) (Heparin Injection (Vial) 5,000 Unit/Ml Vial) 0 unit IV UD PRN; Protocol PRN Reason: dose adjustment Last Admin: 02/06/20 17:12 Dose: 1,000 unit Documented by: Sodium Chloride () 250 mls @ 15 mls/hr IV .[id number] PRN PRN Reason: Saline Flush Last Infusion: 02/03/20 05:05 Dose: 0 mls/hr Documented by: Sodium Chloride () 250 mls @ 15 mls/hr IV .[id number] PRN PRN Reason: Additional IVPB Infusion Pantoprazole Sodium 40 mg/ (Sodium Chloride) 110 mls @ 330 mls/hr IV Q12 [facility] Last Infusion: 02/07/20 01:11 Dose: Infused Documented by: Heparin Sodium/Dextrose () 25,000 units in 250 mls @ 11 mls/hr IV .[id number] [facility]; Protocol Last Titration: 02/07/20 11:00 Dose: 700 units/hr, 7 mls/hr Documented by: Piperacillin Sod/Tazobactam (Sod 3.375 gm/ Sodium Chloride) 50 mls @ 12.5 mls/hr IV Q12 [facility] Last Infusion: 02/07/20 02:37 Dose: Infused Documented by: Diltiazem HCl 125 mg/ Dextrose 125 mls @ 5 mls/hr IV .Q25H [facility]; Protocol Last Admin: 02/07/20 04:57 Dose: 10 mg/hr, 10 mls/hr Documented by: Fentanyl Citrate 1,000 mcg/ (Sodium Chloride) 100 mls @ 5 mls/hr CONT INF .Q20H [facility]; Protocol Dexmedetomidine HCl 400 mcg/ (Sodium Chloride) 100 mls @ 9.363 mls/hr CONT INF .[id number] [facility]; Protocol Last Admin: 02/07/20 11:27 Dose: 0.9 mcg/kg/hr, 16.9 mls/hr Documented by: Enteral Nutritional Formula (Vital Af 1.2 Georgi Liquid) 1,000 mls @ 60 mls/hr GT .[id number] [facility] Last Admin: 02/07/20 12:08 Dose: 60 mls/hr Documented by: Insulin Human Lispro (Insulin Lispro 100 Unit/Ml Insuln.Pen) 0 unit SC Q6 [facility]; Protocol Last Admin: 02/07/20 12:02 Dose: Not Given Documented by: Metoprolol Tartrate (Metoprolol Tartrate 25 Mg Tablet) 25 mg PO BID [facility] Last Admin: 02/07/20 11:20 Dose: Not Given Documented by: Ondansetron HCl (Ondansetron 4 Mg/2 Ml Vial) 4 mg IV Q8H PRN PRN PRN Reason: NAUSEA/VOMITING Quetiapine Fumarate (Quetiapine 25 Mg Tablet) 25 mg GT BID [facility] Last Admin: 02/07/20 12:08 Dose: 25 mg Documented by: Senna/Docusate Sodium (Senna/Docusate Sodium 1 Tablet) 2 tablet GT BID PRN PRN PRN Reason: Constipation Sodium Chloride (0.9% Saline Lock 10 Ml Syringe) 10 - 40 ml IV UD PRN PRN Reason: SALINE FLUSH Last Admin: 02/06/20 16:54 Dose: 20 ml Documented by: Medical Necessity - Tobacco Use Smoking Status: Current every day smoker Tobacco Use: Cigarettes Assessment/Plan All Active Problems (Last Reviewed 01/03/20 @ 09:52 by Mercedes Smart) Respiratory failure (Acute) Pneumonia due to COVID-19 virus (Acute) Pneumonia (Acute) Bronchitis (Acute) History of total hip replacement (Resolved) History of total knee replacement (TKR) (Resolved) Tail bone pain (Acute) Hx of bilateral hip replacements (Resolved) History and physical examination, immigration (Acute) GERD (gastroesophageal reflux disease) (Acute) Fatigue (Acute) Dyspnea on minimal exertion (Acute) Ankle fracture, right (Acute) Actinic keratitis (Acute) Weakness (Acute) DOROTHY ATN with COVID-19 and shock Respiratory failure multifactorial s/p intubation COVID-19 pneumonia COPD Shock Shock liver Scr 4.4 from 3.4 d/w pulmonary and will remove also some fluid with dialysis today per the request consent the patient had to be reintubated. UF as tolerated dialysis today. can use diuretics prn keep MAP>65 dose abx per pharmacy Will f/u.
--- NOTE | 2020-02-07 12:50 | RAD_ITS ---
STUDY: X-RAY CHEST REASON FOR EXAM: Female, 69 years old. REINSERTION OF OG. TECHNIQUE: Single AP portable view of the chest. COMPARISON: Comparison is made with prior examination done earlier in the day at 9:41 AM. FINDINGS: The orogastric tube has been repositioned. The tip is just distal to the gastroesophageal junction most likely within a small hiatal hernia. Persistent infiltrate at the left lung base. All the support tubes are in good position and unchanged. RAD/Chest 1 View (Portable) IMPRESSION: The tip of the orogastric tube is just past the gastroesophageal junction most likely within the hiatal hernia. Electronically Signed: Clifford Edwards, at 13:21 EST , Service support ,
--- NOTE | 2020-02-07 15:10 | RAD_ITS ---
STUDY: X-RAY - ABDOMEN/PELVIS REASON FOR EXAM: Female, 69 years old. ng tube placement TECHNIQUE: Single AP view of the abdomen / pelvis. COMPARISON: Comparison is made with prior study done earlier in the day. FINDINGS: The tip of the orogastric tube is at the level of the gastroesophageal junction. RAD/Abdomen Single View IMPRESSION: The tip of the orogastric tube is at the level of the gastroesophageal junction. Electronically Signed: Clifford Edwards, at 15:33 EST , Service support ,
--- NOTE | 2020-02-07 15:42 | PCM.PN.ID ---
Patient Problems: Active and Suspected Problems (Last Reviewed 01/03/20 @ 09:52 by Mercedes Smart) Respiratory failure (Acute) Pneumonia due to COVID-19 virus (Acute) Subjective: Extubated and reintubated this AM. No fever. - Physical Exam Vitals/I&O's: Vital Signs Temp Pulse Resp BP Pulse Ox 99.2 F H 106 H 27 H 117/77 95 02/07/20 12:00 02/07/20 15:00 02/07/20 15:00 02/07/20 15:00 02/07/20 15:00 Oxygen Flow Rate (L/min) 6 Oxygen Delivery Method Mechanical Ventilator Weight: 74.9 kg Body Mass Index (BMI) 26.8 Finger Stick Blood Glucose 88 Intake and Output for Last 24 Hours 02/05/20 02/06/20 02/07/20 23:59 23:59 23:59 Intake Total 2276.04 / 2819.24 2342.61 / 2442.21 998.43 / 998.43 Output Total 365 / 465 950 / 950 410 / 410 Balance 1911.04 / 2354.24 1392.61 / 1492.21 588.43 / 588.43 General: Non-Cooperative Lungs: Diminished Cardiovascular: Tachycardic Abdomen: Soft, Non Tender, Non-Distended Skin: No rashes Microbiology Past 72 Hours 02/03/20 07:40 Sputum, Induced/Lukens Gram Stain - Final 02/03/20 07:40 Sputum, Induced/Lukens Respiratory Culture - Preliminary Possible Fungus 02/02/20 01:03 Blood Culture (Wb) #2 - Left Hand Blood Culture - Preliminary No growth in 48 hours. 02/02/20 18:18 Blood Culture (Wb) #2 - No Site/Description Given Blood Culture - Preliminary No growth in 48 hours. 02/02/20 18:45 Urine Catheter - Miles Urine Culture - Final Culture exhibits no growth. Laboratory Results 02/06/20 12:31: POC Glucose 144 H 02/06/20 16:21: POC Glucose 181 H 02/06/20 16:45: APTT 42.7 H 02/06/20 23:30: APTT 63.4 H 02/06/20 23:37: POC Glucose 165 H 02/07/20 05:10: WBC 25.7 H, RBC 3.62 L, Hgb 9.0 L, Hct 28.6 L, MCV 79.0 L, MCH 24.9 L, MCHC 31.5 L, RDW Std Deviation 48.9 H, RDW Coeff of Charlie 17.1 H, Plt Count 329, MPV 11.7 02/07/20 05:10: Sodium 140, Potassium 4.3, Chloride 104, Carbon Dioxide 24.0, Anion Gap 12, BUN 66 H, Creatinine 4.40 H, Estim Creat Clear Calc 10.13, Est GFR (MDRD) Af Amer 13 L, Est GFR (MDRD) Non-Af 11 L, BUN/Creatinine Ratio 15.0, Glucose 116 H, Calcium 7.9 L 02/07/20 05:10: PT 19.7 H, INR 1.7 02/07/20 05:10: APTT 47.3 H 02/07/20 12:05: APTT 68.3 H Current Medications Albuterol Sulfate (Albuterol 2.5 Mg/3 Ml Vial.Neb.) 2.5 mg INHALATION Q2H PRN PRN PRN Reason: SOB/Wheezing Albuterol/Ipratropium (Ipratropium/Albuterol Sulfate 3 Ml Ampul.Neb) 3 ml INHALATION Q4HWA.RT LILA Last Admin: 02/07/20 15:32 Dose: 3 ml Documented by: Chlorhexidine Gluconate (Chlorhexidine 15 Ml) 15 ml PO BID LILA Last Admin: 02/07/20 12:08 Dose: 15 ml Documented by: Dexamethasone Sodium Phosphate (Dexamethasone 10 Mg/Ml Vial) 6 mg IV DAILY LILA Stop: 02/09/20 10:01 Last Admin: 02/07/20 12:08 Dose: 6 mg Documented by: Dextrose (Dextrose 50%-Water 25 Gm/50 Ml Disp.Syrin) 0 gm IV X1 PRN; Protocol PRN Reason: Hypoglycemia Glucagon (Glucagon 1 Mg/Ml Syringe) 1 mg IM .X1 PRN PRN Reason: Hypoglycemia Heparin Sodium (Porcine) (Heparin Injection (Vial) 5,000 Unit/Ml Vial) 0 unit IV UD PRN; Protocol PRN Reason: dose adjustment Last Admin: 02/06/20 17:12 Dose: 1,000 unit Documented by: Sodium Chloride () 250 mls @ 15 mls/hr IV .[id number] PRN PRN Reason: Saline Flush Last Infusion: 02/03/20 05:05 Dose: 0 mls/hr Documented by: Sodium Chloride () 250 mls @ 15 mls/hr IV .[id number] PRN PRN Reason: Additional IVPB Infusion Pantoprazole Sodium 40 mg/ (Sodium Chloride) 110 mls @ 330 mls/hr IV Q12 LILA Last Infusion: 02/07/20 13:41 Dose: Infused Documented by: Heparin Sodium/Dextrose () 25,000 units in 250 mls @ 11 mls/hr IV .[id number] LILA; Protocol Last Titration: 02/07/20 15:00 Dose: 700 units/hr, 7 mls/hr Documented by: Piperacillin Sod/Tazobactam (Sod 3.375 gm/ Sodium Chloride) 50 mls @ 12.5 mls/hr IV Q12 LILA Last Admin: 02/07/20 13:47 Dose: 12.5 mls/hr Documented by: Diltiazem HCl 125 mg/ Dextrose 125 mls @ 5 mls/hr IV .Q25H LILA; Protocol Last Titration: 02/07/20 15:00 Dose: 10 mg/hr, 10 mls/hr Documented by: Fentanyl Citrate 1,000 mcg/ (Sodium Chloride) 100 mls @ 5 mls/hr CONT INF .Q20H LILA; Protocol Last Titration: 02/07/20 15:00 Dose: 100 mcg/hr, 10 mls/hr Documented by: Dexmedetomidine HCl 400 mcg/ (Sodium Chloride) 100 mls @ 9.363 mls/hr CONT INF .[id number] [facility]; Protocol Last Titration: 02/07/20 15:00 Dose: 0.9 mcg/kg/hr, 16.9 mls/hr Documented by: Enteral Nutritional Formula (Vital Af 1.2 Georgi Liquid) 1,000 mls @ 60 mls/hr GT .[id number] [facility] Insulin Human Lispro (Insulin Lispro 100 Unit/Ml Insuln.Pen) 0 unit SC Q6 [facility]; Protocol Last Admin: 02/07/20 12:02 Dose: Not Given Documented by: Metoprolol Tartrate (Metoprolol Tartrate 25 Mg Tablet) 25 mg PO BID LILA Last Admin: 02/07/20 11:20 Dose: Not Given Documented by: Ondansetron HCl (Ondansetron 4 Mg/2 Ml Vial) 4 mg IV Q8H PRN PRN PRN Reason: NAUSEA/VOMITING Quetiapine Fumarate (Quetiapine 25 Mg Tablet) 25 mg GT BID LILA Senna/Docusate Sodium (Senna/Docusate Sodium 1 Tablet) 2 tablet GT BID PRN PRN PRN Reason: Constipation Sodium Chloride (0.9% Saline Lock 10 Ml Syringe) 10 - 40 ml IV UD PRN PRN Reason: SALINE FLUSH Last Admin: 02/06/20 16:54 Dose: 20 ml Documented by: Medical Necessity - Tobacco Use Smoking Status: Current every day smoker Tobacco Use: Cigarettes Route of nutrition/ use of supplements: [] Nutritional Intake: [] IV Site: [] Miles Catheter: [] - Assessment/Plan Antibiotics: [] Assessment/Plan: [] Active and Suspected Problems (Last Reviewed 01/03/20 @ 09:52 by Mercedes Smart) Respiratory failure (Acute) Pneumonia due to COVID-19 virus (Acute) septic shock with DOROTHY, resp failure, massive transaminitis, and covid - dx 01/30/20 at [place]. D-dimer was just above normal limit there. Lactate 11.9 here, ALT 16k, d-dimer 5.6 here, INR 7.7. On dex IV. CT with ? gallbladder inflammation. Cont zosyn. LFT better. Sputum with some fungus seen. Off pressors. Unable to do remdesivir due to high ALT. Will follow
[2020-02-07 17:02] LABS: Bedside Glucose 130 mg/dL (70-110)
[2020-02-07 18:50] LABS: Partial Thromboplast Time 113.6 Seconds (24.1-36.2)
--- NOTE | 2020-02-07 20:07 | NURSING ---
Physician made aware, when attempting to place pt on 15mg of Cardizem it dropped her BP, ok to leave on 10mg for this time
--- NOTE | 2020-02-07 20:25 | DIALYSIS ---
Hemodialysis completed 3 hours on a 3K 2.5 Ca bath at Max flows via left IJ dialysis catheter. Goal was for 1 liter fluid removal however patient did not tolerate the fluid removal dropping BP into the 80's systolic several times. As a result NO FLUID WAS REMOVED this treatment. Next treatment per Nephrology. See flow sheet for details.
[2020-02-07 21:45] LABS: Bedside Glucose 106 mg/dL (70-110)
[2020-02-08] VITALS (40 sets, daily range): BP systolic 93–130; BP diastolic 47–84; PULSE 92–116; RESP 14–33; TEMP 36.5–38; O2SAT 89–94
[2020-02-08] MEDS: Ipratropium/Albuterol Sulfate 3 ML AMPUL.NEB INHALATION ×5 (00:09→18:47)
[2020-02-08 02:56] LABS: Bedside Glucose 139 mg/dL (70-110)
[2020-02-08 04:13] LABS: Hematocrit 23.9 % (37-47); Hemoglobin 7.6 g/dL (12.0-15.0); Mean Corp Hgb Conc 31.8 g/dL (32-36); Mean Corpuscular Hgb 24.9 pg (27.0-32.0); Mean Corpuscular Volume 78.4 fL (81-99); Platelet Count 214 K/mm3 (150-450); RBC Distribution Width CV 17.1 % (11.6-14.6); RBC Distribution Width SD 48.5 fl (35.1-43.9); Red Blood Count 3.05 M/mm3 (4.2-5.4); White Blood Count 22.4 K/mm3 (4.4-11.0)
[2020-02-08 04:25] LABS: International Normalized Ratio 1.4; Prothrombin Time (Protime)PT. 16.5 SECONDS (11.7-14.9)
[2020-02-08 04:28] LABS: Anion Gap 6 (5-15); BUN 38 mg/dL (7-18); BUN/Creat Ratio 13.1 RATIO (10-20); Calcium,Total 7.7 mg/dL (8.5-10.1); Chloride 104 mmol/L (98-107); Creatinine, Serum 2.89 mg/dL (0.55-1.02); EST Glomerular Filtration Rate 17 mL/min (>60); Est Glom Filt Rate - Afr Amer 21 mL/min (>60); Estimated Creatinine Clearance 15.42 ml/min; Glucose 125 mg/dL (74-106); Potassium 3.8 mmol/L (3.5-5.1); Sodium Level 139 mmol/L (136-145)
[2020-02-08] MEDS: Heparin Injection (Vial) 5,000 UNIT/ML VIAL IV ×2 (04:51→18:59)
--- NOTE | 2020-02-08 05:46 | PCM.PN.INT ---
Subjective: The patient was seen and examined at the bedside this morning. Events from the last 24 hours have been reviewed. The patient currently has some low-grade fevers, but remains hemodynamically stable. She remains on Precedex and fentanyl for sedation. The patient also remains on antimicrobials, Decadron and a continuous Cardizem infusion. Creatinine has improved this morning to 2.89. The patient did tolerate dialysis yesterday. However, no fluid was able to be removed as the patient became hypotensive. The patient is currently documented to be overall net +9.2 L for the hospital admission. OG tube was unable to be placed by the nursing staff yesterday. Hemoglobin is down this morning to 7.6 g/dL. Objective: The patient's most recent lab work, culture data and imaging studies have all been personally reviewed. Respiratory viral panel was negative. Strep and urine Legionella antigens were negative. Sputum culture dated February 02 revealed possible fungus. General: - - Remains intubated, sedated and mechanically ventilated. HEENT: Atraumatic, PERRLA, Normocephalic Oral: No Gingival or Mucosal Lesions/ Ulcerations, - - Endotracheal tube remains in place Neck: Supple, No Nodes, Trachea Midline, - - Stable HD line and triple-lumen catheter Lungs: No rhonchi, No wheeze, No rales, Diminished, Tachypneic Cardiovascular: Normal S1, Normal S2, Irregular Rate, Tachycardic Abdomen: Bowel Sounds Present, Soft, Non Tender Extremities: No clubbing, No cyanosis, Edema Skin: - - No significant change from previous. Musculoskeletal: No Tenderness to Palpation of Joints or Extremities Lymphatic: No Cervical, Supraclavicular, or Inguinal Adenopathy Neurological: - - No focal neurological deficits. Attempt to move extremities spontaneously. Remains sedated on the ventilator. Psych/Mental Status: - - Intermittently agitated and restless. Vital Signs Temp Pulse Resp BP Pulse Ox 100.1 F H 96 20 H 102/66 90 02/08/20 05:00 02/08/20 05:00 02/08/20 05:00 02/08/20 05:00 02/08/20 05:00 Oxygen Flow Rate (L/min) 40 Oxygen Delivery Method Mechanical Ventilator Weight: 165 lb 2.02 oz Body Mass Index (BMI) 26.8 Finger Stick Blood Glucose 88 Intake and Output for Last 24 Hours 02/06/20 02/07/20 02/08/20 23:59 23:59 23:59 Intake Total 2342.61 / 2442.21 1530.02 / 1577.52 311.12 / 311.12 Output Total 950 / 950 610 / 610 50 / 50 Balance 1392.61 / 1492.21 920.02 / 967.52 261.12 / 261.12 Labs (Last 48 Hours) 02/02/20 02/06/20 02/06/20 20:50 06:35 08:45 WBC RBC Hgb Hct MCV MCH MCHC RDW Std Deviation RDW Coeff of Charlie Plt Count MPV PT INR APTT Cancelled Sodium Potassium Chloride Carbon Dioxide Anion Gap BUN Creatinine Estim Creat Clear Calc Est GFR (MDRD) Af Amer Est GFR (MDRD) Non-Af BUN/Creatinine Ratio Glucose Calcium POC Glucose 136 H Crossmatch See Detail 02/06/20 02/06/20 02/06/20 08:45 12:31 16:21 WBC RBC Hgb Hct MCV MCH MCHC RDW Std Deviation RDW Coeff of Charlie Plt Count MPV PT 21.7 H INR 2.0 APTT 63.2 H Sodium Potassium Chloride Carbon Dioxide Anion Gap BUN Creatinine Estim Creat Clear Calc Est GFR (MDRD) Af Amer Est GFR (MDRD) Non-Af BUN/Creatinine Ratio Glucose Calcium POC Glucose 144 H 181 H Crossmatch 02/06/20 02/06/20 02/06/20 16:45 23:30 23:37 WBC RBC Hgb Hct MCV MCH MCHC RDW Std Deviation RDW Coeff of Charlie Plt Count MPV PT INR APTT 42.7 H 63.4 H Sodium Potassium Chloride Carbon Dioxide Anion Gap BUN Creatinine Estim Creat Clear Calc Est GFR (MDRD) Af Amer Est GFR (MDRD) Non-Af BUN/Creatinine Ratio Glucose Calcium POC Glucose 165 H Crossmatch 02/07/20 02/07/20 02/07/20 05:10 05:10 05:10 WBC 25.7 H RBC 3.62 L Hgb 9.0 L Hct 28.6 L MCV 79.0 L MCH 24.9 L MCHC 31.5 L RDW Std Deviation 48.9 H RDW Coeff of Charlie 17.1 H Plt Count 329 MPV 11.7 PT 19.7 H INR 1.7 APTT Sodium 140 Potassium 4.3 Chloride 104 Carbon Dioxide 24.0 Anion Gap 12 BUN 66 H Creatinine 4.40 H Estim Creat Clear Calc 10.13 Est GFR (MDRD) Af Amer 13 L Est GFR (MDRD) Non-Af 11 L BUN/Creatinine Ratio 15.0 Glucose 116 H Calcium 7.9 L POC Glucose Crossmatch 02/07/20 02/07/20 02/07/20 05:10 11:53 12:05 WBC RBC Hgb Hct MCV MCH MCHC RDW Std Deviation RDW Coeff of Charlie Plt Count MPV PT INR APTT 47.3 H 68.3 H Sodium Potassium Chloride Carbon Dioxide Anion Gap BUN Creatinine Estim Creat Clear Calc Est GFR (MDRD) Af Amer Est GFR (MDRD) Non-Af BUN/Creatinine Ratio Glucose Calcium POC Glucose 130 H Crossmatch 02/07/20 02/07/20 02/07/20 18:16 18:20 23:56 WBC RBC Hgb Hct MCV MCH MCHC RDW Std Deviation RDW Coeff of Charlie Plt Count MPV PT INR APTT 113.6 H* Sodium Potassium Chloride Carbon Dioxide Anion Gap BUN Creatinine Estim Creat Clear Calc Est GFR (MDRD) Af Amer Est GFR (MDRD) Non-Af BUN/Creatinine Ratio Glucose Calcium POC Glucose 106 139 H Crossmatch 02/08/20 02/08/20 02/08/20 04:00 04:00 04:00 WBC 22.4 H RBC 3.05 L Hgb 7.6 L Hct 23.9 L MCV 78.4 L MCH 24.9 L MCHC 31.8 L RDW Std Deviation 48.5 H RDW Coeff of Charlie 17.1 H Plt Count 214 MPV 11.0 PT 16.5 H INR 1.4 APTT 37.0 H Sodium 139 Potassium 3.8 Chloride 104 Carbon Dioxide 29.0 Anion Gap 6 BUN 38 H Creatinine 2.89 H Estim Creat Clear Calc 15.42 Est GFR (MDRD) Af Amer 21 L Est GFR (MDRD) Non-Af 17 L BUN/Creatinine Ratio 13.1 Glucose 125 H Calcium 7.7 L POC Glucose Crossmatch Microbiology 02/03/20 07:40 Sputum, Induced/Lukens Gram Stain - Final 02/03/20 07:40 Sputum, Induced/Lukens Respiratory Culture - Preliminary Possible Fungus Clinical Impression(s) from Imaging Studies Chest X-Ray 02/02/20 18:15 IMPRESSION: Lines and tubes as described. Consider advancing the nasogastric tube. Bilateral widespread pulmonary opacities most pronounced on the left. Electronically Signed: Jasen Diego MD at 19:14 EST , Service support , KUB X-Ray 02/02/20 20:15 KUB X-Ray 02/02/20 22:05 IMPRESSION: OGT in is in similar position to the prior study Recommend advancing at 2304 Reported and signed by: Tracee Clark DO Electronically Signed: Tracee Clark DO at 23:03 EST Tel , Service support , ADDENDUM: 02/02/20 2317 IMPRESSION: OGT in is in similar position to the prior study Recommend advancing at 2304 Reported and signed by: Tracee Clark DO N.B. : Nancy Dodge RN, confirmed on 02/02/2020 23:10:30 (ET) that the healthcare facility has received the radiology report. Electronically Signed: Tracee Clark DO at 23:03 EST Tel , Service support , Chest X-Ray 02/03/20 05:55 IMPRESSION: ET tube similar Interval advancement of NG tube with the tip at least in the body of the stomach but not visualized on this study There is improving aeration in the left lung apex as well as the left lung base. Interstitial thickening is again noted as well as bibasilar airspace opacities at 0656 Reported and signed by: Tracee Clark DO Electronically Signed: Tracee Clark DO at 6:55 EST Tel , Service support , KUB X-Ray 02/03/20 10:40 IMPRESSION: The tip of the orogastric tube is in the distal portion of the stomach. Electronically Signed: Clifford Edwards, at 12:00 EST , Service support , Abdomen Ultrasound 02/03/20 11:13 IMPRESSION: The gallbladder gómez of the upper limits of normal. The gallbladder appears mildly contracted. No stones. Negative sonographic Vilchis sign Question minimal pericholecystic edema/fluid If patient's symptoms persist then consider a nuclear medicine hepatobiliary scan for further evaluation Negative sonographic Vilchis sign Right renal cyst Mild ascites Small right pleural effusion Hepatic steatosis at 2205 Reported and signed by: Tracee Clark DO Electronically Signed: Tracee Clark DO at 22:04 EST Tel , Service support , Chest X-Ray 02/03/20 12:27 IMPRESSION: A right-sided central venous catheter has been placed with the tip at the junction of the superior vena cava and right atrium. Since prior study, there has been improved aeration of both lungs although residual CHF persists as well as left lower lobe infiltrate. Electronically Signed: Clifford Edwards, at 13:07 EST , Service support , Brain CT 02/03/20 16:08 IMPRESSION: Chronic involutional changes of the brain. No change and no acute abnormality. Electronically Signed: Jasen Diego MD at 22:35 EST , Service support , Chest CT 02/03/20 16:08 IMPRESSION: Small bilateral pleural effusions Emphysema Fibrotic changes as discussed There are consolidative infiltrate seen with the lung bases left greater than right NG tube is seen with the tip in the stomach with hyperdense fluid surrounding the tube in the esophagus most likely contrast. This may be secondary to reflux. Correlate clinically ET tube with the tip approximately 3.6 cm proximal to the julia Right central venous catheter with the tip the cavoatrial junction Borderline cardiomegaly with coronary artery calcifications There is mediastinal adenopathy. Individualized dose optimization techniques were used for this CT. at 2245 Reported and signed by: Tracee Clark DO Electronically Signed: Tracee Clark DO at 22:44 EST Tel , Service support , Abdomen CT 02/03/20 16:09 IMPRESSION: Gallbladder wall thickening and edema. Correlate clinically for cystitis Pancreas is grossly unremarkable. Minimal fat stranding seen near the tail the pancreas I suspect is secondary to perirenal fat stranding however I would correlate clinically for pancreatitis Enlarged bilateral adrenal glands as discussed. Recommend MRI follow-up with a adrenal protocol for further evaluation Small amount of ascites as discussed. NG tube with the tip in the stomach. Suspect reflux of contrast into the esophagus Poor distention of the colon. I cannot exclude wall thickening. Correlate clinically for colitis Individualized dose optimization techniques were used for this CT. at 2256 Reported and signed by: Tracee Clark DO Electronically Signed: Tracee Clark DO at 22:55 EST Tel , Service support , Chest X-Ray 02/05/20 10:37 IMPRESSION: A left-sided dialysis catheter has been placed with the tip at the junction of the superior vena cava and right atrium. The remainder of the examination is unchanged. Electronically Signed: Clifford Jerry, at 11:29 EST , Service support , KUB X-Ray 02/07/20 00:56 IMPRESSION: Lines and tubes as described. Recommend advancing the nasogastric tube approximately 10 cm. Chronic interstitial lung disease/bronchitis versus diffuse interstitial pneumonia not excluded. Electronically Signed: Zayda Santos MD at 1:30 EST , Service support , Chest X-Ray 02/07/20 09:40 IMPRESSION: All the support tubes are in good position. Since prior study, there has been improved aeration with residual changes persisting at both lung bases more prominent on the left side. Electronically Signed: Clifford Edwards, at 9:57 EST , Service support , Chest X-Ray 02/07/20 12:50 IMPRESSION: The tip of the orogastric tube is just past the gastroesophageal junction most likely within the hiatal hernia. Electronically Signed: Clifford Edwards, at 13:21 EST , Service support , KUB X-Ray 02/07/20 15:10 IMPRESSION: The tip of the orogastric tube is at the level of the gastroesophageal junction. Electronically Signed: Clifford Edwards, at 15:33 EST , Service support , Medical Necessity - Tobacco Use Smoking Status: Current every day smoker Tobacco Use: Cigarettes Assessment/Plan All Active Problems (Last Reviewed 01/03/20 @ 09:52 by Mercedes Smart) Respiratory failure (Acute) Pneumonia due to COVID-19 virus (Acute) Pneumonia (Acute) Bronchitis (Acute) History of total hip replacement (Resolved) History of total knee replacement (TKR) (Resolved) Tail bone pain (Acute) Hx of bilateral hip replacements (Resolved) History and physical examination, immigration (Acute) GERD (gastroesophageal reflux disease) (Acute) Fatigue (Acute) Dyspnea on minimal exertion (Acute) Ankle fracture, right (Acute) Actinic keratitis (Acute) Weakness (Acute) RECOMMENDATIONS: 1. Continue current supportive measures with invasive mechanical ventilatory support. Wean FiO2 to maintain oxygen saturations at or above 90%. 2. Continue fentanyl and Precedex for sedation. Continue Seroquel as well. 3. Send type and screen, given anemia. Transfuse if hemoglobin drops below 7 g/dL. 4. Place OG tube and restart tube feeds. 5. Continue Cardizem infusion. Once OG is placed, increase beta-maeve dose. 6. Continue scheduled bronchodilators. 7. Continue antimicrobials per ID recommendations. Will obtain repeat sputum culture. 8. Continue Decadron to complete treatment course. 9. Continue heparin infusion. IMPRESSIONS: 1. Acute hypoxemic respiratory failure secondary to COVID-19 pneumonia Plan to continue current supportive measures including invasive mechanical ventilatory support, with a goal to wean FiO2 and PEEP to maintain oxygen saturations at or above 90%. Although the patient was initially extubated on the morning of February 06, she subsequently declined from a respiratory perspective and required reintubation. Therefore, we will plan to continue current supportive measures including antimicrobials, bronchodilators and Decadron. Recommend volume optimization either by ultrafiltration or IV diuretics per nephrology recommendations. Tube feeds will be continued as tolerated. 2. Septic shock Concern for Covid as precipitating etiology versus possible community-acquired pneumonia as well. Continue empiric antimicrobials as noted above. The patient remains off of vasopressor support. 3. Atrial fibrillation with RVR Continue current medical management including systemic anticoagulation, Cardizem and beta-maeve. 4. Acute liver injury Improving. Suspect related to hemodynamic instability with subsequent shock liver. Continue supportive measures as noted above. 5. Acute kidney injury Likely prerenal in etiology with a component of ischemic ATN in the setting of septic shock. The patient did tolerate dialysis with some improvement in urine output. Nephrology is currently following to assist with ongoing hemodialysis needs. 6. History of DVT/chronic anticoagulation status with presenting coagulopathy Plan to continue systemic anticoagulation with continuous heparin infusion. TIME: 35 minutes of critical care time, independent of procedures, was spent addressing the patient's acute hypoxemic respiratory failure secondary to Covid pneumonia, septic shock, atrial fibrillation with RVR, acute kidney injury, acute liver injury, history of DVT, review of all data and collaboration with the care team. ([id number]) [id number] Critical care first hour
[2020-02-08] MEDS: TITRATION PARAMETER CHANGE 1 EACH IV (06:16)
[2020-02-08 07:20] LABS: Base Excess 1 mmol/L (-2 to +2); Bicarbonate 24.9 mmol/L (22-26); Blood Gas Specimen Type ART; FI02 35; Mode AC; O2 Delivery Device Adult Vent; PEEP 5; PO2 60 mmHG (75-100); RR 14; SITE R Brach; SO2 93 % (95-99); Total Carbon Dioxide 26 mmol/L; Vt 450; pCO2 33.9 mmHg (35-45); pH 7.48 (7.35-7.45)
--- NOTE | 2020-02-08 07:23 | PCM.PN.HOSP ---
Patient Problems: Active and Suspected Problems (Last Reviewed 01/03/20 @ 09:52 by Mercedes Smart) Respiratory failure (Acute) Pneumonia due to COVID-19 virus (Acute) Reason for Visit: COVID-19 pneumonia Acute kidney injury Subjective: Patient was reintubated on 02/07/2020?she deteriorated following extubation on the same morning. Had dialysis the day prior creatinine down to 2.48 from 4.4 the day prior. Objective: GENERAL: sedated on the vent HEENT: Atraumatic; ET tube in place EYES; Anicteric, Normal Conjunctiva NECK; supple, normal thyroid, RESPIRATORY: Diminished to auscultation CARDIOVASCULAR: Regular S1 S2, GI: soft, normoactive bowel sounds, : No Renal angle tenderness; EXTREMITIES: No edema, no clubbing, MUSCULOSKELETAL: no muscle waisting NEURO: sedated on the vent SKIN: No Rash Vitals/I&O's: Vital Signs Temp Pulse Resp BP Pulse Ox 100.2 F H 108 H 33 H 106/66 89 02/08/20 06:00 02/08/20 06:56 02/08/20 06:56 02/08/20 06:00 02/08/20 06:56 Oxygen Flow Rate (L/min) 40 Oxygen Delivery Method Mechanical Ventilator Weight: 72.4 kg Body Mass Index (BMI) 26.8 Finger Stick Blood Glucose 88 Intake and Output for Last 24 Hours 02/06/20 02/07/20 02/08/20 23:59 23:59 23:59 Intake Total 2342.61 / 2442.21 1530.02 / 1577.52 384.02 / 384.02 Output Total 950 / 950 610 / 610 95 / 95 Balance 1392.61 / 1492.21 920.02 / 967.52 289.02 / 289.02 Microbiology Past 72 Hours 02/02/20 18:18 Blood Culture (Wb) #2 - No Site/Description Given Blood Culture - Final No growth in 5 days. 02/02/20 01:03 Blood Culture (Wb) #2 - Left Hand Blood Culture - Final No growth in 5 days. 02/03/20 07:40 Sputum, Induced/Lukens Gram Stain - Final 02/03/20 07:40 Sputum, Induced/Lukens Respiratory Culture - Preliminary Possible Fungus 02/02/20 18:45 Urine Catheter - Miles Urine Culture - Final Culture exhibits no growth. Laboratory Results 02/07/20 11:53: POC Glucose 130 H 02/07/20 12:05: APTT 68.3 H 02/07/20 18:16: POC Glucose 106 02/07/20 18:20: APTT 113.6 H* 02/07/20 23:56: POC Glucose 139 H 02/08/20 04:00: WBC 22.4 H, RBC 3.05 L, Hgb 7.6 L, Hct 23.9 L, MCV 78.4 L, MCH 24.9 L, MCHC 31.8 L, RDW Std Deviation 48.5 H, RDW Coeff of Charlie 17.1 H, Plt Count 214, MPV 11.0 02/08/20 04:00: Sodium 139, Potassium 3.8, Chloride 104, Carbon Dioxide 29.0, Anion Gap 6, BUN 38 H, Creatinine 2.89 H, Estim Creat Clear Calc 15.42, Est GFR (MDRD) Af Amer 21 L, Est GFR (MDRD) Non-Af 17 L, BUN/Creatinine Ratio 13.1, Glucose 125 H, Calcium 7.7 L 02/08/20 04:00: PT 16.5 H, INR 1.4, APTT 37.0 H 02/08/20 07:13: Specimen Type ART, Sample Site R Brach, pH 7.48 H, Bicarbonate Actual 24.9, Total CO2 26, Base Excess 1, O2 Saturation 93 L, O2 % 35, ABG pCO2 33.9 L, ABG pO2 60 L, Respiration Rate 14, O2 Delivery Device Adult Vent, Vent Mode AC, Tidal Volume 450, POC PEEP 5 Current Medications Albuterol Sulfate (Albuterol 2.5 Mg/3 Ml Vial.Neb.) 2.5 mg INHALATION Q2H PRN PRN PRN Reason: SOB/Wheezing Albuterol/Ipratropium (Ipratropium/Albuterol Sulfate 3 Ml Ampul.Neb) 3 ml INHALATION Q4HWA.RT LILA Last Admin: 02/08/20 06:54 Dose: 3 ml Documented by: Chlorhexidine Gluconate (Chlorhexidine 15 Ml) 15 ml PO BID LILA Last Admin: 02/07/20 20:22 Dose: 15 ml Documented by: Dexamethasone Sodium Phosphate (Dexamethasone 10 Mg/Ml Vial) 6 mg IV DAILY LILA Stop: 12/20/20 10:01 Last Admin: 02/07/20 12:08 Dose: 6 mg Documented by: Dextrose (Dextrose 50%-Water 25 Gm/50 Ml Disp.Syrin) 0 gm IV X1 PRN; Protocol PRN Reason: Hypoglycemia Glucagon (Glucagon 1 Mg/Ml Syringe) 1 mg IM .X1 PRN PRN Reason: Hypoglycemia Heparin Sodium (Porcine) (Heparin Injection (Vial) 5,000 Unit/Ml Vial) 0 unit IV UD PRN; Protocol PRN Reason: dose adjustment Last Admin: 02/08/20 04:51 Dose: 3,000 unit Documented by: Sodium Chloride () 250 mls @ 15 mls/hr IV .[id number] PRN PRN Reason: Saline Flush Last Admin: 02/07/20 19:41 Dose: 15 mls/hr Documented by: Sodium Chloride () 250 mls @ 15 mls/hr IV .[id number] PRN PRN Reason: Additional IVPB Infusion Pantoprazole Sodium 40 mg/ (Sodium Chloride) 110 mls @ 330 mls/hr IV Q12 [facility] Last Infusion: 02/07/20 21:17 Dose: Infused Documented by: Heparin Sodium/Dextrose () 25,000 units in 250 mls @ 11 mls/hr IV .[id number] [facility]; Protocol Last Admin: 02/08/20 05:59 Dose: Not Given Documented by: Piperacillin Sod/Tazobactam (Sod 3.375 gm/ Sodium Chloride) 50 mls @ 12.5 mls/hr IV Q12 [facility] Last Infusion: 02/08/20 02:03 Dose: Infused Documented by: Diltiazem HCl 125 mg/ Dextrose 125 mls @ 5 mls/hr IV .Q25H [facility]; Protocol Last Titration: 02/08/20 06:00 Dose: 10 mg/hr, 10 mls/hr Documented by: Fentanyl Citrate 1,000 mcg/ (Sodium Chloride) 100 mls @ 5 mls/hr CONT INF .Q20H [facility]; Protocol Last Titration: 02/08/20 06:00 Dose: 150 mcg/hr, 15 mls/hr Documented by: Dexmedetomidine HCl 400 mcg/ (Sodium Chloride) 100 mls @ 9.05 mls/hr CONT INF .Q11H3M [facility]; Protocol Last Titration: 02/08/20 06:00 Dose: 1.2 mcg/kg/hr, 22.5 mls/hr Documented by: Enteral Nutritional Formula (Vital Af 1.2 Georgi Liquid) 1,000 mls @ 60 mls/hr GT .[id number] [facility] Last Admin: 02/08/20 03:54 Dose: Not Given Documented by: Insulin Human Lispro (Insulin Lispro 100 Unit/Ml Insuln.Pen) 0 unit SC Q6 [facility]; Protocol Last Admin: 02/08/20 06:15 Dose: Not Given Documented by: Metoprolol Tartrate (Metoprolol Tartrate 25 Mg Tablet) 25 mg PO BID [facility] Last Admin: 02/07/20 20:21 Dose: Not Given Documented by: Ondansetron HCl (Ondansetron 4 Mg/2 Ml Vial) 4 mg IV Q8H PRN PRN PRN Reason: NAUSEA/VOMITING Quetiapine Fumarate (Quetiapine 25 Mg Tablet) 25 mg GT BID [facility] Last Admin: 02/07/20 20:21 Dose: Not Given Documented by: Senna/Docusate Sodium (Senna/Docusate Sodium 1 Tablet) 2 tablet GT BID PRN PRN PRN Reason: Constipation Sodium Chloride (0.9% Saline Lock 10 Ml Syringe) 10 - 40 ml IV UD PRN PRN Reason: SALINE FLUSH Last Admin: 02/06/20 16:54 Dose: 20 ml Documented by: STROKE Vital Signs/Narrative: Vital Signs Temp Pulse Resp BP Pulse Ox 02/08/20 06:56 108 H 33 H 89 02/08/20 06:00 100.2 F H 100 20 H 106/66 93 02/08/20 05:00 100.1 F H 96 20 H 102/66 90 02/08/20 04:16 113 H 26 H 92 02/08/20 04:00 99.7 F H 102 H 22 H 96/61 91 02/08/20 03:46 102 H Medical Necessity - Tobacco Use Smoking Status: Current every day smoker Tobacco Use: Cigarettes Assessment/Plan All Active Problems (Last Reviewed 01/03/20 @ 09:52 by Mercedes Smart) Respiratory failure (Acute) Pneumonia due to COVID-19 virus (Acute) Pneumonia (Acute) Bronchitis (Acute) History of total hip replacement (Resolved) History of total knee replacement (TKR) (Resolved) Tail bone pain (Acute) Hx of bilateral hip replacements (Resolved) History and physical examination, immigration (Acute) GERD (gastroesophageal reflux disease) (Acute) Fatigue (Acute) Dyspnea on minimal exertion (Acute) Ankle fracture, right (Acute) Actinic keratitis (Acute) Weakness (Acute) Patient is a 69-year-old lady transferred from [facility] with progressive shortness of breath. An assessment of acute hypoxic respiratory failure secondary to acute COVID-19 was made. Patient had to be intubated as a result of deteriorating respiratory status 1. Acute hypoxic respiratory failure secondary to COVID-19 pneumonia Admitted to the intensive care unit intubated with consultation placed to pulmonary medicine for vent management -02/04/2020. Vent. Current vent settings reviewed. Case discussed with Dr. Gonzalez with pulmonary -02/05/2020. Patient remains on the vent with no significant improvement -02/06/2020 Underwent dialysis catheter placement on 02/05/2020 initiation of dialysis the day prior. -02/07/2020; Patient was extubated this morning however her respiratory status deteriorated resulting in patient being reintubated -02/08/2020 patient was reintubated on 02/07/2020?she deteriorated following extubation on the same morning. Had dialysis the day prior. 2. Acute COVID-19 pneumonia -Presented with respiratory failure resulting in patient being intubated. Was started on Decadron not a candidate for remdesivir in view of acute kidney injury and impaired liver function -02/05/2020; no significant improvement in patient's condition. Remains on Decadron 3. Septic shock -Secondary to acute COVID-19 pneumonia with suspected superimposed bacterial pneumonia. Patient is on norepinephrine drip as well as Zosyn. 02/04/2020; she was seen in consultation by Dr. Anderson with infectious disease. His notes and recommendations reviewed. CT of the abdomen obtained demonstrated gallbladder thickening 4. Acute kidney injury ?suspected to be secondary to acute tubular necrosis from patient underlying infection. Admitted to the intensive care unit started on IV fluid. Patient kidney function continues to worsen. Consult subsequently placed to nephrology -02/04/2020. Kidney function continues to worsen -02/05/2020. Kidney function continues to worsen plan is for patient to have dialysis catheter placement with initiation of dialysis -02/06/2020 Underwent dialysis catheter placement on 02/05/2020 initiation of dialysis the day prior. Creatinine down to 2.48 6. Hypernatremia -Due to fluid depletion patient is on IV fluid with subsequent monitoring of electrolyte -02/05/2020; sodium levels down to 145 7. Hyperkalemia -due to combination of metabolic acidosis as well as impaired kidney function. Consult placed to nephrology -02/05/2020 resolved 8. Coagulopathy ?patient is on Coumadin for previous DVT involving the left lower extremity. Coumadin on admission was 7.7. Patient was transfused with 2 unit FFP as well as did receive vitamin K INR as of 02/03/2020 is 2.8 -02/05/2020 patient started on heparin drip the day prior. 9. Acute transaminitis ?Secondary to shock liver monitoring LFTs -02/05/2020 patient liver function test continues to improve 10. Anemia - Secondary to chronic disorder monitoring H&H and transfuse if patient becomes symptomatic or hemoglobin falls below 7 11. History of DVT involving the left lower extremity ?on Coumadin held in view of above reasons -02/05/2020; started on heparin drip 12. Essential hypertension ?Patient antihypertensives held in view of patient presenting with low blood pressure 13. DVT prophylaxis -patient was on Coumadin prior to admission no additional measures warranted at this point 02/05/2020 patient on heparin Inpatient E&M: [id number] [facility] L3
[2020-02-08] MEDS: Glycerin/Hypromellose/PEG400 15 ml Bottle 1 DRP EACH EYE (07:58)
--- NOTE | 2020-02-08 09:56 | DIALYSIS ---
No dialysis today per Dr. Shabazz. Will check on patient Monday for possible dialysis (Monday a regular working day for dialysis staff due to holiday schedule)
--- NOTE | 2020-02-08 10:26 | RAD_ITS ---
STUDY: X-RAY - ABDOMEN/PELVIS REASON FOR EXAM: Female, 69 years old. OG INSERTION/ VERIFY PLACEMENT, TECHNIQUE: AP supine and decubitus views of the abdomen and pelvis. COMPARISON: February 07, 2020 FINDINGS: There are lower lung opacities. Feeding tube is coiled in lower chest with the tip at the level of the gastroesophageal junction. There is an unremarkable bowel gas pattern. There is no demonstrated free abdominal air. There is IVC filter. There is scoliosis of the spine. There are bilateral hip replacements. RAD/Abdomen Single View (Portable) IMPRESSION: Feeding tube is coiled in the lower chest. Electronically Signed: Edwin Snowden MD at 13:07 EST , Service support ,
[2020-02-08] MEDS: dexAMETHasone 10 MG/ML Vial 6 MG IV (10:28)
[2020-02-08] MEDS: Chlorhexidine 15 ML PO ×2 (10:29→20:34)
[2020-02-08 12:20] LABS: Bedside Glucose 132 mg/dL (70-110)
[2020-02-08] MEDS: Furosemide 40 MG/4 ML Vial IV (12:24)
[2020-02-08] MEDS: 0.9% Saline Lock 10 ML Syringe IV ×2 (12:24→18:06)
--- NOTE | 2020-02-08 15:40 | RAD_ITS ---
STUDY: X-RAY - ABDOMEN/PELVIS REASON FOR EXAM: Female, 69 years old. OG PLACEMENT ATTEMPT #1 TECHNIQUE: Single AP view of the abdomen / pelvis. COMPARISON: Including earlier the same day FINDINGS: There are lower lung increased opacities.. Stable endotracheal tube and central catheters. Feeding tube is coiled in the esophagus with the tip at the gastroesophageal junction. There is no demonstrated free abdominal air. Mild degenerative change of the spine. RAD/Abdomen Single View (Portable) IMPRESSION: Feeding tube is coiled in the esophagus with the tip at the gastroesophageal junction. Electronically Signed: Edwin Snowden MD at 9:24 EST , Service support ,
--- NOTE | 2020-02-08 15:44 | RAD_ITS ---
STUDY: X-RAY - ABDOMEN/PELVIS REASON FOR EXAM: Female, 69 years old. NG PLACEMENT ATTEMPT #7 TECHNIQUE: Single AP view of the abdomen / pelvis. COMPARISON: Including earlier the same day FINDINGS: There are lower lung increased opacities.. Stable endotracheal tube and central catheters. Feeding tube extends to the gastroesophageal junction. There is no demonstrated free abdominal air. Mild degenerative change of the spine. RAD/Abdomen Single View IMPRESSION: Feeding tube extends to the gastroesophageal junction. Electronically Signed: Edwin Snowden MD at 9:31 EST , Service support ,
[2020-02-08] MEDS: Propofol 200 MG/20 ML Vial 40 MG IV BOLUS (15:46)
--- NOTE | 2020-02-08 15:49 | RAD_ITS ---
STUDY: X-RAY - ABDOMEN/PELVIS REASON FOR EXAM: Female, 69 years old. NG PLACEMENT ATTEMPT #6 TECHNIQUE: Single AP view of the abdomen / pelvis. COMPARISON: Including earlier the same day FINDINGS: There are lower lung increased opacities. Stable endotracheal tube and central catheters. Feeding tube is coiled in the esophagus with the tip at the gastroesophageal junction. There is no demonstrated free abdominal air. Mild degenerative change of the spine. RAD/Abdomen Single View IMPRESSION: Feeding tube is coiled in the esophagus with the tip at the gastroesophageal junction. Electronically Signed: Edwin Snowden MD at 9:30 EST , Service support ,
--- NOTE | 2020-02-08 15:55 | RAD_ITS ---
STUDY: X-RAY - ABDOMEN/PELVIS REASON FOR EXAM: Female, 69 years old. NG PLACEMENT ATTEMPT #5 TECHNIQUE: Single AP view of the abdomen / pelvis. COMPARISON: Including earlier the same day FINDINGS: There are lower lung increased opacities. Stable endotracheal tube and central catheters. Feeding tube is coiled in the neck and extends to the gastroesophageal junction. There is no demonstrated free abdominal air. Mild degenerative change of the spine. RAD/Abdomen Single View IMPRESSION: Feeding tube extends to the gastroesophageal junction. Electronically Signed: Edwin Snowden MD at 9:29 EST , Service support ,
--- NOTE | 2020-02-08 16:01 | RAD_ITS ---
STUDY: X-RAY - ABDOMEN/PELVIS REASON FOR EXAM: Female, 69 years old. ATTEMPT #4, SWITCHED TO NG PLACEMENT TECHNIQUE: Single AP view of the abdomen / pelvis. COMPARISON: Including earlier the same day FINDINGS: There are lower lung increased opacities.. Stable endotracheal tube and central catheters. Feeding tube extends to the gastroesophageal junction. There is no demonstrated free abdominal air. Mild degenerative change of the spine. RAD/Abdomen Single View IMPRESSION: Feeding tube extends to the gastroesophageal junction. Electronically Signed: Edwin Snowden MD at 9:28 EST , Service support ,
--- NOTE | 2020-02-08 16:06 | RAD_ITS ---
STUDY: X-RAY - ABDOMEN/PELVIS REASON FOR EXAM: Female, 69 years old. OG PLACEMENT ATTEMPT #2 TECHNIQUE: Single AP view of the abdomen / pelvis. COMPARISON: Including earlier the same day FINDINGS: There are lower lung increased opacities.. Stable endotracheal tube and central catheters. Feeding tube is coiled in the esophagus with the tip at the gastroesophageal junction. There is no demonstrated free abdominal air. Mild degenerative change of the spine. RAD/Abdomen Single View IMPRESSION: Feeding tube is coiled in the esophagus with the tip at the gastroesophageal junction. Electronically Signed: Edwin Snowden MD at 9:25 EST , Service support ,
--- NOTE | 2020-02-08 16:13 | RAD_ITS ---
STUDY: X-RAY - ABDOMEN/PELVIS REASON FOR EXAM: Female, 69 years old. OG PLACEMENT ATTEMPT #3 TECHNIQUE: Single AP view of the abdomen / pelvis. COMPARISON: Including earlier the same day FINDINGS: There are lower lung increased opacities.. Stable endotracheal tube and central catheters. Feeding tube is coiled in the esophagus with the tip at the gastroesophageal junction. There is no demonstrated free abdominal air. Mild degenerative change of the spine. RAD/Abdomen Single View IMPRESSION: Feeding tube is coiled in the esophagus with the tip at the gastroesophageal junction. Electronically Signed: Edwin Snowden MD at 9:26 EST , Service support ,
[2020-02-08 16:21] LABS: Bedside Glucose 124 mg/dL (70-110)
--- NOTE | 2020-02-08 16:23 | PCM.CONS.GEN ---
Reason for Consult Date of Consultation: 02/08/20 History of Present Illness: The patient is a 69 year old F who is admitted and Covid positive was previously intubated and extubated and required reintubation. After multiple attempts unable to place an NG or OG for nutrition/meds. Past Medical History Past Medical History (Chronic Problems): Chronic Problems (Last Reviewed 01/03/20 @ 09:52 by Mercedes Smart) COPD (chronic obstructive pulmonary disease) (Chronic) Seasonal allergies (Chronic) Asthma-COPD overlap syndrome (Chronic) Essential hypertension (Chronic) COPD without exacerbation (Chronic) COPD with exacerbation (Chronic) Medical History: Medical History (Last Reviewed 01/03/20 @ 09:52 by Mercedes Smart) Pneumonia (Acute) J18.9 Bronchitis (Acute) J40 Tail bone pain (Acute) M53.3 History and physical examination, immigration (Acute) Z02.89 GERD (gastroesophageal reflux disease) (Acute) K21.9 Fatigue (Acute) R53.83 Essential hypertension (Chronic) I10 Dyspnea on minimal exertion (Acute) R06.09 COPD without exacerbation (Chronic) J44.9 COPD with exacerbation (Chronic) J44.1 Ankle fracture, right (Acute) S82.891A Actinic keratitis (Acute) H16.139 Allergies codeine Allergy (Verified 01/03/20 09:51) Unknown Penicillins Allergy (Verified 01/03/20 09:51) Unknown Sulfa (Sulfonamide Antibiotics) Allergy (Verified 01/03/20 09:51) Unknown Home Medications: Ambulatory Orders Medication Instructions Recorded Verapamil [Calan] 240 mg PO DAILY 12/29/12 Aspirin E.C. [Ecotrin] 325 mg PO DAILY 09/30/15 Atenolol [Tenormin] 50 mg PO DAILY 09/30/15 Calcium Carb/Vitamin D [Os-Georgi 2 tab PO DAILY@0800 09/30/15 500MG + D] Dexlansoprazole [Dexilant] 60 mg PO DAILY 09/30/15 Losartan Potassium [Cozaar] 50 mg PO DAILY 09/30/15 azelastine 137 mcg (0.1 %) nasal 1 spray INTRANASAL BID 02/22/19 spray aerosol fluorouracil 5 % topical cream 1 applic TOPICAL BID 02/22/19 Albuterol Sulfate [Albuterol 1 puff INHALATION Q4H PRN 02/02/20 Sulfate HFA] Cetirizine HCl [Wal-Zyr] 10 mg PO HS 02/02/20 Fluticasone/Umeclidin/Vilanter 1 inh INHALATION QDAY 02/02/20 [Trelegy Ellipta] Montelukast Sodium 10 mg PO QPM 02/02/20 Warfarin [Coumadin] 5 mg PO DAILY 02/02/20 Surgical History: Surgical History (Last Reviewed 01/03/20 @ 09:52 by Mercedes Smart) History of total hip replacement (Resolved) Z96.649 History of total knee replacement (TKR) (Resolved) Z96.659 Hx of bilateral hip replacements (Resolved) Z96.643 Surgical History: total hip arthroplasty, total knee arthroplasty, - - s/p IVC filter, s/p intracranial coiling Psychiatric History: No pertinent psych hx [employer] 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 Lives: Spouse/ Significant Other Smoking Status: Current every day smoker Tobacco Use: Cigarettes Alcohol: None Drugs: None - *Family History Maternal History Items: Cancer - breast cancer Paternal History Items: Unknown - adopted Review of Systems Unable to obtain accurate/complete ROS d/t: Patient is intubated and sedated Patient Problems: Active and Suspected Problems (Last Reviewed 01/03/20 @ 09:52 by Mercedes Smart) Respiratory failure (Acute) Pneumonia due to COVID-19 virus (Acute) - Physical Exam Vitals/I&O's: Vital Signs Temp Pulse Resp BP Pulse Ox 99.8 F H 106 H 20 H 102/75 91 02/08/20 13:00 02/08/20 14:39 02/08/20 14:39 02/08/20 13:00 02/08/20 14:39 Oxygen Flow Rate (L/min) 35 Oxygen Delivery Method Mechanical Ventilator Weight: 159 lb 9.835 oz Body Mass Index (BMI) 26.8 Finger Stick Blood Glucose 88 Intake and Output for Last 24 Hours 02/06/20 02/07/20 02/08/20 23:59 23:59 23:59 Intake Total 2342.61 / 2442.21 1530.02 / 1577.52 989.65 / 989.65 Output Total 950 / 950 610 / 610 280 / 280 Balance 1392.61 / 1492.21 920.02 / 967.52 709.65 / 709.65 General: - - Intubated/sedated Cardiovascular: Tachycardic Abdomen: Soft, Non Tender, Non-Distended Neurological: - - Sedated Psych/Mental Status: - - Sedated Microbiology Past 72 Hours 02/02/20 18:18 Blood Culture (Wb) #2 - No Site/Description Given Blood Culture - Final No growth in 5 days. 02/02/20 01:03 Blood Culture (Wb) #2 - Left Hand Blood Culture - Final No growth in 5 days. 02/03/20 07:40 Sputum, Induced/Lukens Gram Stain - Final 02/03/20 07:40 Sputum, Induced/Lukens Respiratory Culture - Preliminary Possible Fungus Laboratory Results 02/07/20 11:53: POC Glucose 130 H 02/07/20 18:16: POC Glucose 106 02/07/20 18:20: APTT 113.6 H* 02/07/20 23:56: POC Glucose 139 H 02/08/20 04:00: WBC 22.4 H, RBC 3.05 L, Hgb 7.6 L, Hct 23.9 L, MCV 78.4 L, MCH 24.9 L, MCHC 31.8 L, RDW Std Deviation 48.5 H, RDW Coeff of Charlie 17.1 H, Plt Count 214, MPV 11.0 02/08/20 04:00: Sodium 139, Potassium 3.8, Chloride 104, Carbon Dioxide 29.0, Anion Gap 6, BUN 38 H, Creatinine 2.89 H, Estim Creat Clear Calc 15.42, Est GFR (MDRD) Af Amer 21 L, Est GFR (MDRD) Non-Af 17 L, BUN/Creatinine Ratio 13.1, Glucose 125 H, Calcium 7.7 L 02/08/20 04:00: PT 16.5 H, INR 1.4, APTT 37.0 H 02/08/20 06:13: POC Glucose 132 H 02/08/20 07:13: Specimen Type ART, Sample Site R Brach, pH 7.48 H, Bicarbonate Actual 24.9, Total CO2 26, Base Excess 1, O2 Saturation 93 L, O2 % 35, ABG pCO2 33.9 L, ABG pO2 60 L, Respiration Rate 14, O2 Delivery Device Adult Vent, Vent Mode AC, Tidal Volume 450, POC PEEP 5 02/08/20 09:30: Blood Type O POSITIVE, Antibody Screen NEGATIVE 02/08/20 09:30: Crossmatch See Detail 02/08/20 10:20: APTT 56.0 H 02/08/20 12:22: POC Glucose 124 H Current Medications Albuterol Sulfate (Albuterol 2.5 Mg/3 Ml Vial.Neb.) 2.5 mg INHALATION Q2H PRN PRN PRN Reason: SOB/Wheezing Albuterol/Ipratropium (Ipratropium/Albuterol Sulfate 3 Ml Ampul.Neb) 3 ml INHALATION Q4HWA.RT LILA Last Admin: 02/08/20 14:38 Dose: 3 ml Documented by: Chlorhexidine Gluconate (Chlorhexidine 15 Ml) 15 ml PO BID LILA Last Admin: 02/08/20 10:29 Dose: 15 ml Documented by: Dexamethasone Sodium Phosphate (Dexamethasone 10 Mg/Ml Vial) 6 mg IV DAILY LILA Stop: 02/09/20 10:01 Last Admin: 02/08/20 10:28 Dose: 6 mg Documented by: Dextrose (Dextrose 50%-Water 25 Gm/50 Ml Disp.Syrin) 0 gm IV X1 PRN; Protocol PRN Reason: Hypoglycemia Glucagon (Glucagon 1 Mg/Ml Syringe) 1 mg IM .X1 PRN PRN Reason: Hypoglycemia Heparin Sodium (Porcine) (Heparin Injection (Vial) 5,000 Unit/Ml Vial) 0 unit IV UD PRN; Protocol PRN Reason: dose adjustment Last Admin: 02/08/20 04:51 Dose: 3,000 unit Documented by: Sodium Chloride () 250 mls @ 15 mls/hr IV .[id number] PRN PRN Reason: Saline Flush Last Infusion: 02/08/20 07:00 Dose: 0 mls/hr Documented by: Sodium Chloride () 250 mls @ 15 mls/hr IV .[id number] PRN PRN Reason: Additional IVPB Infusion Pantoprazole Sodium 40 mg/ (Sodium Chloride) 110 mls @ 330 mls/hr IV Q12 [facility] Last Infusion: 02/08/20 10:49 Dose: Infused Documented by: Heparin Sodium/Dextrose () 25,000 units in 250 mls @ 11 mls/hr IV .[id number] [facility]ILA; Protocol Last Titration: 02/08/20 11:29 Dose: 600 units/hr, 6 mls/hr Documented by: Piperacillin Sod/Tazobactam (Sod 3.375 gm/ Sodium Chloride) 50 mls @ 12.5 mls/hr IV Q12 [facility] Last Infusion: 02/08/20 15:26 Dose: Infused Documented by: Diltiazem HCl 125 mg/ Dextrose 125 mls @ 5 mls/hr IV .Q25H [facility]IL[facility]; Protocol Last Titration: 02/08/20 07:56 Dose: 10 mg/hr, 10 mls/hr Documented by: Fentanyl Citrate 1,000 mcg/ (Sodium Chloride) 100 mls @ 5 mls/hr CONT INF .Q20H [facility]; Protocol Last Admin: 02/08/20 12:14 Dose: 200 mcg/hr, 20 mls/hr Documented by: Dexmedetomidine HCl 400 mcg/ (Sodium Chloride) 100 mls @ 9.05 mls/hr CONT INF .Q11H3M [facility]; Protocol Last Admin: 02/08/20 12:13 Dose: 1.5 mcg/kg/hr, 27.2 mls/hr Documented by: Enteral Nutritional Formula (Vital Af 1.2 Georgi Liquid) 1,000 mls @ 60 mls/hr GT .[id number] [facility] Last Admin: 02/08/20 12:51 Dose: Not Given Documented by: Insulin Human Lispro (Insulin Lispro 100 Unit/Ml Insuln.Pen) 0 unit SC Q6 [facility]; Protocol Last Admin: 02/08/20 12:51 Dose: Not Given Documented by: Metoprolol Tartrate (Metoprolol Tartrate 25 Mg Tablet) 25 mg PO BID [facility] Last Admin: 02/08/20 11:27 Dose: Not Given Documented by: Ondansetron HCl (Ondansetron 4 Mg/2 Ml Vial) 4 mg IV Q8H PRN PRN PRN Reason: NAUSEA/VOMITING Quetiapine Fumarate (Quetiapine 25 Mg Tablet) 25 mg GT BID [facility] Last Admin: 02/08/20 11:28 Dose: Not Given Documented by: Senna/Docusate Sodium (Senna/Docusate Sodium 1 Tablet) 2 tablet GT BID PRN PRN PRN Reason: Constipation Sodium Chloride (0.9% Saline Lock 10 Ml Syringe) 10 - 40 ml IV UD PRN PRN Reason: SALINE FLUSH Last Admin: 02/08/20 12:24 Dose: 20 ml Documented by: Assessment/Plan All Active Problems (Last Reviewed 01/03/20 @ 09:52 by Mercedes Smart) Respiratory failure (Acute) Pneumonia due to COVID-19 virus (Acute) Pneumonia (Acute) Bronchitis (Acute) History of total hip replacement (Resolved) History of total knee replacement (TKR) (Resolved) Tail bone pain (Acute) Hx of bilateral hip replacements (Resolved) History and physical examination, immigration (Acute) GERD (gastroesophageal reflux disease) (Acute) Fatigue (Acute) Dyspnea on minimal exertion (Acute) Ankle fracture, right (Acute) Actinic keratitis (Acute) Weakness (Acute) Attempted to put NG/OG and multiple times at bedside with x-ray however it was unable to pass the GE junction and then would not coil in the mouth or esophagus. We will plan to use the EGD to assess placing the NG tomorrow. Discussed procedure with family--daughterLa Plan for EGD for NG placement. I have explained the risks/benefits of the procedure and described the procedure. I have discussed the risks with the patient, including but not limited to: infection, bleeding, perforation of the GI tract requiring emergency surgery, inability to complete the procedure, injury to any internal organs, complications of anesthesia, etc. - the patient understands and agrees to proceed. I have answered all the patient's questions to the patient's daughters satisfaction and she has no further questions. Daisy Spivey M.D. Pager: [phone] [facility] [address] [place] [address], [facility], [address] [place] [id number] Office: [phone] Inpatient E&M: 57298 Init Hosp L3
[2020-02-08] MEDS: Dexmedetomidine 1,000 mcg in 0.9% NS 240 mL 27.2 MCG CONT INF (16:57)
[2020-02-08 18:33] LABS: Partial Thromboplast Time 47.6 Seconds (24.1-36.2)
[2020-02-08 18:56] LABS: Bedside Glucose 122 mg/dL (70-110)
[2020-02-08 23:25] LABS: Bedside Glucose 145 mg/dL (70-110)
[2020-02-09] VITALS (66 sets, daily range): BP systolic 63–216; BP diastolic 29–172; PULSE 90–137; RESP 14–33; TEMP 37.5–38.6; O2SAT 88–100
[2020-02-09] MEDS: HEPARIN/D5w 25,000 UNITS 25,000 UNITS/250 ML IV.SOLN. 7 UNITS IV (00:58)
[2020-02-09] MEDS: Albuterol 2.5 MG/3 ML VIAL.NEB. INHALATION (01:43)
[2020-02-09] MEDS: Dexmedetomidine 1,000 mcg in 0.9% NS 240 mL 27.2 MCG CONT INF ×3 (02:10→20:51)
[2020-02-09 03:53] LABS: Hematocrit 23.9 % (37-47); Hemoglobin 7.5 g/dL (12.0-15.0); Mean Corp Hgb Conc 31.4 g/dL (32-36); Mean Corpuscular Hgb 24.8 pg (27.0-32.0); Mean Corpuscular Volume 79.1 fL (81-99); Mean Platelet Vol. 10.8 fl (6.2-12.0); Platelet Count 181 K/mm3 (150-450); RBC Distribution Width CV 17.1 % (11.6-14.6); RBC Distribution Width SD 48.6 fl (35.1-43.9); Red Blood Count 3.02 M/mm3 (4.2-5.4); White Blood Count 20.8 K/mm3 (4.4-11.0)
[2020-02-09 04:04] LABS: International Normalized Ratio 1.3; Prothrombin Time (Protime)PT. 15.7 SECONDS (11.7-14.9)
[2020-02-09 04:07] LABS: Anion Gap 10 (5-15); BUN 51 mg/dL (7-18); BUN/Creat Ratio 13.7 RATIO (10-20); Calcium,Total 7.9 mg/dL (8.5-10.1); Chloride 105 mmol/L (98-107); Creatinine, Serum 3.73 mg/dL (0.55-1.02); EST Glomerular Filtration Rate 13 mL/min (>60); Est Glom Filt Rate - Afr Amer 15 mL/min (>60); Estimated Creatinine Clearance 11.95 ml/min; Glucose 118 mg/dL (74-106); Sodium Level 140 mmol/L (136-145)
--- NOTE | 2020-02-09 05:49 | PN_ITS ---
Subjective: The patient was seen and examined at the bedside this morning. Events from the last 24 hours have been reviewed. The patient currently has a low-grade fever but remains hemodynamically stable. She is currently maintaining appropriate oxygen saturations on assist control mode of mechanical ventilation with an FiO2 requirement of 40% and PEEP of 5. The patient is currently documented to be overall net +10.2 L for the hospital admission. There are plans to replace the patient's OG tube via bedside endoscopy this morning. Per nursing report, the patient continues to have thick, copious endotracheal secretions. Objective: The patient's most recent lab work, culture data and imaging studies have all been personally reviewed. Respiratory viral panel was negative. Strep and urine Legionella antigens were negative. Sputum culture dated February 02 revealed possible fungus. General: - - Remains intubated, sedated and mechanically ventilated. No ventilator dyssynchrony. HEENT: Atraumatic, PERRLA, Normocephalic Oral: Moist Mucosa, - - Endotracheal tube in place Neck: Supple, No Nodes, Trachea Midline Lungs: Diminished, Rhonchi, Tachypneic Cardiovascular: Normal S1, Normal S2, Irregular Rate, Tachycardic Abdomen: Bowel Sounds Present, Soft, Non Tender Extremities: No clubbing, No cyanosis, Edema Skin: - - No significant change from previous Lymphatic: No Cervical, Supraclavicular, or Inguinal Adenopathy Neurological: - - No focal neurological deficits. Attempts to move extremities spontaneously. Remains sedated on the ventilator. Vital Signs Temp Pulse Resp BP Pulse Ox 100.1 F H 97 21 H 98/61 92 02/09/20 04:00 02/09/20 05:00 02/09/20 05:00 02/09/20 04:00 02/09/20 05:00 Oxygen Flow Rate (L/min) 35 Oxygen Delivery Method Mechanical Ventilator Weight: 159 lb 9.835 oz Body Mass Index (BMI) 26.8 Finger Stick Blood Glucose 88 Intake and Output for Last 24 Hours 02/07/20 02/08/20 02/09/20 23:59 23:59 23:59 Intake Total 1530.02 / 1577.52 1758.61 / 1790.81 357.19 / 357.19 Output Total 610 / 610 675 / 675 150 / 150 Balance 920.02 / 967.52 1083.61 / 1115.81 207.19 / 207.19 Labs (Last 48 Hours) 02/07/20 02/07/20 02/07/20 11:53 12:05 18:16 WBC RBC Hgb Hct MCV MCH MCHC RDW Std Deviation RDW Coeff of Charlie Plt Count MPV PT INR APTT 68.3 H Specimen Type Sample Site pH Bicarbonate Actual Total CO2 Base Excess O2 Saturation O2 % ABG pCO2 ABG pO2 Respiration Rate O2 Delivery Device Vent Mode Tidal Volume POC PEEP Sodium Potassium Chloride Carbon Dioxide Anion Gap BUN Creatinine Estim Creat Clear Calc Est GFR (MDRD) Af Amer Est GFR (MDRD) Non-Af BUN/Creatinine Ratio Glucose Calcium POC Glucose 130 H 106 Blood Type Antibody Screen Crossmatch 02/07/20 02/07/20 02/08/20 18:20 23:56 04:00 WBC 22.4 H RBC 3.05 L Hgb 7.6 L Hct 23.9 L MCV 78.4 L MCH 24.9 L MCHC 31.8 L RDW Std Deviation 48.5 H RDW Coeff of Charlie 17.1 H Plt Count 214 MPV 11.0 PT INR APTT 113.6 H* Specimen Type Sample Site pH Bicarbonate Actual Total CO2 Base Excess O2 Saturation O2 % ABG pCO2 ABG pO2 Respiration Rate O2 Delivery Device Vent Mode Tidal Volume POC PEEP Sodium Potassium Chloride Carbon Dioxide Anion Gap BUN Creatinine Estim Creat Clear Calc Est GFR (MDRD) Af Amer Est GFR (MDRD) Non-Af BUN/Creatinine Ratio Glucose Calcium POC Glucose 139 H Blood Type Antibody Screen Crossmatch 02/08/20 02/08/20 02/08/20 04:00 04:00 06:13 WBC RBC Hgb Hct MCV MCH MCHC RDW Std Deviation RDW Coeff of Charlie Plt Count MPV PT 16.5 H INR 1.4 APTT 37.0 H Specimen Type Sample Site pH Bicarbonate Actual Total CO2 Base Excess O2 Saturation O2 % ABG pCO2 ABG pO2 Respiration Rate O2 Delivery Device Vent Mode Tidal Volume POC PEEP Sodium 139 Potassium 3.8 Chloride 104 Carbon Dioxide 29.0 Anion Gap 6 BUN 38 H Creatinine 2.89 H Estim Creat Clear Calc 15.42 Est GFR (MDRD) Af Amer 21 L Est GFR (MDRD) Non-Af 17 L BUN/Creatinine Ratio 13.1 Glucose 125 H Calcium 7.7 L POC Glucose 132 H Blood Type Antibody Screen Crossmatch 02/08/20 02/08/20 02/08/20 07:13 09:30 09:30 WBC RBC Hgb Hct MCV MCH MCHC RDW Std Deviation RDW Coeff of Charlie Plt Count MPV PT INR APTT Specimen Type ART Sample Site R Brach pH 7.48 H Bicarbonate Actual 24.9 Total CO2 26 Base Excess 1 O2 Saturation 93 L O2 % 35 ABG pCO2 33.9 L ABG pO2 60 L Respiration Rate 14 O2 Delivery Device Adult Vent Vent Mode AC Tidal Volume 450 POC PEEP 5 Sodium Potassium Chloride Carbon Dioxide Anion Gap BUN Creatinine Estim Creat Clear Calc Est GFR (MDRD) Af Amer Est GFR (MDRD) Non-Af BUN/Creatinine Ratio Glucose Calcium POC Glucose Blood Type O POSITIVE Antibody Screen NEGATIVE Crossmatch See Detail 02/08/20 02/08/20 02/08/20 10:20 12:22 17:37 WBC RBC Hgb Hct MCV MCH MCHC RDW Std Deviation RDW Coeff of Charlie Plt Count MPV PT INR APTT 56.0 H Specimen Type Sample Site pH Bicarbonate Actual Total CO2 Base Excess O2 Saturation O2 % ABG pCO2 ABG pO2 Respiration Rate O2 Delivery Device Vent Mode Tidal Volume POC PEEP Sodium Potassium Chloride Carbon Dioxide Anion Gap BUN Creatinine Estim Creat Clear Calc Est GFR (MDRD) Af Amer Est GFR (MDRD) Non-Af BUN/Creatinine Ratio Glucose Calcium POC Glucose 124 H 122 H Blood Type Antibody Screen Crossmatch 02/08/20 02/08/20 02/09/20 18:00 23:12 00:45 WBC RBC Hgb Hct MCV MCH MCHC RDW Std Deviation RDW Coeff of Charlie Plt Count MPV PT INR APTT 47.6 H 56.0 H Specimen Type Sample Site pH Bicarbonate Actual Total CO2 Base Excess O2 Saturation O2 % ABG pCO2 ABG pO2 Respiration Rate O2 Delivery Device Vent Mode Tidal Volume POC PEEP Sodium Potassium Chloride Carbon Dioxide Anion Gap BUN Creatinine Estim Creat Clear Calc Est GFR (MDRD) Af Amer Est GFR (MDRD) Non-Af BUN/Creatinine Ratio Glucose Calcium POC Glucose 145 H Blood Type Antibody Screen Crossmatch 02/09/20 02/09/20 02/09/20 03:45 03:45 03:45 WBC 20.8 H RBC 3.02 L Hgb 7.5 L Hct 23.9 L MCV 79.1 L MCH 24.8 L MCHC 31.4 L RDW Std Deviation 48.6 H RDW Coeff of Charlie 17.1 H Plt Count 181 MPV 10.8 PT 15.7 H INR 1.3 APTT Specimen Type Sample Site pH Bicarbonate Actual Total CO2 Base Excess O2 Saturation O2 % ABG pCO2 ABG pO2 Respiration Rate O2 Delivery Device Vent Mode Tidal Volume POC PEEP Sodium 140 Potassium 4.0 Chloride 105 Carbon Dioxide 25.0 Anion Gap 10 BUN 51 H Creatinine 3.73 H Estim Creat Clear Calc 11.95 Est GFR (MDRD) Af Amer 15 L Est GFR (MDRD) Non-Af 13 L BUN/Creatinine Ratio 13.7 Glucose 118 H Calcium 7.9 L POC Glucose Blood Type Antibody Screen Crossmatch Microbiology 02/02/20 18:18 Blood Culture (Wb) #2 - No Site/Description Given Blood Cu lture - Final No growth in 5 days. 02/02/20 01:03 Blood Culture (Wb) #2 - Left Hand Blood Culture - Final No growth in 5 days. 02/03/20 07:40 Sputum, Induced/Lukens Gram Stain - Final 02/03/20 07:40 Sputum, Induced/Lukens Respiratory Culture - Preliminary Possible Fungus Clinical Impression(s) from Imaging Studies Chest X-Ray 02/02/20 18:15 IMPRESSION: Lines and tubes as described. Consider advancing the nasogastric tube. Bilateral widespread pulmonary opacities most pronounced on the left. Electronically Signed: Jasen Diego MD at 19:14 EST , Service support , KUB X-Ray 02/02/20 20:15 KUB X-Ray 02/02/20 22:05 IMPRESSION: OGT in is in similar position to the prior study Recommend advancing at 2304 Reported and signed by: Tracee Clark DO Electronically Signed: Tracee Clark DO at 23:03 EST Tel , Service support , ADDENDUM: 02/02/20 2317 IMPRESSION: OGT in is in similar position to the prior study Recommend advancing at 2304 Reported and signed by: Tracee Clark DO N.B. : Nancy Dodge RN, confirmed on 02/02/2020 23:10:30 (ET) that the healthcare facility has received the radiology report. Electronically Signed: Tracee Clark DO at 23:03 EST Tel , Service support , Chest X-Ray 02/03/20 05:55 IMPRESSION: ET tube similar Interval advancement of NG tube with the tip at least in the body of the stomach but not visualized on this study There is improving aeration in the left lung apex as well as the left lung base. Interstitial thickening is again noted as well as bibasilar airspace opacities at 0656 Reported and signed by: Tracee Clark DO Electronically Signed: Tracee Clark DO at 6:55 EST Tel , Service support , KUB X-Ray 02/03/20 10:40 IMPRESSION: The tip of the orogastric tube is in the distal portion of the stomach. Electronically Signed: Clifford Edwards, at 12:00 EST , Service support , Abdomen Ultrasound 02/03/20 11:13 IMPRESSION: The gallbladder gómez of the upper limits of normal. The gallbladder appears mildly contracted. No stones. Negative sonographic Vilchis sign Question minimal pericholecystic edema/fluid If patient's symptoms persist then consider a nuclear medicine hepatobiliary scan for further evaluation Negative sonographic Vilchis sign Right renal cyst Mild ascites Small right pleural effusion Hepatic steatosis at 2205 Reported and signed by: Tracee Clark DO Electronically Signed: Tracee Clark DO at 22:04 EST Tel , Service support , Chest X-Ray 02/03/20 12:27 IMPRESSION: A right-sided central venous catheter has been placed with the tip at the junction of the superior vena cava and right atrium. Since prior study, there has been improved aeration of both lungs although residual CHF persists as well as left lower lobe infiltrate. Electronically Signed: Clifford Edwards, at 13:07 EST , Service support , Brain CT 02/03/20 16:08 IMPRESSION: Chronic involutional changes of the brain. No change and no acute abnormality. Electronically Signed: Jasen Diego MD at 22:35 EST , Service support , Chest CT 02/03/20 16:08 IMPRESSION: Small bilateral pleural effusions Emphysema Fibrotic changes as discussed There are consolidative infiltrate seen with the lung bases left greater than right NG tube is seen with the tip in the stomach with hyperdense fluid surrounding the tube in the esophagus most likely contrast. This may be secondary to reflux. Correlate clinically ET tube with the tip approximately 3.6 cm proximal to the julia Right central venous catheter with the tip the cavoatrial junction Borderline cardiomegaly with coronary artery calcifications There is mediastinal adenopathy. Individualized dose optimization techniques were used for this CT. at 2245 Reported and signed by: Tracee Clark DO Electronically Signed: Tracee Clark DO at 22:44 EST Tel , Service support , Abdomen CT 02/03/20 16:09 IMPRESSION: Gallbladder wall thickening and edema. Correlate clinically for cystitis Pancreas is grossly unremarkable. Minimal fat stranding seen near the tail the pancreas I suspect is secondary to perirenal fat stranding however I would correlate clinically for pancreatitis Enlarged bilateral adrenal glands as discussed. Recommend MRI follow-up with a adrenal protocol for further evaluation Small amount of ascites as discussed. NG tube with the tip in the stomach. Suspect reflux of contrast into the esophagus Poor distention of the colon. I cannot exclude wall thickening. Correlate clinically for colitis Individualized dose optimization techniques were used for this CT. at 2256 Reported and signed by: Tracee Clark DO Electronically Signed: Tracee Clark DO at 22:55 EST Tel , Service support , Chest X-Ray 02/05/20 10:37 IMPRESSION: A left-sided dialysis catheter has been placed with the tip at the junction of the superior vena cava and right atrium. The remainder of the examination is unchanged. Electronically Signed: Clifford Edwards, at 11:29 EST , Service support , KUB X-Ray 02/07/20 00:56 IMPRESSION: Lines and tubes as described. Recommend advancing the nasogastric tube approximately 10 cm. Chronic interstitial lung disease/bronchitis versus diffuse interstitial pneumonia not excluded. Electronically Signed: Zayda Santos MD at 1:30 EST , Service support , Chest X-Ray 02/07/20 09:40 IMPRESSION: All the support tubes are in good position. Since prior study, there has been improved aeration with residual changes persisting at both lung bases more prominent on the left side. Electronically Signed: Clifford Edwards, at 9:57 EST , Service support , Chest X-Ray 02/07/20 12:50 IMPRESSION: The tip of the orogastric tube is just past the gastroesophageal junction most likely within the hiatal hernia. Electronically Signed: Clifford Edwards, at 13:21 EST , Service support , KUB X-Ray 02/07/20 15:10 IMPRESSION: The tip of the orogastric tube is at the level of the gastroesophageal junction. Electronically Signed: Clifford De Leónderikarnold, at 15:33 EST , Service support , KUB X-Ray 02/08/20 10:26 IMPRESSION: Feeding tube is coiled in the lower chest. Electronically Signed: Edwin Snowden MD at 13:07 EST , Service support , ADDENDUM: 02/08/20 1356 IMPRESSION: Feeding tube is coiled in the lower chest. N.B. : ERIC Vazquez, confirmed on 02/08/2020 13:49:21 (ET) that the healthcare facility has received the radiology report. Electronically Signed: Edwin Snowden MD at 13:07 EST , Service support , Medical Necessity - Tobacco Use Smoking Status: Current every day smoker Tobacco Use: Cigarettes Assessment/Plan All Active Problems (Last Reviewed 01/03/20 @ 09:52 by Mercedes Smart) Respiratory failure (Acute) Pneumonia due to COVID-19 virus (Acute) Pneumonia (Acute) Bronchitis (Acute) History of total hip replacement (Resolved) History of total knee replacement (TKR) (Resolved) Tail bone pain (Acute) Hx of bilateral hip replacements (Resolved) History and physical examination, immigration (Acute) GERD (gastroesophageal reflux disease) (Acute) Fatigue (Acute) Dyspnea on minimal exertion (Acute) Ankle fracture, right (Acute) Actinic keratitis (Acute) Weakness (Acute) RECOMMENDATIONS: 1. Continue current supportive measures with invasive mechanical ventilatory support. Wean FiO2 to maintain oxygen saturations at or above 90%. 2. Continue fentanyl and Precedex for sedation. Continue Seroquel as well. 3. Place OG endoscopically this morning. 4. Continue Cardizem infusion. Once OG is placed, increase beta-maeve dose. 5. Continue scheduled bronchodilators. 6. Continue antimicrobials per ID recommendations. 7. Continue Decadron to complete treatment course. 8. Continue heparin infusion. IMPRESSIONS: 1. Acute hypoxemic respiratory failure secondary to COVID-19 pneumonia Plan to continue current supportive measures including invasive mechanical ventilatory support, with a goal to wean FiO2 and PEEP to maintain oxygen saturations at or above 90%. Although the patient was initially extubated on the morning of February 06, she subsequently declined from a respiratory perspective and required reintubation. Therefore, we will plan to continue current supportive measures including antimicrobials, bronchodilators and Decadron. Recommend volume optimization either by ultrafiltration or IV diuretics per nephrology recommendations. The patient's OG will be placed this morning endoscopically after which time tube feeds can be restarted. 2. Septic shock Concern for Covid as precipitating etiology versus possible community-acquired pneumonia as well. Continue empiric antimicrobials as noted above. The patient remains off of vasopressor support. 3. Atrial fibrillation with RVR Continue current medical management including systemic anticoagulation, Cardizem and beta-maeve. The patient's baseline beta-maeve dose can be increased once OG tube has been placed in hopes of weaning from Cardizem. 4. Acute liver injury Improving. Suspect related to hemodynamic instability with subsequent shock liver. Continue supportive measures as noted above. 5. Acute kidney injury Likely prerenal in etiology with a component of ischemic ATN in the setting of septic shock. The patient did tolerate dialysis with some improvement in urine output. Nephrology is currently following to assist with ongoing hemodialysis needs. 6. History of DVT/chronic anticoagulation status with presenting coagulopathy Plan to continue systemic anticoagulation with continuous heparin infusion. TIME: 35 minutes of critical care time, independent of procedures, was spent addressing the patient's acute hypoxemic respiratory failure secondary to Covid pneumonia, septic shock, atrial fibrillation with RVR, acute kidney injury, acute liver injury, history of DVT, review of all data and collaboration with the care team. ([id number]) [id number] Critical care first hour
[2020-02-09 06:16] LABS: Bedside Glucose 122 mg/dL (70-110)
[2020-02-09] MEDS: Ipratropium/Albuterol Sulfate 3 ML AMPUL.NEB INHALATION ×4 (07:02→18:14)
--- NOTE | 2020-02-09 07:29 | PCM.PN.HOSP ---
Patient Problems: Active and Suspected Problems (Last Reviewed 01/03/20 @ 09:52 by Mercedes Smart) Respiratory failure (Acute) Pneumonia due to COVID-19 virus (Acute) Reason for Visit: COVID-19 pneumonia Acute kidney injury Subjective: Plan is to pass NG by the bedside was unsuccessful general surgery subsequently consulted. Plan is for patient to undergo EGD with possible placement of NG Objective: GENERAL: sedated on the vent HEENT: Atraumatic; ET tube in place EYES; Anicteric, Normal Conjunctiva NECK; supple, normal thyroid, RESPIRATORY: Diminished to auscultation CARDIOVASCULAR: Regular S1 S2, GI: soft, normoactive bowel sounds, : No Renal angle tenderness; EXTREMITIES: No edema, no clubbing, MUSCULOSKELETAL: no muscle waisting NEURO: sedated on the vent SKIN: No Rash Vitals/I&O's: Vital Signs Temp Pulse Resp BP Pulse Ox 100.5 F H 113 H 32 H 117/92 H 92 02/09/20 07:00 02/09/20 07:14 02/09/20 07:03 02/09/20 07:00 02/09/20 07:03 Oxygen Flow Rate (L/min) 35 Oxygen Delivery Method Mechanical Ventilator Weight: 72.9 kg Body Mass Index (BMI) 26.8 Finger Stick Blood Glucose 88 Intake and Output for Last 24 Hours 02/07/20 02/08/20 02/09/20 23:59 23:59 23:59 Intake Total 1530.02 / 1577.52 1758.61 / 1790.81 474.29 / 474.29 Output Total 610 / 610 675 / 675 195 / 195 Balance 920.02 / 967.52 1083.61 / 1115.81 279.29 / 279.29 Microbiology Past 72 Hours 02/02/20 18:18 Blood Culture (Wb) #2 - No Site/Description Given Blood Culture - Final No growth in 5 days. 02/02/20 01:03 Blood Culture (Wb) #2 - Left Hand Blood Culture - Final No growth in 5 days. 02/03/20 07:40 Sputum, Induced/Lukens Gram Stain - Final 02/03/20 07:40 Sputum, Induced/Lukens Respiratory Culture - Preliminary Possible Fungus Laboratory Results 02/08/20 06:13: POC Glucose 132 H 02/08/20 09:30: Blood Type O POSITIVE, Antibody Screen NEGATIVE 02/08/20 09:30: Crossmatch See Detail 02/08/20 10:20: APTT 56.0 H 02/08/20 12:22: POC Glucose 124 H 02/08/20 17:37: POC Glucose 122 H 02/08/20 18:00: APTT 47.6 H 02/08/20 23:12: POC Glucose 145 H 02/09/20 00:45: APTT 56.0 H 02/09/20 03:45: WBC 20.8 H, RBC 3.02 L, Hgb 7.5 L, Hct 23.9 L, MCV 79.1 L, MCH 24.8 L, MCHC 31.4 L, RDW Std Deviation 48.6 H, RDW Coeff of Charlie 17.1 H, Plt Count 181, MPV 10.8 02/09/20 03:45: Sodium 140, Potassium 4.0, Chloride 105, Carbon Dioxide 25.0, Anion Gap 10, BUN 51 H, Creatinine 3.73 H, Estim Creat Clear Calc 11.95, Est GFR (MDRD) Af Amer 15 L, Est GFR (MDRD) Non-Af 13 L, BUN/Creatinine Ratio 13.7, Glucose 118 H, Calcium 7.9 L 02/09/20 03:45: PT 15.7 H, INR 1.3 02/09/20 05:37: POC Glucose 122 H Current Medications Albuterol Sulfate (Albuterol 2.5 Mg/3 Ml Vial.Neb.) 2.5 mg INHALATION Q2H PRN PRN PRN Reason: SOB/Wheezing Last Admin: 02/09/20 01:43 Dose: 2.5 mg Documented by: Albuterol/Ipratropium (Ipratropium/Albuterol Sulfate 3 Ml Ampul.Neb) 3 ml INHALATION Q4HWA.RT [facility] Last Admin: 02/09/20 07:02 Dose: 3 ml Documented by: Chlorhexidine Gluconate (Chlorhexidine 15 Ml) 15 ml PO BID [facility] Last Admin: 02/08/20 20:34 Dose: 15 ml Documented by: Dexamethasone Sodium Phosphate (Dexamethasone 10 Mg/Ml Vial) 6 mg IV DAILY [facility] Stop: 02/09/20 10:01 Last Admin: 02/08/20 10:28 Dose: 6 mg Documented by: Dextrose (Dextrose 50%-Water 25 Gm/50 Ml Disp.Syrin) 0 gm IV X1 PRN; Protocol PRN Reason: Hypoglycemia Furosemide (Furosemide 40 Mg/4 Ml Vial) 40 mg IV BID@1000,1800 [facility] Glucagon (Glucagon 1 Mg/Ml Syringe) 1 mg IM .X1 PRN PRN Reason: Hypoglycemia Heparin Sodium (Porcine) (Heparin Injection (Vial) 5,000 Unit/Ml Vial) 0 unit IV UD PRN; Protocol PRN Reason: dose adjustment Last Admin: 02/08/20 18:59 Dose: 1,000 unit Documented by: Sodium Chloride () 250 mls @ 15 mls/hr IV .[id number] PRN PRN Reason: Saline Flush Last Infusion: 02/08/20 07:00 Dose: 0 mls/hr Documented by: Sodium Chloride () 250 mls @ 15 mls/hr IV .[id number] PRN PRN Reason: Additional IVPB Infusion Pantoprazole Sodium 40 mg/ (Sodium Chloride) 110 mls @ 330 mls/hr IV Q12 [facility] Last Infusion: 02/08/20 21:05 Dose: Infused Documented by: Heparin Sodium/Dextrose () 25,000 units in 250 mls @ 11 mls/hr IV .[id number] [facility]; Protocol Last Admin: 02/09/20 04:13 Dose: Not Given Documented by: Piperacillin Sod/Tazobactam (Sod 3.375 gm/ Sodium Chloride) 50 mls @ 12.5 mls/hr IV Q12 [facility] Last Infusion: 02/09/20 01:16 Dose: Infused Documented by: Diltiazem HCl 125 mg/ Dextrose 125 mls @ 5 mls/hr IV .Q25H [facility]; Protocol Last Titration: 02/09/20 07:00 Dose: 6 mg/hr, 6 mls/hr Documented by: Fentanyl Citrate 1,000 mcg/ (Sodium Chloride) 100 mls @ 5 mls/hr CONT INF .Q20H [facility]; Protocol Last Titration: 02/09/20 06:00 Dose: 200 mcg/hr, 20 mls/hr Documented by: Enteral Nutritional Formula (Vital Af 1.2 Georgi Liquid) 1,000 mls @ 60 mls/hr GT .[id number] [facility] Last Admin: 02/08/20 12:51 Dose: Not Given Documented by: Dexmedetomidine HCl 1,000 mcg/ (Sodium Chloride) 250 mls @ 9.05 mls/hr CONT INF .[id number] [facility]; Protocol Last Titration: 02/09/20 07:00 Dose: 1.5 mcg/kg/hr, 27.2 mls/hr Documented by: Insulin Human Lispro (Insulin Lispro 100 Unit/Ml Insuln.Pen) 0 unit SC Q6 [facility]; Protocol Last Admin: 02/09/20 07:24 Dose: Not Given Documented by: Metoprolol Tartrate (Metoprolol Tartrate 25 Mg Tablet) 25 mg PO BID [facility] Last Admin: 02/08/20 20:34 Dose: Not Given Documented by: Ondansetron HCl (Ondansetron 4 Mg/2 Ml Vial) 4 mg IV Q8H PRN PRN PRN Reason: NAUSEA/VOMITING Quetiapine Fumarate (Quetiapine 25 Mg Tablet) 25 mg GT BID [facility] Last Admin: 02/08/20 20:34 Dose: Not Given Documented by: Senna/Docusate Sodium (Senna/Docusate Sodium 1 Tablet) 2 tablet GT BID PRN PRN PRN Reason: Constipation Sodium Chloride (0.9% Saline Lock 10 Ml Syringe) 10 - 40 ml IV UD PRN PRN Reason: SALINE FLUSH Last Admin: 02/08/20 18:06 Dose: 20 ml Documented by: STROKE Vital Signs/Narrative: Vital Signs Temp Pulse Resp BP Pulse Ox 02/09/20 07:14 113 H 02/09/20 07:03 112 H 29 H 92 02/09/20 07:00 100.5 F H 118 H 32 H 117/92 H 90 02/09/20 06:00 100.2 F H 102 H 31 H 88/52 L 92 02/09/20 05:00 100.2 F H 104 H 20 H 96/67 92 02/09/20 04:00 100.1 F H 106 H 22 H 98/61 92 Medical Necessity - Tobacco Use Smoking Status: Current every day smoker Tobacco Use: Cigarettes Assessment/Plan All Active Problems (Last Reviewed 01/03/20 @ 09:52 by Mercedes Smart) Respiratory failure (Acute) Pneumonia due to COVID-19 virus (Acute) Pneumonia (Acute) Bronchitis (Acute) History of total hip replacement (Resolved) History of total knee replacement (TKR) (Resolved) Tail bone pain (Acute) Hx of bilateral hip replacements (Resolved) History and physical examination, immigration (Acute) GERD (gastroesophageal reflux disease) (Acute) Fatigue (Acute) Dyspnea on minimal exertion (Acute) Ankle fracture, right (Acute) Actinic keratitis (Acute) Weakness (Acute) Patient is a 69-year-old lady transferred from [facility] with progressive shortness of breath. An assessment of acute hypoxic respiratory failure secondary to acute COVID-19 was made. Patient had to be intubated as a result of deteriorating respiratory status 1. Acute hypoxic respiratory failure secondary to COVID-19 pneumonia Admitted to the intensive care unit intubated with consultation placed to pulmonary medicine for vent management -02/04/2020. Vent. Current vent settings reviewed. Case discussed with Dr. Gonzalez with pulmonary -02/05/2020. Patient remains on the vent with no significant improvement -02/06/2020 Underwent dialysis catheter placement on 02/05/2020 initiation of dialysis the day prior. -02/07/2020; Patient was extubated this morning however her respiratory status deteriorated resulting in patient being reintubated -02/08/2020 patient was reintubated on 02/07/2020?she deteriorated following extubation on the same morning. Had dialysis the day prior. -02/09/2020; patient remains on the vent with no changes in his settings, plan is pass NG by the bedside was unsuccessful; general surgery subsequently consulted. Plan is for patient to undergo EGD with possible placement of NG 2. Acute COVID-19 pneumonia -Presented with respiratory failure resulting in patient being intubated. Was started on Decadron not a candidate for remdesivir in view of acute kidney injury and impaired liver function -02/05/2020; no significant improvement in patient's condition. Remains on Decadron 3. Septic shock -Secondary to acute COVID-19 pneumonia with suspected superimposed bacterial pneumonia. Patient is on norepinephrine drip as well as Zosyn. 02/04/2020; she was seen in consultation by Dr. Anderson with infectious disease. His notes and recommendations reviewed. CT of the abdomen obtained demonstrated gallbladder thickening 4. Acute kidney injury ?suspected to be secondary to acute tubular necrosis from patient underlying infection. Admitted to the intensive care unit started on IV fluid. Patient kidney function continues to worsen. Consult subsequently placed to nephrology -02/04/2020. Kidney function continues to worsen -02/05/2020. Kidney function continues to worsen plan is for patient to have dialysis catheter placement with initiation of dialysis -02/06/2020 Underwent dialysis catheter placement on 02/05/2020 initiation of dialysis the day prior. Creatinine down to 2.48 6. Hypernatremia -Due to fluid depletion patient is on IV fluid with subsequent monitoring of electrolyte -02/05/2020; sodium levels down to 145 7. Hyperkalemia -due to combination of metabolic acidosis as well as impaired kidney function. Consult placed to nephrology -02/05/2020 resolved 8. Coagulopathy ?patient is on Coumadin for previous DVT involving the left lower extremity. Coumadin on admission was 7.7. Patient was transfused with 2 unit FFP as well as did receive vitamin K INR as of 02/03/2020 is 2.8 -02/05/2020 patient started on heparin drip the day prior. 9. Acute transaminitis ?Secondary to shock liver monitoring LFTs -02/05/2020 patient liver function test continues to improve 10. Anemia - Secondary to chronic disorder monitoring H&H and transfuse if patient becomes symptomatic or hemoglobin falls below 7 11. History of DVT involving the left lower extremity ?on Coumadin held in view of above reasons -02/05/2020; started on heparin drip 12. Essential hypertension ?Patient antihypertensives held in view of patient presenting with low blood pressure 13. DVT prophylaxis -patient was on Coumadin prior to admission no additional measures warranted at this point 02/05/2020 patient on heparin Inpatient E&M: [id number] [place] [id number]
--- NOTE | 2020-02-09 07:42 | NURSING ---
Call placed to pt's daughter, La, to obtain consent for EGD. No answer.
--- NOTE | 2020-02-09 07:44 | NURSING ---
Call placed to lodge (as directed[place] where pt's daughter La is staying this weekend in hopes of getting ahold of La- no answer. Call placed to pt's daughter Glynn as well without answer.
[2020-02-09 09:02] LABS: Partial Thromboplast Time 51.7 Seconds (24.1-36.2)
--- NOTE | 2020-02-09 09:06 | NURSING ---
FIO2 increased to 50% prior to EGD d/t SPO2 88-90% with increased secretions.
[2020-02-09] MEDS: Propofol 200 MG/20 ML Vial 40 MG IV BOLUS (09:11)
--- NOTE | 2020-02-09 10:00 | OP.EGD_ITS ---
Patient Name: Tana Flores Procedure Date: 02/09/2020 9:54 AM Date of : 1950 Age: 69 Procedure: Upper GI endoscopy Indications: Malnutrition, placement of NG Providers: Daisy Spivey MD Patient Profile: This is a 69 year old female. Complications: No immediate complications. Procedure: Pre-Anesthesia Assessment: - Prior to the procedure, a History and Physical was performed, and patient medications and allergies were reviewed. The patient's tolerance of previous anesthesia was also reviewed. The risks and benefits of the procedure and the sedation options and risks were discussed with the patient. All questions were answered, and informed consent was obtained. Prior Anticoagulants: The patient has taken heparin, last dose was day of procedure. ASA Grade Assessment: Per [employer]. After reviewing the risks and benefits, the patient was deemed in satisfactory condition to undergo the procedure. After obtaining informed consent, the endoscope was passed under direct vision. Throughout the procedure, the patient's blood pressure, pulse, and oxygen saturations were monitored continuously.The upper GI endoscopy was accomplished without difficulty. The patient tolerated the procedure well. The Endoscope was introduced through the mouth, and advanced to the antrum of the stomach. Moderate Sedation: Per [employer]--Pt on vent Findings: The esophagus was normal. A 16 Fr orogastric tube was placed through the nares into the esophagus. Under endoscopic guidance, the tube was advanced into the stomach body. Placement was confirmed by scope visualization. Impression: - Normal esophagus. - Feeding tube placement was successfully performed. - No specimens collected. Recommendation: - Return patient to ICU for ongoing care. - Continue present medications. Procedure Code(s): --- Professional --- 73643, 52, Esophagogastroduodenoscopy, flexible, transoral; with insertion of intraluminal tube or catheter Diagnosis Code(s): --- Professional --- E46, Unspecified protein-calorie malnutrition CPT copyright 2017 [employer]. All rights reserved. The codes documented in this report are preliminary and upon hot roll inspector review may be revised to meet current compliance requirements. MD Daisy Apple MD 02/09/2020 9:59:56 AM This report has been signed electronically. Number of Addenda: 0 Note Initiated On: 02/09/2020 9:54 AM
--- NOTE | 2020-02-09 10:00 | OP.CCLET_ITS ---
02/09/2020 Julio Gonzalez Re : Upper GI endoscopy procedure for Tana Flores Dear Dr. Gonzalez This procedure was performed on Sunday, February 09, 2020. My impressions and recommendations are as follows: Impressions : - Normal esophagus. - Feeding tube placement was successfully performed. - No specimens collected. Recommendations : - Return patient to ICU for ongoing care. - Continue present medications. My findings are described in the full procedure note, which is enclosed. If I can be of further assistance, please feel free to contact me at Doctor phone number(s): , Work: . Sincerely, MD Daisy Apple MD 02/09/2020 9:59:56 AM This report has been signed electronically.
[2020-02-09] MEDS: 0.9% Saline Lock 10 ML Syringe IV ×3 (10:19→21:39)
[2020-02-09] MEDS: QUEtiapine 25 MG Tablet GT ×2 (10:19→21:39)
[2020-02-09] MEDS: Chlorhexidine 15 ML PO ×2 (10:19→21:39)
[2020-02-09] MEDS: Furosemide 40 MG/4 ML Vial IV ×2 (10:22→21:39)
[2020-02-09] MEDS: dexAMETHasone 10 MG/ML Vial 6 MG IV (10:22)
[2020-02-09] MEDS: Heparin Injection (Vial) 5,000 UNIT/ML VIAL IV (10:25)
[2020-02-09] MEDS: Phenylephrine 10 MG/ML Vial IV (10:39)
[2020-02-09] MEDS: Amiodarone 360 MG in Dextrose 5% Viaflo Bag 192.8 ML 33.3 MG CONT INF (10:41)
[2020-02-09] MEDS: Vital AF 1.2 Cal Liquid 1,000 ML 60 ML GT (10:44)
--- NOTE | 2020-02-09 14:07 | DIALYSIS ---
reviewed/discussed labs, i/o, vitals, fluid status with dr jackson. No dialysis today, check tomorrow. Dr Jackson to round later today in person.
--- NOTE | 2020-02-09 15:48 | PN.RENAL_ITS ---
Patient Problems: Active and Suspected Problems (Last Reviewed 01/03/20 @ 09:52 by Mercedes Smart) Respiratory failure (Acute) Pneumonia due to COVID-19 virus (Acute) Subjective: Intubated ROS cannot be done Objective: Sickle examination deferred to preserve PPE and prevent further transmission of COVID-19. - Physical Exam Vitals/I&O's: Vital Signs Temp Pulse Resp BP Pulse Ox 99.8 F H 110 H 23 H 87/47 L 94 02/09/20 15:00 02/09/20 15:22 02/09/20 15:00 02/09/20 15:30 02/09/20 15:00 Oxygen Flow Rate (L/min) 35 Oxygen Delivery Method Mechanical Ventilator Weight: 72.9 kg Body Mass Index (BMI) 26.8 Finger Stick Blood Glucose 88 Intake and Output for Last 24 Hours 02/07/20 02/08/20 02/09/20 23:59 23:59 23:59 Intake Total 1530.02 / 1577.52 1758.61 / 1790.81 1317.22 / 1317.22 Output Total 610 / 610 675 / 675 370 / 370 Balance 920.02 / 967.52 1083.61 / 1115.81 947.22 / 947.22 Microbiology Past 72 Hours 02/08/20 14:45 Sputum, Induced/Lukens Gram Stain - Final 02/08/20 14:45 Sputum, Induced/Lukens Respiratory Culture - Preliminary Possible Fungus 02/02/20 18:18 Blood Culture (Wb) #2 - No Site/Description Given Blood Culture - Final No growth in 5 days. 02/02/20 01:03 Blood Culture (Wb) #2 - Left Hand Blood Culture - Final No growth in 5 days. 02/03/20 07:40 Sputum, Induced/Lukens Gram Stain - Final 02/03/20 07:40 Sputum, Induced/Lukens Respiratory Culture - Preliminary Possible Fungus Laboratory Results 02/08/20 12:22: POC Glucose 124 H 02/08/20 17:37: POC Glucose 122 H 02/08/20 18:00: APTT 47.6 H 02/08/20 23:12: POC Glucose 145 H 02/09/20 00:45: APTT 56.0 H 02/09/20 03:45: WBC 20.8 H, RBC 3.02 L, Hgb 7.5 L, Hct 23.9 L, MCV 79.1 L, MCH 24.8 L, MCHC 31.4 L, RDW Std Deviation 48.6 H, RDW Coeff of Charlie 17.1 H, Plt Count 181, MPV 10.8 02/09/20 03:45: Sodium 140, Potassium 4.0, Chloride 105, Carbon Dioxide 25.0, Anion Gap 10, BUN 51 H, Creatinine 3.73 H, Estim Creat Clear Calc 11.95, Est GFR (MDRD) Af Amer 15 L, Est GFR (MDRD) Non-Af 13 L, BUN/Creatinine Ratio 13.7, Glucose 118 H, Calcium 7.9 L 02/09/20 03:45: PT 15.7 H, INR 1.3 02/09/20 05:37: POC Glucose 122 H 02/09/20 08:30: APTT 51.7 H Current Medications Albuterol Sulfate (Albuterol 2.5 Mg/3 Ml Vial.Neb.) 2.5 mg INHALATION Q2H PRN PRN PRN Reason: SOB/Wheezing Last Admin: 02/09/20 01:43 Dose: 2.5 mg Documented by: Albuterol/Ipratropium (Ipratropium/Albuterol Sulfate 3 Ml Ampul.Neb) 3 ml INHALATION Q4HWA.RT [facility] Last Admin: 02/09/20 14:55 Dose: 3 ml Documented by: Chlorhexidine Gluconate (Chlorhexidine 15 Ml) 15 ml PO BID [facility] Last Admin: 02/09/20 10:19 Dose: 15 ml Documented by: Dextrose (Dextrose 50%-Water 25 Gm/50 Ml Disp.Syrin) 0 gm IV X1 PRN; Protocol PRN Reason: Hypoglycemia Furosemide (Furosemide 40 Mg/4 Ml Vial) 40 mg IV BID@1000,1800 [facility] Last Admin: 02/09/20 10:22 Dose: 40 mg Documented by: Glucagon (Glucagon 1 Mg/Ml Syringe) 1 mg IM .X1 PRN PRN Reason: Hypoglycemia Heparin Sodium (Porcine) (Heparin Injection (Vial) 5,000 Unit/Ml Vial) 0 unit IV UD PRN; Protocol PRN Reason: dose adjustment Last Admin: 02/09/20 10:25 Dose: 1,000 unit Documented by: Sodium Chloride () 250 mls @ 15 mls/hr IV .[id number] PRN PRN Reason: Saline Flush Last Infusion: 02/08/20 07:00 Dose: 0 mls/hr Documented by: Sodium Chloride () 250 mls @ 15 mls/hr IV .[id number] PRN PRN Reason: Additional IVPB Infusion Pantoprazole Sodium 40 mg/ (Sodium Chloride) 110 mls @ 330 mls/hr IV Q12 [facility] Last Infusion: 02/09/20 11:37 Dose: Infused Documented by: Heparin Sodium/Dextrose () 25,000 units in 250 mls @ 11 mls/hr IV .[id number] [facility]; Protocol Last Titration: 02/09/20 10:53 Dose: 800 units/hr, 8 mls/hr Documented by: Piperacillin Sod/Tazobactam (Sod 3.375 gm/ Sodium Chloride) 50 mls @ 12.5 mls/hr IV Q12 [facility] Last Admin: 02/09/20 11:50 Dose: 12.5 mls/hr Documented by: Fentanyl Citrate 1,000 mcg/ (Sodium Chloride) 100 mls @ 5 mls/hr CONT INF .Q20H [facility]; Protocol Last Titration: 02/09/20 15:32 Dose: 125 mcg/hr, 12.5 mls/hr Documented by: Enteral Nutritional Formula (Vital Af 1.2 Georgi Liquid) 1,000 mls @ 60 mls/hr GT .[id number] [facility] Last Admin: 02/09/20 10:44 Dose: 60 mls/hr Documented by: Dexmedetomidine HCl 1,000 mcg/ (Sodium Chloride) 250 mls @ 9.05 mls/hr CONT INF .[id number] [facility]; Protocol Last Titration: 02/09/20 15:33 Dose: 1.2 mcg/kg/hr, 21.7 mls/hr Documented by: Amiodarone HCl 360 mg/ (Dextrose) 200 mls @ 33.333 mls/hr CONT INF .Q6H [facility] Stop: 02/09/20 15:54 Last Infusion: 02/09/20 15:00 Dose: 1 mg/min, 33.3 mls/hr Documented by: Amiodarone HCl 360 mg/ (Dextrose) 200 mls @ 16.667 mls/hr CONT INF .Q12H [facility] Stop: 02/10/20 09:54 Norepinephrine Bitartrate 8 mg (/ Sodium Chloride) 250 mls @ 9.375 mls/hr CONT INF .[id number] [facility]; Protocol Last Titration: 02/09/20 15:30 Dose: 15 mcg/min, 28.1 mls/hr Documented by: Insulin Human Lispro (Insulin Lispro 100 Unit/Ml Insuln.Pen) 0 unit SC Q6 [facility]; Protocol Last Admin: 02/09/20 13:11 Dose: Not Given Documented by: Metoprolol Tartrate (Metoprolol Tartrate 50 Mg Tablet) 50 mg PO BID [facility] Last Admin: 02/09/20 10:43 Dose: Not Given Documented by: Ondansetron HCl (Ondansetron 4 Mg/2 Ml Vial) 4 mg IV Q8H PRN PRN PRN Reason: NAUSEA/VOMITING Quetiapine Fumarate (Quetiapine 25 Mg Tablet) 25 mg GT BID [facility] Last Admin: 02/09/20 10:19 Dose: 25 mg Documented by: Senna/Docusate Sodium (Senna/Docusate Sodium 1 Tablet) 2 tablet GT BID PRN PRN PRN Reason: Constipation Sodium Chloride (0.9% Saline Lock 10 Ml Syringe) 10 - 40 ml IV UD PRN PRN Reason: SALINE FLUSH Last Admin: 02/09/20 10:19 Dose: 40 ml Documented by: Medical Necessity - Tobacco Use Smoking Status: Current every day smoker Tobacco Use: Cigarettes Assessment/Plan All Active Problems (Last Reviewed 01/03/20 @ 09:52 by Mercedes Smart) Respiratory failure (Acute) Pneumonia due to COVID-19 virus (Acute) Pneumonia (Acute) Bronchitis (Acute) History of total hip replacement (Resolved) History of total knee replacement (TKR) (Resolved) Tail bone pain (Acute) Hx of bilateral hip replacements (Resolved) History and physical examination, immigration (Acute) GERD (gastroesophageal reflux disease) (Acute) Fatigue (Acute) Dyspnea on minimal exertion (Acute) Ankle fracture, right (Acute) Actinic keratitis (Acute) Weakness (Acute) DOROTHY ATN with COVID-19 and shock Respiratory failure multifactorial s/p intubation COVID-19 pneumonia COPD Shock Shock liver Scr 3.7. Becoming oliguric again. On PEEP 5 FiO2 50% and Levophed 15 mcg eval MEDICAL SERVICES MANAGER needs daily likely HD tomorrow. can use diuretics prn on TF now keep MAP>65 dose abx per pharmacy d/w rn
[2020-02-09 16:10] LABS: Bedside Glucose 134 mg/dL (70-110)
[2020-02-09] MEDS: Amiodarone 360 MG in Dextrose 5% Viaflo Bag 192.8 ML 16.7 MG CONT INF (16:40)
[2020-02-09 16:51] LABS: Bedside Glucose 181 mg/dL (70-110)
[2020-02-09] MEDS: Insulin Lispro 100 UNIT/ML INSULN.PEN SC (16:58)
[2020-02-09 17:26] LABS: Partial Thromboplast Time 62.3 Seconds (24.1-36.2)
--- NOTE | 2020-02-09 19:15 | NURSING ---
amiodarone running at 0.5 mg/min at start of my shift
[2020-02-09] MEDS: Metoprolol Tartrate 50 MG Tablet PO (21:38)
--- NOTE | 2020-02-09 22:00 | NURSING ---
FiO2 increased to 60% d/t saline lavage with increased secretions and sats 87-89%
[2020-02-09 23:34] LABS: Partial Thromboplast Time 54.3 Seconds (24.1-36.2)
--- NOTE | 2020-02-09 23:40 | NURSING ---
per MAIRA amiodarone gtt complete, bag remains half full.
[2020-02-10] VITALS (62 sets, daily range): BP systolic 58–188; BP diastolic 16–165; PULSE 0–154; RESP 14–40; TEMP 37.9–38.3; O2SAT 82–95
--- NOTE | 2020-02-10 00:07 | NURSING ---
called daughter, La, with update of pt worsening. Discussed in length pt status and POC, discussed code status, Daughter stated full code for now, will call my sister and call you right back. Still FULL code at this time.
--- NOTE | 2020-02-10 00:25 | NURSING ---
pt's daughter, La, called back after talking with her sister. La stated we want to keep her FULL code, if she dose code, code her once, if going south or she isn't doing well, with max code of 20 minutes, stop.
[2020-02-10 00:50] LABS: Bedside Glucose 135 mg/dL (70-110)
--- NOTE | 2020-02-10 02:07 | NURSING ---
MAR showing amiodarone bag done, bag with approximately 150cc left, running at 0.5 mg/min
[2020-02-10 04:06] LABS: Hematocrit 26.5 % (37-47); Hemoglobin 7.9 g/dL (12.0-15.0); Mean Corp Hgb Conc 29.8 g/dL (32-36); Mean Corpuscular Hgb 24.1 pg (27.0-32.0); Mean Corpuscular Volume 80.8 fL (81-99); Mean Platelet Vol. 11.9 fl (6.2-12.0); Platelet Count 153 K/mm3 (150-450); RBC Distribution Width CV 18.3 % (11.6-14.6); RBC Distribution Width SD 51.4 fl (35.1-43.9); Red Blood Count 3.28 M/mm3 (4.2-5.4); White Blood Count 20.1 K/mm3 (4.4-11.0)
[2020-02-10 04:28] LABS: AST(SGOT) 72 U/L (15-37); Alanine Aminotransfer ALT/SGPT 351 U/L (13-56); Albumin, Serum 1.2 g/dL (3.2-5.0); Alkaline Phosphatase 129 U/L (45-117); Anion Gap 12 (5-15); BUN 68 mg/dL (7-18); BUN/Creat Ratio 15.1 RATIO (10-20); Bilirubin, Direct 0.75 mg/dL (0.00-0.30); Calcium,Total 8.2 mg/dL (8.5-10.1); Chloride 104 mmol/L (98-107); Creatinine, Serum 4.51 mg/dL (0.55-1.02); EST Glomerular Filtration Rate 10 mL/min (>60); Est Glom Filt Rate - Afr Amer 12 mL/min (>60); Estimated Creatinine Clearance 9.88 ml/min; Globulin 4.6 g/dL (2.2-4.2); Glucose 136 mg/dL (74-106); Potassium 4.3 mmol/L (3.5-5.1); Protein, Total 5.8 g/dL (6.4-8.2); Sodium Level 137 mmol/L (136-145)
[2020-02-10 05:30] LABS: Bedside Glucose 159 mg/dL (70-110)
[2020-02-10] MEDS: TITRATION PARAMETER CHANGE 1 EACH IV ×2 (05:58→14:59)
[2020-02-10 06:08] LABS: International Normalized Ratio 1.4; Prothrombin Time (Protime)PT. 16.3 SECONDS (11.7-14.9)
[2020-02-10] MEDS: Insulin Lispro 100 UNIT/ML INSULN.PEN SC (06:21)
[2020-02-10] MEDS: Amiodarone 360 MG in Dextrose 5% Viaflo Bag 192.8 ML 16.7 MG CONT INF (06:21)
[2020-02-10 06:24] LABS: Partial Thromboplast Time 56.6 Seconds (24.1-36.2)
--- NOTE | 2020-02-10 06:58 | NURSING ---
per Dr. Peña, called on-call hemodialysis rn, Karrie, to notify of patient needing dialysis this AM. Per Dr. Peña, pt has now developed rales, creatinine and BUN elevated, increased 3 kg in weight, received lasix with no diuresis. Karrie communicated that Kirstin hemodialysis rn is on her way and will see Tana first and contact entry manager.
--- NOTE | 2020-02-10 07:29 | PN_ITS ---
Subjective: Patient did okay overnight. Patient was able to be taken off of Levophed early this morning, but remains on amiodarone and heparin. Rate has been marginally controlled. Patient is currently on Precedex and fentanyl. There was some concern for decreased mental status overnight, but this did improve with decrease in Precedex. Patient did have a bowel movement overnight and has tolerated tube feeds. Patient did not receive hemodialysis yesterday. General: Alert, No apparent distress, - - Good vent synchrony. Appears stated age. HEENT: Atraumatic, PERRLA, EOMI, Normocephalic, - - Some scleral edema and injection noted. Oral: Moist Mucosa, No Gingival or Mucosal Lesions/ Ulcerations Neck: Supple, No Nodes, Trachea Midline, - - JVD noted. Lungs: No rhonchi, Diminished, Rales, Wheezes, - - Symmetric expansion. Cardiovascular: Normal S1, Normal S2, No murmurs, Irregular Rate, No rub noted, No Gallop, Tachycardic Abdomen: Bowel Sounds Present, Soft, Non Tender, Non-Distended, Obese Extremities: No clubbing, No cyanosis, Edema Skin: No rashes, No breakdown Musculoskeletal: No Tenderness to Palpation of Joints or Extremities Lymphatic: No Cervical, Supraclavicular, or Inguinal Adenopathy Neurological: Cranial nerves II-XII grossly intact, Neuro grossly intact Psych/Mental Status: Flat Affect Vital Signs Temp Pulse Resp BP Pulse Ox 38.1 C H 142 H 30 H 132/76 H 94 02/10/20 07:00 02/10/20 07:00 02/10/20 07:00 02/10/20 07:00 02/10/20 07:00 Oxygen Flow Rate (L/min) 50 Oxygen Delivery Method Mechanical Ventilator Weight: 76 kg Body Mass Index (BMI) 26.8 Finger Stick Blood Glucose 88 Intake and Output for Last 24 Hours 02/08/20 02/09/20 02/10/20 23:59 23:59 23:59 Intake Total 1758.61 / 1790.81 2858.60 / 2861.88 768.01 / 768.01 Output Total 675 / 675 445 / 445 25 / 25 Balance 1083.61 / 1115.81 2413.60 / 2416.88 743.01 / 743.01 Labs (Last 48 Hours) 02/08/20 02/08/20 02/08/20 06:13 09:30 09:30 WBC RBC Hgb Hct MCV MCH MCHC RDW Std Deviation RDW Coeff of Charlie Plt Count MPV PT INR APTT Sodium Potassium Chloride Carbon Dioxide Anion Gap BUN Creatinine Estim Creat Clear Calc Est GFR (MDRD) Af Amer Est GFR (MDRD) Non-Af BUN/Creatinine Ratio Glucose Calcium Total Bilirubin Direct Bilirubin AST ALT Alkaline Phosphatase Total Protein Albumin Globulin POC Glucose 132 H Blood Type O POSITIVE Antibody Screen NEGATIVE Crossmatch See Detail 02/08/20 02/08/20 02/08/20 10:20 12:22 17:37 WBC RBC Hgb Hct MCV MCH MCHC RDW Std Deviation RDW Coeff of Charlie Plt Count MPV PT INR APTT 56.0 H Sodium Potassium Chloride Carbon Dioxide Anion Gap BUN Creatinine Estim Creat Clear Calc Est GFR (MDRD) Af Amer Est GFR (MDRD) Non-Af BUN/Creatinine Ratio Glucose Calcium Total Bilirubin Direct Bilirubin AST ALT Alkaline Phosphatase Total Protein Albumin Globulin POC Glucose 124 H 122 H Blood Type Antibody Screen Crossmatch 02/08/20 02/08/20 02/09/20 18:00 23:12 00:45 WBC RBC Hgb Hct MCV MCH MCHC RDW Std Deviation RDW Coeff of Charlie Plt Count MPV PT INR APTT 47.6 H 56.0 H Sodium Potassium Chloride Carbon Dioxide Anion Gap BUN Creatinine Estim Creat Clear Calc Est GFR (MDRD) Af Amer Est GFR (MDRD) Non-Af BUN/Creatinine Ratio Glucose Calcium Total Bilirubin Direct Bilirubin AST ALT Alkaline Phosphatase Total Protein Albumin Globulin POC Glucose 145 H Blood Type Antibody Screen Crossmatch 02/09/20 02/09/20 02/09/20 03:45 03:45 03:45 WBC 20.8 H RBC 3.02 L Hgb 7.5 L Hct 23.9 L MCV 79.1 L MCH 24.8 L MCHC 31.4 L RDW Std Deviation 48.6 H RDW Coeff of Charlie 17.1 H Plt Count 181 MPV 10.8 PT 15.7 H INR 1.3 APTT Sodium 140 Potassium 4.0 Chloride 105 Carbon Dioxide 25.0 Anion Gap 10 BUN 51 H Creatinine 3.73 H Estim Creat Clear Calc 11.95 Est GFR (MDRD) Af Amer 15 L Est GFR (MDRD) Non-Af 13 L BUN/Creatinine Ratio 13.7 Glucose 118 H Calcium 7.9 L Total Bilirubin Direct Bilirubin AST ALT Alkaline Phosphatase Total Protein Albumin Globulin POC Glucose Blood Type Antibody Screen Crossmatch 02/09/20 02/09/20 02/09/20 05:37 08:30 13:10 WBC RBC Hgb Hct MCV MCH MCHC RDW Std Deviation RDW Coeff of Charlie Plt Count MPV PT INR APTT 51.7 H Sodium Potassium Chloride Carbon Dioxide Anion Gap BUN Creatinine Estim Creat Clear Calc Est GFR (MDRD) Af Amer Est GFR (MDRD) Non-Af BUN/Creatinine Ratio Glucose Calcium Total Bilirubin Direct Bilirubin AST ALT Alkaline Phosphatase Total Protein Albumin Globulin POC Glucose 122 H 134 H Blood Type Antibody Screen Crossmatch 02/09/20 02/09/20 02/09/20 16:39 16:55 23:11 WBC RBC Hgb Hct MCV MCH MCHC RDW Std Deviation RDW Coeff of Charlie Plt Count MPV PT INR APTT 62.3 H Sodium Potassium Chloride Carbon Dioxide Anion Gap BUN Creatinine Estim Creat Clear Calc Est GFR (MDRD) Af Amer Est GFR (MDRD) Non-Af BUN/Creatinine Ratio Glucose Calcium Total Bilirubin Direct Bilirubin AST ALT Alkaline Phosphatase Total Protein Albumin Globulin POC Glucose 181 H 135 H Blood Type Antibody Screen Crossmatch 02/09/20 02/10/20 02/10/20 23:15 03:50 03:50 WBC 20.1 H RBC 3.28 L Hgb 7.9 L Hct 26.5 L MCV 80.8 L MCH 24.1 L MCHC 29.8 L D RDW Std Deviation 51.4 H RDW Coeff of Charlie 18.3 H Plt Count 153 MPV 11.9 PT INR APTT 54.3 H Sodium 137 Potassium 4.3 Chloride 104 Carbon Dioxide 21.0 Anion Gap 12 BUN 68 H Creatinine 4.51 H Estim Creat Clear Calc 9.88 Est GFR (MDRD) Af Amer 12 L Est GFR (MDRD) Non-Af 10 L BUN/Creatinine Ratio 15.1 Glucose 136 H Calcium 8.2 L Total Bilirubin 1.00 Direct Bilirubin 0.75 H AST 72 H ALT 351 H Alkaline Phosphatase 129 H Total Protein 5.8 L Albumin 1.2 L Globulin 4.6 H POC Glucose Blood Type Antibody Screen Crossmatch 02/10/20 02/10/20 02/10/20 05:22 05:50 05:50 WBC RBC Hgb Hct MCV MCH MCHC RDW Std Deviation RDW Coeff of Charlie Plt Count MPV PT 16.3 H INR 1.4 APTT 56.6 H Sodium Potassium Chloride Carbon Dioxide Anion Gap BUN Creatinine Estim Creat Clear Calc Est GFR (MDRD) Af Amer Est GFR (MDRD) Non-Af BUN/Creatinine Ratio Glucose Calcium Total Bilirubin Direct Bilirubin AST ALT Alkaline Phosphatase Total Protein Albumin Globulin POC Glucose 159 H Blood Type Antibody Screen Crossmatch Microbiology 02/08/20 14:45 Sputum, Induced/Lukens Gram Stain - Final 02/08/20 14:45 Sputum, Induced/Lukens Respiratory Culture - Preliminary Possible Fungus 02/02/20 18:18 Blood Culture (Wb) #2 - No Site/Description Given Blood Culture - Final No growth in 5 days. 02/02/20 01:03 Blood Culture (Wb) #2 - Left Hand Blood Culture - Final No growth in 5 days. Clinical Impression(s) from Imaging Studies KUB X-Ray 02/08/20 15:40 IMPRESSION: Feeding tube is coiled in the esophagus with the tip at the gastroesophageal junction. Electronically Signed: Edwin Snowden MD at 9:24 EST , Service support , KUB X-Ray 02/08/20 15:44 IMPRESSION: Feeding tube extends to the gastroesophageal junction. Electronically Signed: Edwin Snowden MD at 9:31 EST , Service support , KUB X-Ray 02/08/20 15:49 IMPRESSION: Feeding tube is coiled in the esophagus with the tip at the gastroesophageal junction. Electronically Signed: Edwin Snowden MD at 9:30 EST , Service support , KUB X-Ray 02/08/20 15:55 IMPRESSION: Feeding tube extends to the gastroesophageal junction. Electronically Signed: dEwin Snowden MD at 9:29 EST , Service support , KUB X-Ray 02/08/20 16:01 IMPRESSION: Feeding tube extends to the gastroesophageal junction. Electronically Signed: Edwin Snowden MD at 9:28 EST , Service support , KUB X-Ray 02/08/20 16:06 IMPRESSION: Feeding tube is coiled in the esophagus with the tip at the gastroesophageal junction. Electronically Signed: Edwin Snowden MD at 9:25 EST , Service support , KUB X-Ray 02/08/20 16:13 IMPRESSION: Feeding tube is coiled in the esophagus with the tip at the gastroesophageal junction. Electronically Signed: Edwin Snowden MD at 9:26 EST , Service support , Medical Necessity - Tobacco Use Smoking Status: Current every day smoker Tobacco Use: Cigarettes Assessment/Plan All Active Problems (Last Reviewed 01/03/20 @ 09:52 by Mercedes Smart) Respiratory failure (Acute) Pneumonia due to COVID-19 virus (Acute) Pneumonia (Acute) Bronchitis (Acute) History of total hip replacement (Resolved) History of total knee replacement (TKR) (Resolved) Tail bone pain (Acute) Hx of bilateral hip replacements (Resolved) History and physical examination, immigration (Acute) GERD (gastroesophageal reflux disease) (Acute) Fatigue (Acute) Dyspnea on minimal exertion (Acute) Ankle fracture, right (Acute) Actinic keratitis (Acute) Weakness (Acute) RECOMMENDATIONS: 1. Continue current supportive measures with invasive mechanical ventilatory support. Wean FiO2 to maintain oxygen saturations at or above 90%. 2. Continue fentanyl and Precedex for sedation. Continue Seroquel as well. 3. Continue to titrate up beta-maeve as necessary 4. Okay to continue with amiodarone for now. Possible transition to p.o in 24 to 48 hours. 5. Continue scheduled bronchodilators. 6. Continue antimicrobials per ID recommendations. 7. Continue Decadron to complete treatment course. 8. Continue heparin infusion. IMPRESSIONS: 1. Acute hypoxemic respiratory failure secondary to COVID-19 pneumonia Plan to continue current supportive measures including invasive mechanical ventilatory support, with a goal to wean FiO2 and PEEP to maintain oxygen saturations at or above 90%. Although the patient was initially extubated on the morning of February 06, she subsequently declined from a respiratory perspective and required reintubation. Therefore, we will plan to continue current supportive measures including antimicrobials, bronchodilators and Decadron. Patient significantly up in weight over the last 24 hours with increasing creatinine. Patient would benefit from volume removal in my perspective. Patient does have significant decrease in albumin, facilitating significant third spacing. 2. Septic shock Concern for Covid as precipitating etiology versus possible community- acquired pneumonia as well. Continue empiric antimicrobials as noted above. The patient remains off of vasopressor support. 3. Atrial fibrillation with RVR Continue current medical management including systemic anticoagulation, Cardizem and beta-maeve. Patient's beta-maeve will be increased as tolerated. 4. Acute liver injury Improving. Suspect related to hemodynamic instability with subsequent shock liver. Continue supportive measures as noted above. 5. Acute kidney injury Likely prerenal in etiology with a component of ischemic ATN in the setting of septic shock. The patient did tolerate dialysis with some improvement in urine output initially, but appears to be oliguric at this time. Nephrology is currently following to assist with ongoing hemodialysis needs. 6. History of DVT/chronic anticoagulation status with presenting coagulopathy Plan to continue systemic anticoagulation with continuous heparin infusion. TIME: 40 minutes of critical care time, independent of procedures, was spent addressing the patient's acute hypoxemic respiratory failure secondary to Covid pneumonia, septic shock, atrial fibrillation with RVR, acute kidney injury, acute liver injury, history of DVT, review of all data and collaboration with the care team. (6 AM to 7 AM) [phone]: [id number] Critical care first hour
[2020-02-10] MEDS: HEPARIN/D5w 25,000 UNITS 25,000 UNITS/250 ML IV.SOLN. 9 UNITS IV (09:13)
[2020-02-10] MEDS: Furosemide 40 MG/4 ML Vial IV (10:19)
[2020-02-10] MEDS: QUEtiapine 25 MG Tablet GT (10:19)
[2020-02-10] MEDS: Chlorhexidine 15 ML PO (10:19)
[2020-02-10] MEDS: Metoprolol Tartrate 50 MG Tablet PO (10:20)
--- NOTE | 2020-02-10 11:08 | PN.RENAL_ITS ---
Patient Problems: Active and Suspected Problems (Last Reviewed 01/03/20 @ 09:52 by Mercedes Smart) Respiratory failure (Acute) Pneumonia due to COVID-19 virus (Acute) Subjective: cannot do ROS because the patient is intubated and sedated Objective: Physical examination deferred to preserve PPE and prevent further transmission of COVID-19 - Physical Exam Vitals/I&O's: Vital Signs Temp Pulse Resp BP Pulse Ox 100.5 F H 113 H 30 H 129/72 H 94 02/10/20 07:00 02/10/20 10:20 02/10/20 07:20 02/10/20 10:20 02/10/20 07:20 Oxygen Flow Rate (L/min) 50 Oxygen Delivery Method Mechanical Ventilator Weight: 76 kg Body Mass Index (BMI) 26.8 Finger Stick Blood Glucose 88 Intake and Output for Last 24 Hours 02/08/20 02/09/20 02/10/20 23:59 23:59 23:59 Intake Total 1758.61 / 1790.81 2858.60 / 2861.88 907.44 / 907.44 Output Total 675 / 675 445 / 445 50 / 50 Balance 1083.61 / 1115.81 2413.60 / 2416.88 857.44 / 857.44 Microbiology Past 72 Hours 02/08/20 14:45 Sputum, Induced/Lukens Gram Stain - Final 02/08/20 14:45 Sputum, Induced/Lukens Respiratory Culture - Preliminary Possible Fungus 02/02/20 18:18 Blood Culture (Wb) #2 - No Site/Description Given Blood Culture - Final No growth in 5 days. 02/02/20 01:03 Blood Culture (Wb) #2 - Left Hand Blood Culture - Final No growth in 5 days. 02/03/20 07:40 Sputum, Induced/Lukens Gram Stain - Final 02/03/20 07:40 Sputum, Induced/Lukens Respiratory Culture - Preliminary Possible Fungus Laboratory Results 02/09/20 13:10: POC Glucose 134 H 02/09/20 16:39: POC Glucose 181 H 02/09/20 16:55: APTT 62.3 H 02/09/20 23:11: POC Glucose 135 H 02/09/20 23:15: APTT 54.3 H 02/10/20 03:50: WBC 20.1 H, RBC 3.28 L, Hgb 7.9 L, Hct 26.5 L, MCV 80.8 L, MCH 24.1 L, MCHC 29.8 L D, RDW Std Deviation 51.4 H, RDW Coeff of Charlie 18.3 H, Plt Count 153, MPV 11.9 02/10/20 03:50: Sodium 137, Potassium 4.3, Chloride 104, Carbon Dioxide 21.0, Anion Gap 12, BUN 68 H, Creatinine 4.51 H, Estim Creat Clear Calc 9.88, Est GFR (MDRD) Af Amer 12 L, Est GFR (MDRD) Non-Af 10 L, BUN/Creatinine Ratio 15.1, Glucose 136 H, Calcium 8.2 L, Total Bilirubin 1.00, Direct Bilirubin 0.75 H, AST 72 H, ALT 351 H, Alkaline Phosphatase 129 H, Total Protein 5.8 L, Albumin 1.2 L, Globulin 4.6 H 02/10/20 05:22: POC Glucose 159 H 02/10/20 05:50: PT 16.3 H, INR 1.4 02/10/20 05:50: APTT 56.6 H Current Medications Albuterol Sulfate (Albuterol 2.5 Mg/3 Ml Vial.Neb.) 2.5 mg INHALATION Q2H PRN PRN PRN Reason: SOB/Wheezing Last Admin: 02/09/20 01:43 Dose: 2.5 mg Documented by: Albuterol/Ipratropium (Ipratropium/Albuterol Sulfate 3 Ml Ampul.Neb) 3 ml INHALATION Q4HWA.RT REPLACED BY [facility] Last Admin: 02/09/20 18:14 Dose: 3 ml Documented by: Chlorhexidine Gluconate (Chlorhexidine 15 Ml) 15 ml PO BID REPLACED BY [facility] Last Admin: 02/10/20 10:19 Dose: 15 ml Documented by: Dextrose (Dextrose 50%-Water 25 Gm/50 Ml Disp.Syrin) 0 gm IV X1 PRN; Protocol PRN Reason: Hypoglycemia Furosemide (Furosemide 40 Mg/4 Ml Vial) 40 mg IV BID@1000,1800 REPLACED BY [facility] Last Admin: 02/10/20 10:19 Dose: 40 mg Documented by: Glucagon (Glucagon 1 Mg/Ml Syringe) 1 mg IM .X1 PRN PRN Reason: Hypoglycemia Heparin Sodium (Porcine) (Heparin Injection (Vial) 5,000 Unit/Ml Vial) 0 unit IV UD PRN; Protocol PRN Reason: dose adjustment Last Admin: 02/09/20 10:25 Dose: 1,000 unit Documented by: Sodium Chloride () 250 mls @ 15 mls/hr IV .[id number] PRN PRN Reason: Saline Flush Last Infusion: 02/08/20 07:00 Dose: 0 mls/hr Documented by: Sodium Chloride () 250 mls @ 15 mls/hr IV .[id number] PRN PRN Reason: Additional IVPB Infusion Pantoprazole Sodium 40 mg/ (Sodium Chloride) 110 mls @ 330 mls/hr IV Q12 [facility]IL[facility] Last Admin: 02/10/20 10:38 Dose: 330 mls/hr Documented by: Heparin Sodium/Dextrose () 25,000 units in 250 mls @ 11 mls/hr IV .[id number] LILA; Protocol Last Admin: 02/10/20 09:13 Dose: 900 units/hr, 9 mls/hr Documented by: Piperacillin Sod/Tazobactam (Sod 3.375 gm/ Sodium Chloride) 50 mls @ 12.5 mls/hr IV Q12 LILA Last Infusion: 02/10/20 02:42 Dose: Infused Documented by: Fentanyl Citrate 1,000 mcg/ (Sodium Chloride) 100 mls @ 5 mls/hr CONT INF .Q20H [facility]ILA; Protocol Last Admin: 02/10/20 09:12 Dose: 150 mcg/hr, 15 mls/hr Documented by: Enteral Nutritional Formula (Vital Af 1.2 Georgi Liquid) 1,000 mls @ 60 mls/hr GT .[id number] [facility]IL[facility] Last Admin: 02/10/20 04:46 Dose: Not Given Documented by: Dexmedetomidine HCl 1,000 mcg/ (Sodium Chloride) 250 mls @ 9.5 mls/hr CONT INF .[id number] [facility]IL[facility]; Protocol Last Titration: 02/10/20 07:00 Dose: 0.9 mcg/kg/hr, 17.1 mls/hr Documented by: Norepinephrine Bitartrate 8 mg (/ Sodium Chloride) 250 mls @ 9.375 mls/hr CONT INF .[id number] [facility]ILA; Protocol Last Titration: 02/10/20 07:00 Dose: 0 mcg/min, 0 mls/hr Documented by: Insulin Human Lispro (Insulin Lispro 100 Unit/Ml Insuln.Pen) 0 unit SC Q6 REPLACED BY [facility]; Protocol Last Admin: 02/10/20 06:21 Dose: 1 unit Documented by: Metoprolol Tartrate (Metoprolol Tartrate 50 Mg Tablet) 50 mg PO BID REPLACED BY [facility] Last Admin: 02/10/20 10:20 Dose: 50 mg Documented by: Multi-Ingredient Cream (Petrolatum,White 3.75gm Opth.Tube) 1 applic OPHTHALMIC TID REPLACED BY [facility] Ondansetron HCl (Ondansetron 4 Mg/2 Ml Vial) 4 mg IV Q8H PRN PRN PRN Reason: NAUSEA/VOMITING Quetiapine Fumarate (Quetiapine 25 Mg Tablet) 25 mg GT BID REPLACED BY [facility] Last Admin: 02/10/20 10:19 Dose: 25 mg Documented by: Senna/Docusate Sodium (Senna/Docusate Sodium 1 Tablet) 2 tablet GT BID PRN PRN PRN Reason: Constipation Sodium Chloride (0.9% Saline Lock 10 Ml Syringe) 10 - 40 ml IV UD PRN PRN Reason: SALINE FLUSH Last Admin: 02/09/20 21:39 Dose: 40 ml Documented by: Medical Necessity - Tobacco Use Smoking Status: Current every day smoker Tobacco Use: Cigarettes Assessment/Plan All Active Problems (Last Reviewed 01/03/20 @ 09:52 by Mercedes Smart) Respiratory failure (Acute) Pneumonia due to COVID-19 virus (Acute) Pneumonia (Acute) Bronchitis (Acute) History of total hip replacement (Resolved) History of total knee replacement (TKR) (Resolved) Tail bone pain (Acute) Hx of bilateral hip replacements (Resolved) History and physical examination, immigration (Acute) GERD (gastroesophageal reflux disease) (Acute) Fatigue (Acute) Dyspnea on minimal exertion (Acute) Ankle fracture, right (Acute) Actinic keratitis (Acute) Weakness (Acute) DOROTHY ATN with COVID-19 and shock Respiratory failure multifactorial s/p intubation COVID-19 pneumonia COPD Shock Shock liver On Levophed 5 mcg. Dialysis today UF as tolerated with titration of Levophed as needed. Depending on UF today might repeat dialysis tomorrow avoid nephrotoxins keep MAP>65 dose abx per pharmacy d/w rn and hd rn
[2020-02-10 12:00] LABS: Allen Test Positive; Base Excess -8 mmol/L (-2 to +2); Bicarbonate 20.3 mmol/L (22-26); Blood Gas Specimen Type ART; FI02 80; Mode AC; O2 Delivery Device Adult Vent; PEEP 5; PO2 64 mmHG (75-100); RR 14; SITE L Radial; SO2 87 % (95-99); Total Carbon Dioxide 22 mmol/L; Vt 450; pCO2 49.6 mmHg (35-45); pH 7.22 (7.35-7.45)
[2020-02-10 12:03] LABS: Partial Thromboplast Time 70.2 Seconds (24.1-36.2)
[2020-02-10] MEDS: Dexmedetomidine 1,000 mcg in 0.9% NS 240 mL 17.1 MCG CONT INF (12:04)
[2020-02-10 12:05] LABS: Anion Gap 11 (5-15); BUN 72 mg/dL (7-18); BUN/Creat Ratio 15.2 RATIO (10-20); Chloride 107 mmol/L (98-107); Creatinine, Serum 4.75 mg/dL (0.55-1.02); EST Glomerular Filtration Rate 10 mL/min (>60); Est Glom Filt Rate - Afr Amer 12 mL/min (>60); Estimated Creatinine Clearance 9.38 ml/min; Glucose 122 mg/dL (74-106); Potassium 4.4 mmol/L (3.5-5.1); Sodium Level 140 mmol/L (136-145)
[2020-02-10 12:26] LABS: Lactic Acid 1.5 mmol/L (0.4-1.9)
--- NOTE | 2020-02-10 12:35 | CASEMGMT ---
RN CM Note: participated in ICU interdisciplinary rounds, Patient remains intubated and on ventilator @ 65% oxygen. Failed mobility, however per physician PT to work with patient today. Dialysis today. Remains on amio gtt, heparin gtt. Discharge planning deferred. Anticipate will need SNF vs [facility]. Umberto LOJAN RN ACM
--- NOTE | 2020-02-10 12:55 | CPS ---
Verbal order for ABG given by Dr. Peña
--- NOTE | 2020-02-10 12:56 | CPS ---
Pt.'s FiO2 and PEEP both increased to meet pt.'s oxygenation needs
[2020-02-10 14:26] LABS: Bedside Glucose 127 mg/dL (70-110)
--- NOTE | 2020-02-10 15:10 | PCM.PN.ID ---
Patient Problems: Active and Suspected Problems (Last Reviewed 01/03/20 @ 09:52 by Mercedes Smart) Respiratory failure (Acute) Pneumonia due to COVID-19 virus (Acute) Subjective: On vent, HD today - Physical Exam Vitals/I&O's: Vital Signs Temp Pulse Resp BP Pulse Ox 100.8 F H 135 H 21 H 94/34 L 92 02/10/20 11:00 02/10/20 15:00 02/10/20 15:00 02/10/20 15:00 02/10/20 15:00 Oxygen Flow Rate (L/min) 50 Oxygen Delivery Method Mechanical Ventilator Weight: 76 kg Body Mass Index (BMI) 26.8 Finger Stick Blood Glucose 88 Intake and Output for Last 24 Hours 02/08/20 02/09/20 02/10/20 23:59 23:59 23:59 Intake Total 1758.61 / 1790.81 2858.60 / 2861.88 1560.89 / 1560.89 Output Total 675 / 675 445 / 445 50 / 50 Balance 1083.61 / 1115.81 2413.60 / 2416.88 1510.89 / 1510.89 General: Non-Cooperative Lungs: Diminished, Rhonchi Cardiovascular: Tachycardic Abdomen: Soft, Non Tender, Non-Distended Skin: No rashes Microbiology Past 72 Hours 02/08/20 14:45 Sputum, Induced/Lukens Gram Stain - Final 02/08/20 14:45 Sputum, Induced/Lukens Respiratory Culture - Preliminary Possible Fungus 02/02/20 18:18 Blood Culture (Wb) #2 - No Site/Description Given Blood Culture - Final No growth in 5 days. 02/02/20 01:03 Blood Culture (Wb) #2 - Left Hand Blood Culture - Final No growth in 5 days. Laboratory Results 02/09/20 13:10: POC Glucose 134 H 02/09/20 16:39: POC Glucose 181 H 02/09/20 16:55: APTT 62.3 H 02/09/20 23:11: POC Glucose 135 H 02/09/20 23:15: APTT 54.3 H 02/10/20 03:50: WBC 20.1 H, RBC 3.28 L, Hgb 7.9 L, Hct 26.5 L, MCV 80.8 L, MCH 24.1 L, MCHC 29.8 L D, RDW Std Deviation 51.4 H, RDW Coeff of Charlie 18.3 H, Plt Count 153, MPV 11.9 02/10/20 03:50: Sodium 137, Potassium 4.3, Chloride 104, Carbon Dioxide 21.0, Anion Gap 12, BUN 68 H, Creatinine 4.51 H, Estim Creat Clear Calc 9.88, Est GFR (MDRD) Af Amer 12 L, Est GFR (MDRD) Non-Af 10 L, BUN/Creatinine Ratio 15.1, Glucose 136 H, Calcium 8.2 L, Total Bilirubin 1.00, Direct Bilirubin 0.75 H, AST 72 H, ALT 351 H, Alkaline Phosphatase 129 H, Total Protein 5.8 L, Albumin 1.2 L, Globulin 4.6 H 02/10/20 05:22: POC Glucose 159 H 02/10/20 05:50: PT 16.3 H, INR 1.4 02/10/20 05:50: APTT 56.6 H 02/10/20 11:21: POC Glucose 127 H 02/10/20 11:45: APTT 70.2 H 02/10/20 11:45: Sodium 140, Potassium 4.4, Chloride 107, Carbon Dioxide 22.0, Anion Gap 11, BUN 72 H, Creatinine 4.75 H, Estim Creat Clear Calc 9.38, Est GFR (MDRD) Af Amer 12 L, Est GFR (MDRD) Non-Af 10 L, BUN/Creatinine Ratio 15.2, Glucose 122 H, Calcium 8.0 L 02/10/20 11:45: Lactic Acid 1.5 02/10/20 11:56: Specimen Type ART, Sample Site L Radial, pH 7.22 L, Bicarbonate Actual 20.3 L, Total CO2 22, Base Excess -8 L, O2 Saturation 87 L, O2 % 80, ABG pCO2 49.6 H, ABG pO2 64 L, Will Test Positive, Respiration Rate 14, O2 Delivery Device Adult Vent, Vent Mode AC, Tidal Volume 450, POC PEEP 5 Current Medications Albuterol Sulfate (Albuterol 2.5 Mg/3 Ml Vial.Neb.) 2.5 mg INHALATION Q2H PRN PRN PRN Reason: SOB/Wheezing Last Admin: 02/09/20 01:43 Dose: 2.5 mg Documented by: Albuterol/Ipratropium (Ipratropium/Albuterol Sulfate 3 Ml Ampul.Neb) 3 ml INHALATION Q4HWA.RT [facility] Last Admin: 02/09/20 18:14 Dose: 3 ml Documented by: Chlorhexidine Gluconate (Chlorhexidine 15 Ml) 15 ml PO BID [facility] Last Admin: 02/10/20 10:19 Dose: 15 ml Documented by: Dextrose (Dextrose 50%-Water 25 Gm/50 Ml Disp.Syrin) 0 gm IV X1 PRN; Protocol PRN Reason: Hypoglycemia Furosemide (Furosemide 40 Mg/4 Ml Vial) 40 mg IV BID@1000,1800 [facility] Last Admin: 02/10/20 10:19 Dose: 40 mg Documented by: Glucagon (Glucagon 1 Mg/Ml Syringe) 1 mg IM .X1 PRN PRN Reason: Hypoglycemia Heparin Sodium (Porcine) (Heparin Injection (Vial) 5,000 Unit/Ml Vial) 0 unit IV UD PRN; Protocol PRN Reason: dose adjustment Last Admin: 02/09/20 10:25 Dose: 1,000 unit Documented by: Sodium Chloride () 250 mls @ 15 mls/hr IV .[id number] PRN PRN Reason: Saline Flush Last Infusion: 02/08/20 07:00 Dose: 0 mls/hr Documented by: Sodium Chloride () 250 mls @ 15 mls/hr IV .[id number] PRN PRN Reason: Additional IVPB Infusion Pantoprazole Sodium 40 mg/ (Sodium Chloride) 110 mls @ 330 mls/hr IV Q12 [facility] Last Infusion: 02/10/20 11:20 Dose: Infused Documented by: Heparin Sodium/Dextrose () 25,000 units in 250 mls @ 11 mls/hr IV .[id number] [facility]; Protocol Last Titration: 02/10/20 12:00 Dose: 900 units/hr, 9 mls/hr Documented by: Piperacillin Sod/Tazobactam (Sod 3.375 gm/ Sodium Chloride) 50 mls @ 12.5 mls/hr IV Q12 [facility] Last Admin: 02/10/20 13:13 Dose: 12.5 mls/hr Documented by: Fentanyl Citrate 1,000 mcg/ (Sodium Chloride) 100 mls @ 5 mls/hr CONT INF .Q20H [facility]; Protocol Last Titration: 02/10/20 15:00 Dose: 150 mcg/hr, 15 mls/hr Documented by: Enteral Nutritional Formula (Vital Af 1.2 Georgi Liquid) 1,000 mls @ 60 mls/hr GT .[id number] [facility] Last Admin: 02/10/20 04:46 Dose: Not Given Documented by: Dexmedetomidine HCl 1,000 mcg/ (Sodium Chloride) 250 mls @ 9.5 mls/hr CONT INF .[id number] [facility]; Protocol Last Titration: 02/10/20 15:00 Dose: 0.9 mcg/kg/hr, 17.1 mls/hr Documented by: Norepinephrine Bitartrate 8 mg (/ Sodium Chloride) 250 mls @ 9.375 mls/hr CONT INF .[id number] [facility]; Protocol Last Titration: 02/10/20 15:00 Dose: 40 mcg/min, 75 mls/hr Documented by: Amiodarone HCl 360 mg/ (Dextrose) 200 mls @ 16.667 mls/hr CONT INF .Q12H [facility] Insulin Human Lispro (Insulin Lispro 100 Unit/Ml Insuln.Pen) 0 unit SC Q6 [facility]; Protocol Last Admin: 02/10/20 11:23 Dose: Not Given Documented by: Metoprolol Tartrate (Metoprolol Tartrate 50 Mg Tablet) 50 mg PO BID [facility] Last Admin: 02/10/20 10:20 Dose: 50 mg Documented by: Multi-Ingredient Cream (Petrolatum,White 3.75gm Opth.Tube) 1 applic OPHTHALMIC TID [facility] Ondansetron HCl (Ondansetron 4 Mg/2 Ml Vial) 4 mg IV Q8H PRN PRN PRN Reason: NAUSEA/VOMITING Quetiapine Fumarate (Quetiapine 25 Mg Tablet) 25 mg GT BID [facility] Last Admin: 02/10/20 10:19 Dose: 25 mg Documented by: Senna/Docusate Sodium (Senna/Docusate Sodium 1 Tablet) 2 tablet GT BID PRN PRN PRN Reason: Constipation Sodium Chloride (0.9% Saline Lock 10 Ml Syringe) 10 - 40 ml IV UD PRN PRN Reason: SALINE FLUSH Last Admin: 02/09/20 21:39 Dose: 40 ml Documented by: Medical Necessity - Tobacco Use Smoking Status: Current every day smoker Tobacco Use: Cigarettes Route of nutrition/ use of supplements: [] Nutritional Intake: [] IV Site: [] Miles Catheter: [] - Assessment/Plan Antibiotics: [] Assessment/Plan: [] Active and Suspected Problems (Last Reviewed 01/03/20 @ 09:52 by Mercedes Smart) Respiratory failure (Acute) Pneumonia due to COVID-19 virus (Acute) septic shock with DOROTHY, resp failure, massive transaminitis, and covid - dx 01/30/20 at [facility]. D-dimer was just above normal limit there. Lactate 11.9 here, ALT 16k, d-dimer 5.6 here, INR 7.7. On dex IV. CT with ? gallbladder inflammation. Cont zosyn. LFT better. Sputum with some fungus seen. Off pressors. Unable to do remdesivir due to high ALT. Will check fungal serologies. Will follow
--- NOTE | 2020-02-10 15:30 | NURSING ---
La, daughter/POA of patient took home all of patient belongings
--- NOTE | 2020-02-10 16:26 | DIALYSIS ---
Hemodiaysis treatment ended early due to patient having persistent hypotension, despite Levo drip increased, NS boluses given, and UF goal decreased to zero. Was on dialysis for 2 hours 32 minutes. Floor nurse, Terri, in room when taken off dialysis. Dr. Shabazz aware of shortened treatment.
[2020-02-10] MEDS: Petrolatum,White 3.75GM OPTH.TUBE 1 APPLIC OPHTHALMIC (16:47)
--- NOTE | 2020-02-10 17:01 | PCM.PN.HOSP ---
Patient Problems: Active and Suspected Problems (Last Reviewed 01/03/20 @ 09:52 by Mercedes Smart) Respiratory failure (Acute) Pneumonia due to COVID-19 virus (Acute) Subjective: Doing poorly. On 100% and 10 of PEEP. On levophed at 40 mcg. Not tolerating HD with BP. Discussed with POA-daughter and she understands that she is not doing well and would like to keep her comfortable. Vitals/I&O's: Vital Signs Temp Pulse Resp BP Pulse Ox 100.9 F H 131 H 21 H 85/49 L 92 02/10/20 12:00 02/10/20 15:15 02/10/20 15:00 02/10/20 15:15 02/10/20 15:00 Oxygen Flow Rate (L/min) 50 Oxygen Delivery Method Mechanical Ventilator Weight: 76 kg Body Mass Index (BMI) 26.8 Finger Stick Blood Glucose 88 Intake and Output for Last 24 Hours 02/08/20 02/09/20 02/10/20 23:59 23:59 23:59 Intake Total 1758.61 / 1790.81 2858.60 / 2861.88 1822.52 / 1822.52 Output Total 675 / 675 445 / 445 50 / 50 Balance 1083.61 / 1115.81 2413.60 / 2416.88 1772.52 / 1772.52 General: Lethargic, - - INtubated and sedated carping on vent HEENT: Atraumatic, Normocephalic, - - ETT Oral: Moist Mucosa, No Gingival or Mucosal Lesions/ Ulcerations Neck: Supple, Trachea Midline, Thyroid Normal Size and Texture Lungs: No wheeze, Diminished, Rales, Rhonchi Cardiovascular: Normal S1, No murmurs, No Ectopic Activity, No rub noted, No Gallop, Tachycardic Abdomen: Soft, Non Tender, Hypoactive Bowel Sounds, No hernias noted Extremities: No clubbing, No cyanosis, Edema - all 4 ext pitting Skin: No rashes, No breakdown, - - pale Musculoskeletal: No Tenderness to Palpation of Joints or Extremities, No Muscle Wasting, Arthritic Changes Lymphatic: No Cervical, Supraclavicular, or Inguinal Adenopathy Neurological: - - intubated sedated and on vent, unresponive Psych/Mental Status: - - unable to assess Microbiology Past 72 Hours 02/08/20 14:45 Sputum, Induced/Lukens Gram Stain - Final 02/08/20 14:45 Sputum, Induced/Lukens Respiratory Culture - Preliminary Possible Fungus 02/02/20 18:18 Blood Culture (Wb) #2 - No Site/Description Given Blood Culture - Final No growth in 5 days. 02/02/20 01:03 Blood Culture (Wb) #2 - Left Hand Blood Culture - Final No growth in 5 days. Laboratory Results 02/09/20 16:55: APTT 62.3 H 02/09/20 23:11: POC Glucose 135 H 02/09/20 23:15: APTT 54.3 H 02/10/20 03:50: WBC 20.1 H, RBC 3.28 L, Hgb 7.9 L, Hct 26.5 L, MCV 80.8 L, MCH 24.1 L, MCHC 29.8 L D, RDW Std Deviation 51.4 H, RDW Coeff of Charlie 18.3 H, Plt Count 153, MPV 11.9 02/10/20 03:50: Sodium 137, Potassium 4.3, Chloride 104, Carbon Dioxide 21.0, Anion Gap 12, BUN 68 H, Creatinine 4.51 H, Estim Creat Clear Calc 9.88, Est GFR (MDRD) Af Amer 12 L, Est GFR (MDRD) Non-Af 10 L, BUN/Creatinine Ratio 15.1, Glucose 136 H, Calcium 8.2 L, Total Bilirubin 1.00, Direct Bilirubin 0.75 H, AST 72 H, ALT 351 H, Alkaline Phosphatase 129 H, Total Protein 5.8 L, Albumin 1.2 L, Globulin 4.6 H 02/10/20 05:22: POC Glucose 159 H 02/10/20 05:50: PT 16.3 H, INR 1.4 02/10/20 05:50: APTT 56.6 H 02/10/20 11:21: POC Glucose 127 H 02/10/20 11:45: APTT 70.2 H 02/10/20 11:45: Sodium 140, Potassium 4.4, Chloride 107, Carbon Dioxide 22.0, Anion Gap 11, BUN 72 H, Creatinine 4.75 H, Estim Creat Clear Calc 9.38, Est GFR (MDRD) Af Amer 12 L, Est GFR (MDRD) Non-Af 10 L, BUN/Creatinine Ratio 15.2, Glucose 122 H, Calcium 8.0 L 02/10/20 11:45: Lactic Acid 1.5 02/10/20 11:56: Specimen Type ART, Sample Site L Radial, pH 7.22 L, Bicarbonate Actual 20.3 L, Total CO2 22, Base Excess -8 L, O2 Saturation 87 L, O2 % 80, ABG pCO2 49.6 H, ABG pO2 64 L, Will Test Positive, Respiration Rate 14, O2 Delivery Device Adult Vent, Vent Mode AC, Tidal Volume 450, POC PEEP 5 02/10/20 15:10: Hep Bs Antigen Pending Current Medications Albuterol Sulfate (Albuterol 2.5 Mg/3 Ml Vial.Neb.) 2.5 mg INHALATION Q2H PRN PRN PRN Reason: SOB/Wheezing Last Admin: 02/09/20 01:43 Dose: 2.5 mg Documented by: Albuterol/Ipratropium (Ipratropium/Albuterol Sulfate 3 Ml Ampul.Neb) 3 ml INHALATION Q4HWA.RT [facility] Last Admin: 02/09/20 18:14 Dose: 3 ml Documented by: Chlorhexidine Gluconate (Chlorhexidine 15 Ml) 15 ml PO BID [facility] Last Admin: 02/10/20 10:19 Dose: 15 ml Documented by: Dextrose (Dextrose 50%-Water 25 Gm/50 Ml Disp.Syrin) 0 gm IV X1 PRN; Protocol PRN Reason: Hypoglycemia Furosemide (Furosemide 40 Mg/4 Ml Vial) 40 mg IV BID@1000,1800 [facility] Last Admin: 02/10/20 10:19 Dose: 40 mg Documented by: Glucagon (Glucagon 1 Mg/Ml Syringe) 1 mg IM .X1 PRN PRN Reason: Hypoglycemia Heparin Sodium (Porcine) (Heparin Injection (Vial) 5,000 Unit/Ml Vial) 0 unit IV UD PRN; Protocol PRN Reason: dose adjustment Last Admin: 02/09/20 10:25 Dose: 1,000 unit Documented by: Sodium Chloride () 250 mls @ 15 mls/hr IV .[id number] PRN PRN Reason: Saline Flush Last Infusion: 02/08/20 07:00 Dose: 0 mls/hr Documented by: Sodium Chloride () 250 mls @ 15 mls/hr IV .[id number] PRN PRN Reason: Additional IVPB Infusion Pantoprazole Sodium 40 mg/ (Sodium Chloride) 110 mls @ 330 mls/hr IV Q12 [facility] Last Infusion: 02/10/20 11:20 Dose: Infused Documented by: Heparin Sodium/Dextrose () 25,000 units in 250 mls @ 11 mls/hr IV .[id number] [facility]; Protocol Last Titration: 02/10/20 16:00 Dose: 900 units/hr, 9 mls/hr Documented by: Piperacillin Sod/Tazobactam (Sod 3.375 gm/ Sodium Chloride) 50 mls @ 12.5 mls/hr IV Q12 [facility] Last Admin: 02/10/20 13:13 Dose: 12.5 mls/hr Documented by: Fentanyl Citrate 1,000 mcg/ (Sodium Chloride) 100 mls @ 5 mls/hr CONT INF .Q20H [facility]; Protocol Last Admin: 02/10/20 16:06 Dose: 150 mcg/hr, 15 mls/hr Documented by: Enteral Nutritional Formula (Vital Af 1.2 Georgi Liquid) 1,000 mls @ 60 mls/hr GT .[id number] [facility] Last Admin: 02/10/20 04:46 Dose: Not Given Documented by: Dexmedetomidine HCl 1,000 mcg/ (Sodium Chloride) 250 mls @ 9.5 mls/hr CONT INF .[id number] [facility]; Protocol Last Titration: 02/10/20 16:45 Dose: 0 mcg/kg/hr, 0 mls/hr Documented by: Norepinephrine Bitartrate 8 mg (/ Sodium Chloride) 250 mls @ 9.375 mls/hr CONT INF .[id number] [facility]; Protocol Last Titration: 02/10/20 15:15 Dose: 40 mcg/min, 75 mls/hr Documented by: Amiodarone HCl 360 mg/ (Dextrose) 200 mls @ 16.667 mls/hr CONT INF .Q12H [facility] Insulin Human Lispro (Insulin Lispro 100 Unit/Ml Insuln.Pen) 0 unit SC Q6 [facility]; Protocol Last Admin: 02/10/20 11:23 Dose: Not Given Documented by: Metoprolol Tartrate (Metoprolol Tartrate 50 Mg Tablet) 50 mg PO BID [facility] Last Admin: 02/10/20 10:20 Dose: 50 mg Documented by: Multi-Ingredient Cream (Petrolatum,White 3.75gm Opth.Tube) 1 applic OPHTHALMIC TID [facility] Last Admin: 02/10/20 16:47 Dose: 1 applicatio Documented by: Ondansetron HCl (Ondansetron 4 Mg/2 Ml Vial) 4 mg IV Q8H PRN PRN PRN Reason: NAUSEA/VOMITING Quetiapine Fumarate (Quetiapine 25 Mg Tablet) 25 mg GT BID [facility] Last Admin: 02/10/20 10:19 Dose: 25 mg Documented by: Senna/Docusate Sodium (Senna/Docusate Sodium 1 Tablet) 2 tablet GT BID PRN PRN PRN Reason: Constipation Sodium Chloride (0.9% Saline Lock 10 Ml Syringe) 10 - 40 ml IV UD PRN PRN Reason: SALINE FLUSH Last Admin: 02/09/20 21:39 Dose: 40 ml Documented by: STROKE Vital Signs/Narrative: Vital Signs Pulse Resp BP Pulse Ox 02/10/20 15:15 131 H 85/49 L 02/10/20 15:00 135 H 21 H 94/34 L 92 02/10/20 14:45 131 H 67/31 L 02/10/20 14:30 141 H 22 H 58/40 L 87 02/10/20 14:15 142 H 65/34 L 02/10/20 14:10 136 H 19 H 91 02/10/20 14:00 131 H 24 H 98/47 L 82 02/10/20 13:45 115 H 116/53 L 02/10/20 13:30 106 H 102/52 L 02/10/20 13:15 108 H 96/55 L Medical Necessity - Tobacco Use Smoking Status: Current every day smoker Tobacco Use: Cigarettes Assessment/Plan All Active Problems (Last Reviewed 01/03/20 @ 09:52 by Mercedes Smart) Respiratory failure (Acute) Pneumonia due to COVID-19 virus (Acute) Pneumonia (Acute) Bronchitis (Acute) History of total hip replacement (Resolved) History of total knee replacement (TKR) (Resolved) Tail bone pain (Acute) Hx of bilateral hip replacements (Resolved) History and physical examination, immigration (Acute) GERD (gastroesophageal reflux disease) (Acute) Fatigue (Acute) Dyspnea on minimal exertion (Acute) Ankle fracture, right (Acute) Actinic keratitis (Acute) Weakness (Acute) ASSESSMENT Acute Hypoxic Respiratory Failure 2/2 COVID PNA -on PEEP 10 and FiO2 100% with SpO2 90-94% DOROTHY 2/2 ATN Septic Shock 2/2 Above Mixed Metabolic and Respiratory Acidosis Hyperglycemia 2/2 Steroid use Transaminitis Leukocytosis Anemia H/O DVT Afib with RVR COPD GERD H/O Hypertension OA PLAN -pt on Levo now at 40, unable to tolerated HD, Tachycardic, acidotic and on mech vent with PEEP of 10 and FiO2 of 100% which we have had to increase as the day has gone on -extensive discussion with her daughter and POA for HC [place] -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
[2020-02-10] MEDS: Midazolam 2 MG/2 ML Syringe 1 MG IV (18:56)
[2020-02-10] MEDS: HYDROmorphone 0.5 MG/0.5 ML SYRINGE IV (18:57)
--- NOTE | 2020-02-10 19:08 | CPS ---
TERMINAL WEAN ON 02/[address] MEI. DAUGHTER AT BEDSIDE.
--- NOTE | 2020-02-10 19:08 | NURSING ---
Daughter at bedside, RT arrived to terminally extubate the patient. Comfort medications of Versed 1mg and Dilaudid 0.5mg given, patient extubated at 1907 with daughter at bedside. Patient at 1916, no pulse felt, no audible heart beat and asystole on monitor. Time of verified by this RN and Janice Saldana RN.
--- NOTE | 2020-02-10 21:15 | NURSING ---
D/C'd palencia, RIJ triple lumen catheter, and left temporary dialysis cath.
[2020-02-11 10:04] LABS: Hepatitis B Surface Antigen Non-Reactive (Nonreactive)
--- NOTE | 2020-02-11 20:03 | PCM.DEATH ---
Preliminary Cause of Multisystem Organ Failure 2/2 COVID-19 Date of Admission: 02/02/20 Date of : 02/11/20 - Principle Diagnosis Acute Hypoxic Respiratory Failure 2/2 COVID PNA Problem List: Acute Hypoxic Respiratory Failure 2/2 COVID PNA -on PEEP 10 and FiO2 100% with SpO2 90-94% DOROTHY 2/2 ATN Septic Shock 2/2 Above Mixed Metabolic and Respiratory Acidosis Hyperglycemia 2/2 Steroid use Transaminitis Leukocytosis Anemia H/O DVT Afib with RVR COPD GERD H/O Hypertension OA Hospital Course Ms Flores was a 69 yo female who presented to [facility] on 02/02/2020 as a transfer from [facility] with SOB that had worsened over the 2 weeks prior to admission. She was intubated on on 02/01 after her FiO2 requirements had progressively gotten worse. She was started on Decadron but was unable to get Remdesivir 2/2 to her liver and renal failure. She was placed on a heparin ggt as well at admission. She was also continued on empiric abx. ID was consulted to assist in mgt. Her sCr did not improve and Nephrology was consulted on 02/03 and HD was started on 02/04. She was extubated for a brief period of time but required emergent intubation for hypoxia. An EGD guided NGT was placed on 02/07. The pt was restarted on levophed after intubation and on 02/09 had increasing O2 requirements and had been titirated up to 100% FiO2 and a PEEP of 10. She remained hypotensive and was on levophed at 40. Her pH was 7.22 on an ABG and HD was not able to be performed 2/2 to her BP. After d/w the daughter, she decided given her mother's multisystem organ failure and lack of any improvement to change her goals of care to [employer]. Family came in and the pt was terminally extubated. She 9 min after extubation at 1917.
== END 2020-02-10 19:17 | DRG 870 ==
PROVIDERS: Hospitalist; Internal Medicine; Internal Medicine Critical Care Medicine; Surgery; Admitting Provider Internal Medicine; PCP Family Medicine; Visit Provider Internal Medicine
PROC: 0DJ08ZZ Inspection of Upper Intestinal Tract, Via Natural or Artificial Opening Endoscopic (ICD-10-PCS; CPT 43235; principal; 2020-02-09 08:15)
DX: A41.89 Other specified sepsis (principal); U07.1 COVID-19; J12.89 Other viral pneumonia; J96.01 Acute respiratory failure with hypoxia; J96.02 Acute respiratory failure with hypercapnia; N17.0 Acute kidney failure with tubular necrosis; R65.21 Severe sepsis with septic shock; K72.00 Acute and subacute hepatic failure without coma; J44.0 Chronic obstructive pulmonary disease with (acute) lower respiratory infection; G93.40 Encephalopathy, unspecified; E87.4 Mixed disorder of acid-base balance; E87.0 Hyperosmolality and hypernatremia; I48.19 Other persistent atrial fibrillation; E46 Unspecified protein-calorie malnutrition; I10 Essential (primary) hypertension; Z86.718 Personal history of other venous thrombosis and embolism; K21.9 Gastro-esophageal reflux disease without esophagitis; F17.210 Nicotine dependence, cigarettes, uncomplicated; E86.0 Dehydration; E87.5 Hyperkalemia; R79.1 Abnormal coagulation profile; D63.8 Anemia in other chronic diseases classified elsewhere
CPT/HCPCS: 31500; 31720; 36600; 70450; 71045; 71250; 74018; 74176; 76705; 80048; 80053; 80076; 80202; 81002; 82550; 82803; 82962; 83605; 83735; 83880; 84100; 84145; 84478; 85014; 85018; 85025; 85027; 85379; 85610; 85730; 86850; 86900; 86901; 86902; 86920; 86922; 87040; 87070; 87077; 87086; 87107; 87205; 87340; 87449; 87633; 90937; 93005; 94002; 94003; 94640; 94660; 97110; 97162; 97166; 97530; 97535; 97802; 97803; 99251; J7040; J7050; P9017; A4216; C1751; C1752; G0257; G0463; J1940; J3010; J3490